=== PATIENT | male | born 1950 | race Caucasian/White ===

== ENCOUNTER 2020-09-05 11:36 | Outpatient (REF) | payer OTHER, SELFPAY ==
[2020-09-05 14:37] LABS: Creatinine Urine 120.22 mg/dL; Estimated Average Glucose 146 mg/dL; Hemoglobin A1c % 6.7 %; Microalbum/Creatinine Ratio Ur 18.2 ug/mg cr
[2020-09-05 14:38] LABS: Alanine Aminotransferase 21 U/L (0-40); Albumin Level 4.1 g/dL (3.5-5.0); Alkaline Phosphatase 78 U/L (39-117); Anion Gap 11 (12-20); Aspartate Amino Transferase 17 U/L (5-37); Bilirubin Direct 0.2 mg/dL (0.0-0.5); Bilirubin Total 0.7 mg/dL (0.0-1.0); Blood Urea Nitrogen 29 mg/dL (9-16); Calcium 9.7 mg/dL (8.4-10.2); Carbon Dioxide 32 mmol/L (22-29); Chloride 101 mmol/L (96-108); Estimated Glomerular Filt Rate 60; Glucose Random 122 mg/dL (60-115); Potassium 4.6 mmol/L (3.3-5.1); Sodium 139 mmol/L (135-145); Total Protein 6.9 g/dL (6.5-8.0)
[2020-09-06 04:51] LABS: LDL Cholesterol Direct 67 mg/dL (<100)
== END 2020-09-05 11:37 | disposition home or self-care (01) ==
LOC: HO.HMGCLDS 11:36
PROVIDERS: PCP Internal Medicine; Visit Provider Internal Medicine
DX: E13.9 Other specified diabetes mellitus without complications (principal); E78.9 Disorder of lipoprotein metabolism, unspecified; M25.511 Pain in right shoulder; E66.9 Obesity, unspecified; M17.11 Unilateral primary osteoarthritis, right knee; M25.522 Pain in left elbow; I10 Essential (primary) hypertension; N40.0 Benign prostatic hyperplasia without lower urinary tract symptoms
CPT/HCPCS: 36415; 80048; 80076; 82043; 83036; 83721

== ENCOUNTER 2020-09-25 07:22 | Outpatient (REF) | payer OTHER, SELFPAY ==
--- NOTE | ~2020-09-25 | XR_ITS ---
EXAMINATION: BILATERAL KNEE AP. RIGHT KNEE. CLINICAL INFORMATION: Knee pain. COMPARISON: None TECHNIQUE: AP bilateral knee 1 view. Right knee 2 views. FINDINGS: AP bilateral knee: There is total left knee prosthesis in satisfactory alignment. There is severe loss of medial and lateral compartment joint space with irregular appearing subchondral bone in the medial and lateral compartments with mild periapical spurring. Right knee: There is loss of patellofemoral compartment joint space with periapical spurring and minimal soft tissue swelling. There are enthesophytes along the anterior and posterior tibial plateau. No visible fracture or subluxation seen. XR/XR knee standing BI IMPRESSION: Severe degenerative changes tricompartment right knee with minimal is suprapatellar joint effusion. Total left knee prosthesis in satisfactory alignment.
--- NOTE | ~2020-09-25 | XR_ITS ---
EXAMINATION: BILATERAL KNEE AP. RIGHT KNEE. CLINICAL INFORMATION: Knee pain. COMPARISON: None TECHNIQUE: AP bilateral knee 1 view. Right knee 2 views. FINDINGS: AP bilateral knee: There is total left knee prosthesis in satisfactory alignment. There is severe loss of medial and lateral compartment joint space with irregular appearing subchondral bone in the medial and lateral compartments with mild periapical spurring. Right knee: There is loss of patellofemoral compartment joint space with periapical spurring and minimal soft tissue swelling. There are enthesophytes along the anterior and posterior tibial plateau. No visible fracture or subluxation seen. XR/XR knee RT 2V IMPRESSION: Severe degenerative changes tricompartment right knee with minimal is suprapatellar joint effusion. Total left knee prosthesis in satisfactory alignment.
== END 2020-09-25 07:23 | disposition home or self-care (01) ==
LOC: HO.HOSX 07:22
PROVIDERS: Visit Provider Orthopaedic Surgery
DX: M17.11 Unilateral primary osteoarthritis, right knee (principal); E13.9 Other specified diabetes mellitus without complications
CPT/HCPCS: 20610; 73560; 73565; 99212; J1100

== ENCOUNTER 2020-10-26 09:06 | Outpatient (REF) | payer OTHER, SELFPAY ==
--- NOTE | 2020-10-26 10:51 | ECG_ITS ---
Test Reason : Z01.810 PRE OP Blood Pressure : / mmHG Vent. Rate : 058 BPM Atrial Rate : 058 BPM P-R Int : 200 ms QRS Dur : 078 ms QT Int : 392 ms P-R-T Axes : 020 056 050 degrees QTc Int : 384 ms Sinus bradycardia with first degree AV block Otherwise normal ECG No previous ECGs available Referred By: Woody Fenton Electronically Signed By:Randolph Barakat
[2020-10-26 11:57] LABS: MANUAL DIFF FLAG NO
[2020-10-26 12:02] LABS: Basophils Absolute Auto 0.1 X10*3/uL (0.0-0.2); Basophils Percent Auto 0.6 % (0-2); Eosinophils Absolute Auto 0.1 X10*3/uL (0.0-0.4); Eosinophils Percent Auto 1.4 % (0-4); Hematocrit 43.4 % (42-52); Hemoglobin 14.8 g/dl (14.0-18.0); Imm Gran Abs Auto 0.03 X10*3/uL (0.00-0.03); Imm Gran Pct Auto 0.4 % (0.0-0.4); Lymphocytes Absolute Auto 2.9 X10*3/uL (1.2-4.9); Lymphocytes Percent Auto 33.7 % (20-40); Mean Corpuscular HGB Conc 34.1 g/dl (31.0-36.0); Mean Corpuscular Hemoglobin 31.4 pg (27.0-33.0); Mean Corpuscular Volume 91.9 fL (80-98); Mean Platelet Volume 11.2 fL (9.4-12.4); Monocytes Absolute Auto 0.7 X10*3/uL (0.1-1.2); Monocytes Percent Auto 8.1 % (2-11); Neutrophils Absolute Auto 4.8 X10*3/uL (2.0-8.3); Neutrophils Percent Auto 55.8 % (45-73); Platelet Count 209 X10*3/uL (160-400); Red Blood Count 4.72 X10*6/uL (4.60-5.80); Red Cell Distribution Width 12.7 % (11.0-16.0); White Blood Count 8.5 X10*3/uL (4.8-10.8)
[2020-10-26 12:35] LABS: Anion Gap 12 (12-20); Blood Urea Nitrogen 22 mg/dL (9-16); Calcium 9.2 mg/dL (8.4-10.2); Carbon Dioxide 28 mmol/L (22-29); Chloride 102 mmol/L (96-108); Estimated Glomerular Filt Rate > 60; Glucose Random 143 mg/dL (60-115); Potassium 4.3 mmol/L (3.3-5.1); Sodium 138 mmol/L (135-145)
[2020-10-26 12:54] LABS: Estimated Average Glucose 169 mg/dL; Hemoglobin A1c % 7.5 %
== END 2020-10-26 09:07 | disposition home or self-care (01) ==
LOC: HO.LAB 09:06
PROVIDERS: Visit Provider Orthopaedic Surgery
DX: Z01.810 Encounter for preprocedural cardiovascular examination (principal); Z01.812 Encounter for preprocedural laboratory examination
CPT/HCPCS: 36415; 80048; 83036; 85025; 93005

== ENCOUNTER → 2020-11-30 11:54 | Outpatient (BNVA) | payer OTHER, SELFPAY | PROVIDERS: PCP Internal Medicine; Visit Provider Physician Assistant | DX: M17.11 Unilateral primary osteoarthritis, right knee (principal) | CPT/HCPCS: 99212 ==

== ENCOUNTER 2020-12-05 10:40 | Inpatient (IN) | payer OTHER, SELFPAY ==
[2020-12-01 11:50] VITALS: BMI 33.7
--- NOTE | 2020-12-01 11:54 | HO.ANESPROP2 ---
Documented by User: Nelsyher Islasney 12/04/20 08:56 HPI - Anesthesia Eval Consult details Narrative: 70yo Right Knee Replacement Total PCP cleared Cardiac cleared [facility] Active Problems Active Problems: All Active Problems (Updated 11/30/20 @ 08:53 by Apolonia Rush) Pain in left elbow (Acute) Shoulder pain, right (Acute) First degree heart block (Acute) Pre-op evaluation (Acute) Arthritis of knee, right (Acute) Obesity (Acute) Diabetes 1.5, managed as type 2 (Acute) Prostate hypertrophy (Acute) Hypertension, essential (Acute) Lipid disorder (Acute) Osteoarthritis of right knee (Acute) Past Medical History Medical History Arthritis of knee, right COVID-19 vaccine administered CVA (cerebral vascular accident) Diabetes 1.5, managed as type 2 History of BPH Hypertension, essential Lipid disorder Myocardial infarction Obesity Osteoarthritis of right knee Prostate hypertrophy Family History Family History Father Cancer Mother CVD (cardiovascular disease) Brother No problems noted. Family history of problems with anesthesia: No Surgical History Surgical History H/O colonoscopy History of knee replacement procedure of left knee Hx of elbow surgery Hx of fusion of cervical spine Hx of hand surgery Hx of shoulder surgery History of Problems with Anesthesia: No Social History Social History Smoking Status: Former smoker Packs Per Day: 1 Cigarettes Per Day: 20.0 Years Smoked: 30 Narrative Narrative: No recent illness. Activity limited to pain. No SOB/CP at rest. Meds Allergies Allergy/AdvReac Type Severity Reaction Status Date / Time tramadol Allergy Intermediate rash Verified 11/29/20 12:34 Home Medications Medication Instructions Recorded Confirmed Last Taken Type aspirin 81 mg tablet,delayed 81 mg PO DAILY 04/28/20 12/01/20 11/26/20 History release acetaminophen [Mapap Arthritis 650 mg PO BID 11/30/20 11/30/20 Unknown History Pain] meloxicam 15 mg PO DAILY 11/30/20 12/01/20 11/26/20 History nitroglycerin 1 mg SUBLINGUAL Q5M PRN 11/30/20 11/30/20 Unknown History timolol maleate 1 drp OPHTHALMIC (EYE) BID 11/30/20 12/01/20 Unknown History sitagliptin [Januvia] 100 mg PO BEDTIME 12/01/20 12/01/20 Unknown History tamsulosin 0.4 mg PO BEDTIME 12/01/20 12/01/20 Unknown History Exam Exam Date and Time: December 01, 2020 1154 Pertinent Lab Results Pertinent Lab Results: Laboratory Tests 10/26/20 10/26/20 10:50 10:50 WBC 8.5 Hgb 14.8 Hct 43.4 Plt Count 209 Sodium 138 Potassium 4.3 Chloride 102 Carbon Dioxide 28 BUN 22 H Creatinine 1.00 Laboratory Tests 04/28/20 14:23 Hgb A1c (Clinic) 6.5 H Laboratory Last Values Nasal Screen MRSA (PCR) NEGATIVE (Negative) 12/01/20 12:30 Nasal S. aureus Screen POSITIVE (Negative) A 12/01/20 12:30 Nasal MRSA/S.aureus Interp SEE NOTE 12/01/20 12:30 Blood Type A Negative 12/01/20 13:05 Antibody Screen NEGATIVE 12/01/20 13:05 Narrative Narrative: EKG 10/2020 Vent. Rate : 058 BPM Atrial Rate : 058 BPM P-R Int : 200 ms QRS Dur : 078 ms QT Int : 392 ms P-R-T Axes : 020 056 050 degrees QTc Int : 384 ms Sinus bradycardia with first degree AV block Otherwise normal ECG No previous ECGs available Airway Mallampati Class: I TM Dist: >3cm Neck ROM: Full Denture: Upper Partial: Lower Heart: RRR Lungs: CTAB Assessment and Plan Assessment Anesthesia Assessment: Anesthesia Plan Discussed and PAT Visit Documented by User: Victor Manuel Arboleda MD 12/05/20 09:22 [facility] Past Medical History Medical History Arthritis of knee, right COVID-19 vaccine administered CVA (cerebral vascular accident) Diabetes 1.5, managed as type 2 History of BPH Hypertension, essential Lipid disorder Myocardial infarction Obesity Osteoarthritis of right knee Prostate hypertrophy Family History Family History Father Cancer Mother CVD (cardiovascular disease) Brother No problems noted. Surgical History Surgical History H/O colonoscopy History of knee replacement procedure of left knee Hx of elbow surgery Hx of fusion of cervical spine Hx of hand surgery Hx of shoulder surgery Social History Social History Smoking Status: Former smoker Packs Per Day: 1 Cigarettes Per Day: 20.0 Years Smoked: 30 Meds Allergies Allergy/AdvReac Type Severity Reaction Status Date / Time tramadol Allergy Intermediate rash Verified 11/29/20 12:34 Home Medications Medication Instructions Recorded Confirmed Last Taken Type aspirin 81 mg tablet,delayed 81 mg PO DAILY 04/28/20 12/01/20 11/26/20 History release acetaminophen [Mapap Arthritis 650 mg PO BID 11/30/20 11/30/20 Unknown History Pain] meloxicam 15 mg PO DAILY 11/30/20 12/01/20 11/26/20 History nitroglycerin 1 mg SUBLINGUAL Q5M PRN 11/30/20 11/30/20 Unknown History timolol maleate 1 drp OPHTHALMIC (EYE) BID 11/30/20 12/01/20 Unknown History sitagliptin [Januvia] 100 mg PO BEDTIME 12/01/20 12/01/20 Unknown History tamsulosin 0.4 mg PO BEDTIME 12/01/20 12/01/20 Unknown History Assessment and Plan Assessment Anesthesia Assessment: Anesthesia Plan Discussed and Chart Reviewed Final Anesthetic Review NPO: Yes ASA Class: III Final Preanesthetic Review: No Changes in Pt Med Stat, Meds/Allgs Chart Reviewed, Consent Obtained/Reviewed and Anes Risks/Benef Reviewed Patient Risk: Intermediate Procedure Risk: Intermediate Anesthetic Plan Anesthetic Plan: GA and Regional Block Disposition: Standard PACU
[2020-12-01 12:06] VITALS: BP 130/69; PULSE 63; RESP 16; O2SAT 96
[2020-12-01 14:26] LABS: MRSA Nasal PCR NEGATIVE (Negative); SA Nasal PCR POSITIVE (Negative)
[2020-12-05] VITALS (14 sets, daily range): BP systolic 103–170; BP diastolic 59–84; PULSE 54–69; RESP 12–20; TEMP 36.1–37.1; O2SAT 95–100
--- NOTE | ~2020-12-05 | XR_ITS ---
EXAMINATION: XR KNEE, RIGHT CLINICAL INFORMATION: Post knee replacement COMPARISON: Previous x-ray most recent September 2020 TECHNIQUE: Two views of the right knee. FINDINGS: There is a new 3 component right knee replacement in satisfactory position. No fracture or dislocation is seen. There are postoperative changes to the soft tissues. XR/XR knee RT 2V IMPRESSION: Satisfactory appearance of right knee replacement.
[2020-12-05] MEDS: Gabapentin 600 MG TABLET PO (06:44)
[2020-12-05 06:48] LABS: COVID-19 Test Negative (Negative)
[2020-12-05] MEDS: Lactated Ringers 1,000 ML 100 ML IVCONT (06:59)
--- NOTE | 2020-12-05 07:37 | MHC.SHP ---
Pre-Procedural Eval Section A The patient is an INPATIENT: No Changes since office visit: Yes Patient answered all questions; No Cold of Flu in the past 2 weeks, No New Medical Problems and No Changes in Medication The History & Physical has been completed within 30 days and I have reviewed it.: Yes Section B Chief Complaint: Osteoarthritis Right Knee Allergies: Allergies Allergy/AdvReac Type Severity Reaction Status Date / Time tramadol Allergy Intermediate rash Verified 11/29/20 12:34 Plan I have reviewed the history and physical and performed a pertinent physical examination on my patient. No changes have occurred unless specified.
[2020-12-05 09:37] LABS: Glucose, Whole Blood 182 mg/dL (60-115)
--- NOTE | 2020-12-05 10:00 | P.BOP_ITS ---
Brief Operative Note Date of Service: 12/05/20 Pre-op diagnosis: right knee OA Post-op diagnosis: same Procedure: right TKA Implants: [employer] Rs Surgeon: Woody Fenton MD Anesthesia: GETA and spinal Was an Global Logistics Manager used for this Procedure?: Yes Global Logistics Manager: Mariano Balbuena Estimated blood loss (mL): 150 IV fluids (mL): 1,000 Pathology: other Condition: stable Disposition: PACU
--- NOTE | 2020-12-05 10:04 | W.PM.OPN ---
Operative Note Operative Note Date of Service: 12/05/20 Narrative: Pre-op diagnosis: right knee OA Post-op diagnosis: same Procedure: right TKA Implants: [employer] 09/20/9CR/29s Surgeon: Woody Fenton MD Anesthesia: GETA and spinal Was an Transportation Logistics Internship used for this Procedure?: Yes Transportation Logistics Internship: Mariano Balbuena Estimated blood loss (mL): 150 IV fluids (mL): 1,000 Pathology: other Condition: stable Disposition: PACU Procedure in detail: Patient was brought to the operating room and prepped and draped in standard sterile fashion. A time-out was called to identify proper site proper procedure proper surgeon IV antibiotics were administered. 1 g of IV tranexamic acid was also administered. I began by making a midline incision down to the retinaculum and performed a medial parapatellar arthrotomy. The patella was translated laterally and the knee was flexed up. I performed a small medial peel and resected the infrapatellar fat pad. Milburn's line was then used to drill my intramedullary femoral guide and my distal femur cut was made in 5 degrees of valgus. I then measured a #3 femur and placed my cutting guide and made my anterior posterior and chamfer cuts protecting the soft tissues at all times. Once I was happy with my cut I turned my attention to the tibia. In line with the tibial crest and with a 3 degree posterior slope I made my distal tibial cut protecting the PCL and the posterior and collaterral soft tissues at all times. An extension block was used to confirm appropriate amount of bony resection. I then sized a#3 tibia and once I was satisfied that there was good tibial coverage I placed my trial and with the trial femur in place took the knee through range of motion. I was satisfied with the extension and flexion as well as the stability at 0, 30 and 90 degrees. I then turned my attention to the patella where I removed 1 cm from the undersurface of the patella and then trialed a 29s patellar button. Again the knee was taken through range of motion I was happy with the tracking. I then returned to the femur and drilled my femoral lug holes and prepared the tibia. Femoral bone plug was then placed and the knee was irrigated copiously. I then press fit the patella, tibia and femur in standard fashion. I trialed different inserts and was satisfied with a 9. I then placed the final insert and performed a 3 minutes iodine soak with local TXA. The knee was then closed with a running Quill suture, a 3 0 Vicryl and govind on the skin. Patient was then placed in sterile dressing and brought to recovery room in stable condition there were no known complications.
[2020-12-05] MEDS: oxyCODONE HCl Immed Release 5 MG TABLET PO ×4 (10:09→21:57)
[2020-12-05] MEDS: HYDROmorphone HCl 0.5 MG/0.5 ML SYRINGE IVPUSH ×2 (10:10→10:25)
[2020-12-05] MEDS: Sodium Chloride 0.45 % 1,000 ML 80 ML IVCONT (11:41)
[2020-12-05] MEDS: ondansetron HCL 4 MG/2 ML VIAL IVPUSH (11:59)
[2020-12-05] MEDS: ceFAZolin Sodium/Dextrose,Iso 2 GM/50 ML PIGGYBACK IV (14:10)
--- NOTE | 2020-12-05 16:40 | P.CONIM_ITS ---
History of Present Illness Data of Consult Service Date: 12/05/20 Requesting physician: Woody Fenton Primary Care Provider: Marizol Esparza MD HPI Reason for consult: Management of medical comorbidities 70yo M pt of Dr sEparza, s/p R TKA for OA today. Denies fever, chest pain, or dyspnea. No nausea, vomiting, or abd pain. Postoperative pain well-controlled. Medical history notable for [place] in 2003 managed medically, CVA in 2003 with no residual, DM2 managed with oral hypoglycemics, HTN, HLD, BPH, glaucoma, nd obesity. Prior L TKA uncomplicated. Review of Systems Review of Systems: Yes all other systems are reviewed and are negative [facility] Medical History (Updated 12/05/20 @ 16:46 by Anand Becker MD) Arthritis of knee, right CAD (coronary artery disease) COVID-19 vaccine administered CVA (cerebral vascular accident) CVD (cerebrovascular disease) Diabetes 1.5, managed as type 2 History of BPH Hypertension, essential Lipid disorder Myocardial infarction Obesity Osteoarthritis of right knee Prostate hypertrophy Family History Father Cancer Mother CVD (cardiovascular disease) Brother No problems noted. Surgical History H/O colonoscopy History of knee replacement procedure of left knee Hx of elbow surgery Hx of fusion of cervical spine Hx of hand surgery Hx of shoulder surgery Social History Household Members: Spouse Housing: House Are you a primary career placement specialist to a significant other at home: No Do you presently have visiting nurse or other home services: No Smoking Status: Former smoker Packs Per Day: 1 Cigarettes Per Day: 20.0 Years Smoked: 30 Smoked in Last 30 Days: No Smoking Quit Date: 2003 Use of substances other than those prescribed or required for medical reasons: No Have you been hit, kicked, punched, or otherwise hurt by someone within the past year? If so, by whom?: No Do you feel safe in your current relationship?: Yes Is there a partner from a previous relationship who is making you feel unsafe now?: No Are you made to feel afraid or neglected: No Are you DNR?: No Advance Directives Information Provided: No Do you have thoughts of harming others: None Do you have a plan to hurt others: No Plan Recently lost weight without trying: No Eating poorly because of decreased appetite: No Nutrition Risks: No Nutritional Risk Poor oral hygiene: No Meds Allergies Allergy/AdvReac Type Severity Reaction Status Date / Time tramadol Allergy Intermediate rash Verified 11/29/20 12:34 Active Medications: Current Medications Generic Name Dose Route Start Last Admin Trade Name Freq PRN Reason Stop Dose Admin Acetaminophen 650 mg 12/05/20 11:19 Acetaminophen 325 Mg Tablet PO Q6H PRN Pain, Mild (Pain Scale 1-3) Aspirin 325 mg 12/06/20 10:00 Aspirin 325 Mg Tablet PO BID [facility] Celecoxib 200 mg 12/05/20 21:00 Celecoxib 200 Mg Capsule PO BID [facility] Docusate Sodium 100 mg 12/05/20 21:00 Docusate Sodium 100 Mg Capsule PO BID SONA Hydromorphone HCl 0.25 mg 12/05/20 11:19 Hydromorphone Hcl 0.5 Mg/0.5 Ml Syringe IVPUSH Q4H PRN Pain, Severe (Pain Scale 7-10) Sodium Chloride 1,000 mls @ 80 mls/hr 12/05/20 11:19 12/05/20 11:41 IVCONT 80 mls/hr .[id number] SONA Administration Naloxone HCl 0.2 mg 12/05/20 11:19 Naloxone Hcl 0.4 Mg/Ml Vial IVPUSH Q2M PRN Excessive sedation or RR < 8 Ondansetron HCl 4 mg 12/05/20 11:19 12/05/20 11:59 Ondansetron Hcl 4 Mg/2 Ml Vial IVPUSH 4 mg Q8H PRN Administration Nausea and Vomiting Oxycodone HCl 5 mg 12/05/20 11:19 12/05/20 14:10 Oxycodone Hcl Immed Release 5 Mg Tablet PO 5 mg Q4H PRN Administration Pain, Moderate (Pain Scale 4-6 Oxycodone HCl 10 mg 12/05/20 21:00 Oxycodone Hcl Er 10 Mg Tab.Er.12h PO BID SONA Sodium Chloride 3 ml 12/05/20 16:00 12/05/20 16:00 0.9 % Sodium Chloride Flush 3 Ml Syringe IVFLUSH Not Given QSHIFT [facility] Home Medications Medication Instructions Recorded Confirmed Last Taken Type aspirin 81 mg tablet,delayed 81 mg PO DAILY 04/28/20 12/01/20 11/26/20 History release acetaminophen [Mapap Arthritis 650 mg PO BID 11/30/20 11/30/20 Unknown History Pain] meloxicam 15 mg PO DAILY 11/30/20 12/01/20 11/26/20 History nitroglycerin 1 mg SUBLINGUAL Q5M PRN 11/30/20 11/30/20 Unknown History timolol maleate 1 drp OPHTHALMIC (EYE) BID 11/30/20 12/01/20 Unknown History sitagliptin [Januvia] 100 mg PO BEDTIME 12/01/20 12/01/20 Unknown History tamsulosin 0.4 mg PO BEDTIME 12/01/20 12/01/20 Unknown History Physical Exam Vital Signs and Narrative: Vital Signs: Last Vital Signs Temp 97.9 F 12/05/20 15:11 Pulse 60 12/05/20 15:11 Resp 15 12/05/20 15:11 BP 107/59 L 12/05/20 15:11 Pulse Ox 96 12/05/20 15:11 Body Mass Index 33.7 Gen: in no acute distress HEENT: sclera anicteric, moist mucus membranes Neck: supple Lungs: clear to auscultation bilaterally Heart: regular rate and rhythm, no murmurs Abd: soft, obese non-tender, non-distended Ext: R knee with dressing Skin: warm/well-perfused Neuro: alert and oriented x3, no focal findings Psych: appropriate affect Results Labs Labs: Laboratory Results - last 24 hr 12/05/20 12/05/20 06:13 06:47 POC Glucose 182 H COVID-19 ([facility]) Negative COVID-19 Clin Com See Note Imaging Radiologist's Impressions: Impressions Knee X-Ray 12/05/20 10:35 IMPRESSION: Satisfactory appearance of right knee replacement. Assessment and Plan (1) Diabetes 1.5, managed as type 2: Problem details: blood sugar usually ~ 150-180 / dx ~2003 Status: Acute (2) Hypertension, essential: Status: Acute (3) Lipid disorder: Status: Acute (4) CAD (coronary artery disease): Status: Acute (5) CVD (cerebrovascular disease): Status: Acute 70yo M with CAD/CVD (remote [place]/CVA), DM1.5 on OHGs, HTN, HLD, and BPH who underwent R TKA for OA. Medicine consultation for management of comorbid conditions. # CAD # CVD - continue statin. will be on ASA for VTE ppx. prn NTG # DM1.5 - hold OHGs, give correction-dose insulin, check POC BG qidachs. last A1c 7.5 on 10/26/20 # HTN - hold lisinopril/HCTZ for now given soft BP # BPH - continue tamsulosin # glaucoma - continue timolol # POD#0 TKA - analgesia and postop care as per Ortho team # VTE ppx - ASA Thank you for this consult. We will follow along with you.
[2020-12-05 16:51] LABS: Glucose, Whole Blood 194 mg/dL (60-115)
[2020-12-05 20:20] LABS: Glucose, Whole Blood 120 mg/dL (60-115)
[2020-12-05] MEDS: Acetaminophen 325 MG TABLET 650 MG PO (20:49)
[2020-12-05] MEDS: Docusate Sodium 100 MG CAPSULE PO (20:49)
[2020-12-05] MEDS: oxyCODONE HCl ER 10 MG TAB.ER.12H PO (20:50)
[2020-12-05] MEDS: Tamsulosin HCL 0.4 MG CAPSULE PO (20:50)
[2020-12-05] MEDS: Celecoxib 200 MG CAPSULE PO (20:50)
[2020-12-05] MEDS: timoloL maleate 0.5 % Oph Sol 5 ML DRBTL 1 DROP EYE-BOTH (21:06)
[2020-12-06] VITALS (7 sets, daily range): BP systolic 114–131; BP diastolic 61–71; PULSE 65–77; RESP 14–20; TEMP 36–37.4; O2SAT 94–95
[2020-12-06] MEDS: Sodium Chloride 0.45 % 1,000 ML 80 ML IVCONT ×2 (00:08→16:52)
[2020-12-06] MEDS: HYDROmorphone HCl 0.5 MG/0.5 ML SYRINGE 0.25 MG IVPUSH (05:22)
[2020-12-06 07:23] LABS: Basophils Percent Auto 0.2 % (0-2); Eosinophils Percent Auto 0.1 % (0-4); Hematocrit 35.4 % (42-52); Hemoglobin 11.7 g/dl (14.0-18.0); Imm Gran Abs Auto 0.04 X10*3/uL (0.00-0.03); Imm Gran Pct Auto 0.4 % (0.0-0.4); Lymphocytes Absolute Auto 1.3 X10*3/uL (1.2-4.9); Lymphocytes Percent Auto 12.9 % (20-40); MANUAL DIFF FLAG SCAN; Mean Corpuscular HGB Conc 33.1 g/dl (31.0-36.0); Mean Corpuscular Hemoglobin 30.8 pg (27.0-33.0); Mean Corpuscular Volume 93.2 fL (80-98); Mean Platelet Volume 10.2 fL (9.4-12.4); Monocytes Absolute Auto 1.5 X10*3/uL (0.1-1.2); Monocytes Percent Auto 15.5 % (2-11); Neutrophils Percent Auto 70.9 % (45-73); Platelet Count 211 X10*3/uL (160-400); Red Cell Distribution Width 12.7 % (11.0-16.0); SCAN SMEAR FLAG 1; White Blood Count 9.8 X10*3/uL (4.8-10.8)
[2020-12-06 07:42] LABS: Glucose, Whole Blood 160 mg/dL (60-115)
[2020-12-06 07:51] LABS: Anion Gap 12 (12-20); Blood Urea Nitrogen 17 mg/dL (9-16); Calcium 8.1 mg/dL (8.4-10.2); Carbon Dioxide 26 mmol/L (22-29); Chloride 100 mmol/L (96-108); Creatinine Clr Calc Pharmacy 71.2; Estimated Glomerular Filt Rate > 60; Glucose Fasting 185 mg/dL (60-99); Potassium 3.9 mmol/L (3.3-5.1); Sodium 134 mmol/L (135-145)
[2020-12-06 08:07] LABS: SLIDE REVIEW VERIFIED
--- NOTE | 2020-12-06 08:15 | PM.PNORT ---
Subjective Subjective Date of Service: 12/06/20 Interval history: POD 1 s/p RT TKA No overnight events resting in bed, has been out of bed using bathroom. Denies cp,sob,palpitations Physical Exam Vital Signs: Vital Signs: Last Vital Signs Temp 98.1 F 12/06/20 07:27 Pulse 77 12/06/20 07:27 Resp 18 12/06/20 07:27 BP 119/65 12/06/20 07:27 Pulse Ox 94 12/06/20 07:27 Body Mass Index 33.7 Const: General: cooperative, healthy appearing and no acute distress Resp: Effort & Inspection: normal respiratory effort and able to speak in complete sentences Cardio: Rate: regular rate Peripheral pulses: Peripheral pulses 2+ throughout GI: Palpation (GI): Soft to palpation Skin: General skin exam: no rashes or lesions noted Extrem: Other: bandage clean dry and intact. Haresh intact. No erythema or joint effusion. Calf supple nontender. Neurovascularly intact. Progress Note: A&P Assessment and plan (1) Status post total right knee replacement: Status: Acute Assessment and Plan: Continue pain mgmnt Begin Aspirin for dvt ppx begin PT for RT TKA Dispo planning-Pending PT eval, pain mgmnt Fall Risk Details Current Medications: Current Medications Generic Name Dose Route Start Last Admin Trade Name Freq PRN Reason Stop Dose Admin Acetaminophen 650 mg 12/05/20 11:19 12/05/20 20:49 Acetaminophen 325 Mg Tablet PO 650 mg Q6H PRN Administration Pain, Mild (Pain Scale 1-3) Aspirin 325 mg 12/06/20 10:00 Aspirin 325 Mg Tablet PO BID [facility] Atorvastatin Calcium 80 mg 12/06/20 09:00 Atorvastatin Calcium 80 Mg Tablet PO DAILY SONA Celecoxib 200 mg 12/05/20 21:00 12/05/20 20:50 Celecoxib 200 Mg Capsule PO 200 mg BID SONA Administration Docusate Sodium 100 mg 12/05/20 21:00 12/05/20 20:49 Docusate Sodium 100 Mg Capsule PO 100 mg BID SONA Administration Hydromorphone HCl 0.25 mg 12/05/20 11:19 12/06/20 05:22 Hydromorphone Hcl 0.5 Mg/0.5 Ml Syringe IVPUSH 0.25 mg Q4H PRN Administration Pain, Severe (Pain Scale 7-10) Sodium Chloride 1,000 mls @ 80 mls/hr 12/05/20 11:19 12/06/20 00:08 IVCONT 80 mls/hr .[id number] SONA Administration Insulin Human Lispro 0 unit 12/05/20 21:00 12/05/20 20:46 Insulin Lispro 100 Unit/Ml 3 Ml Vial SUBCUT Not Given QIDACHS [facility] Protocol Naloxone HCl 0.2 mg 12/05/20 11:19 Naloxone Hcl 0.4 Mg/Ml Vial IVPUSH Q2M PRN Excessive sedation or RR < 8 Nitroglycerin 1 mg 12/05/20 16:41 Nitroglycerin 0.4 Mg Tab.Subl SUBLINGUAL Q5M PRN Chest Pain Ondansetron HCl 4 mg 12/05/20 11:19 12/05/20 11:59 Ondansetron Hcl 4 Mg/2 Ml Vial IVPUSH 4 mg Q8H PRN Administration Nausea and Vomiting Oxycodone HCl 5 mg 12/05/20 11:19 12/05/20 21:57 Oxycodone Hcl Immed Release 5 Mg Tablet PO 5 mg Q4H PRN Administration Pain, Moderate (Pain Scale 4-6 Oxycodone HCl 10 mg 12/05/20 21:00 12/05/20 20:50 Oxycodone Hcl Er 10 Mg Tab.Er.12h PO 10 mg BID SONA Administration Sodium Chloride 3 ml 12/05/20 16:00 12/06/20 00:09 0.9 % Sodium Chloride Flush 3 Ml Syringe IVFLUSH Not Given QSHIFT [facility] Tamsulosin HCl 0.4 mg 12/05/20 21:00 12/05/20 20:50 Tamsulosin Hcl 0.4 Mg Capsule PO 0.4 mg BEDTIME SONA Administration Timolol Maleate 1 drop 12/05/20 21:00 12/05/20 21:06 Timolol Maleate 0.5 % Oph Carol 5 Ml Drbtl EYE-BOTH 1 drop BID SONA Administration Time Spent With Patient Time: Total time spent is greater than 50% in coordination of care (as documented) at patient's floor/unit and/or counseling patient: Time with patient: less than 15 minutes Procedures Date of Service Date of Service: 12/06/20
[2020-12-06] MEDS: Insulin Lispro 100 UNIT/ML 3 ML VIAL SUBCUT ×3 (08:41→16:50)
[2020-12-06] MEDS: oxyCODONE HCl ER 10 MG TAB.ER.12H PO ×2 (08:42→21:26)
[2020-12-06] MEDS: Celecoxib 200 MG CAPSULE PO ×2 (08:42→21:27)
[2020-12-06] MEDS: Docusate Sodium 100 MG CAPSULE PO ×2 (08:42→21:26)
[2020-12-06] MEDS: Atorvastatin Calcium 80 MG TABLET PO (08:43)
[2020-12-06] MEDS: timoloL maleate 0.5 % Oph Sol 5 ML DRBTL 1 DROP EYE-BOTH ×2 (08:43→21:28)
[2020-12-06] MEDS: Aspirin 325 MG TABLET PO ×2 (08:43→21:25)
--- NOTE | 2020-12-06 10:24 | HO.POSTANES ---
Post Anesthesia Evaluation Post Anesthesia Evaluation Vital Signs: Vital Signs Temp Pulse Resp BP Pulse Ox 12/06/20 07:27 98.1 F 77 18 119/65 94 12/06/20 06:24 18 12/06/20 05:22 20 12/06/20 03:59 98.5 F 70 18 131/71 95 12/05/20 23:27 98.2 F 64 18 118/62 96 Anesthesia: Nerve Block and General Mental Status: Awake Pain Control: Satisfactory Nausea/Vomiting: None Hydration: Adequate Anesthesia-Related Issues: No Anes. Related Issues
--- NOTE | 2020-12-06 11:19 | P.PNIM_ITS ---
Subjective Subjective Date of Service: 12/06/20 Interval History: postop pain controlled no chest pain or dyspnea nausea resolved Physical Exam Vital Signs: Vital Signs: Last Vital Signs Temp 98.1 F 12/06/20 07:27 Pulse 77 12/06/20 07:27 Resp 18 12/06/20 07:27 BP 119/65 12/06/20 07:27 Pulse Ox 94 12/06/20 07:27 Body Mass Index 33.7 Gen: in no acute distress HEENT: sclera anicteric, moist mucus membranes Neck: supple Lungs: clear to auscultation bilaterally Heart: regular rate and rhythm, no murmurs Abd: soft, non-tender, non-distended Ext: no edema Skin: warm/well-perfused Neuro: alert and oriented x3, no focal findings Psych: appropriate affect Objective Data Current Medications Generic Name Dose Route Start Last Admin Trade Name Freq PRN Reason Stop Dose Admin Acetaminophen 650 mg 12/05/20 11:19 12/05/20 20:49 Acetaminophen 325 Mg Tablet PO 650 mg Q6H PRN Administration Pain, Mild (Pain Scale 1-3) Aspirin 325 mg 12/06/20 10:00 12/06/20 08:43 Aspirin 325 Mg Tablet PO 325 mg BID SONA Administration Atorvastatin Calcium 80 mg 12/06/20 09:00 12/06/20 08:43 Atorvastatin Calcium 80 Mg Tablet PO 80 mg DAILY SONA Administration Celecoxib 200 mg 12/05/20 21:00 12/06/20 08:42 Celecoxib 200 Mg Capsule PO 200 mg BID SONA Administration Docusate Sodium 100 mg 12/05/20 21:00 12/06/20 08:42 Docusate Sodium 100 Mg Capsule PO 100 mg BID SONA Administration Hydromorphone HCl 0.25 mg 12/05/20 11:19 12/06/20 05:22 Hydromorphone Hcl 0.5 Mg/0.5 Ml Syringe IVPUSH 0.25 mg Q4H PRN Administration Pain, Severe (Pain Scale 7-10) Sodium Chloride 1,000 mls @ 80 mls/hr 12/05/20 11:19 12/06/20 00:08 IVCONT 80 mls/hr .[id number] SONA Administration Insulin Human Lispro 0 unit 12/05/20 21:00 12/06/20 08:41 Insulin Lispro 100 Unit/Ml 3 Ml Vial SUBCUT 2 unit QIDACHS SONA Administration Protocol Naloxone HCl 0.2 mg 12/05/20 11:19 Naloxone Hcl 0.4 Mg/Ml Vial IVPUSH Q2M PRN Excessive sedation or RR < 8 Nitroglycerin 1 mg 12/05/20 16:41 Nitroglycerin 0.4 Mg Tab.Subl SUBLINGUAL Q5M PRN Chest Pain Ondansetron HCl 4 mg 12/05/20 11:19 12/05/20 11:59 Ondansetron Hcl 4 Mg/2 Ml Vial IVPUSH 4 mg Q8H PRN Administration Nausea and Vomiting Oxycodone HCl 5 mg 12/05/20 11:19 12/05/20 21:57 Oxycodone Hcl Immed Release 5 Mg Tablet PO 5 mg Q4H PRN Administration Pain, Moderate (Pain Scale 4-6 Oxycodone HCl 10 mg 12/05/20 21:00 12/06/20 08:42 Oxycodone Hcl Er 10 Mg Tab.Er.12h PO 10 mg BID SONA Administration Sodium Chloride 3 ml 12/05/20 16:00 12/06/20 08:41 0.9 % Sodium Chloride Flush 3 Ml Syringe IVFLUSH Not Given QSHIFT SONA Tamsulosin HCl 0.4 mg 12/05/20 21:00 12/05/20 20:50 Tamsulosin Hcl 0.4 Mg Capsule PO 0.4 mg BEDTIME SONA Administration Timolol Maleate 1 drop 12/05/20 21:00 12/06/20 08:43 Timolol Maleate 0.5 % Oph Carol 5 Ml Drbtl EYE-BOTH 1 drop BID SONA Administration Labs CBC & Chem 7: 12/06/20 06:24 12/06/20 06:24 Labs: Laboratory Results - last 24 hr 12/05/20 12/05/20 12/06/20 16:47 20:12 06:24 WBC RBC Hgb Hct MCV MCH MCHC RDW Plt Count MPV Immature Gran % (Auto) Neut % (Auto) Lymph % (Auto) [place] % (Auto) Eos % (Auto) Baso % (Auto) Lymph # (Auto) [place] # (Auto) Eos # (Auto) Baso # (Auto) Abs Immat Gran (auto) Absolute Neuts (auto) Absolute Nucleated RBC Nucleated RBC % (auto) Smear Tech's Comments Sodium 134 L Potassium 3.9 Chloride 100 Carbon Dioxide 26 Anion Gap 12 BUN 17 H Creatinine 1.00 Estim Creat Clear Calc 71.2 Estimated GFR > 60 POC Glucose 194 H 120 H Fasting Glucose 185 H Calcium 8.1 L D 12/06/20 12/06/20 06:24 07:26 WBC 9.8 RBC 3.80 L Hgb 11.7 L D Hct 35.4 L MCV 93.2 MCH 30.8 MCHC 33.1 RDW 12.7 Plt Count 211 MPV 10.2 Immature Gran % (Auto) 0.4 Neut % (Auto) 70.9 Lymph % (Auto) 12.9 L [place] % (Auto) 15.5 H Eos % (Auto) 0.1 Baso % (Auto) 0.2 Lymph # (Auto) 1.3 [place] # (Auto) 1.5 H Eos # (Auto) 0.0 Baso # (Auto) 0.0 Abs Immat Gran (auto) 0.04 H Absolute Neuts (auto) 7.0 Absolute Nucleated RBC 0.000 Nucleated RBC % (auto) 0.0 Smear Tech's Comments VERIFIED Sodium Potassium Chloride Carbon Dioxide Anion Gap BUN Creatinine Estim Creat Clear Calc Estimated GFR POC Glucose 160 H Fasting Glucose Calcium Assessment and Plan (1) CVD (cerebrovascular disease): Status: Acute (2) CAD (coronary artery disease): Status: Acute Assessment and Plan: hospital d#2 70yo M with CAD/CVD (remote [place]/CVA), DM1.5 on OHGs, HTN, HLD, and BPH who is POD #2 from R TKA for OA. Medicine consultation for management of comorbid conditions. # CAD # CVD - continue statin. will be on ASA for VTE ppx. prn NTG # DM1.5, A1c 7.5 (10/26/20) - held OHGs, give correction-dose insulin, check POC BG qidachs. # HTN - held lisinopril/HCTZ and BP is normal now # BPH - continue tamsulosin # glaucoma - continue timolol # postop anemia - monitor CBC # POD#1 TKA - analgesia and postop care as per Ortho team # VTE ppx - ASA
[2020-12-06 11:32] LABS: Glucose, Whole Blood 189 mg/dL (60-115)
--- NOTE | 2020-12-06 12:12 | MHC.CM.PN ---
PATIENT LIVES WITH HIS HE HAS A WHEELED WALKER, SINGLE PRONG CANE, AND A WHEEL CHAIR IN THE HOME. NO VNA SERVICES HE IS HOPING TO RETURN HOME WITH VNA FOR HOME PHYSICAL THERAPY AND [facility]; NOW PLACED. CASE MANAGEMENT FOLLOWING. PATIENT IS WILLING TO ASSIGN A HCP. CM TO RETURN WITH DOCUMENT WHICH WILL BE WITNESSED, SIGNED, AND A COPY PLACED IN CHART. IMM 12/06 IN CHART.
[2020-12-06] MEDS: oxyCODONE HCl Immed Release 5 MG TABLET PO (16:04)
[2020-12-06 16:27] LABS: Glucose, Whole Blood 154 mg/dL (60-115)
[2020-12-06 20:43] LABS: Glucose, Whole Blood 145 mg/dL (60-115)
[2020-12-06] MEDS: Tamsulosin HCL 0.4 MG CAPSULE PO (21:26)
[2020-12-07] VITALS: BP 92/47; PULSE 74; RESP 16; TEMP 36.9; O2SAT 96
[2020-12-07 03:49] VITALS: BP 115/63; PULSE 74; RESP 17; TEMP 36.2; O2SAT 96
[2020-12-07] MEDS: Sodium Chloride 0.45 % 1,000 ML 80 ML IVCONT (05:18)
[2020-12-07 06:25] LABS: MANUAL DIFF FLAG NO
[2020-12-07 06:44] LABS: Basophils Percent Auto 0.3 % (0-2); Eosinophils Percent Auto 0.3 % (0-4); Hematocrit 31.5 % (42-52); Hemoglobin 10.5 g/dl (14.0-18.0); Imm Gran Abs Auto 0.06 X10*3/uL (0.00-0.03); Imm Gran Pct Auto 0.7 % (0.0-0.4); Lymphocytes Absolute Auto 1.2 X10*3/uL (1.2-4.9); Lymphocytes Percent Auto 13.1 % (20-40); Mean Corpuscular HGB Conc 33.3 g/dl (31.0-36.0); Mean Corpuscular Volume 92.9 fL (80-98); Mean Platelet Volume 10.1 fL (9.4-12.4); Monocytes Absolute Auto 1.4 X10*3/uL (0.1-1.2); Monocytes Percent Auto 15.4 % (2-11); Neutrophils Absolute Auto 6.4 X10*3/uL (2.0-8.3); Neutrophils Percent Auto 70.2 % (45-73); Platelet Count 185 X10*3/uL (160-400); Red Blood Count 3.39 X10*6/uL (4.60-5.80); Red Cell Distribution Width 12.8 % (11.0-16.0); White Blood Count 9.1 X10*3/uL (4.8-10.8)
[2020-12-07 07:03] LABS: Anion Gap 15 (12-20); Blood Urea Nitrogen 22 mg/dL (9-16); Calcium 8.1 mg/dL (8.4-10.2); Carbon Dioxide 22 mmol/L (22-29); Chloride 101 mmol/L (96-108); Creatinine Clr Calc Pharmacy 71.2; Estimated Glomerular Filt Rate > 60; Glucose Fasting 156 mg/dL (60-99); Potassium 3.6 mmol/L (3.3-5.1); Sodium 134 mmol/L (135-145)
--- NOTE | 2020-12-07 07:31 | P.DS_ITS ---
DS: Providers Provider Date of Service: 12/07/20 Date of admission: 12/05/20 10:40 Primary care physician: Unknown Physician Consults: 12/05/20 10:05 Consult to Hospitalist Routine Consulting Provider: Hospitalist Reason For Exam: medical managment, diabetes managment 12/05/20 11:19 Consult to Hospitalist Routine Consulting Provider: Hospitalist Reason For Exam: medial management, diabetes DS: Diagnosis Discharge Diagnosis (1) CVD (cerebrovascular disease): Status: Acute (2) CAD (coronary artery disease): Status: Acute (3) Status post total right knee replacement: Status: Acute Problem details: Mr. Cai is a 70 yo male who presented to the office with ongoing right knee pain. He was found to have OA of the right knee and had failed all conservative treatment. He continued to have difficulty with ambulation and daily activities; therefore he consented to move forward with Right total knee arthroplasty. DS: Medications Discharge Medications Home Medications: Home Medications Medication Instructions Recorded Confirmed aspirin 81 mg tablet,delayed 81 mg PO DAILY 04/28/20 12/01/20 release acetaminophen [Mapap Arthritis 650 mg PO BID 11/30/20 11/30/20 Pain] meloxicam 15 mg PO DAILY 11/30/20 12/01/20 nitroglycerin 1 mg SUBLINGUAL Q5M PRN 11/30/20 11/30/20 timolol maleate 1 drp OPHTHALMIC (EYE) BID 11/30/20 12/01/20 sitagliptin [Januvia] 100 mg PO BEDTIME 12/01/20 12/01/20 tamsulosin 0.4 mg PO BEDTIME 12/01/20 12/01/20 Previous Rx's Medication Instructions Recorded lancets 28 gauge #100 ea 10/19/20 atorvastatin 80 mg tablet 80 mg PO DAILY 90 Days #90 tab 11/09/20 lisinopril 20 1 tab PO DAILY 90 Days #90 tab 11/09/20 mg-hydrochlorothiazide 25 mg tablet metformin 1,000 mg tablet 1,000 mg PO BID 90 Days #180 tab 11/09/20 DS: Summary Hospital Course Hospital Course: The patient underwent a successful right total knee arthroplasty, they were tra nsferred to PACU and then to the floor to recover. During their stay, their vitals were stable, afebrile at 97.1. Labs were unremarkable, H/H 10.5/31.5. POD 1 they were started on Aspirin 325mg po bid for DVT ppx, they also received Physical Therapy services twice a day. Prior to discharge, their dressing was changed, incision clean dry and intact, new Aquacel dressing applied and the plan was to be discharged home with VNA services. Time Spent with Patient Time attestation: Total time spent providing and/or coordinating discharge services: Discharge coordination time: Less than 30 minutes Quality: Stroke Does the patient have a stroke diagnosis?: No Physical Exam Vital Signs: Vital Signs: Last Vital Signs Temp 97.1 F 12/07/20 03:49 Pulse 74 12/07/20 03:49 Resp 17 12/07/20 03:49 BP 115/63 12/07/20 03:49 Pulse Ox 96 12/07/20 03:49 Body Mass Index 33.7 Const: General: cooperative, healthy appearing and no acute distress Resp: Effort & Inspection: normal respiratory effort and able to speak in complete sentences Cardio: Rate: regular rate Peripheral pulses: Peripheral pulses 2+ throughout GI: Palpation (GI): Soft to palpation Skin: Lesions: no lesions Rashes: no rashes Extrem: Other: Right knee no ecchymosis, redness, drainage, warmth. Incision site is well approximated with govind intact. New Aquacel dressing was applied. DS: Data Data Completed and Pending Completed studies during hospitalization [Text1]: Pending at discharge 12/05/20 09:24 Surgical [PTH] Routine Labs on day of discharge: Laboratory Results - last 24 hr 12/06/20 12/06/20 12/06/20 06:24 06:24 07:26 WBC 9.8 RBC 3.80 L Hgb 11.7 L D Hct 35.4 L MCV 93.2 MCH 30.8 MCHC 33.1 RDW 12.7 Plt Count 211 MPV 10.2 Immature Gran % (Auto) 0.4 Neut % (Auto) 70.9 Lymph % (Auto) 12.9 L [place] % (Auto) 15.5 H Eos % (Auto) 0.1 Baso % (Auto) 0.2 Lymph # (Auto) 1.3 [place] # (Auto) 1.5 H Eos # (Auto) 0.0 Baso # (Auto) 0.0 Abs Immat Gran (auto) 0.04 H Absolute Neuts (auto) 7.0 Absolute Nucleated RBC 0.000 Nucleated RBC % (auto) 0.0 Smear Tech's Comments VERIFIED Sodium 134 L Potassium 3.9 Chloride 100 Carbon Dioxide 26 Anion Gap 12 BUN 17 H Creatinine 1.00 Estim Creat Clear Calc 71.2 Estimated GFR > 60 POC Glucose 160 H Fasting Glucose 185 H Calcium 8.1 L D 12/06/20 12/06/20 12/06/20 11:22 16:19 20:30 WBC RBC Hgb Hct MCV MCH MCHC RDW Plt Count MPV Immature Gran % (Auto) Neut % (Auto) Lymph % (Auto) [place] % (Auto) Eos % (Auto) Baso % (Auto) Lymph # (Auto) [place] # (Auto) Eos # (Auto) Baso # (Auto) Abs Immat Gran (auto) Absolute Neuts (auto) Absolute Nucleated RBC Nucleated RBC % (auto) Smear Tech's Comments Sodium Potassium Chloride Carbon Dioxide Anion Gap BUN Creatinine Estim Creat Clear Calc Estimated GFR POC Glucose 189 H 154 H 145 H Fasting Glucose Calcium 12/07/20 12/07/20 06:08 06:08 WBC 9.1 RBC 3.39 L Hgb 10.5 L Hct 31.5 L MCV 92.9 MCH 31.0 MCHC 33.3 RDW 12.8 Plt Count 185 MPV 10.1 Immature Gran % (Auto) 0.7 H Neut % (Auto) 70.2 Lymph % (Auto) 13.1 L [place] % (Auto) 15.4 H Eos % (Auto) 0.3 Baso % (Auto) 0.3 Lymph # (Auto) 1.2 [place] # (Auto) 1.4 H Eos # (Auto) 0.0 Baso # (Auto) 0.0 Abs Immat Gran (auto) 0.06 H Absolute Neuts (auto) 6.4 Absolute Nucleated RBC 0.000 Nucleated RBC % (auto) 0.0 Smear Tech's Comments Sodium 134 L Potassium 3.6 Chloride 101 Carbon Dioxide 22 Anion Gap 15 BUN 22 H Creatinine 1.00 Estim Creat Clear Calc 71.2 Estimated GFR > 60 POC Glucose Fasting Glucose 156 H Calcium 8.1 L Discharge Plan Discharge Patient Disposition: Home Health Service Discharge Diagnosis: RT TKA Referrals: Mariano Balbuena PA-C [Physician [employer] Member] - 2 Weeks (6/3/21 at 12:30pm) Discharge Medications: New oxycodone 5 mg Tablet 5 mg PO Q4H PRN (Reason: Pain, Moderate (Pain Scale 4-6) 7 Days Qty: 42 RF: 0 aspirin 325 mg Tablet 325 mg PO BID 42 Days Qty: 84 RF: 0 acetaminophen 325 mg Tablet 650 mg PO Q6H PRN (Reason: Pain, Mild (Pain Scale 1-3)) 30 Days Qty: 240 RF: 0 docusate sodium 100 mg Capsule 100 mg PO BID 30 Days Qty: 60 RF: 0 Continued (DME) lancets 28 gauge misc See Rx Instructions ea topical .MEDSUPPLY Qty: 100 RF: 0 atorvastatin 80 mg tablet 80 mg PO DAILY 90 Days Qty: 90 RF: 0 lisinopril-hydrochlorothiazide 20-25 mg tablet 1 tab PO DAILY 90 Days Qty: 90 RF: 0 metformin 1,000 mg tablet 1,000 mg PO BID 90 Days Qty: 180 RF: 1 nitroglycerin 0.4 mg tablet, sublingual 1 mg sublingual Q5M PRN (Reason: Chest Pain) RF: 0 timolol maleate 0.5 % drops 1 drp ophthalmic (eye) BID RF: 0 tamsulosin 0.4 mg capsule 0.4 mg PO BEDTIME RF: 0 Januvia 100 mg tablet 100 mg PO BEDTIME RF: 0 Discontinued meloxicam 15 mg tablet 15 mg PO DAILY RF: 0 acetaminophen [Mapap Arthritis Pain] 650 mg tablet extended release 650 mg PO BID RF: 0 aspirin 81 mg tablet,delayed release (DR/EC) 81 mg PO DAILY RF: 0 Discharge Orders: Discharge Order (Routine); Ordered 12/07/20 Ordered By: Tati Pereira Diet: regular diet Activity on Discharge: Use cane or walker Stand Alone Forms: Patient Portal Discharge page Care Plan Goals: Restore function of joint Health Concerns: None Plan of Treatment: Physical Therapy Pain management DVT prophylaxis Assessment: * Physical Therapy for Total knee arthroplasty: gait training, ROM 0-12, quad strength * Limit stair climbing * No showering, no tub bath-keep dressing clean, dry and intact * No driving x6 weeks * Continue Aspirin twice a day x 6 weeks * Follow up with [facility] in 2 weeks
--- NOTE | 2020-12-07 07:31 | W.MHC.F2F ---
Service Date Service Date: 12/07/20 Encounter Date of encounter: 12/07/20 Reasons for Services Reason for physical therapy: home safety and mobility, therapeutic exercises, restore joint function, gait/transfer training, assess need for DME and ADL training Reason for occupational therapy: home safety and mobility, therapeutic exercises, restore joint function, gait/transfer training, assess need for DME and ADL training Homebound: Leaving the home is medically contraindicated at this time without the asist of a device and/or another person due th the listed conditions above and below. Reason homebound: unsteady gait / fall risk, leg weakness, pain with ambulation, pain with transfers, poor balance / fall risk and unable to drive Homebound supporting statement: Pt. is considered homebound due to recent surgery. Unable to drive, poor balance, poor gait mechanics. Certification: Based on the above findings, I certify that this patient is confined to the home and needs intermittent senior care care, physical therapy and/or speech therapy, or continues to need occupational therapy. The patient is under my care, and I have initiated the establishment of the plan of care. The patient will be followed by a physician who will periodically review the plan of care.
[2020-12-07 07:49] VITALS: BP 107/62; PULSE 69; RESP 18; TEMP 36.6; O2SAT 95
[2020-12-07 08:04] LABS: Glucose, Whole Blood 151 mg/dL (60-115)
[2020-12-07 08:54] VITALS: BP 107/62; PULSE 69; O2SAT 95
[2020-12-07] MEDS: Insulin Lispro 100 UNIT/ML 3 ML VIAL SUBCUT (08:56)
[2020-12-07] MEDS: timoloL maleate 0.5 % Oph Sol 5 ML DRBTL 1 DROP EYE-BOTH (08:57)
[2020-12-07] MEDS: Celecoxib 200 MG CAPSULE PO (08:57)
[2020-12-07] MEDS: Docusate Sodium 100 MG CAPSULE PO (08:57)
[2020-12-07] MEDS: Aspirin 325 MG TABLET PO (08:57)
[2020-12-07] MEDS: Atorvastatin Calcium 80 MG TABLET PO (08:57)
[2020-12-07] MEDS: oxyCODONE HCl ER 10 MG TAB.ER.12H PO (08:57)
--- NOTE | 2020-12-07 10:03 | P.PNIM_ITS ---
Subjective Subjective Date of Service: 12/07/20 Interval History: Postop pain well-controlled No chest pain No dyspnea Physical Exam Vital Signs: Vital Signs: Last Vital Signs Temp 97.8 F 12/07/20 07:49 Pulse 69 12/07/20 08:54 Resp 18 12/07/20 07:49 BP 107/62 12/07/20 08:54 Pulse Ox 95 12/07/20 08:54 Body Mass Index 33.7 Gen: in no acute distress HEENT: sclera anicteric, moist mucus membranes Neck: supple Lungs: clear to auscultation bilaterally Heart: regular rate and rhythm, no murmurs Abd: soft, non-tender, non-distended Ext: no edema Skin: warm/well-perfused Neuro: alert and oriented x3, no focal findings Psych: appropriate affect Objective Data Current Medications Generic Name Dose Route Start Last Admin Trade Name Freq PRN Reason Stop Dose Admin Acetaminophen 650 mg 12/05/20 11:19 12/05/20 20:49 Acetaminophen 325 Mg Tablet PO 650 mg Q6H PRN Administration Pain, Mild (Pain Scale 1-3) Aspirin 325 mg 12/06/20 10:00 12/07/20 08:57 Aspirin 325 Mg Tablet PO 325 mg BID SONA Administration Atorvastatin Calcium 80 mg 12/06/20 09:00 12/07/20 08:57 Atorvastatin Calcium 80 Mg Tablet PO 80 mg DAILY SONA Administration Celecoxib 200 mg 12/05/20 21:00 12/07/20 08:57 Celecoxib 200 Mg Capsule PO 200 mg BID SONA Administration Docusate Sodium 100 mg 12/05/20 21:00 12/07/20 08:57 Docusate Sodium 100 Mg Capsule PO 100 mg BID SONA Administration Hydromorphone HCl 0.25 mg 12/05/20 11:19 12/06/20 05:22 Hydromorphone Hcl 0.5 Mg/0.5 Ml Syringe IVPUSH 0.25 mg Q4H PRN Administration Pain, Severe (Pain Scale 7-10) Sodium Chloride 1,000 mls @ 80 mls/hr 12/05/20 11:19 12/07/20 05:18 IVCONT 80 mls/hr .[id number] SONA Administration Insulin Human Lispro 0 unit 12/05/20 21:00 12/07/20 08:56 Insulin Lispro 100 Unit/Ml 3 Ml Vial SUBCUT 2 unit QIDACHS SONA Administration Protocol Naloxone HCl 0.2 mg 12/05/20 11:19 Naloxone Hcl 0.4 Mg/Ml Vial IVPUSH Q2M PRN Excessive sedation or RR < 8 Nitroglycerin 1 mg 12/05/20 16:41 Nitroglycerin 0.4 Mg Tab.Subl SUBLINGUAL Q5M PRN Chest Pain Ondansetron HCl 4 mg 12/05/20 11:19 12/05/20 11:59 Ondansetron Hcl 4 Mg/2 Ml Vial IVPUSH 4 mg Q8H PRN Administration Nausea and Vomiting Oxycodone HCl 5 mg 12/05/20 11:19 12/06/20 16:04 Oxycodone Hcl Immed Release 5 Mg Tablet PO 5 mg Q4H PRN Administration Pain, Moderate (Pain Scale 4-6 Oxycodone HCl 10 mg 12/05/20 21:00 12/07/20 08:57 Oxycodone Hcl Er 10 Mg Tab.Er.12h PO 10 mg BID SONA Administration Sodium Chloride 3 ml 12/05/20 16:00 12/07/20 07:43 0.9 % Sodium Chloride Flush 3 Ml Syringe IVFLUSH Not Given QSHIFT SONA Tamsulosin HCl 0.4 mg 12/05/20 21:00 12/06/20 21:26 Tamsulosin Hcl 0.4 Mg Capsule PO 0.4 mg BEDTIME SONA Administration Timolol Maleate 1 drop 12/05/20 21:00 12/07/20 08:57 Timolol Maleate 0.5 % Oph [place] 5 Ml Drbtl EYE-BOTH 1 drop BID SONA Administration Labs CBC & Chem 7: 12/07/20 06:08 12/07/20 06:08 Labs: Laboratory Results - last 24 hr 12/06/20 12/06/20 12/06/20 11:22 16:19 20:30 WBC RBC Hgb Hct MCV MCH MCHC RDW Plt Count MPV Immature Gran % (Auto) Neut % (Auto) Lymph % (Auto) [place] % (Auto) Eos % (Auto) Baso % (Auto) Lymph # (Auto) [place] # (Auto) Eos # (Auto) Baso # (Auto) Abs Immat Gran (auto) Absolute Neuts (auto) Absolute Nucleated RBC Nucleated RBC % (auto) Sodium Potassium Chloride Carbon Dioxide Anion Gap BUN Creatinine Estim Creat Clear Calc Estimated GFR POC Glucose 189 H 154 H 145 H Fasting Glucose Calcium 12/07/20 12/07/20 12/07/20 06:08 06:08 07:48 WBC 9.1 RBC 3.39 L Hgb 10.5 L Hct 31.5 L MCV 92.9 MCH 31.0 MCHC 33.3 RDW 12.8 Plt Count 185 MPV 10.1 Immature Gran % (Auto) 0.7 H Neut % (Auto) 70.2 Lymph % (Auto) 13.1 L [place] % (Auto) 15.4 H Eos % (Auto) 0.3 Baso % (Auto) 0.3 Lymph # (Auto) 1.2 [place] # (Auto) 1.4 H Eos # (Auto) 0.0 Baso # (Auto) 0.0 Abs Immat Gran (auto) 0.06 H Absolute Neuts (auto) 6.4 Absolute Nucleated RBC 0.000 Nucleated RBC % (auto) 0.0 Sodium 134 L Potassium 3.6 Chloride 101 Carbon Dioxide 22 Anion Gap 15 BUN 22 H Creatinine 1.00 Estim Creat Clear Calc 71.2 Estimated GFR > 60 POC Glucose 151 H Fasting Glucose 156 H Calcium 8.1 L Assessment and Plan (1) CVD (cerebrovascular disease): Status: Acute (2) CAD (coronary artery disease): Status: Acute Assessment and Plan: hospital d#3 70yo M with CAD/CVD (remote [place]/CVA), DM1.5 on OHGs, HTN, HLD, and BPH who is POD #2 from R TKA for OA. Medicine consultation for management of comorbid conditions. # CAD # CVD - continue statin. will be on ASA for VTE ppx. prn NTG # DM1.5, A1c 7.5 (10/26/20) - held OHGs, give correction-dose insulin, check POC BG qidachs. # HTN - held lisinopril/HCTZ and BP is normal now- resume as outpt # BPH - continue tamsulosin # glaucoma - continue timolol # postop anemia - does not require transfusion # POD#2 TKA - analgesia and postop care as per Ortho team # VTE ppx - ASA
== END 2020-12-07 11:22 | disposition home health service (06) | DRG 470 ==
LOC: HO.SSSA 10:42 → HO.S3 10:50
PROVIDERS: Physician Assistant; Admitting Provider Orthopaedic Surgery; PCP Internal Medicine; Visit Provider Orthopaedic Surgery
PROC: 0SRC0JA Replacement of Right Knee Joint with Synthetic Substitute, Uncemented, Open Approach (ICD-10-PCS; CPT 27447; principal; 2020-12-05 07:30)
DX: M17.11 Unilateral primary osteoarthritis, right knee (principal); E11.9 Type 2 diabetes mellitus without complications; I11.9 Hypertensive heart disease without heart failure; N40.0 Benign prostatic hyperplasia without lower urinary tract symptoms; I25.10 Atherosclerotic heart disease of native coronary artery without angina pectoris; H40.9 Unspecified glaucoma; I25.2 Old myocardial infarction; Z20.822 Contact with and (suspected) exposure to COVID-19; Z87.891 Personal history of nicotine dependence; Z79.899 Other long term (current) drug therapy
CPT/HCPCS: 36415; 73560; 80048; 82947; 85025; 86850; 86900; 86901; 87635; 87640; 87641; 88305; 88311; 97110; 97116; 97162; 97165; 97530; C1776; J0131; J0690; J1170; J2250; J2405; J3010

== ENCOUNTER → 2020-12-14 12:21 | Outpatient (BNVA) | payer OTHER, SELFPAY | PROVIDERS: PCP Internal Medicine; Visit Provider Physician Assistant ==

== ENCOUNTER → 2020-12-21 12:35 | Outpatient (BNVA) | payer OTHER, SELFPAY | PROVIDERS: Visit Provider Physician Assistant | DX: Z47.1 Aftercare following joint replacement surgery (principal); Z96.651 Presence of right artificial knee joint | CPT/HCPCS: 99212 ==

== ENCOUNTER → 2021-01-15 13:43 | Outpatient (BNVA) | payer OTHER, SELFPAY | PROVIDERS: Visit Provider Orthopaedic Surgery | DX: Z47.1 Aftercare following joint replacement surgery (principal); Z96.651 Presence of right artificial knee joint | CPT/HCPCS: 99212 ==

== ENCOUNTER 2021-02-16 15:00 | Outpatient (RCR) | payer OTHER, SELFPAY ==
--- NOTE | 2021-03-23 09:37 | MHC.PT.DC ---
[facility] [place] Office [place] Office [place] Office [address] Rik Causey [address] [phone] F: [phone] F: [phone] F: [phone] F: [phone] Physical Therapy Discharge Report Diagnosis: This is a 70 male presenting to skilled PT with a script for s/p R TKR Date of Surgery: 12/05/20 Date of Evaluation: 01/16/21 Date of Discharge: 03/23/21 Treatments to Date: 9 Cancellations to Date: 0 No Shows to Date: 0 Discharge Status: Achieved Goals Improved Function Independent with HEP Discharge Summary: Patient demos WFL ROM and strength. He has an HEP for which he is compliant for. He has no knee pain, does report some ankle pain but this improves with this HEP. At this time he reports that he is ready for DC. DC to HEP. Electronically signed by: Daniela White PT Please sign and return to therapist. Thank you for your referral.
== END 2021-03-23 09:37 | disposition home or self-care (01) ==
LOC: HO.PTCHIC 15:00
PROVIDERS: PCP Internal Medicine; Visit Provider Physician Assistant
DX: Z96.651 Presence of right artificial knee joint (principal)
CPT/HCPCS: 97110; 97140; 97163

== ENCOUNTER 2021-03-05 08:22 | Outpatient (REF) | payer OTHER, SELFPAY ==
--- NOTE | ~2021-03-05 | XR_ITS ---
EXAMINATION: XR BOTH KNEES AP STANDING XR RIGHT KNEE, 2 VIEWS CLINICAL INFORMATION: Pain. COMPARISON: Right knee radiographs dated 12/05/2020 and bilateral knee radiographs dated 09/25/2020. TECHNIQUE: Standing AP view of both knees and lateral and sunrise views of the right knee. FINDINGS: Right knee: Total right knee arthroplasty. No acute hardware or osseous fracture. No perihardware lucency to suggest loosening or infection. Trace joint effusion. No abnormal soft tissue calcification. Left knee: Total left knee arthroplasty. No acute hardware or osseous fracture. No perihardware lucency to suggest loosening or infection. No abnormal soft tissue calcification. XR/XR knee standing BI IMPRESSION: RIGHT KNEE: Total right knee arthroplasty without evidence of complication. Trace joint effusion. LEFT KNEE: Total left knee arthroplasty without evidence of complication.
--- NOTE | ~2021-03-05 | XR_ITS ---
EXAMINATION: XR BOTH KNEES AP STANDING XR RIGHT KNEE, 2 VIEWS CLINICAL INFORMATION: Pain. COMPARISON: Right knee radiographs dated 12/05/2020 and bilateral knee radiographs dated 09/25/2020. TECHNIQUE: Standing AP view of both knees and lateral and sunrise views of the right knee. FINDINGS: Right knee: Total right knee arthroplasty. No acute hardware or osseous fracture. No perihardware lucency to suggest loosening or infection. Trace joint effusion. No abnormal soft tissue calcification. Left knee: Total left knee arthroplasty. No acute hardware or osseous fracture. No perihardware lucency to suggest loosening or infection. No abnormal soft tissue calcification. XR/XR knee RT 2V IMPRESSION: RIGHT KNEE: Total right knee arthroplasty without evidence of complication. Trace joint effusion. LEFT KNEE: Total left knee arthroplasty without evidence of complication.
== END 2021-03-05 08:23 | disposition home or self-care (01) ==
LOC: HO.HOSX 08:22
PROVIDERS: Visit Provider Orthopaedic Surgery
DX: M25.561 Pain in right knee (principal); F17.210 Nicotine dependence, cigarettes, uncomplicated; Z96.651 Presence of right artificial knee joint
CPT/HCPCS: 73560; 73565; 99212

== ENCOUNTER 2021-03-30 13:13 | Outpatient (REF) | payer OTHER, SELFPAY ==
[2021-03-30 14:22] LABS: MANUAL DIFF FLAG NO
[2021-03-30 14:29] LABS: Basophils Percent Auto 0.5 % (0-2); Eosinophils Absolute Auto 0.2 X10*3/uL (0.0-0.4); Hematocrit 46.1 % (42-52); Hemoglobin 15.5 g/dl (14.0-18.0); Imm Gran Abs Auto 0.03 X10*3/uL (0.00-0.03); Imm Gran Pct Auto 0.4 % (0.0-0.4); Lymphocytes Absolute Auto 2.6 X10*3/uL (1.2-4.9); Lymphocytes Percent Auto 30.8 % (20-40); Mean Corpuscular HGB Conc 33.6 g/dl (31.0-36.0); Mean Corpuscular Hemoglobin 29.5 pg (27.0-33.0); Mean Corpuscular Volume 87.8 fL (80-98); Mean Platelet Volume 11.1 fL (9.4-12.4); Monocytes Absolute Auto 0.8 X10*3/uL (0.1-1.2); Monocytes Percent Auto 9.8 % (2-11); Neutrophils Absolute Auto 4.8 X10*3/uL (2.0-8.3); Neutrophils Percent Auto 56.5 % (45-73); Platelet Count 231 X10*3/uL (160-400); Red Blood Count 5.25 X10*6/uL (4.60-5.80); Red Cell Distribution Width 13.6 % (11.0-16.0); White Blood Count 8.4 X10*3/uL (4.8-10.8)
[2021-03-30 14:46] LABS: Estimated Average Glucose 166 mg/dL; Hemoglobin A1c % 7.4 %
[2021-03-30 15:02] LABS: Alanine Aminotransferase 17 U/L (0-40); Alkaline Phosphatase 88 U/L (39-117); Anion Gap 13 (12-20); Aspartate Amino Transferase 14 U/L (5-37); Bilirubin Total 0.6 mg/dL (0.0-1.0); Blood Urea Nitrogen 17 mg/dL (9-16); Calcium 9.7 mg/dL (8.4-10.2); Carbon Dioxide 25 mmol/L (22-29); Chloride 103 mmol/L (96-108); Estimated Glomerular Filt Rate > 60; Glucose Random 109 mg/dL (60-115); Potassium 3.9 mmol/L (3.3-5.1); Sodium 137 mmol/L (135-145); Total Protein 6.6 g/dL (6.5-8.0)
[2021-03-31 12:56] LABS: LDL Cholesterol Direct 53 mg/dL (<100)
== END 2021-03-30 13:14 | disposition home or self-care (01) ==
LOC: HO.HMGCLDS 13:13
PROVIDERS: PCP Internal Medicine; Visit Provider Internal Medicine
DX: D64.9 Anemia, unspecified (principal); E13.9 Other specified diabetes mellitus without complications; E66.09 Other obesity due to excess calories; E78.9 Disorder of lipoprotein metabolism, unspecified; I10 Essential (primary) hypertension; N40.0 Benign prostatic hyperplasia without lower urinary tract symptoms
CPT/HCPCS: 36415; 80053; 83036; 83721; 85025

== ENCOUNTER 2021-09-05 07:51 | Outpatient (REF) | payer OTHER, SELFPAY ==
--- NOTE | ~2021-09-05 | XR_ITS ---
EXAMINATION: XR ELBOW, RIGHT CLINICAL INFORMATION: Pain COMPARISON: None TECHNIQUE: AP, lateral, and oblique views of the right elbow. FINDINGS: There is mild loss of joint space with hypertrophic enthesophytes along the elbow joint. No visible fracture or dislocation. There is [id number] joint effusion. No lytic or sclerotic process seen. XR/XR elbow RT min 3V IMPRESSION: Hypertrophic degenerative osteoarthropathy elbow joint. Epcj-ea-[id number] joint effusion. No loose bodies. No acute fracture or dislocation.
== END 2021-09-05 07:52 | disposition home or self-care (01) ==
LOC: HO.HOSX 07:51
PROVIDERS: Visit Provider Physician Assistant
DX: M19.021 Primary osteoarthritis, right elbow (principal)
CPT/HCPCS: 20600; 73080; 99212; J1020

== ENCOUNTER 2021-09-10 12:58 | Outpatient (REF) | payer OTHER, SELFPAY ==
[2021-09-10 14:03] LABS: Estimated Average Glucose 166 mg/dL; Hemoglobin A1c % 7.4 %
[2021-09-10 14:09] LABS: Alanine Aminotransferase 15 U/L (0-40); Albumin Level 3.9 g/dL (3.5-5.0); Alkaline Phosphatase 81 U/L (39-117); Anion Gap 14 (12-20); Aspartate Amino Transferase 13 U/L (5-37); Bilirubin Total 0.5 mg/dL (0.0-1.0); Blood Urea Nitrogen 17 mg/dL (9-16); Calcium 9.2 mg/dL (8.4-10.2); Carbon Dioxide 26 mmol/L (22-29); Chloride 101 mmol/L (96-108); Estimated Glomerular Filt Rate > 60; Glucose Random 142 mg/dL (60-115); Potassium 3.6 mmol/L (3.3-5.1); Sodium 137 mmol/L (135-145); Total Protein 6.6 g/dL (6.5-8.0)
[2021-09-10 14:09] LABS: Creatinine Urine 109.88 mg/dL; Microalbum/Creatinine Ratio Ur 5.4 ug/mg cr
== END 2021-09-10 12:59 | disposition home or self-care (01) ==
LOC: HO.HMGCLDS 12:58
PROVIDERS: PCP Internal Medicine; Visit Provider Internal Medicine
DX: E13.9 Other specified diabetes mellitus without complications (principal); I10 Essential (primary) hypertension; E78.9 Disorder of lipoprotein metabolism, unspecified; E66.09 Other obesity due to excess calories; N40.0 Benign prostatic hyperplasia without lower urinary tract symptoms
CPT/HCPCS: 36415; 80053; 82043; 83036

== ENCOUNTER 2021-10-23 13:07 | Outpatient (REF) | payer OTHER, SELFPAY ==
--- NOTE | ~2021-10-23 | XR_ITS ---
EXAMINATION: XR LUMBOSACRAL SPINE CLINICAL INFORMATION: Right hip pain COMPARISON: None TECHNIQUE: Three views of the lumbosacral spine. FINDINGS: There is mild curvature of the mid lumbar spine to the left. Bone alignment is otherwise normal. No fracture or dislocation is seen. There is multilevel degenerative spondylosis with large bridging bony osteophytes greatest at L2-L3. There is degenerative disc disease at L5-S1. There is lower lumbar spine facet arthritis. There is evidence of atherosclerotic disease. XR/XR lumbar spine 2-3V IMPRESSION: Degenerative changes.
--- NOTE | ~2021-10-23 | XR_ITS ---
EXAMINATION: XR HIP, RIGHT CLINICAL INFORMATION: Pain COMPARISON: None TECHNIQUE: Two views of the right hip. FINDINGS: Bone alignment is normal. No fracture or dislocation is seen. There is mild arthritis at the right hip joint with joint space narrowing and osteophyte formation. There is faint soft tissue increased attenuation along the superolateral joint space questionable for chondrocalcinosis. XR/XR hip RT min 2V IMPRESSION: Mild right hip arthritis.
== END 2021-10-23 13:08 | disposition home or self-care (01) ==
LOC: HO.HMGCX 13:07
PROVIDERS: PCP Internal Medicine; Visit Provider Internal Medicine
DX: M25.551 Pain in right hip (principal); M54.50 Low back pain, unspecified
CPT/HCPCS: 72100; 73502

== ENCOUNTER 2022-01-22 14:13 | Outpatient (REF) | payer OTHER, SELFPAY ==
[2022-01-22 17:07] LABS: Hematocrit 42.1 % (42.0-52.0)
[2022-01-22 17:09] LABS: Microalbum/Creatinine Ratio Ur 7.8 ug/mg cr
[2022-01-22 17:19] LABS: Alanine Aminotransferase 14 U/L (0-40); Albumin Level 3.8 g/dL (3.5-5.0); Alkaline Phosphatase 87 U/L (39-117); Anion Gap 11 (12-20); Aspartate Amino Transferase 14 U/L (5-37); Blood Urea Nitrogen 14 mg/dL (9-16); Calcium 8.7 mg/dL (8.4-10.2); Carbon Dioxide 24 mmol/L (22-29); Chloride 108 mmol/L (96-108); Estimated Glomerular Filt Rate > 60; Glucose Random 88 mg/dL (60-115); Potassium 3.8 mmol/L (3.3-5.1); Sodium 139 mmol/L (135-145); Total Protein 6.2 g/dL (6.5-8.0)
[2022-01-22 17:39] LABS: Estimated Average Glucose 134 mg/dL; Hemoglobin A1c % 6.3 %
[2022-01-22 17:54] LABS: Prostate Specific Antigen 9.95 ng/mL (<0.05-4.0)
[2022-01-24 04:46] LABS: LDL Cholesterol Direct 57 mg/dL (<100)
== END 2022-01-22 14:14 | disposition home or self-care (01) ==
LOC: HO.HMGCLDS 14:13
PROVIDERS: PCP Internal Medicine; Visit Provider Internal Medicine
DX: Z12.5 Encounter for screening for malignant neoplasm of prostate (principal); E13.9 Other specified diabetes mellitus without complications; E66.09 Other obesity due to excess calories; E78.9 Disorder of lipoprotein metabolism, unspecified; I10 Essential (primary) hypertension; D64.9 Anemia, unspecified
CPT/HCPCS: 36415; 80053; 82043; 83036; 83721; 84153; 85014; 85018

== ENCOUNTER 2022-08-20 09:38 | Outpatient (REF) | payer OTHER, SELFPAY ==
[2022-08-20 11:39] LABS: MANUAL DIFF FLAG NO
[2022-08-20 11:54] LABS: Basophils Percent Auto 0.5 % (0-2); Eosinophils Absolute Auto 0.1 X10*3/uL (0.0-0.4); Eosinophils Percent Auto 1.7 % (0-4); Hematocrit 44.6 % (42.0-52.0); Hemoglobin 15.1 g/dl (14.0-18.0); Imm Gran Abs Auto 0.04 X10*3/uL (0.00-0.03); Imm Gran Pct Auto 0.5 % (0.0-0.4); Lymphocytes Absolute Auto 2.5 X10*3/uL (1.2-4.9); Lymphocytes Percent Auto 29.8 % (20-40); Mean Corpuscular HGB Conc 33.9 g/dl (31.0-36.0); Mean Corpuscular Hemoglobin 30.5 pg (27.0-33.0); Mean Corpuscular Volume 90.1 fL (80.0-98.0); Mean Platelet Volume 10.8 fL (9.4-12.4); Monocytes Absolute Auto 0.7 X10*3/uL (0.1-1.2); Monocytes Percent Auto 8.4 % (2-11); Neutrophils Absolute Auto 4.9 x10*3/uL (2.0-8.3); Neutrophils Percent Auto 59.1 % (45-73); Platelet Count 245 X10*3/uL (160-400); Red Blood Count 4.95 X10*6/uL (4.60-5.80); Red Cell Distribution Width 13.1 % (11.0-16.0); White Blood Count 8.3 X10*3/uL (4.8-10.8)
[2022-08-20 12:17] LABS: Alanine Aminotransferase 16 U/L (0-40); Albumin Level 3.9 g/dL (3.5-5.0); Alkaline Phosphatase 88 U/L (39-117); Anion Gap 14 (12-20); Aspartate Amino Transferase 15 U/L (5-37); Bilirubin Total 0.8 mg/dL (0.0-1.0); Blood Urea Nitrogen 15 mg/dL (9-16); Calcium 9.3 mg/dL (8.4-10.2); Carbon Dioxide 26 mmol/L (22-29); Chloride 101 mmol/L (96-108); Estimated Glomerular Filt Rate 59; Glucose Random 175 mg/dL (60-115); Sodium 137 mmol/L (135-145); Total Protein 6.5 g/dL (6.5-8.0)
[2022-08-20 12:37] LABS: Estimated Average Glucose 140 mg/dL; Hemoglobin A1c % 6.5 %
[2022-08-20 12:40] LABS: Prostate Specific Antigen 6.97 ng/mL (<0.05-4.0)
[2022-08-20 12:45] LABS: Creatinine Urine 150.65 mg/dL; Microalbum/Creatinine Ratio Ur 4.6 ug/mg cr
[2022-08-23 08:19] LABS: LDL Cholesterol Direct 46 mg/dL (<100)
== END 2022-08-20 09:39 | disposition home or self-care (01) ==
LOC: HO.HMGCLDS 09:38
PROVIDERS: PCP Internal Medicine; Visit Provider Internal Medicine
DX: R97.20 Elevated prostate specific antigen [PSA] (principal); E66.09 Other obesity due to excess calories; E78.9 Disorder of lipoprotein metabolism, unspecified; I10 Essential (primary) hypertension; E13.9 Other specified diabetes mellitus without complications; Z12.5 Encounter for screening for malignant neoplasm of prostate
CPT/HCPCS: 36415; 80053; 82043; 83036; 83721; 84153; 85025

== ENCOUNTER 2022-11-15 09:54 | Outpatient (REF) | payer OTHER, SELFPAY ==
[2022-11-15 12:08] LABS: Estimated Average Glucose 140 mg/dL; Hemoglobin A1c % 6.5 %
[2022-11-15 12:43] LABS: Alanine Aminotransferase 28 U/L (0-40); Alkaline Phosphatase 80 U/L (39-117); Anion Gap 12 (12-20); Aspartate Amino Transferase 18 U/L (5-37); Bilirubin Total 0.8 mg/dL (0.0-1.0); Blood Urea Nitrogen 22 mg/dL (9-16); Calcium 9.5 mg/dL (8.4-10.2); Carbon Dioxide 26 mmol/L (22-29); Chloride 104 mmol/L (96-108); Estimated Glomerular Filt Rate > 60; Glucose Random 124 mg/dL (60-115); Potassium 4.8 mmol/L (3.3-5.1); Sodium 137 mmol/L (135-145); Total Protein 6.7 g/dL (6.5-8.0)
== END 2022-11-15 09:55 | disposition home or self-care (01) ==
LOC: HO.HMGCLDS 09:54
PROVIDERS: PCP Internal Medicine; Visit Provider Internal Medicine
DX: E13.9 Other specified diabetes mellitus without complications (principal); I10 Essential (primary) hypertension; E78.9 Disorder of lipoprotein metabolism, unspecified; E66.09 Other obesity due to excess calories
CPT/HCPCS: 36415; 80053; 83036

== ENCOUNTER 2022-11-26 11:13 | Emergency (ER) | payer OTHER, SELFPAY ==
--- NOTE | ~2022-11-26 | CT_ITS ---
EXAMINATION: CT CERVICAL SPINE WITHOUT CONTRAST CLINICAL INFORMATION: Right-sided neck pain COMPARISON: None available. TECHNIQUE: Axial images through the cervical spine without contrast. Sagittal and coronal reconstructions on the technologist workstation were performed. This CT examination was performed using dose optimization techniques as appropriate, variously including the following: *Automated exposure control *Adjustment of mA and/or kV according to patient size (this includes techniques or standardized protocols for targeted exams where dose is matched to indication/reason for exam; i.e. extremities or head) *Use of iterative reconstruction technique DLP: 554 mGy-cm FINDINGS: There are postsurgical changes from ACDF at C3, C4 and C5. Surgical hardware appears intact. No evidence of loosening. Bone alignment is normal. No fracture or dislocation. Multilevel degenerative changes. Degenerative changes at the C1 dens articulation and some pannus formation. Mild degenerative spondylosis at C2-C3. Severe degenerative spondylosis at C5-C6 C6-C7 and C7-T1 and disc space narrowing at these levels. No disc herniation. At C2-C3 there is central disc bulge.. There is mild left-sided neuroforaminal narrowing from facet arthritis. At C3-C4 there is disc osteophyte complex. There is bilateral neuroforaminal narrowing from disc osteophyte complex. At C4-C5 left paracentral disc osteophyte complex. There is moderate bilateral foraminal narrowing from disc osteophyte complex. C5-C6 there is right paracentral disc osteophyte complex. There is mild secondary spinal stenosis. There is moderate bilateral neuroforaminal narrowing from disc osteophyte complex. At C6-C7 there is disc osteophyte complex. No spinal stenosis. Neural foramen are patent. C7-T1 there is mild disc osteophyte complex. No disc herniation. Neural foramen are patent. The thyroid gland is normal. No enlarged lymph nodes. Superior mediastinum is normal. There is a right upper lobe nodule measuring 5 mm. This appears heterogeneous in attenuation and may be only partially visualized. CT/CT cervical spine wo IV con IMPRESSION: Postsurgical changes from ACDF at C3, C4 and C5. Multilevel degenerative changes with disc osteophyte complex and bilateral neuroforaminal narrowing greatest at C4-C5 and C5-C6. Fleischner guidelines were followed.
[2022-11-26 11:42] VITALS: BP 129/54; PULSE 61; RESP 18; TEMP 36.6; O2SAT 98; BMI 33.7
--- NOTE | 2022-11-26 11:42 | ED_ITS ---
HPI - Neck Pain/Injury General Chief Complaint: Neck Pain/Injury <MARICEL Bansal - Last Filed: 11/26/22 11:45> Stated Complaint: Neck pain rad to head <MARICEL Bansal - Last Filed: 11/26/22 11:45> Time Seen by Provider: 11/26/22 12:11 <MARICEL Bansal - Last Filed: 11/26/22 11:45> Source: patient <Jordon Morales - Last Filed: 11/26/22 13:54> Limitations: no limitations <Jordon Morales - Last Filed: 11/26/22 13:54> History of Present Illness HPI Narrative: 72-year-old male presents to the ER with 2 week history of neck pain right side greater than left. Patient denies any trauma or injuries. Patient states approximately 4 years prior he did have neck surgery question underlying fracture at that time. Patient states after the surgery things did well. Patient has a longstanding history of hypertension, hyperlipidemia, heart disease, diabetes back pains prostate issues in the past. Patient at this time denies shortness of breath fever chills or chest pain. Patient describes the pain is aching in nature. Patient states at times his right upper extremity does fall asleep. But he has no symptoms in the upper extremities today. <Jordon Morales - Last Filed: 11/26/22 13:54> Related Data Home Medications: Home Medications Medication Instructions Recorded Confirmed nitroglycerin 0.4 mg sublingual 1 mg sublingual Q5M PRN Chest Pain 11/30/20 11/13/22 tablet timolol maleate 0.5 % eye drops 1 drp ophthalmic (eye) BID 11/30/20 11/13/22 dorzolamide 22.3 mg-timolol 6.8 ml ophthalmic (eye) 03/30/21 11/13/22 mg/mL eye drops Previous Rx's Medication Instructions Recorded acetaminophen 325 mg tablet 650 mg PO Q6H PRN Pain, Mild (Pain 12/06/20 Scale 1-3) 30 days #240 tabs aspirin 325 mg tablet 325 mg PO BID 6 weeks #84 tabs 12/06/20 oxycodone 5 mg tablet 5 mg PO Q4H PRN Pain, Moderate 12/07/20 (Pain Scale 4-6 7 days #42 tabs blood sugar diagnostic (FreeStyle See Rx Instructions .Route BID for 07/10/21 Lite Strips) diabetes mellitus 90 days #180 strips metformin 1,000 mg tablet 1,000 mg PO BID 90 days #180 tabs 06/19/22 alcohol swabs (Alcohol Pads) 2 pad topical DAILY #200 ea 08/02/22 blood sugar diagnostic (FreeStyle #100 ea 08/02/22 Test strips) atorvastatin 80 mg tablet 80 mg PO DAILY 90 days #90 tabs 10/09/22 docusate sodium 100 mg capsule 100 mg PO BID 30 days #60 caps 10/09/22 lisinopril 20 1 tab PO DAILY 90 days #90 tabs 10/09/22 mg-hydrochlorothiazide 25 mg tablet sitagliptin phosphate 100 mg 100 mg PO BEDTIME 90 days #90 tabs 10/09/22 tablet (Januvia) tamsulosin 0.4 mg capsule 0.4 mg PO DAILY #90 caps 10/09/22 lancets 28 gauge (FreeStyle ##100 10/21/22 Lancets) methocarbamol 750 mg tablet 750 mg PO TID PRN muscle spasm #20 11/26/22 tabs <MARICEL Bansal - Last Filed: 11/26/22 11:45> Allergies/Adverse Reactions: Allergies Allergy/AdvReac Type Severity Reaction Status Date / Time tramadol Allergy Intermediate rash Verified 11/13/22 11:11 <MARICEL Bansal Last Filed: 11/26/22 11:45> Review of Systems Review of Systems: General: No fever, no chills Ophthalmology: No vision changes, no discharge Neck: Positive neck pain ENT: No sore throat, no ear pain Cardiovascular: No chest pain, no peripheral edema, no shortness of breath Respiratory: No dyspnea, no sputum production, no cough Muscle skeletal: No malaise, no back pain, no neck pain, no extremity pain GI: No abdominal pain: no nausea vomiting, no diarrhea Skin: No rash Immunology: No immunocompromised Hematology: No bleeding, no bruising <Jordon Morales - Last Filed: 11/26/22 13:54> [facility] Past Medical History Attestation statement: The following information was validated with the patient. <Jordon Morales - Last Filed: 11/26/22 13:54> Medical History: Medical History Arthritis of knee, right CAD (coronary artery disease) COVID-19 vaccine administered CVA (cerebral vascular accident) CVD (cerebrovascular disease) Diabetes 1.5, managed as type 2 History of BPH Hypertension, essential Lipid disorder Myocardial infarction Obesity Osteoarthritis of right knee Prostate hypertrophy <MARICEL Bansal - Last Filed: 11/26/22 11:45> Surgical History: Surgical History H/O colonoscopy History of knee replacement procedure of left knee Hx of elbow surgery Hx of fusion of cervical spine Hx of hand surgery Hx of shoulder surgery <MARICEL Bansal - Last Filed: 11/26/22 11:45> Family History Family History: Family History Father Cancer Mother CVD (cardiovascular disease) Brother No problems noted. <MARICEL Bansal - Last Filed: 11/26/22 11:45> Social History Social History: Social History Household Members: Spouse Housing: House Are you a primary day care attendant to a significant other at home: No Do you presently have visiting nurse or other home services: No Alcohol intake: never Patient Tobacco Use Status: Former Tobacco user Quit Date: 2003 Cigarette Packs Per Day: 1 Cigarettes Per Day: 20.0 Years Smoked: 30 Smoked in Last 30 Days: No e-Cigarette/Vaping Use: Never Used Use of substances other than those prescribed or required for medical reasons: No Advance Directives: Yes Advance Directives Information Provided: Yes Advance Directives on File: No service: No Current occupational status: retired Current occupation: right handed Cognitive needs: No Hearing needs: No Vision needs: No <MARICEL Bansal - Last Filed: 11/26/22 11:45> Physical Exam Vital Signs: Vital Signs: Last Vital Signs Temp 98 F 11/26/22 11:42 Pulse 61 11/26/22 11:42 Resp 18 11/26/22 11:42 BP 129/54 L 11/26/22 11:42 Pulse Ox 98 11/26/22 11:42 O2 Del Method Room Air 11/26/22 11:42 BMI result Body Mass Index 33.7 <MARICEL Bansal - Last Filed: 11/26/22 11:45> Vital Signs: Last Vital Signs Temp 98 F 11/26/22 11:42 Pulse 61 11/26/22 11:42 Resp 18 11/26/22 11:42 BP 129/54 L 11/26/22 11:42 Pulse Ox 98 11/26/22 11:42 O2 Del Method Room Air 11/26/22 11:42 BMI result Body Mass Index 33.7 <Jordon Morales - Last Filed: 11/26/22 13:54> General appearance: Awake, alert, cooperative, in no acute distress Skin: Warm, dry, no rash Eyes: PERRL, EOMI, no icterus Neck: Positive slight midline tenderness and right-sided paraspinal muscle tenderness. No nuchal rigidity. ENT: Oropharynx normal, uvula midline Neck: Soft supple full range of motion Pulmonary: Breath sounds clear to auscultation bilaterally, no accessory muscle use Cardiovascular: Regular rate and rhythm, no murmurs and rubs Abdomen: Soft nontender, no rebound or guarding, positive bowel sounds Extremities: No deformity, nontender, no peripheral edema noted Neuro: Alert oriented x3, no focal deficit Psych: Normal affect <Jordon Morales - Last Filed: 11/26/22 13:54> Course Course Course Narrative: RME: 72yo M w/PMHx diabetes, HTN, HLD, obesity, osteoarthritis c/o R sided neck pain radiating to head x2 weeks. admits to assoc [facility], pain worse w/movement. Denies injury/trauma/fall, numbness, weakness, vision change/loss. Denies taking anticoagulation + right-sided paraspinal and anterior lower neck tenderness to palpation. Limited ROM CT cervical spine ordered Full HPI, ROS and PE to be performed by primary ED provider. <MARICEL Bansal - Last Filed: 11/26/22 11:45> Medical Decision Making Medical Decision Making MDM Narrative: Cervical arthritis Cervical disc herniation Cervical radiculopathy Tension headache Cervical strain Spasmodic torticollis 72-year-old male presents with atraumatic right-sided neck pain x2 weeks. At times patient does have symptoms of cervical radiculopathy on the right side. At this time he presently does not. CT scan of the neck is pending. Symptoms likely secondary to the prior injury and secondary to arthritis possibly still concerns for disc herniation in the differential. 13:49 CT scan results reviewed patient foraminal narrowing and degenerative disease seen close follow-up with PCP for possible referral to Neurosurgery will be recommended. <Jordon Morales - Last Filed: 11/26/22 13:54> Radiology Impression Discussion of test interpretation with radiology: I have reviewed the radiologist's reading. <Jordon Morales - Last Filed: 11/26/22 13:54> Radiologist Impression: [address] [id number] [address] Scan Report Signed Patient: Walter Rodney MR#: [id number] : 1950 Acct:[id number] Age/Sex: 72 / M ADM Date: 11/26/22 Loc: HO.ED Attending Dr: Ordering Physician: Loreto Eric Date of Service: 11/26/22 Procedure(s): CT cervical spine wo IV con Accession Number(s): [id number] cc: Loreto Eric~ EXAMINATION: CT CERVICAL SPINE WITHOUT CONTRAST CLINICAL INFORMATION: Right-sided neck pain? COMPARISON: None available. TECHNIQUE: Axial images through the cervical spine without contrast. Sagittal and coronal reconstructions on the technologist workstation were performed. ? This CT examination was performed using dose optimization techniques as appropriate, variously including the following: *Automated exposure control *Adjustment of mA and/or kV according to patient size (this includes techniques or standardized protocols for targeted exams where dose is matched to indication/reason for exam; i.e. extremities or head) *Use of iterative reconstruction technique DLP: 554 mGy-cm FINDINGS: There are postsurgical changes from ACDF at C3, C4 and C5. Surgical hardware appears intact. No evidence of loosening. Bone alignment is normal. No fracture or dislocation. Multilevel degenerative changes. Degenerative changes at the C1 dens articulation and some pannus formation. Mild degenerative spondylosis at C2-C3. Severe degenerative spondylosis at C5-C6 C6-C7 and C7-T1 and disc space narrowing at these levels. No disc herniation. At C2-C3 there is central disc bulge.. There is mild left-sided neuroforaminal narrowing from facet arthritis. At C3-C4 there is disc osteophyte complex. There is bilateral neuroforaminal narrowing from disc osteophyte complex. At C4-C5 left paracentral disc osteophyte complex. There is moderate bilateral foraminal narrowing from disc osteophyte complex. C5-C6 there is right paracentral disc osteophyte complex. There is mild secondary spinal stenosis. There is moderate bilateral neuroforaminal narrowing from disc osteophyte complex. At C6-C7 there is disc osteophyte complex. No spinal stenosis. Neural foramen are patent. C7-T1 there is mild disc osteophyte complex. No disc herniation. Neural foramen are patent. The thyroid gland is normal. No enlarged lymph nodes. Superior mediastinum is normal. There is a right upper lobe nodule measuring 5 mm. This appears heterogeneous in attenuation and may be only partially visualized. CT/CT cervical spine wo IV con IMPRESSION: Postsurgical changes from ACDF at C3, C4 and C5. Multilevel degenerative changes with disc osteophyte complex and bilateral neuroforaminal narrowing greatest at C4-C5 and C5-C6.? ? Fleischner guidelines were followed. Dictated By: Lou Gore MD Signed By: <Electronically signed by Lou Gore MD in [place]> 11/26/22 1340 DD/ 1207 TD/TT:? Library Acquisitions Technician: RHEA <Jordon Morales - Last Filed: 11/26/22 13:54> Discharge Plan Discharge Clinical Impression: Cervical arthritis, Cervical radiculopathy <MARICEL Bansal - Last Filed: 11/26/22 11:45> Patient Disposition: Home, Self-Care <MARICEL Bansal - Last Filed: 11/26/22 11:45> Instructions: Cervical Radiculopathy (ED) <MARICEL Bansal - Last Filed: 11/26/22 11:45> Additional Instructions: CT scan neck shows cervical arthritis and narrowing of the canal which back could be contributing to the current symptoms are having Close follow-up with PCP is recommended for possible referral to Neurosurgery Medications as directed for pain Return if symptoms worsen <MARICEL Bansal - Last Filed: 11/26/22 11:45> Prescriptions: New methocarbamol 750 mg tablet 750 mg PO TID PRN (Reason: muscle spasm) Qty: 20 0RF No Action FreeStyle Lite Strips Strip See Rx Instructions .ROUTE BID 90 Days Qty: 180 3RF Rx Instructions: 2 times a day; metformin 1,000 mg tablet 1,000 mg PO BID 90 Days Qty: 180 1RF alcohol swabs [Alcohol Pads] Pads, Medicated 2 pad topical DAILY Qty: 200 0RF (DME) FreeStyle Test Strip See Rx Instructions .ROUTE .MEDSUPPLY Qty: 100 0RF Rx Instructions: Patient to check blood sugar twice daily atorvastatin 80 mg tablet 80 mg PO DAILY 90 Days Qty: 90 0RF Januvia 100 mg tablet 100 mg PO BEDTIME 90 Days Qty: 90 0RF docusate sodium 100 mg capsule 100 mg PO BID 30 Days Qty: 60 2RF lisinopril-hydrochlorothiazide 20-25 mg tablet 1 tab PO DAILY 90 Days Qty: 90 0RF tamsulosin 0.4 mg capsule 0.4 mg PO DAILY Qty: 90 0RF (DME) lancets [FreeStyle Lancets] 28 gauge misc See Rx Instructions .ROUTE .COMPLEX Qty: 100 3RF Dose Instruction: USE TO TEST TWICE A DAY Rx Instructions: USE TO TEST TWICE A DAY nitroglycerin 0.4 mg tablet, sublingual 1 mg sublingual Q5M PRN (Reason: Chest Pain) timolol maleate 0.5 % drops 1 drp ophthalmic (eye) BID acetaminophen 325 mg Tablet 650 mg PO Q6H PRN (Reason: Pain, Mild (Pain Scale 1-3)) 30 Days Qty: 240 0RF aspirin 325 mg Tablet 325 mg PO BID 42 Days Qty: 84 0RF oxycodone 5 mg Tablet 5 mg PO Q4H PRN (Reason: Pain, Moderate (Pain Scale 4-6) 7 Days Qty: 42 0RF dorzolamide-timolol 22.3-6.8 mg/mL drops ophthalmic (eye) <MARICEL Bansal - Last Filed: 11/26/22 11:45>
--- NOTE | 2022-11-26 12:27 | PC.NURSE ---
Pain noted to the cervical area of neck, patient has had surgery to the area in the past. Patient is able to move neck but does note pain. Patient occasionally has numbness noted especially to left upper extremity.
== END 2022-11-26 14:03 | disposition home or self-care (01) ==
PROVIDERS: Emergency Provider Emergency Medicine; PCP Internal Medicine
DX: M54.12 Radiculopathy, cervical region (principal); M46.92 Unspecified inflammatory spondylopathy, cervical region; E11.9 Type 2 diabetes mellitus without complications; I10 Essential (primary) hypertension; E78.5 Hyperlipidemia, unspecified; Z79.82 Long term (current) use of aspirin; Z79.84 Long term (current) use of oral hypoglycemic drugs; Z79.02 Long term (current) use of antithrombotics/antiplatelets; Z79.899 Other long term (current) drug therapy; Z87.891 Personal history of nicotine dependence
CPT/HCPCS: 72125; 99284

== ENCOUNTER → 2022-12-31 12:39 | Outpatient (BNVA) | payer OTHER, SELFPAY | PROVIDERS: PCP Internal Medicine; Visit Provider Physician Assistant | DX: M54.12 Radiculopathy, cervical region (principal) | CPT/HCPCS: 99202 ==

== ENCOUNTER 2023-02-12 09:11 | Outpatient (AMB) | payer OTHER, SELFPAY ==
[2023-02-12 09:21] VITALS: BP 150/80; PULSE 52; O2SAT 97; BMI 33.6
--- NOTE | 2023-02-12 09:21 | MHC.PC.OV ---
Vital Signs 02/12/23 09:21 Height 5 ft 4 in Weight 195 lb 8 oz BMI 33.6 BP 150/80 H Blood Pressure Location Rt brachial Position Sitting Pulse 52 Pulse Source Pulse Oximeter Pulse Oximetry (%) 97 Oxygen Delivery Method Room Air Intake Visit Reasons: 3 Month follow up Allergies tramadol Allergy (Intermediate, Verified 02/12/23 09:23) rash Medication List - Last Reconciled 02/12/23 by Marizol Esparza MD acetaminophen 650 mg (2 x 325 mg) PO Q6H PRN 30 days alcohol swabs (Alcohol Pads) 2 pad topical DAILY aspirin 325 mg PO BID 6 weeks atorvastatin 80 mg PO DAILY 90 days blood sugar diagnostic (FreeStyle Lite Strips) 2 times a day; 90 days blood sugar diagnostic (FreeStyle Test strips) Patient to check blood sugar twice daily docusate sodium 100 mg PO BID 30 days dorzolamide-timolol 22.3-6.8 mg/mL mL ophthalmic (eye) lancets (FreeStyle Lancets) USE TO TEST TWICE A DAY lisinopril-hydrochlorothiazide 20-25 mg 1 tab PO DAILY 90 days metformin 1,000 mg PO BID 90 days methocarbamol 750 mg PO TID PRN nitroglycerin 1 mg sublingual Q5M PRN oxycodone 5 mg PO Q4H PRN 7 days sitagliptin phosphate (Januvia) 100 mg PO BEDTIME 90 days tamsulosin 0.4 mg PO DAILY timolol maleate 0.5% 1 drp ophthalmic (eye) BID Tobacco use date assessed: 02/12/23 Fall risk assessment: 2 + Falls in past year Last assessed Fall Risk: 02/12/23 Dental Screening Dental Screen Date: 02/12/23 Did you have a dental visit in the last 12 months?: Yes Did you have a dental problem in the last 6 months where you did not have access to dental care?: No Was dental information given to patient?: No HPI 3 Month follow up HPI Details Patient is 73-year-old male came in today for his regular follow-up visit. Patient is complaining of left shoulder pain for the past 2 weeks patient says that he does not know what happened he just woke up 1 day with the pain and he is now having difficulty lifting it above his head He does not have a job, he is right handed On examination he is tender over rotator cuff I have ordered x-ray of his shoulder and patient is to start physical therapy Diabetes mellitus:? Patient is taking Januvia 100 mg daily, and metformin 1 g b.i.d.. Hemoglobin A1c is well controlled Patient also have a diabetic neuropathy and osteoarthritis in his knees Lipid disorder:? Continue atorvastatin 80 mg once a day patient is tolerating medication. Blood pressure is elevated today I have given him a script for blood pressure monitor he need to start monitoring at home and bring a log and machine at his next visit. he is taking lisinopril hydrochlorothiazide 20-25 mg once a day. Target blood pressure for this patient is around 120/80. BPH: Continue tamsulosin 0.4 mg once a day no urinary complaints Coronary artery disease: Patient goes to [facility] once a year for monitoring and is taking nitroglycerin through them, however he has not needed in a while. Patient also have a first-degree AV block. There are no notes in the chart from his cardiology Obesity:??BMI is is elevated patient need to lose weight Follow-up 3 months, Labs needs to be done before visit [facility] Medical History Arthritis of knee, right CAD (coronary artery disease) COVID-19 vaccine administered CVA (cerebral vascular accident) CVD (cerebrovascular disease) Diabetes 1.5, managed as type 2 History of BPH Hypertension, essential Lipid disorder Myocardial infarction Obesity Osteoarthritis of right knee Prostate hypertrophy Surgical History H/O colonoscopy History of knee replacement procedure of left knee Hx of elbow surgery Hx of fusion of cervical spine Hx of hand surgery Hx of shoulder surgery Family History Father Cancer Mother CVD (cardiovascular disease) Brother No problems noted. Social History Household Members: Spouse Housing: House Are you a primary child care director to a significant other at home: No Do you presently have visiting nurse or other home services: No Alcohol intake: never Patient Tobacco Use Status: Former Tobacco user Quit Date: 2003 Cigarette Packs Per Day: 1 Cigarettes Per Day: 20.0 Years Smoked: 30 e-Cigarette/Vaping Use: Never Used service: No Current occupational status: retired Current occupation: right handed Cognitive needs: No Hearing needs: No Vision needs: No Questionnaire Thrive Questionnaire Date Thrive assessed: 10/23/21 AUDIT C Alcohol Use Questionnaire (AUDIT-C) 1. How often do you have a drink containing alcohol?: Never 3. How often do you have six or more drinks on one occasion?: Never Total Score: 0 Score Reviewed/Action Taken: Yes Review of Systems Const Denies chills and Denies fever(s) ENT Denies epistaxis and Denies nasal discharge Card Denies chest pain Resp Denies chest congestion, Denies cough and Denies hemoptysis GI Denies diarrhea and Denies nausea Skin/Breast Denies rash Neuro Reports no additional complaints Psych Reports no additional complaints Endo Reports no additional complaints Physical exam (Primary Care) Vital Signs: Last Vital Signs Pulse 52 02/12/23 09:21 BP 150/80 H 02/12/23 09:21 Pulse Ox 97 02/12/23 09:21 Oxygen Delivery Method Room Air 02/12/23 09:21 BMI result Body Mass Index 33.6 Tobacco/Smoking Status: Tobacco use Status Tobacco use date assessed 02/12/23 02/12/23 09:23 Patient Tobacco Use Status Former Tobacco user 02/12/23 09:23 e-Cigarette/Vaping Use Never Used 02/12/23 09:23 Thrive Assessment: Date of Thrive Assessment Date Thrive assessed 10/23/21 02/12/23 09:23 Const General: cooperative, comfortable and no acute distress Orientation/consciousness: patient oriented x3 HENMT Head: Yes normocephalic Eyes General: appearance normal, both eyes and all related structures Neck Neck: Yes supple Resp Effort & Inspection: normal respiratory effort, no cough and no stridor Cardio Rhythm: regular rhythm Heart sounds: S1 normal heart sound present and S2 normal heart sound present Skin General skin exam: turgor normal Neuro General: patient oriented x3, tone normal and moves all extremities Extrem Shoulder/upper arm images: 1. Site of discomfort with palpation Right lower extremity: no edema Left lower extremity: no edema Assessment and Plan Assessment & Plan (1) Hypertension, essential: Code(s): I10 - Essential (primary) hypertension (2) Diabetes 1.5, managed as type 2: Code(s): E13.9 - Other specified diabetes mellitus without complications (3) Tendinopathy of left shoulder: Code(s): M67.912 - Unspecified disorder of synovium and tendon, left shoulder (4) Lipid disorder: Code(s): E78.9 - Disorder of lipoprotein metabolism, unspecified (5) Obesity due to excess calories: Code(s): E66.09 - Other obesity due to excess calories (6) Prostate hypertrophy: Code(s): N40.0 - Benign prostatic hyperplasia without lower urinary tract symptoms (7) Anemia: Code(s): D64.9 - Anemia, unspecified Qualifiers: Anemia type: unspecified type Qualified Code(s): D64.9 - Anemia, unspecified Plan Patient is 73-year-old male came in today for his regular follow-up visit. Patient is complaining of left shoulder pain for the past 2 weeks patient says that he does not know what happened he just woke up 1 day with the pain and he is now having difficulty lifting it above his head He does not have a job, he is right handed On examination he is tender over rotator cuff I have ordered x-ray of his shoulder and patient is to start physical therapy Diabetes mellitus:? Patient is taking Januvia 100 mg daily, and metformin 1 g b.i.d.. Hemoglobin A1c is well controlled Patient also have a diabetic neuropathy and osteoarthritis in his knees Lipid disorder:? Continue atorvastatin 80 mg once a day patient is tolerating medication. Blood pressure is elevated today I have given him a script for blood pressure monitor he need to start monitoring at home and bring a log and machine at his next visit. he is taking lisinopril hydrochlorothiazide 20-25 mg once a day. Target blood pressure for this patient is around 120/80. BPH: Continue tamsulosin 0.4 mg once a day no urinary complaints Coronary artery disease: Patient goes to [facility] once a year for monitoring and is taking nitroglycerin through them, however he has not needed in a while. Patient also have a first-degree AV block. There are no notes in the chart from his cardiology Obesity:??BMI is is elevated patient need to lose weight Follow-up 3 months, Labs needs to be done before visit Orders: Orders XR shoulder LT min 2V Today M67.912 - Unspecified disorder of synovium and tendon, left shoulder PT Evaluation and Treatment Today M67.912 - Unspecified disorder of synovium and tendon, left shoulder Hemoglobin A1c 2 Months D64.9 - Anemia, unspecified, E13.9 - Other specified diabetes mellitus without complications, E66.09 - Other obesity due to excess calories, E78.9 - Disorder of lipoprotein metabolism, unspecified, I10 - Essential (primary) hypertension, M67.912 - Unspecified disorder of synovium and tendon, left shoulder, N40.0 - Benign prostatic hyperplasia without lower urinary tract symptoms Microalbumin, Random (w Creat) 2 Months D64.9 - Anemia, unspecified, E13.9 - Other specified diabetes mellitus without complications, E66.09 - Other obesity due to excess calories, E78.9 - Disorder of lipoprotein metabolism, unspecified, I10 - Essential (primary) hypertension, M67.912 - Unspecified disorder of synovium and tendon, left shoulder, N40.0 - Benign prostatic hyperplasia without lower urinary tract symptoms Complete Blood Count Auto Diff 2 Months D64.9 - Anemia, unspecified, E13.9 - Other specified diabetes mellitus without complications, E66.09 - Other obesity due to excess calories, E78.9 - Disorder of lipoprotein metabolism, unspecified, I10 - Essential (primary) hypertension, M67.912 - Unspecified disorder of synovium and tendon, left shoulder, N40.0 - Benign prostatic hyperplasia without lower urinary tract symptoms Comprehensive Met. Panel 2 Months D64.9 - Anemia, unspecified, E13.9 - Other specified diabetes mellitus without complications, E66.09 - Other obesity due to excess calories, E78.9 - Disorder of lipoprotein metabolism, unspecified, I10 - Essential (primary) hypertension, M67.912 - Unspecified disorder of synovium and tendon, left shoulder, N40.0 - Benign prostatic hyperplasia without lower urinary tract symptoms LDL Cholesterol Direct 2 Months D64.9 - Anemia, unspecified, E13.9 - Other specified diabetes mellitus without complications, E66.09 - Other obesity due to excess calories, E78.9 - Disorder of lipoprotein metabolism, unspecified, I10 - Essential (primary) hypertension, M67.912 - Unspecified disorder of synovium and tendon, left shoulder, N40.0 - Benign prostatic hyperplasia without lower urinary tract symptoms TSH reflex Free T4 2 Months D64.9 - Anemia, unspecified, E13.9 - Other specified diabetes mellitus without complications, E66.09 - Other obesity due to excess calories, E78.9 - Disorder of lipoprotein metabolism, unspecified, I10 - Essential (primary) hypertension, M67.912 - Unspecified disorder of synovium and tendon, left shoulder, N40.0 - Benign prostatic hyperplasia without lower urinary tract symptoms Medications: New [Blood pressure monitor] As directed 1 ea 0RF I10 - Essential (primary) hypertension [Blood pressure monitor] As directed 1 ea 0RF I10 - Essential (primary) hypertension Coding Level of Care Code Est Pt Level 4 (56537) Diagnoses Hypertension, essential I10 Diabetes 1.5, managed as type 2 E13.9 Tendinopathy of left shoulder M67.912 Lipid disorder E78.9 Obesity due to excess calories E66.09 Prostate hypertrophy N40.0 Anemia D64.9 Anemia type: unspecified type
== END 2023-02-12 09:50 | disposition home or self-care (01) ==
PROVIDERS: Visit Provider Internal Medicine
DX: I10 Essential (primary) hypertension (principal); E13.9 Other specified diabetes mellitus without complications; M67.912 Unspecified disorder of synovium and tendon, left shoulder; Z68.33 Body mass index [BMI] 33.0-33.9, adult; E78.9 Disorder of lipoprotein metabolism, unspecified; E66.09 Other obesity due to excess calories; N40.0 Benign prostatic hyperplasia without lower urinary tract symptoms; D64.9 Anemia, unspecified
CPT/HCPCS: 99214

== ENCOUNTER 2023-02-19 14:17 | Outpatient (REF) | payer OTHER, SELFPAY ==
--- NOTE | ~2023-02-19 | XR_ITS ---
EXAMINATION: XR SHOULDER, LEFT CLINICAL INFORMATION: Unspecified disorder of synovium and tendon, left shoulder COMPARISON: None available. TECHNIQUE: AP external rotation, Grashey, scapular Y, and axillary views of the left shoulder. FINDINGS: The bones are intact no fracture. Glenohumeral and acromioclavicular alignment is anatomic with normal glenohumeral joint space. There is moderate degenerative change of the acromioclavicular joint. No abnormal soft tissue calcifications. XR/XR shoulder LT min 2V IMPRESSION: Moderate degenerative change of the acromioclavicular joint.
== END 2023-02-19 14:18 | disposition home or self-care (01) ==
LOC: HO.HMGCX 14:17
PROVIDERS: PCP Internal Medicine; Visit Provider Internal Medicine
DX: M67.912 Unspecified disorder of synovium and tendon, left shoulder (principal)
CPT/HCPCS: 73030

== ENCOUNTER 2023-03-31 14:00 | Outpatient (RCR) | payer OTHER, SELFPAY ==
--- NOTE | 2023-03-03 09:52 | MHC.PT.EP ---
[facility] [place] Office [place] Office [place] Office [address] Rik Causey [address] [phone] F: [phone] F: [phone] F: [phone] F: [phone] Physical Therapy Plan of Care Date of Evaluation: Date of Surgery: Diagnosis: This is a 73 yo male presenting to skilled PT with a script for tendinopathy of L shoulder. Assessment: This is a 73 yo male presenting to skilled PT with a script for tendinopathy of L shoulder. Patient reporting that his pain started after waking up one day about 2 months (insidiously). His pain varies depending on the day but is worse with lifting, reaching to the side, UB ADLs and sleeping on the L side. Pain is located at the posterior, superior and anterior GHJ. Pain can radiate to the elbow and hand (entire hand but mainly lateral 3 but he states that this has been happening since his cervical fusion so most likely not related to the new shoulder pain. Pain is described as stabbing, comes and goes and occurs with movement or weight bearing. Assessment reveals pain that ranges from up to a 9/10 at the worst. Patient demos decreased L shoulder ROM, strength of B scapular muscles and B RTC muscles, TTP at ACJ (x-rays with mod ACJ degenerative changes) and impaired posture with forward head and rounded shoulders. Based on functional limitations, impaired QOL and pain tolerance patient is a good candidate for skilled PT 2x/wk for 4wks. Frequency and Duration: The patient will be seen 2x/wk for 4wks Short Term Goals: (In 2 weeks) Demo I with HEP Improve shoulder AROM by at least 10 degs Demo proper scapular recruitment with appropriate shoulder strengthening exercises [employer] Goals: (in 4 wks) Improve shoulder nonpainful AROM to almost near equal B Demo at least 1 grade improvement in MMT for all shoulder movements Improve SPADI by at least 10 points Improve overall functional QOL by at least 50% Treatment Plan: Modalities to reduce pain, spasms and effusion. Manual therapy to restore motion and function. Therapeutic exercise to improve strength and flexibility. Neuromuscular re-education for posture and balance. Therapeutic activities to return to functional activities of daily living. Electronically signed by: Daniela White PT Please sign and return to therapist. Thank you for your referral.
--- NOTE | 2023-04-02 10:22 | MHC.PT.DC ---
[facility] [place] Office [place] Office [place] Office [address] Rik Causey [address] [facility] [phone] F: [phone] F: [phone] F: [phone] F: [phone] Physical Therapy Discharge Report Diagnosis: This is a 73 yo male presenting to skilled PT with a script for tendinopathy of L shoulder. Date of Surgery: Date of Evaluation: 03/03/23 Date of Discharge: 04/02/23 Treatments to Date: 8 Cancellations to Date: 0 No Shows to Date: 0 Discharge Status: Achieved Goals Improved Function Independent with HEP Discharge Summary: Patient with good ROM and strength. He periodically gets pain throughout his days however his pain improves with PT exercises. At this time he is I with his HEP, can manage his pain on his own and has met his goals. DC to HEP. Electronically signed by: Please sign and return to therapist. Thank you for your referral.
== END 2023-04-02 10:22 | disposition home or self-care (01) ==
LOC: HO.PTCHIC 14:00
PROVIDERS: PCP Internal Medicine; Visit Provider Internal Medicine
DX: M67.912 Unspecified disorder of synovium and tendon, left shoulder (principal)
CPT/HCPCS: 97110; 97162

== ENCOUNTER 2023-05-20 09:32 | Outpatient (AMB) | payer OTHER, SELFPAY ==
[2023-05-20 09:35] VITALS: BP 126/66; PULSE 66; O2SAT 92; BMI 32.9
--- NOTE | 2023-05-20 09:35 | MHC.PC.OV ---
Vital Signs 05/20/23 09:35 Height 5 ft 4 in Weight 191 lb 8 oz BMI 32.9 BP 126/66 Blood Pressure Location Rt brachial Position Sitting Pulse 66 Pulse Source Pulse Oximeter Pulse Oximetry (%) 92 Oxygen Delivery Method Room Air Intake Visit Reasons: 3m Allergies tramadol Allergy (Intermediate, Verified 05/20/23 09:36) rash Medication List - Last Reconciled 05/20/23 by Marizol Esparza MD acetaminophen 650 mg (2 x 325 mg) PO Q6H PRN 30 days aspirin 325 mg PO BID 6 weeks atorvastatin 80 mg PO DAILY 90 days [Blood pressure monitor As directed] blood sugar diagnostic (FreeStyle Lite Strips) 2 times a day; 90 days blood sugar diagnostic (FreeStyle Test strips) Patient to check blood sugar twice daily docusate sodium 100 mg PO BID 30 days dorzolamide-timolol 22.3-6.8 mg/mL mL ophthalmic (eye) lancets (FreeStyle Lancets) USE TO TEST TWICE A DAY lisinopril-hydrochlorothiazide 20-25 mg 1 tab PO DAILY 90 days metformin 1,000 mg PO BID 90 days methocarbamol 750 mg PO TID PRN nitroglycerin 1 mg sublingual Q5M PRN sitagliptin phosphate (Januvia) 100 mg PO BEDTIME 90 days tamsulosin 0.4 mg PO DAILY timolol maleate 0.5% 1 drp ophthalmic (eye) BID Tobacco use date assessed: 05/20/23 Fall risk assessment: No Falls in past year Last assessed Fall Risk: 05/20/23 Dental Screening Dental Screen Date: 05/20/23 Did you have a dental visit in the last 12 months?: Yes Did you have a dental problem in the last 6 months where you did not have access to dental care?: No Was dental information given to patient?: Patient has dentist HPI 3m HPI Details Patient is 73-year-old male came in today for his regular follow-up visit. Patient states that yesterday he had chest pain radiating to his back which lasted 45 minutes and then resolved. We did the EKG today which shows junctional rhythm 63 beats per minute. His old EKG shows first-degree AV block. I have ordered echocardiogram with the patient and Cardiology referral placed to be evaluated urgently. Diabetes mellitus:? Patient is taking Januvia 100 mg daily, and metformin 1 g b.i.d.. Hemoglobin A1c is well controlled , he forgot to do labs before the visit, patient will have it done today Patient also have a diabetic neuropathy and osteoarthritis in his knees Lipid disorder:? Continue atorvastatin 80 mg once a day patient is tolerating medication. Hypertension: he is taking lisinopril hydrochlorothiazide 20-25 mg once a day. Target blood pressure for this patient is around 120/80. BPH: Continue tamsulosin 0.4 mg once a day no urinary complaints Coronary artery disease: Patient goes to [facility] once a year for monitoring and is taking nitroglycerin through them, however he has not needed in a while. Patient also have a first-degree AV block. There are no notes in the chart from his cardiology, due to chest pain I have requested of follow-up appointment with [facility] Obesity:??BMI is is elevated patient need to lose weight Follow-up 3 months, [facility] Medical History CVD (cerebrovascular disease) CAD (coronary artery disease) History of BPH Myocardial infarction CVA (cerebral vascular accident) COVID-19 vaccine administered Arthritis of knee, right Obesity Diabetes 1.5, managed as type 2 Prostate hypertrophy Hypertension, essential Lipid disorder Osteoarthritis of right knee Surgical History Hx of fusion of cervical spine Hx of hand surgery Hx of elbow surgery Hx of shoulder surgery H/O colonoscopy History of knee replacement procedure of left knee Family History Father Cancer Mother CVD (cardiovascular disease) Brother No problems noted. Social History Household Members: Spouse Housing: House Are you a primary customer care specialist to a significant other at home: No Do you presently have visiting nurse or other home services: No Alcohol intake: never Patient Tobacco Use Status: Former Tobacco user Quit Date: 2003 Cigarette Packs Per Day: 1 Cigarettes Per Day: 20.0 Years Smoked: 30 e-Cigarette/Vaping Use: Never Used service: No Current occupational status: retired Current occupation: right handed Cognitive needs: No Hearing needs: No Vision needs: No Questionnaire PHQ-9 Over the last 2 weeks, how often have you been bothered by any of the following problems? 1. Little interest or pleasure in doing things: not at all 2. Feeling down, depressed, or hopeless: not at all 3. Trouble falling or staying asleep, or sleeping too much: not at all 4. Feeling tired or having little energy: not at all 5. Poor appetite or overeating: not at all 6. Feeling bad about yourself - or that you are a failure or have let yourself or your family down: not at all 7. Trouble concentrating on things, such as reading the newspaper or watching television: not at all 8. Moving or speaking so slowly that other people could have noticed. Or the opposite - being so fidgety or restless that you have been moving around a lot more than usual: not at all 9. Thoughts that you would be better off or of hurting yourself in some way: not at all Total score: 0 Depression Screening Interpretation: Negative Depression Screening Done: Yes 33698 - PHQ-9 Billing: Yes Source: Developed by Drs. Nitin Land, Mino White and colleagues, with an educational calvin from [employer]. Thrive Questionnaire Date Thrive assessed: 10/23/21 AUDIT C Alcohol Use Questionnaire (AUDIT-C) 1. How often do you have a drink containing alcohol?: Never 3. How often do you have six or more drinks on one occasion?: Never Total Score: 0 Score Reviewed/Action Taken: Yes RYLAND-7 AMB Questionnaire RYLAND-7 Date RYLAND - 7 assessed: 05/20/23 Feeling nervous, anxious, or on edge: 0 = Not at all Not being able to stop or control worryin = Not at all Worrying too much about different things: 0 = Not at all Trouble relaxin = Not at all Being so restless that it is hard to sit still: 0 = Not at all Becoming easily annoyed or irritable: 0 = Not at all Feeling afraid as if something awful might happen: 0 = Not at all Total RYLAND-7 score (0-4 normal; 5-9 mild; 10-14 moderate; 15-21 severe): 0 Source: Developed by Drs. Nitin Land, Mino White and colleagues, with an educational calvin from [employer]. RYLAND-7 Assessment Billing RYLAND-7 Assessment Tool: RYLAND-7 Assessment 09421 Review of Systems Const Denies chills and Denies fever(s) ENT Denies epistaxis and Denies nasal discharge Resp Denies chest congestion, Denies cough and Denies hemoptysis GI Denies diarrhea and Denies nausea Skin/Breast Denies rash Neuro Reports no additional complaints Psych Reports no additional complaints Endo Reports no additional complaints Physical exam (Primary Care) Vital Signs: Last Vital Signs Pulse 66 05/20/23 09:35 BP 126/66 05/20/23 09:35 Pulse Ox 92 05/20/23 09:35 Oxygen Delivery Method Room Air 05/20/23 09:35 BMI result Body Mass Index 32.9 Tobacco/Smoking Status: Tobacco use Status Tobacco use date assessed 05/20/23 05/20/23 09:36 Patient Tobacco Use Status Former Tobacco user 05/20/23 09:36 e-Cigarette/Vaping Use Never Used 05/20/23 09:36 PHQ-9: PHQ-9 Score PHQ-9: Total score 0 05/20/23 10:03 Depression Screening Interpretation: Negative Thrive Assessment: Date of Thrive Assessment Date Thrive assessed 10/23/21 05/20/23 09:36 Const General: cooperative, comfortable and no acute distress Orientation/consciousness: patient oriented x3 HENMT Head: Yes normocephalic Eyes General: appearance normal, both eyes and all related structures Neck Neck: Yes supple Resp Effort & Inspection: normal respiratory effort, no cough and no stridor Cardio Rhythm: regular rhythm Heart sounds: S1 normal heart sound present and S2 normal heart sound present Skin General skin exam: turgor normal Neuro General: patient oriented x3, tone normal and moves all extremities Extrem Right lower extremity: no edema Left lower extremity: no edema Assessment and Plan Assessment & Plan (1) Chest pain: Code(s): R07.9 - Chest pain, unspecified Qualifiers: Chest pain type: precordial pain Qualified Code(s): R07.2 - Precordial pain (2) First degree heart block: Code(s): I44.0 - Atrioventricular block, first degree (3) Diabetes 1.5, managed as type 2: Code(s): E13.9 - Other specified diabetes mellitus without complications (4) Lipid disorder: Code(s): E78.9 - Disorder of lipoprotein metabolism, unspecified (5) Abnormal EKG: Code(s): R94.31 - Abnormal electrocardiogram [ECG] [EKG] (6) Junctional rhythm: Code(s): I49.8 - Other specified cardiac arrhythmias (7) Hypertension, essential: Code(s): I10 - Essential (primary) hypertension (8) Obesity due to excess calories: Code(s): E66.09 - Other obesity due to excess calories Qualifiers: Body mass index: BMI 32.0-32.9 Obesity classification: adult class 1 (BMI 30 - 34.9) Serious obesity comorbidity presence: with serious comorbidity Qualified Code(s): E66.09 - Other obesity due to excess calories; Z68.32 - Body mass index [BMI] 32.0-32.9, adult (9) Prostate hypertrophy: Code(s): N40.0 - Benign prostatic hyperplasia without lower urinary tract symptoms (10) Anemia: Code(s): D64.9 - Anemia, unspecified Qualifiers: Anemia type: unspecified type Qualified Code(s): D64.9 - Anemia, unspecified (11) Diabetic neuropathy: Code(s): E11.40 - Type 2 diabetes mellitus with diabetic neuropathy, unspecified Qualifiers: Diabetes mellitus complication detail: diabetic polyneuropathy Diabetes mellitus type: type 2 Qualified Code(s): E11.42 - Type 2 diabetes mellitus with diabetic polyneuropathy (12) Osteoarthritis of knees, bilateral: Code(s): M17.0 - Bilateral primary osteoarthritis of knee Qualifiers: Osteoarthritis type: primary Qualified Code(s): M17.0 - Bilateral primary osteoarthritis of knee Plan Patient is 73-year-old male came in today for his regular follow-up visit. Patient states that yesterday he had chest pain radiating to his back which lasted 45 minutes and then resolved. We did the EKG today which shows junctional rhythm 63 beats per minute. His old EKG shows first-degree AV block. I have ordered echocardiogram with the patient and Cardiology referral placed to be evaluated urgently. Diabetes mellitus:? Patient is taking Januvia 100 mg daily, and metformin 1 g b.i.d.. Hemoglobin A1c is well controlled , he forgot to do labs before the visit, patient will have it done today Patient also have a diabetic neuropathy and osteoarthritis in his knees Lipid disorder:? Continue atorvastatin 80 mg once a day patient is tolerating medication. Hypertension: he is taking lisinopril hydrochlorothiazide 20-25 mg once a day. Target blood pressure for this patient is around 120/80. BPH: Continue tamsulosin 0.4 mg once a day no urinary complaints Coronary artery disease: Patient goes to [facility] once a year for monitoring and is taking nitroglycerin through them, however he has not needed in a while. Patient also have a first-degree AV block. There are no notes in the chart from his cardiology, due to chest pain I have requested of follow-up appointment with [facility] Obesity:??BMI is is elevated patient need to lose weight Follow-up 3 months, Orders: Orders CA echo transthoracic complete Today E13.9 - Other specified diabetes mellitus without complications, E78.9 - Disorder of lipoprotein metabolism, unspecified, I44.0 - Atrioventricular block, first degree, R07.9 - Chest pain, unspecified AMB EKG-In Office Today R07.9 - Chest pain, unspecified Referrals Cardiology Referral I49.8 - Other specified cardiac arrhythmias, R07.9 - Chest pain, unspecified, R94.31 - Abnormal electrocardiogram [ECG] [EKG] Coding Level of Care Code Est Pt Level 5 (16317) Diagnoses Precordial pain R07.2 Chest pain type: precordial pain First degree heart block I44.0 Diabetes 1.5, managed as type 2 E13.9 Lipid disorder E78.9 Abnormal EKG R94.31 Junctional rhythm I49.8 Hypertension, essential I10 Class 1 obesity due to excess calories with serious comorbidity and body mass index (BMI) of 32.0 to 32.9 in adult E66.09; Z68.32 Body mass index: BMI 32.0-32.9 Obesity classification: adult class 1 (BMI 30 - 34.9) Serious obesity comorbidity presence: with serious comorbidity Prostate hypertrophy N40.0 Anemia, unspecified type D64.9 Anemia type: unspecified type Diabetic polyneuropathy associated with type 2 diabetes mellitus E11.42 Diabetes mellitus complication detail: diabetic polyneuropathy Diabetes mellitus type: type 2 Primary osteoarthritis of both knees M17.0 Osteoarthritis type: primary Additional Codes RYLAND-7 Assessment Billing - RYLAND-7 Assessment Tool: RYLAND-7 Assessment [id number] ([id number]) Time Spent (min) 45 Comment 5 minute prep,25 with patient, 10 minute charting/ coordination of care
== END 2023-05-20 10:04 | disposition home or self-care (01) ==
PROVIDERS: PCP Internal Medicine; Visit Provider Internal Medicine
DX: R07.2 Precordial pain (principal); I44.0 Atrioventricular block, first degree; E11.42 Type 2 diabetes mellitus with diabetic polyneuropathy; E78.9 Disorder of lipoprotein metabolism, unspecified; R94.31 Abnormal electrocardiogram [ECG] [EKG]; I49.8 Other specified cardiac arrhythmias; I10 Essential (primary) hypertension; E66.09 Other obesity due to excess calories; Z68.32 Body mass index [BMI] 32.0-32.9, adult; N40.0 Benign prostatic hyperplasia without lower urinary tract symptoms; D64.9 Anemia, unspecified
CPT/HCPCS: 99215

== ENCOUNTER 2023-05-20 10:05 | Outpatient (REF) | payer OTHER, SELFPAY ==
[2023-05-20 13:32] LABS: MANUAL DIFF FLAG NO
[2023-05-20 13:39] LABS: Basophils Percent Auto 0.4 % (0-2); Eosinophils Absolute Auto 0.1 X10*3/uL (0.0-0.4); Eosinophils Percent Auto 1.5 % (0-4); Hematocrit 46.1 % (42.0-52.0); Hemoglobin 15.4 g/dl (14.0-18.0); Imm Gran Abs Auto 0.05 X10*3/uL (0.00-0.03); Imm Gran Pct Auto 0.5 % (0.0-0.4); Lymphocytes Absolute Auto 2.5 X10*3/uL (1.2-4.9); Lymphocytes Percent Auto 26.8 % (20-40); Mean Corpuscular HGB Conc 33.4 g/dl (31.0-36.0); Mean Corpuscular Hemoglobin 30.3 pg (27.0-33.0); Mean Corpuscular Volume 90.6 fL (80.0-98.0); Mean Platelet Volume 10.3 fL (9.4-12.4); Monocytes Absolute Auto 0.7 X10*3/uL (0.1-1.2); Monocytes Percent Auto 7.7 % (2-11); Neutrophils Percent Auto 63.1 % (45-73); Platelet Count 265 X10*3/uL (160-400); Red Blood Count 5.09 X10*6/uL (4.60-5.80); Red Cell Distribution Width 12.9 % (11.0-16.0); White Blood Count 9.4 X10*3/uL (4.8-10.8)
[2023-05-20 13:55] LABS: Estimated Average Glucose 137 mg/dL; Hemoglobin A1c % 6.4 % (<6.0)
[2023-05-20 14:03] LABS: Alanine Aminotransferase 13 U/L (0-40); Albumin Level 3.9 g/dL (3.5-5.0); Alkaline Phosphatase 84 U/L (39-117); Anion Gap 15 (12-20); Aspartate Amino Transferase 16 U/L (5-37); Bilirubin Total 0.5 mg/dL (0.0-1.0); Blood Urea Nitrogen 13 mg/dL (9-16); Calcium 9.6 mg/dL (8.4-10.2); Carbon Dioxide 26 mmol/L (22-29); Chloride 103 mmol/L (96-108); Estimated Glomerular Filt Rate > 60; Glucose Random 118 mg/dL (60-115); Potassium 4.3 mmol/L (3.3-5.1); Sodium 140 mmol/L (135-145); Total Protein 7.1 g/dL (6.5-8.0)
[2023-05-20 14:21] LABS: TSH reflex Free T4 5.53 uIU/mL (0.32-4.0)
[2023-05-20 14:47] LABS: Creatinine Urine 122.98 mg/dL; Microalbum/Creatinine Ratio Ur 11.3 ug/mg cr (<30)
[2023-05-20 15:16] LABS: Free T4 (Free Thyroxine) 0.89 ng/dL (0.71-1.85)
[2023-05-22 02:43] LABS: LDL Cholesterol Direct 54 mg/dL (<100)
== END 2023-05-20 10:06 | disposition home or self-care (01) ==
LOC: HO.HMGCLDS 10:05
PROVIDERS: PCP Internal Medicine; Visit Provider Internal Medicine
DX: D64.9 Anemia, unspecified (principal); M67.912 Unspecified disorder of synovium and tendon, left shoulder; E66.09 Other obesity due to excess calories; E78.9 Disorder of lipoprotein metabolism, unspecified; I10 Essential (primary) hypertension; E13.9 Other specified diabetes mellitus without complications; N40.0 Benign prostatic hyperplasia without lower urinary tract symptoms; R07.9 Chest pain, unspecified; I44.0 Atrioventricular block, first degree
CPT/HCPCS: 36415; 80053; 82043; 82570; 83036; 83721; 84439; 84443; 85025

== ENCOUNTER 2023-05-22 08:48 | Outpatient (AMB) | payer OTHER, SELFPAY ==
[2023-05-22 09:11] VITALS: BP 108/66; PULSE 65; BMI 32.2
--- NOTE | 2023-05-22 09:11 | MHC.OFFVIS ---
Intake Vital Signs 05/22/23 09:11 Height 5 ft 4 in Weight 187 lb 6.287 oz BMI 32.2 BP 108/66 Blood Pressure Location Lt brachial Position Sitting Pulse 65 Intake Visit Reasons: NPV/Isaias/CP/Abnormal EKG Intake Note: NPV w/ EKG Clinical Trial Coordinator Required: No Accompanied by: Self / Same As Patient Allergies tramadol Allergy (Intermediate, Verified 05/22/23 09:12) rash Medication List - Last Reconciled 05/22/23 by Kj Alan MD acetaminophen 650 mg (2 x 325 mg) PO Q6H PRN 30 days aspirin (Adult Aspirin Regimen) 81 mg PO DAILY atorvastatin 80 mg PO DAILY 90 days [Blood pressure monitor As directed] blood sugar diagnostic (FreeStyle Lite Strips) 2 times a day; 90 days blood sugar diagnostic (FreeStyle Test strips) Patient to check blood sugar twice daily docusate sodium 100 mg PO BID 30 days dorzolamide-timolol 22.3-6.8 mg/mL mL ophthalmic (eye) lancets (FreeStyle Lancets) USE TO TEST TWICE A DAY lisinopril-hydrochlorothiazide 20-25 mg 1 tab PO DAILY 90 days metformin 1,000 mg PO BID 90 days methocarbamol 750 mg PO TID PRN nitroglycerin 1 mg sublingual Q5M PRN sitagliptin phosphate (Januvia) 100 mg PO BEDTIME 90 days tamsulosin 0.4 mg PO DAILY timolol maleate 0.5% 1 drp ophthalmic (eye) BID HPI HPI Comments History of Present Illness Details Walter is here for evaluation regarding chest pain and abnormal EKG. Previously, going to [facility] but would like to switch care. Patient states he has had cardiac issues going back almost 20 years. According to him, he has had angioplasty in the past but unknown details. However, in the most recent cardiac catheterization 2020, essentially reported have normal coronary arteries. He states he recently, he was sitting on the commode and developed chest pain. That last for about 40 minutes or so and then resolve spontaneously. Otherwise, he does get off and on chest pains of uncertain nature. [facility] Medical History CVD (cerebrovascular disease) CAD (coronary artery disease) History of BPH Myocardial infarction CVA (cerebral vascular accident) COVID-19 vaccine administered Arthritis of knee, right Obesity Diabetes 1.5, managed as type 2 Prostate hypertrophy Hypertension, essential Lipid disorder Osteoarthritis of right knee Surgical History Hx of fusion of cervical spine Hx of hand surgery Hx of elbow surgery Hx of shoulder surgery H/O colonoscopy History of knee replacement procedure of left knee Family History Father Cancer Mother CVD (cardiovascular disease) Brother No problems noted. Social History Household Members: Spouse Housing: House Are you a primary managed care coordinator to a significant other at home: No Do you presently have visiting nurse or other home services: No Alcohol intake: never Patient Tobacco Use Status: Former Tobacco user Quit Date: 2003 Cigarette Packs Per Day: 1 Cigarettes Per Day: 20.0 Years Smoked: 30 e-Cigarette/Vaping Use: Never Used service: No Current occupational status: retired Current occupation: right handed Cognitive needs: No Hearing needs: No Vision needs: No Review of Systems Const Denies weakness ENT Denies dizziness Card Denies chest pain, Denies chest pain with activity, Denies syncope, Denies rapid heart rate, Denies pedal edema, Denies edema, Denies leg edema, Denies lightheadedness, Denies palpitations, Denies dyspnea, Denies dyspnea on exertion and Denies orthopnea Resp Denies cough, Denies dyspnea and Denies dyspnea on exertion GI Denies hematochezia and Denies change in stool character Musc Denies abnormal gait, Denies muscle cramps, Denies muscle weakness, Denies numbness, Denies radiating pain into limb and Denies tingling Neuro Denies abnormal gait, Denies dizziness, Denies syncope, Denies numbness, Denies tingling and Denies weakness Endo Denies palpitations Physical Exam Vital Signs: Last Vital Signs Pulse 65 05/22/23 09:11 BP 108/66 05/22/23 09:11 BMI result Body Mass Index 32.2 Const General: comfortable and no acute distress Orientation/consciousness: patient oriented x3 HEENT Other: Unremarkable Head: Yes normal to inspection Neck Neck: Yes normal visual inspection Chest Chest palpation & inspection: normal inspection of the chest Resp Auscultation: clear to auscultation bilaterally Cardio Palpation: normal PMI Heart sounds: S1 normal heart sound present, S2 normal heart sound present, no gallops, no murmurs and no rubs GI Palpation (GI): Soft to palpation Back/Spine/Pelvis Other: unremarkable Skin General skin exam: no rashes or lesions noted Neuro General: patient oriented x3 Extrem General: Yes normal to inspection Psych Mental Status: mental status grossly normal Office Procedures EKG Details: EKG with sinus rhythm at 65/Min; ME prolongation to 206 millisecond; [place]. [id number], Complete Assessment & Plan Assessment & Plan (1) Chest pain: Code(s): R07.9 - Chest pain, unspecified Qualifiers: Chest pain type: precordial pain Qualified Code(s): R07.2 - Precordial pain Plan Patient described history of coronary disease. Most recent cardiac catheterization data reviewed from 2020. That shows essentially normal coronary arteries. In that report, there is mention of probable [place] due to spasm in 2003. Uncertain reason for the recent chest pain. EKG today is not showing any ischemic findings. 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 Discussed with daughter who came for appointment. Will hold off any testing at this time till prior records are reviewed. Coding Level of Care Code New Pt Level 3 (79661) Diagnoses Precordial pain R07.2 Chest pain type: precordial pain CPT Codes EKG - CPT: 26176-[id number], Complete ([id number])
== END 2023-05-22 09:36 | disposition home or self-care (01) ==
PROVIDERS: PCP Internal Medicine; Visit Provider Internal Medicine
DX: R07.2 Precordial pain (principal)
CPT/HCPCS: 93010; 99203

== ENCOUNTER → 2023-05-22 08:48 | Outpatient (BNVA) | payer OTHER, SELFPAY | PROVIDERS: PCP Internal Medicine; Visit Provider Internal Medicine | DX: R07.2 Precordial pain (principal) | CPT/HCPCS: 93005; 99202 ==

== ENCOUNTER 2023-05-26 13:44 | Outpatient (REF) | payer OTHER, SELFPAY ==
[2023-05-26 17:39] LABS: TSH reflex Free T4 5.98 uIU/mL (0.32-4.0)
[2023-05-26 18:19] LABS: Free T4 (Free Thyroxine) 0.84 ng/dL (0.71-1.85)
== END 2023-05-26 13:45 | disposition home or self-care (01) ==
LOC: HO.HMGCLDS 13:44
PROVIDERS: PCP Internal Medicine; Visit Provider Internal Medicine
DX: R94.6 Abnormal results of thyroid function studies (principal)
CPT/HCPCS: 36415; 84439; 84443

== ENCOUNTER 2023-06-30 09:19 | Outpatient (AMB) | payer OTHER, SELFPAY ==
--- NOTE | 2023-06-30 09:36 | A.OFFVIS_ITS ---
Intake Vital Signs 06/30/23 09:37 Height 5 ft 4 in Weight 194 lb 0.108 oz BMI 33.3 BP 118/64 Blood Pressure Location Rt brachial Position Sitting Pulse 58 Intake Visit Reasons: 1 mth fu after reviewing outside records Intake Note: 1 month follow up Sap Integration Architect Required: No Accompanied by: Daughter Allergies tramadol Allergy (Intermediate, Verified 06/30/23 09:39) rash Medication List - Last Reconciled 06/30/23 by Kj Alan MD acetaminophen 650 mg (2 x 325 mg) PO Q6H PRN 30 days aspirin (Adult Aspirin Regimen) 81 mg PO DAILY atorvastatin 80 mg PO DAILY 90 days [Blood pressure monitor As directed] blood sugar diagnostic (FreeStyle Lite Strips) 2 times a day; 90 days blood sugar diagnostic (FreeStyle Test strips) Patient to check blood sugar twice daily docusate sodium 100 mg PO BID 30 days dorzolamide-timolol 22.3-6.8 mg/mL mL ophthalmic (eye) lancets (FreeStyle Lancets) USE TO TEST TWICE A DAY levothyroxine 25 mcg PO DAILY lisinopril-hydrochlorothiazide 20-25 mg 1 tab PO DAILY 90 days metformin 1,000 mg PO BID 90 days methocarbamol 750 mg PO TID PRN nitroglycerin 1 mg sublingual Q5M PRN sitagliptin phosphate (Januvia) 100 mg PO BEDTIME 90 days tamsulosin 0.4 mg PO DAILY timolol maleate 0.5% 1 drp ophthalmic (eye) BID HPI HPI Comments History of Present Illness Details Walter returns for follow-up. Recently seen in consultation regarding chest pain/abnormal EKG. He was going to [facility] and actually just seen a few weeks back. Today's initial visit, we did not have any records but now ready for review. According to the last note from March, it seems that he had cardiac catheterization in 2020 and that showed minor irregularities and no significant CAD. Patient had reported some chest pain the last visit which is very nonspecific but then currently he states he no longer has any chest pain or in fact anything at all of cardiac nature. [facility] Medical History CVD (cerebrovascular disease) CAD (coronary artery disease) History of BPH Myocardial infarction CVA (cerebral vascular accident) COVID-19 vaccine administered Arthritis of knee, right Obesity Diabetes 1.5, managed as type 2 Prostate hypertrophy Hypertension, essential Lipid disorder Osteoarthritis of right knee Surgical History Hx of fusion of cervical spine Hx of hand surgery Hx of elbow surgery Hx of shoulder surgery H/O colonoscopy History of knee replacement procedure of left knee Family History Father Cancer Mother CVD (cardiovascular disease) Brother No problems noted. Social History Household Members: Spouse Housing: House Are you a primary care companion to a significant other at home: No Do you presently have visiting nurse or other home services: No Alcohol intake: never Patient Tobacco Use Status: Former Tobacco user Quit Date: 2003 Cigarette Packs Per Day: 1 Cigarettes Per Day: 20.0 Years Smoked: 30 e-Cigarette/Vaping Use: Never Used service: No Current occupational status: retired Current occupation: right handed Cognitive needs: No Hearing needs: No Vision needs: No Review of Systems Const All systems reviewed & are unremarkable except as noted in HPI and below Reports as per HPI and Reports no additional complaints Eyes Reports as per HPI and Denies no additional complaints ENT Denies no additional complaints and Reports as per HPI Card Reports as per HPI, Reports no additional complaints, Denies acrocyanosis, Denies chest pain, Denies leg edema, Denies lightheadedness, Denies palpitations and Denies dyspnea Resp Reports as per HPI, Denies no additional complaints and Denies dyspnea GI Reports as per HPI and Denies no additional complaints Reports no additional complaints and Reports as per HPI Musc Reports no additional complaints and Reports as per HPI Skin/Breast Reports system reviewed and no additional complaints, except as documented Neuro Reports no additional complaints and Reports as per HPI Psych Reports no additional complaints and Reports as per HPI Endo Reports no additional complaints, Reports as per HPI and Denies palpitations Pablo/Lymph Reports no additional complaints and Reports as per HPI Aller/Immun Reports no additional complaints and Reports as per HPI Physical Exam Vital Signs: Last Vital Signs Pulse 58 06/30/23 09:37 BP 118/64 06/30/23 09:37 BMI result Body Mass Index 33.3 Const General: comfortable and no acute distress Orientation/consciousness: patient oriented x3 HEENT Other: Unremarkable Head: Yes normal to inspection Neck Neck: Yes normal visual inspection Chest Chest palpation & inspection: normal inspection of the chest Resp Auscultation: clear to auscultation bilaterally Cardio Palpation: normal PMI Heart sounds: S1 normal heart sound present, S2 normal heart sound present, no gallops, no murmurs and no rubs GI Palpation (GI): Soft to palpation Back/Spine/Pelvis Other: unremarkable Skin General skin exam: no rashes or lesions noted Neuro General: patient oriented x3 Extrem General: Yes normal to inspection Psych Mental Status: mental status grossly normal Assessment & Plan Assessment & Plan (1) Chest pain: Code(s): R07.9 - Chest pain, unspecified Qualifiers: Chest pain type: precordial pain Qualified Code(s): R07.2 - Precordial pain Plan Recent office notes reviewed from [facility] from March 2023. According to the note, nuclear stress test from June 2021 showed possible inferior perfusion defect with an ejection fraction of 70%. Normal LV function and wall thickening. Cardiac catheterization from June 2021 showed mild irregularities and no obstructive CAD. Hence he was actually discharged from [facility] practice to be seen as needed. Clinically, he has got no symptoms either. Hence reassurance only. Discussed with daughter who came for appointment. Coding Level of Care Code Est Pt Level 3 (95946) Diagnoses Precordial pain R07.2 Chest pain type: precordial pain
[2023-06-30 09:37] VITALS: BP 118/64; PULSE 58; BMI 33.3
== END 2023-06-30 10:00 | disposition home or self-care (01) ==
PROVIDERS: PCP Internal Medicine; Visit Provider Internal Medicine
DX: R07.2 Precordial pain (principal)
CPT/HCPCS: 99213

== ENCOUNTER → 2023-06-30 09:19 | Outpatient (BNVA) | payer OTHER, SELFPAY | PROVIDERS: PCP Internal Medicine; Visit Provider Internal Medicine | DX: R07.2 Precordial pain (principal) | CPT/HCPCS: 99212 ==

== ENCOUNTER 2023-08-19 08:05 | Outpatient (AMB) | payer OTHER, SELFPAY ==
[2023-08-19 08:29] VITALS: BP 130/66; PULSE 65; O2SAT 97; BMI 33.3
--- NOTE | 2023-08-19 08:29 | A.OFFPC_ITS ---
Vital Signs 08/19/23 08:29 Height 5 ft 4 in Weight 194 lb BMI 33.3 BP 130/66 Blood Pressure Location Rt brachial Position Sitting Pulse 65 Pulse Source Pulse Oximeter Pulse Oximetry (%) 97 Oxygen Delivery Method Room Air Intake Visit Reasons: 6m follow up Allergies tramadol Allergy (Intermediate, Verified 08/19/23 08:30) rash Medication List - Last Reconciled 08/19/23 by Marizol Esparza MD acetaminophen 650 mg (2 x 325 mg) PO Q6H PRN 30 days aspirin (Adult Aspirin Regimen) 81 mg PO DAILY atorvastatin 80 mg PO DAILY 90 days [Blood pressure monitor As directed] blood sugar diagnostic (FreeStyle Lite Strips) 2 times a day; 90 days blood sugar diagnostic (FreeStyle Test strips) Patient to check blood sugar twice daily docusate sodium 100 mg PO BID 30 days dorzolamide-timolol 22.3-6.8 mg/mL mL ophthalmic (eye) lancets (FreeStyle Lancets) USE TO TEST TWICE A DAY levothyroxine 25 mcg PO DAILY lisinopril-hydrochlorothiazide 20-25 mg 1 tab PO DAILY 90 days metformin 1,000 mg PO BID 90 days methocarbamol 750 mg PO TID PRN nitroglycerin 1 mg sublingual Q5M PRN sitagliptin phosphate (Januvia) 100 mg PO BEDTIME 90 days tamsulosin 0.4 mg PO DAILY timolol maleate 0.5% 1 drp ophthalmic (eye) BID Tobacco use date assessed: 08/19/23 Fall risk assessment: No Falls in past year Last assessed Fall Risk: 08/19/23 Dental Screening Dental Screen Date: 08/19/23 Did you have a dental visit in the last 12 months?: No Did you have a dental problem in the last 6 months where you did not have access to dental care?: No Was dental information given to patient?: No HPI 6m follow up HPI Details 73-year-old gentleman with a history of coronary artery disease, first-degree AV block seeing bindery operator for management, history of multiple joint osteoarthritis including knees cervical spine lumbar spine Chronic pain left shoulder, history of surgery right shoulder, chronic pain both elbows, obesity, diabetes, hypothyroidism was started on levothyroxine 25 mcg in May but patient does not recall taking it. He has history of diabetic neuropathy, history of anemia, hypertension, lipid disorder, prostatic hypertrophy. Came in today for his regular follow-up appointment, he will be having labs today I will recheck TSH level and also due for hemoglobin A1c. Diabetes mellitus:? Patient is taking Januvia 100 mg daily, and metformin 1 g b.i.d.. Hemoglobin A1c is well controlled Lipid disorder:? Continue atorvastatin 80 mg once a day patient is tolerating medication. Hypertension: he is taking lisinopril hydrochlorothiazide 20-25 mg once a day. Target blood pressure for this patient is around 120/80. BPH: Continue tamsulosin 0.4 mg once a day no urinary complaints Obesity:??BMI is is elevated patient need to lose weight Follow-up 3 months [facility] Medical History CVD (cerebrovascular disease) CAD (coronary artery disease) History of BPH Myocardial infarction CVA (cerebral vascular accident) COVID-19 vaccine administered Arthritis of knee, right Obesity Diabetes 1.5, managed as type 2 Prostate hypertrophy Hypertension, essential Lipid disorder Osteoarthritis of right knee Surgical History Hx of fusion of cervical spine Hx of hand surgery Hx of elbow surgery Hx of shoulder surgery H/O colonoscopy History of knee replacement procedure of left knee Family History Father Cancer Mother CVD (cardiovascular disease) Brother No problems noted. Social History Household Members: Spouse Housing: House Are you a primary home care music therapist to a significant other at home: No Do you presently have visiting nurse or other home services: No Alcohol intake: never Patient Tobacco Use Status: Former Tobacco user Quit Date: 2003 Cigarette Packs Per Day: 1 Cigarettes Per Day: 20.0 Years Smoked: 30 e-Cigarette/Vaping Use: Never Used service: No Current occupational status: retired Current occupation: right handed Cognitive needs: No Hearing needs: No Vision needs: No Questionnaire Thrive Questionnaire Date Thrive assessed: 10/23/21 AUDIT C Alcohol Use Questionnaire (AUDIT-C) 1. How often do you have a drink containing alcohol?: Never 3. How often do you have six or more drinks on one occasion?: Never Total Score: 0 Score Reviewed/Action Taken: Yes RYLAND-7 AMB Questionnaire RYLAND-7 Date RYLAND - 7 assessed: 05/20/23 Source: Developed by Drs. Nitin Land, Rylee Britt, Mino Garcia and colleagues, with an educational calvin from [employer]. Review of Systems Const Denies chills and Denies fever(s) ENT Denies epistaxis and Denies nasal discharge Card Denies chest pain Resp Denies chest congestion, Denies cough and Denies hemoptysis GI Denies diarrhea and Denies nausea Skin/Breast Denies rash Neuro Reports no additional complaints Psych Reports no additional complaints Endo Reports no additional complaints Physical exam (Primary Care) Vital Signs: Last Vital Signs Pulse 65 08/19/23 08:29 BP 130/66 08/19/23 08:29 Pulse Ox 97 08/19/23 08:29 Oxygen Delivery Method Room Air 08/19/23 08:29 BMI result Body Mass Index 33.3 Tobacco/Smoking Status: Tobacco use Status Tobacco use date assessed 08/19/23 08/19/23 08:31 Patient Tobacco Use Status Former Tobacco user 08/19/23 08:31 e-Cigarette/Vaping Use Never Used 08/19/23 08:31 Thrive Assessment: Date of Thrive Assessment Date Thrive assessed 10/23/21 08/19/23 08:31 Const General: cooperative, comfortable and no acute distress Orientation/consciousness: patient oriented x3 HENMT Head: Yes normocephalic Eyes General: appearance normal, both eyes and all related structures Neck Neck: Yes supple Resp Effort & Inspection: normal respiratory effort, no cough and no stridor Cardio Rhythm: regular rhythm Heart sounds: S1 normal heart sound present and S2 normal heart sound present Skin General skin exam: turgor normal Neuro General: patient oriented x3, tone normal and moves all extremities Extrem Right lower extremity: no edema Left lower extremity: no edema Assessment and Plan Assessment & Plan (1) Diabetes 1.5, managed as type 2: Code(s): E13.9 - Other specified diabetes mellitus without complications (2) Prostate hypertrophy: Code(s): N40.0 - Benign prostatic hyperplasia without lower urinary tract symptoms (3) First degree heart block: Code(s): I44.0 - Atrioventricular block, first degree (4) Lipid disorder: Code(s): E78.9 - Disorder of lipoprotein metabolism, unspecified (5) Hypertension, essential: Code(s): I10 - Essential (primary) hypertension (6) Anemia: Code(s): D64.9 - Anemia, unspecified Qualifiers: Anemia type: unspecified type Qualified Code(s): D64.9 - Anemia, unspecified (7) Obesity due to excess calories: Code(s): E66.09 - Other obesity due to excess calories Qualifiers: Body mass index: BMI 32.0-32.9 Obesity classification: adult class 1 (BMI 30 - 34.9) Serious obesity comorbidity presence: with serious comorbidity Qualified Code(s): E66.09 - Other obesity due to excess calories; Z68.32 - Body mass index [BMI] 32.0-32.9, adult (8) Tendinopathy of left shoulder: Code(s): M67.912 - Unspecified disorder of synovium and tendon, left shoulder (9) Diabetic neuropathy: Code(s): E11.40 - Type 2 diabetes mellitus with diabetic neuropathy, unspecified Qualifiers: Diabetes mellitus complication detail: diabetic polyneuropathy Diabetes mellitus type: type 2 Qualified Code(s): E11.42 - Type 2 diabetes mellitus with diabetic polyneuropathy (10) Cervical radiculitis: Code(s): M54.12 - Radiculopathy, cervical region (11) Lumbar pain: Code(s): M54.50 - Low back pain, unspecified (12) Osteoarthritis of knees, bilateral: Code(s): M17.0 - Bilateral primary osteoarthritis of knee Qualifiers: Osteoarthritis type: primary Qualified Code(s): M17.0 - Bilateral primary osteoarthritis of knee Plan 73-year-old gentleman with a history of coronary artery disease, first-degree AV block seeing bindery operator for management, history of multiple joint osteoarthritis including knees cervical spine lumbar spine Chronic pain left shoulder, history of surgery right shoulder, chronic pain both elbows, obesity, diabetes, hypothyroidism was started on levothyroxine 25 mcg in May but patient does not recall taking it. He has history of diabetic neuropathy, history of anemia, hypertension, lipid disorder, prostatic hypertrophy. Came in today for his regular follow-up appointment, he will be having labs today I will recheck TSH level and also due for hemoglobin A1c. Diabetes mellitus:? Patient is taking Januvia 100 mg daily, and metformin 1 g b.i.d.. Hemoglobin A1c is well controlled Lipid disorder:? Continue atorvastatin 80 mg once a day patient is tolerating medication. Hypertension: he is taking lisinopril hydrochlorothiazide 20-25 mg once a day. Target blood pressure for this patient is around 120/80. BPH: Continue tamsulosin 0.4 mg once a day no urinary complaints Obesity:??BMI is is elevated patient need to lose weight Follow-up 3 months Orders: Orders TSH reflex Free T4 Today D64.9 - Anemia, unspecified, E11.40 - Type 2 diabetes mellitus with diabetic neuropathy, unspecified, E13.9 - Other specified diabetes mellitus without complications, E66.09 - Other obesity due to excess calories, E78.9 - Disorder of lipoprotein metabolism, unspecified, I10 - Essential (primary) hypertension, I44.0 - Atrioventricular block, first degree, M54.12 - Radiculopathy, cervical region, M54.50 - Low back pain, unspecified, M67.912 - Unspecified disorder of synovium and tendon, left shoulder, N40.0 - Benign prostatic hyperplasia without lower urinary tract symptoms, Z00.00 - Encounter for general adult medical examination without abnormal findings Complete Blood Count Auto Diff Today D64.9 - Anemia, unspecified, E11.40 - Type 2 diabetes mellitus with diabetic neuropathy, unspecified, E13.9 - Other specified diabetes mellitus without complications, E66.09 - Other obesity due to excess calories, E78.9 - Disorder of lipoprotein metabolism, unspecified, I10 - Essential (primary) hypertension, I44.0 - Atrioventricular block, first degree, M54.12 - Radiculopathy, cervical region, M54.50 - Low back pain, unspecified, M67.912 - Unspecified disorder of synovium and tendon, left shoulder, N40.0 - Benign prostatic hyperplasia without lower urinary tract symptoms, Z00.00 - Encounter for general adult medical examination without abnormal findings LDL Cholesterol Direct Today D64.9 - Anemia, unspecified, E11.40 - Type 2 diabetes mellitus with diabetic neuropathy, unspecified, E13.9 - Other specified diabetes mellitus without complications, E66.09 - Other obesity due to excess calories, E78.9 - Disorder of lipoprotein metabolism, unspecified, I10 - Essential (primary) hypertension, I44.0 - Atrioventricular block, first degree, M54.12 - Radiculopathy, cervical region, M54.50 - Low back pain, unspecified, M67.912 - Unspecified disorder of synovium and tendon, left shoulder, N40.0 - Benign prostatic hyperplasia without lower urinary tract symptoms, Z00.00 - Encounter for general adult medical examination without abnormal findings Hemoglobin A1c Today D64.9 - Anemia, unspecified, E11.40 - Type 2 diabetes mellitus with diabetic neuropathy, unspecified, E13.9 - Other specified diabetes mellitus without complications, E66.09 - Other obesity due to excess calories, E78.9 - Disorder of lipoprotein metabolism, unspecified, I10 - Essential (primary) hypertension, I44.0 - Atrioventricular block, first degree, M54.12 - Radiculopathy, cervical region, M54.50 - Low back pain, unspecified, M67.912 - Unspecified disorder of synovium and tendon, left shoulder, N40.0 - Benign prostatic hyperplasia without lower urinary tract symptoms, Z00.00 - Encounter for general adult medical examination without abnormal findings Microalbumin, Random (w Creat) Today D64.9 - Anemia, unspecified, E11.40 - Type 2 diabetes mellitus with diabetic neuropathy, unspecified, E13.9 - Other specified diabetes mellitus without complications, E66.09 - Other obesity due to excess calories, E78.9 - Disorder of lipoprotein metabolism, unspecified, I10 - Essential (primary) hypertension, I44.0 - Atrioventricular block, first degree, M54.12 - Radiculopathy, cervical region, M54.50 - Low back pain, unspecified, M67.912 - Unspecified disorder of synovium and tendon, left shoulder, N40.0 - Benign prostatic hyperplasia without lower urinary tract symptoms, Z00.00 - Encounter for general adult medical examination without abnormal findings Comprehensive Met. Panel Today D64.9 - Anemia, unspecified, E11.40 - Type 2 diabetes mellitus with diabetic neuropathy, unspecified, E13.9 - Other specified diabetes mellitus without complications, E66.09 - Other obesity due to excess calories, E78.9 - Disorder of lipoprotein metabolism, unspecified, I10 - Essential (primary) hypertension, I44.0 - Atrioventricular block, first degree, M54.12 - Radiculopathy, cervical region, M54.50 - Low back pain, unspecified, M67.912 - Unspecified disorder of synovium and tendon, left shoulder, N40.0 - Benign prostatic hyperplasia without lower urinary tract symptoms, Z00.00 - E ncounter for general adult medical examination without abnormal findings Referrals Orthopedics Referral M67.912 - Unspecified disorder of synovium and tendon, left shoulder Coding Level of Care Code Est Pt Level 4 (38685) Diagnoses Diabetes 1.5, managed as type 2 E13.9 Prostate hypertrophy N40.0 First degree heart block I44.0 Lipid disorder E78.9 Hypertension, essential I10 Anemia, unspecified type D64.9 Anemia type: unspecified type Class 1 obesity due to excess calories with serious comorbidity and body mass index (BMI) of 32.0 to 32.9 in adult E66.09; Z68.32 Body mass index: BMI 32.0-32.9 Obesity classification: adult class 1 (BMI 30 - 34.9) Serious obesity comorbidity presence: with serious comorbidity Tendinopathy of left shoulder M67.912 Diabetic polyneuropathy associated with type 2 diabetes mellitus E11.42 Diabetes mellitus complication detail: diabetic polyneuropathy Diabetes mellitus type: type 2 Cervical radiculitis M54.12 Lumbar pain M54.50 Primary osteoarthritis of both knees M17.0 Osteoarthritis type: primary
== END 2023-08-19 08:42 | disposition home or self-care (01) ==
PROVIDERS: PCP Internal Medicine; Visit Provider Internal Medicine
DX: E11.42 Type 2 diabetes mellitus with diabetic polyneuropathy (principal); N40.0 Benign prostatic hyperplasia without lower urinary tract symptoms; I44.0 Atrioventricular block, first degree; E78.9 Disorder of lipoprotein metabolism, unspecified; I10 Essential (primary) hypertension; D64.9 Anemia, unspecified; E66.09 Other obesity due to excess calories; Z68.32 Body mass index [BMI] 32.0-32.9, adult; M67.912 Unspecified disorder of synovium and tendon, left shoulder; M54.12 Radiculopathy, cervical region; M54.50 Low back pain, unspecified; M17.0 Bilateral primary osteoarthritis of knee
CPT/HCPCS: 99214

== ENCOUNTER 2023-08-19 08:43 | Outpatient (REF) | payer OTHER, SELFPAY ==
[2023-08-19 10:23] LABS: MANUAL DIFF FLAG NO
[2023-08-19 10:40] LABS: Basophils Percent Auto 0.5 % (0-2); Eosinophils Absolute Auto 0.1 X10*3/uL (0.0-0.4); Eosinophils Percent Auto 1.2 % (0-4); Estimated Average Glucose 134 mg/dL; Hematocrit 47.5 % (42.0-52.0); Hemoglobin 15.8 g/dl (14.0-18.0); Hemoglobin A1c % 6.3 % (<6.0); Imm Gran Abs Auto 0.03 X10*3/uL (0.00-0.03); Imm Gran Pct Auto 0.4 % (0.0-0.4); Lymphocytes Absolute Auto 2.5 X10*3/uL (1.2-4.9); Lymphocytes Percent Auto 34.1 % (20-40); Mean Corpuscular HGB Conc 33.3 g/dl (31.0-36.0); Mean Corpuscular Hemoglobin 30.9 pg (27.0-33.0); Mean Corpuscular Volume 92.8 fL (80.0-98.0); Mean Platelet Volume 10.9 fL (9.4-12.4); Monocytes Absolute Auto 0.6 X10*3/uL (0.1-1.2); Monocytes Percent Auto 8.4 % (2-11); Neutrophils Absolute Auto 4.1 x10*3/uL (2.0-8.3); Neutrophils Percent Auto 55.4 % (45-73); Platelet Count 215 X10*3/uL (160-400); Red Blood Count 5.12 X10*6/uL (4.60-5.80); Red Cell Distribution Width 13.4 % (11.0-16.0); White Blood Count 7.4 X10*3/uL (4.8-10.8)
[2023-08-19 10:55] LABS: Creatinine Urine 173.34 mg/dL; Microalbum/Creatinine Ratio Ur 10.9 ug/mg cr (<30)
[2023-08-19 10:56] LABS: Alanine Aminotransferase 20 U/L (0-40); Alkaline Phosphatase 74 U/L (39-117); Anion Gap 13 (12-20); Aspartate Amino Transferase 17 U/L (5-37); Bilirubin Total 0.6 mg/dL (0.0-1.0); Blood Urea Nitrogen 15 mg/dL (9-16); Calcium 9.5 mg/dL (8.4-10.2); Carbon Dioxide 27 mmol/L (22-29); Chloride 103 mmol/L (96-108); Estimated Glomerular Filt Rate > 60; Glucose Random 143 mg/dL (60-115); Sodium 139 mmol/L (135-145)
[2023-08-19 11:14] LABS: TSH reflex Free T4 5.09 uIU/mL (0.32-4.0)
[2023-08-19 12:02] LABS: Free T4 (Free Thyroxine) 0.96 ng/dL (0.71-1.85)
[2023-08-20 23:54] LABS: LDL Cholesterol Direct 51 mg/dL (<100)
== END 2023-08-19 08:44 | disposition home or self-care (01) ==
LOC: HO.HMGCLDS 08:43
PROVIDERS: PCP Internal Medicine; Visit Provider Internal Medicine
DX: Z00.00 Encounter for general adult medical examination without abnormal findings (principal); E11.40 Type 2 diabetes mellitus with diabetic neuropathy, unspecified; I10 Essential (primary) hypertension; I44.0 Atrioventricular block, first degree; N40.0 Benign prostatic hyperplasia without lower urinary tract symptoms; E78.9 Disorder of lipoprotein metabolism, unspecified; D64.9 Anemia, unspecified; E66.09 Other obesity due to excess calories; M67.912 Unspecified disorder of synovium and tendon, left shoulder; M54.12 Radiculopathy, cervical region; M54.50 Low back pain, unspecified
CPT/HCPCS: 36415; 80053; 82043; 82570; 83036; 83721; 84439; 84443; 85025

== ENCOUNTER 2023-09-04 12:58 | Outpatient (AMB) | payer OTHER, SELFPAY ==
--- NOTE | 2023-09-04 13:19 | A.OFFVIS_ITS ---
Intake Intake Visit Reasons: New Prob - left shoulder pain Intake Note: Walter is a 73 year old right hand dominant male who presents today for a evaluation of his left shoulder pain. Patient reports ongoing pain 2 -3 month. He states that his pain is worse in the morning. No hx of PT, injections in the past. Pain is more on the shoulder and it moves down to his elbow. Allergies tramadol Allergy (Intermediate, Verified 09/04/23 13:19) rash HPI New Prob - left shoulder pain HPI Details 73-year-old right hand dominant male who presents in the office today for an evaluation of left shoulder pain. The patient reports ongoing pain for the past 2-3 months. He states his pain is worse in the morning. He reports the pain is in the shoulder but it radiates down to his elbow. He denies a history of physical therapy or cortisone injections. [facility] Medical History CVD (cerebrovascular disease) CAD (coronary artery disease) History of BPH Myocardial infarction CVA (cerebral vascular accident) COVID-19 vaccine administered Arthritis of knee, right Obesity Diabetes 1.5, managed as type 2 Prostate hypertrophy Hypertension, essential Lipid disorder Osteoarthritis of right knee Surgical History Hx of fusion of cervical spine Hx of hand surgery Hx of elbow surgery Hx of shoulder surgery H/O colonoscopy History of knee replacement procedure of left knee Family History Father Cancer Mother CVD (cardiovascular disease) Brother No problems noted. Social History Household Members: Spouse Housing: House Are you a primary behavioral health care coordinator to a significant other at home: No Do you presently have visiting nurse or other home services: No Alcohol intake: never Patient Tobacco Use Status: Former Tobacco user Quit Date: 2003 Cigarette Packs Per Day: 1 Cigarettes Per Day: 20.0 Years Smoked: 30 e-Cigarette/Vaping Use: Never Used service: No Current occupational status: retired Current occupation: right handed Cognitive needs: No Hearing needs: No Vision needs: No Review of Systems Const All systems reviewed & are unremarkable except as noted in HPI and below Physical Exam Const General: cooperative, healthy appearing and no acute distress Resp Effort & Inspection: normal respiratory effort and able to speak in complete sentences Cardio Rate: regular rate Peripheral pulses: Peripheral pulses 2+ throughout GI Palpation (GI): Soft to palpation Skin Lesions: no lesions Rashes: no rashes Extrem Other: Left shoulder: Full shoulder ROM in all planes. Pain with forward flexion and abduction at the last 20 degrees of motion. Negative cross-body. 4/5 strength with empty can. NVI. Office Procedures Joint Injection/Drain Joint Injection/Drain Primary Site: left shoulder Prep: site was prepped using aseptic technique, ethochloride spray was applied and injection warnings given Injected: 40 mg of, DepoMedrol, with 8 mL of (2% plain lido ) and in the subcromial space Approach Used: posterolateral Procedure: The patient tolerated the procedure well, but had some pain with the injection and there was some relief with the local anesthesia Coding 67416 - Large joint Procedure code (CPT) selection complete Assessment & Plan Assessment & Plan (1) Arthritis of left acromioclavicular joint: Code(s): M19.012 - Primary osteoarthritis, left shoulder (2) Painful arc syndrome of left shoulder: Code(s): M75.102 - Unspecified rotator cuff tear or rupture of left shoulder, not specified as traumatic (3) Diabetes mellitus: Code(s): E11.9 - Type 2 diabetes mellitus without complications Plan Mr. Cai is a 73-year-old right hand dominant male who presents in the office today for an evaluation of left shoulder pain. The patient reports ongoing pain for the past 2-3 months. He states his pain is worse in the morning. He reports the pain is in the shoulder but it radiates down to his elbow. He denies a history of physical therapy or cortisone injections. The patient was offered a cortisone injection in the left shoulder with 40 mg of DepoMedrol. The patient was explained the risk, benefits, and alternatives to receiving this injection. After receiving consent for the injection, the patient had the procedure done while in office today. The patient tolerated the procedure well with no complications. Due to the patient?s history of diabetes, they were instructed to monitor his blood glucose level. The patient was informed that they could see a rise in their numbers and if the numbers became too high, they were instructed to call their PCP. The patient was also informed that they could have facial flushing as a side effect of the injection but this will pass. Follow up will be PRN, or sooner if needed. X-rays of the left shoulder, obtained on 02/19/2023, revealed: Moderate degenerative change of the acromioclavicular joint. Patient Instructions: Scribed by Bianca Herbert medical social worker, for Tati Pereira PA-C on 09/04/2023 at 1:01 pm, EST. Coding Level of Care Code Est Pt Level 4 (88610) Diagnoses Arthritis of left acromioclavicular joint M19.012 Painful arc syndrome of left shoulder M75.102 Diabetes mellitus E11.9 CPT Codes Coding - 73617 Large joint: 50013 - Large joint ([id number])
== END 2023-09-04 14:09 | disposition home or self-care (01) ==
PROVIDERS: PCP Internal Medicine; Visit Provider Physician Assistant
DX: M19.012 Primary osteoarthritis, left shoulder (principal); M75.102 Unspecified rotator cuff tear or rupture of left shoulder, not specified as traumatic; E11.9 Type 2 diabetes mellitus without complications
CPT/HCPCS: 20610; 99214

== ENCOUNTER → 2023-09-04 12:58 | Outpatient (BNVA) | payer OTHER, SELFPAY | PROVIDERS: PCP Internal Medicine; Visit Provider Physician Assistant | DX: M19.012 Primary osteoarthritis, left shoulder (principal); M75.102 Unspecified rotator cuff tear or rupture of left shoulder, not specified as traumatic; E11.9 Type 2 diabetes mellitus without complications | CPT/HCPCS: 20610; 99212; J1020 ==

== ENCOUNTER 2023-11-07 00:31 | Emergency (ER) | payer OTHER, SELFPAY ==
--- NOTE | ~2023-11-07 | CT_ITS ---
EXAMINATION: CT HEAD WITHOUT CONTRAST (STROKE PROTOCOL) CLINICAL INFORMATION: Stroke protocol. Double vision and mouth numbness COMPARISON: None available. TECHNIQUE: Contiguous axial imaging was performed from the skull base to vertex without intravenous administration of contrast. This CT examination was performed using dose optimization techniques as appropriate, variously including the following: *Automated exposure control *Adjustment of mA and/or kV according to patient size (this includes techniques or standardized protocols for targeted exams where dose is matched to indication/reason for exam; i.e. extremities or head) *Use of iterative reconstruction technique DLP: 680 mGy-cm FINDINGS: There is no evidence of acute intracranial hemorrhage or territorial infarction. No abnormal mass-effect or midline shift is seen. [place] to white matter differentiation is well preserved. No extra-axial fluid collections are identified. The ventricles are normal in size. There is mild periventricular white matter hypoattenuation consistent with chronic small vessel ischemic disease. Mild volume loss is noted. The osseous structures and soft tissues are normal. The mastoid air cells and visualized portions of the paranasal sinuses are well-aerated. CT/CT head for stroke IMPRESSION: No acute intracranial pathology. This stroke protocol result was discussed with Dr. Patterson on 11/07/2023 1:01 AM.
--- NOTE | ~2023-11-07 | CT_ITS ---
EXAMINATION: CT ANGIOGRAM HEAD CT ANGIOGRAM NECK CLINICAL INFORMATION: Reason for Exam double vision, neck pain and mouth numbness COMPARISON: None. TECHNIQUE: Initial noncontrast stamp presser imaging of the head and neck was performed. Comparison is made with noncontrast head CT from earlier today. Test bolus sequences followed by intravenous administration 70 mL of Omnipaque 350. Helical imaging was performed in the axial plane from the aortic arch to the skull vertex. Delayed postcontrast imaging of the head was also performed. The data was processed at the lead technologist in cytogenetics's workstation for generation of MIP sequences. Angled MIPs and volume rendered reformatted images were also generated at an offline 3D workstation. Stenoses are assessed in accordance with Palmer et al. Quantification of Carotid Stenosis on CT Angiography. AJR 2006. 27(1):13-19. [address] CT examination was performed using dose optimization techniques as appropriate, variously including the following: *Automated exposure control *Adjustment of mA and/or kV according to patient size (this includes techniques or standardized protocols for targeted exams where dose is matched to indication/reason for exam; i.e. extremities or head) *Use of iterative reconstruction technique DLP: 1441 mGy-cm FINDINGS: CT HEAD: No abnormal intracranial enhancement is visualized. Possible age indeterminate areas of lacunar infarction the left cerebellar hemisphere. Please see separately dictated CT scan of the head for additional intracranial findings. CTA HEAD: Anterior circulation: Right internal carotid artery: Atherosclerosis without flow-limiting stenosis. Right middle cerebral artery: No hemodynamically significant stenosis. Right anterior cerebral artery: No hemodynamically significant stenosis. Left internal carotid artery: Atherosclerosis without flow-limiting stenosis. Left middle cerebral artery: No hemodynamically significant stenosis. Left anterior cerebral artery: No hemodynamically significant stenosis. Posterior circulation: Right vertebral artery: No hemodynamically significant stenosis. Left vertebral artery: No hemodynamically significant stenosis. Basilar artery: No hemodynamically significant stenosis. Right posterior cerebral artery: No hemodynamically significant stenosis. Left posterior cerebral artery: No hemodynamically significant stenosis. No high flow vascular malformation or significant aneurysmal dilatation is visualized. The major dural venous sinuses are grossly within normal limits given arterial technique. CTA NECK: Aortic arch: Normal anatomy. Right common carotid artery: The origin and proximal aspect are obscured by motion and adjacent dense venous contrast. Otherwise patent. Retropharyngeal course. Right proximal internal carotid artery: No flow-limiting stenosis. Retropharyngeal course. Right mid/distal internal carotid artery: No hemodynamically significant stenosis. Left common carotid artery: Patent. Retropharyngeal course. Left proximal internal carotid artery: Patent. Retropharyngeal course. Left mid/distal internal carotid artery: No hemodynamically significant stenosis. Right vertebral artery: The origin is obscured by motion. Left vertebral artery: No hemodynamically significant stenosis. CT NECK: Left intraocular lens replacement. Approximately 3 mm nodule in the right upper lobe. Per the 2017 revised Fleischner Society guidelines, no routine follow-up is necessarily required in low-risk patients, and consideration of 12 month follow-up CT is recommended for patients at high-risk for the development of pulmonary neoplasm. Background emphysematous changes are noted. Hazy opacification the represent atelectasis. Bronchial wall thickening. Absent maxillary dentition. Multiple missing mandibular teeth. Multilevel degenerative changes of cervical spine. Prior anterior cervical discectomy and fusion at C3-C5. CT/CT angio head neck stroke IMPRESSION: CTA NECK: No hemodynamically significant stenosis. Approximately 3 mm nodule in the right upper lobe. Per the 2017 revised Fleischner Society guidelines, no routine follow-up is necessarily required in low-risk patients, and consideration of 12 month follow-up CT is recommended for patients at high-risk for the development of pulmonary neoplasm. CTA HEAD: No proximal vessel occlusion or high-grade stenosis. This critical result was discussed with Dr. Patterson at 01:43 on 11/07/2023. and it was ascertained that the content and urgency of the report was understood at the time of direct communication.
[2023-11-07 00:34] VITALS: BP 165/67; PULSE 62; RESP 18; TEMP 36.1; O2SAT 97; BMI 31.6
--- NOTE | 2023-11-07 00:45 | PC.NURSE ---
Triage discussed with Dr. Patterson who wants to make pt a stroke alert at this time. CT notified, #20 PIV initiated to right AC, blood collected and sent to lab. Pt to CT with this RN. Plan for ED [address] scan.
--- NOTE | 2023-11-07 00:46 | ECG_ITS ---
Test Reason : STROKE Blood Pressure : / mmHG Vent. Rate : 064 BPM Atrial Rate : 064 BPM P-R Int : 198 ms QRS Dur : 080 ms QT Int : 386 ms P-R-T Axes : 002 015 035 degrees QTc Int : 398 ms Normal sinus rhythm Low voltage QRS Borderline ECG Referred By: Ambrose Patterson Electronically Signed By:BENITEZ ALLEN
[2023-11-07 00:53] LABS: MANUAL DIFF FLAG NO
[2023-11-07 00:55] LABS: Basophils Absolute Auto 0.1 X10*3/uL (0.0-0.2); Basophils Percent Auto 0.4 % (0-2); Eosinophils Absolute Auto 0.1 X10*3/uL (0.0-0.4); Eosinophils Percent Auto 1.2 % (0-4); Hematocrit 43.8 % (42.0-52.0); Hemoglobin 14.9 g/dl (14.0-18.0); Imm Gran Abs Auto 0.04 X10*3/uL (0.00-0.03); Imm Gran Pct Auto 0.3 % (0.0-0.4); Lymphocytes Absolute Auto 2.9 X10*3/uL (1.2-4.9); Lymphocytes Percent Auto 24.3 % (20-40); Mean Corpuscular Hemoglobin 31.4 pg (27.0-33.0); Mean Corpuscular Volume 92.2 fL (80.0-98.0); Mean Platelet Volume 9.9 fL (9.4-12.4); Monocytes Absolute Auto 1.2 X10*3/uL (0.1-1.2); Monocytes Percent Auto 10.3 % (2-11); Neutrophils Absolute Auto 7.5 x10*3/uL (2.0-8.3); Neutrophils Percent Auto 63.5 % (45-73); Platelet Count 244 X10*3/uL (160-400); Red Blood Count 4.75 X10*6/uL (4.60-5.80); Red Cell Distribution Width 13.3 % (11.0-16.0); White Blood Count 11.8 X10*3/uL (4.8-10.8)
[2023-11-07 01:00] LABS: Prothrombin Time 11.8 SEC (11.1-13.3)
[2023-11-07 01:03] LABS: Partial Thromboplastin Time 30.8 SEC (26.0-36.8)
[2023-11-07 01:05] LABS: Stroke Lab Use COMPLETE
[2023-11-07] MEDS: iohexoL 350 MG/ML 100 ML INFUS..BTL 80 ML IV (01:06)
[2023-11-07 01:10] LABS: Anion Gap 13 (12-20); Blood Urea Nitrogen 15 mg/dL (9-16); Calcium 9.4 mg/dL (8.4-10.2); Carbon Dioxide 24 mmol/L (22-29); Chloride 106 mmol/L (96-108); Estimated Glomerular Filt Rate > 60; Glucose Random 178 mg/dL (60-115); Potassium 3.9 mmol/L (3.3-5.1); Sodium 139 mmol/L (135-145)
[2023-11-07 01:18] LABS: Troponin-I High Sensitivity < 2.7 ng/L (<3.5-35.0)
[2023-11-07 01:25] LABS: Glucose, Whole Blood 183 mg/dL (60-115)
[2023-11-07 03:03] VITALS: BP 110/58; PULSE 62; RESP 15; TEMP 36.6; O2SAT 97
--- NOTE | 2023-11-07 03:08 | ED.GENADULT ---
HPI - General Adult General Chief complaint: General Medical Stated complaint: neck, left arm pain, double vision Time Seen by Provider: 11/07/23 00:41 Source: patient Mode of arrival: ambulatory Limitations: no limitations History of Present Illness HPI narrative: patient with a long history of DM, CVA, CAD who presents with neck and arm pain with and episode of blurry vision vs double vision. Patient complaining of radicular pain down left arm. States that his symptoms started hours ago. His sugar at home was in the high 200s which is not normal for him Onset (ago): hour(s) Severity: mild Related Data Home Medications ?Medication ?Instructions ?Recorded ?Confirmed nitroglycerin 0.4 mg sublingual 1 mg sublingual Q5M PRN Chest Pain 11/30/20 08/19/23 tablet timolol maleate 0.5 % eye drops 1 drp ophthalmic (eye) BID 11/30/20 08/19/23 dorzolamide 22.3 mg-timolol 6.8 ml ophthalmic (eye) 03/30/21 08/19/23 mg/mL eye drops aspirin 81 mg tablet,delayed 81 mg PO DAILY 05/22/23 08/19/23 release (Adult Aspirin Regimen) Previous Rx's ?Medication ?Instructions ?Recorded acetaminophen 325 mg tablet 650 mg (2 x 325 mg) PO Q6H PRN 12/06/20 Pain, Mild (Pain Scale 1-3) 30 days #240 tabs blood sugar diagnostic (FreeStyle #100 ea 08/02/22 Test strips) Blood pressure monitor #1 ea 02/12/23 blood sugar diagnostic (FreeStyle See Rx Instructions .Route BID for 02/14/23 Lite Strips) diabetes mellitus 90 days #180 strips lancets 28 gauge (FreeStyle #100 ea 05/08/23 Lancets) methocarbamol 750 mg tablet 750 mg PO TID PRN muscle spasm #20 05/08/23 tabs levothyroxine 50 mcg tablet 50 mcg PO DAILY #90 tabs 08/19/23 atorvastatin 80 mg tablet 80 mg PO DAILY 90 days #90 tabs 09/12/23 docusate sodium 100 mg capsule 100 mg PO BID 30 days #60 caps 09/12/23 lisinopril 20 1 tab PO DAILY 90 days #90 tabs 09/12/23 mg-hydrochlorothiazide 25 mg tablet sitagliptin phosphate 100 mg 100 mg PO BEDTIME 90 days #90 tabs 09/12/23 tablet (Januvia) tamsulosin 0.4 mg capsule 0.4 mg PO DAILY #90 caps 09/12/23 metformin 1,000 mg tablet 1,000 mg PO BID 90 days #180 tabs 11/06/23 Allergies Allergy/AdvReac Type Severity Reaction Status Date / Time tramadol Allergy Intermediate rash Verified 11/07/23 00:37 Review of Systems Review of Systems: Yes all other systems are reviewed and are negative [facility] Past Medical History Medical History CVD (cerebrovascular disease) CAD (coronary artery disease) History of BPH Myocardial infarction CVA (cerebral vascular accident) COVID-19 vaccine administered Arthritis of knee, right Obesity Diabetes 1.5, managed as type 2 Prostate hypertrophy Hypertension, essential Lipid disorder Osteoarthritis of right knee Surgical History Hx of fusion of cervical spine Hx of hand surgery Hx of elbow surgery Hx of shoulder surgery H/O colonoscopy History of knee replacement procedure of left knee Family History Family History Father Cancer Mother CVD (cardiovascular disease) Brother No problems noted. Social History Social History Household Members: Spouse Housing: House Are you a primary memory care program resident to a significant other at home: No Do you presently have visiting nurse or other home services: No Alcohol intake: never Patient Tobacco Use Status: Former Tobacco user Quit Date: 2003 Cigarette Packs Per Day: 1 Cigarettes Per Day: 20.0 Years Smoked: 30 Smoked in Last 30 Days: No e-Cigarette/Vaping Use: Never Used Advance Directives: No Advance Directives Information Provided: Yes service: No Current occupational status: retired Current occupation: right handed Cognitive needs: No Hearing needs: No Vision needs: No Physical Exam ED Vital Signs: Vital Signs - 24 hr 11/07/23 00:34 11/07/23 03:03 Temperature 97 F 97.8 F Pulse Rate 62 62 Respiratory Rate 18 15 Blood Pressure 165/67 H 110/58 L Pulse Oximetry 97 97 Oxygen Delivery Method Room Air Room Air BMI result Body Mass Index 31.6 NIH Stroke Scale Internal: Initial- Upon Arrival Level of Consciousness: Alert Level of Consciousness Questions: Answers both questions correctly Level of Consciousness Commands: Performs both tasks correctly Best Gaze: Normal Visual: No visual loss Facial Palsy: Normal Motor Arm (Right): No drift Motor Arm (Left): No drift Motor Leg (Right): No drift Motor Leg (Left): No drift Limb Ataxia: Absent Sensory: Normal Best Language: No aphasia Dysarthia: Normal Extinction and Inattention: No abnormality Score: 0 Course Reevaluation(s) Reevaluation #1: patient presented with NIH stroke scale of 0, CT and CTA negative for stroke or LVO, NIH remains 0 will dc home Time: 03:18 Reevaluation #2: I spent 40 minutes of critical care, with interventions, assessments, speaking to patient, consultants, and family. Time: 03:18 Medications Administered Discontinued Medications Generic Name Dose Route Start Last Admin Trade Name Freq PRN Reason Stop Dose Admin Iohexol 80 ml 11/07/23 01:06 11/07/23 01:06 Iohexol 350 Mg/Ml 100 Ml Infus..Btl IV 11/07/23 01:07 80 ml ONCE ONE Administration Medical Decision Making Differential Diagnosis Differential Diagnoses: The differential diagnosis associated with the presentation includes (CVA, TIA, carotid dissection, hyperglycemia were all considered) Admission/Observation Consideration of admission/observation: Escalation of care including admission/observation considered (upon arrival patient considered for admission) Lab Data 11/07/23 00:45 11/07/23 00:45 Labs: Lab Results 11/07/23 11/07/23 Range/Units 00:45 01:11 WBC 11.8 H (4.8-10.8) X10*3/uL RBC 4.75 (4.60-5.80) X10*6/uL Hgb 14.9 (14.0-18.0) g/dl Hct 43.8 (42.0-52.0) % MCV 92.2 (80.0-98.0) fL MCH 31.4 (27.0-33.0) pg MCHC 34.0 (31.0-36.0) g/dl RDW 13.3 (11.0-16.0) % Plt Count 244 (160-400) X10*3/uL MPV 9.9 (9.4-12.4) fL Immature Gran % (Auto) 0.3 (0.0-0.4) % Neut % (Auto) 63.5 (45-73) % Lymph % (Auto) 24.3 (20-40) % Moca % (Auto) 10.3 (2-11) % Eos % (Auto) 1.2 (0-4) % Baso % (Auto) 0.4 (0-2) % Lymph # (Auto) 2.9 (1.2-4.9) X10*3/uL Moca # (Auto) 1.2 (0.1-1.2) X10*3/uL Eos # (Auto) 0.1 (0.0-0.4) X10*3/uL Baso # (Auto) 0.1 (0.0-0.2) X10*3/uL Abs Immat Gran (auto) 0.04 H (0.00-0.03) X10*3/uL Absolute Neuts (auto) 7.5 (2.0-8.3) x10*3/uL Absolute Nucleated RBC 0.000 (0.0-0.012) X10*3/uL Nucleated RBC % (auto) 0.0 (0.0-0.2) /100WBC PT 11.8 (11.1-13.3) SEC INR 1.0 (0.9-1.1) APTT 30.8 (26.0-36.8) SEC Sodium 139 (135-145) mmol/L Potassium 3.9 (3.3-5.1) mmol/L Chloride 106 (96-108) mmol/L Carbon Dioxide 24 (22-29) mmol/L Anion Gap 13 (12-20) BUN 15 (9-16) mg/dL Creatinine 0.97 (0.5-1.4) mg/dL Estim Creat Clear Calc 68.0 Estimated GFR > 60 POC Glucose 183 H (60-115) mg/dL Random Glucose 178 H (60-115) mg/dL Calcium 9.4 (8.4-10.2) mg/dL Total Creatine Kinase 124 (38-174) U/L Troponin I High Sens < 2.7 (<3.5-35.0) ng/L Independent Interpretation I performed an independent interpretation of an: EKG (sinus 64, no st or twave changes) Radiology Impression Discussion of test interpretation with radiology: I discussed test interpretation with the radiologist (radiologist called with CT and CTA results) Independent Historian Clinical information obtained from an independent historian. History obtained from or confirmed by: Spouse and EMS Tests considered The following testing was considered but not selected: MRI of brain considered but patient remained non focal Chronic Conditions Patient?s care impacted by: Diabetes, Hypertension and Other (CVA) Discharge Plan Discharge Clinical Impression: Hyperglycemia, Radicular pain in left arm Patient Disposition: Home, Self-Care Instructions: Diabetic Hyperglycemia (ED), Paresthesia (ED) Prescriptions: No Action (DME) FreeStyle Test Strip See Rx Instructions .ROUTE .MEDSUPPLY Qty: 100 0RF Rx Instructions: Patient to check blood sugar twice daily FreeStyle Lite Strips Strip See Rx Instructions .ROUTE BID 90 Days Qty: 180 3RF Rx Instructions: 2 times a day; methocarbamol 750 mg tablet 750 mg PO TID PRN (Reason: muscle spasm) Qty: 20 0RF (DME) lancets [FreeStyle Lancets] 28 gauge misc See Rx Instructions .ROUTE .COMPLEX Qty: 100 3RF Dose Instruction: USE TO TEST TWICE A DAY Rx Instructions: USE TO TEST TWICE A DAY levothyroxine 50 mcg tablet 50 mcg PO DAILY Qty: 90 1RF Januvia 100 mg tablet 100 mg PO BEDTIME 90 Days Qty: 90 0RF docusate sodium 100 mg capsule 100 mg PO BID 30 Days Qty: 60 2RF tamsulosin 0.4 mg capsule 0.4 mg PO DAILY Qty: 90 0RF atorvastatin 80 mg tablet 80 mg PO DAILY 90 Days Qty: 90 0RF lisinopril-hydrochlorothiazide 20-25 mg tablet 1 tab PO DAILY 90 Days Qty: 90 0RF metformin 1,000 mg tablet 1,000 mg PO BID 90 Days Qty: 180 0RF nitroglycerin 0.4 mg tablet, sublingual 1 mg sublingual Q5M PRN (Reason: Chest Pain) timolol maleate 0.5 % drops 1 drp ophthalmic (eye) BID acetaminophen 325 mg Tablet 650 mg PO Q6H PRN (Reason: Pain, Mild (Pain Scale 1-3)) 30 Days Qty: 240 0RF dorzolamide-timolol 22.3-6.8 mg/mL drops ophthalmic (eye) (DME) Blood pressure monitor large See Rx Instructions .Route .MEDSUPPLY Qty: 1 0RF Rx Instructions: As directed aspirin [Adult Aspirin Regimen] 81 mg tablet,delayed release (DR/EC) 81 mg PO DAILY Referrals: Marizol Esparza MD [Primary Care Provider] - 3 days Print Language: Turkish
[2023-11-07 03:37] VITALS: BP 110/58; PULSE 62; RESP 18; TEMP 36.6; O2SAT 97
[2023-11-07 20:00] LABS: Prothrombin Time Whole Bld POC 13.6 sec (11.1-13.5); ~PT, ~INR - Anti Coag Clinic 1.1 (0.9-1.1)
== END 2023-11-07 03:40 | disposition home or self-care (01) ==
PROVIDERS: Emergency Provider Emergency Medicine; PCP Internal Medicine
DX: E13.65 Other specified diabetes mellitus with hyperglycemia (principal); M54.10 Radiculopathy, site unspecified; I10 Essential (primary) hypertension; I25.2 Old myocardial infarction; Z86.73 Personal history of transient ischemic attack (TIA), and cerebral infarction without residual deficits
CPT/HCPCS: 36415; 70450; 70496; 70498; 80048; 82550; 82947; 84484; 85025; 85610; 85730; 93005; 99284; 99285; Q9967

== ENCOUNTER → 2023-11-07 00:46 | Outpatient (BNV) | payer OTHER, SELFPAY | PROVIDERS: Emergency Provider Emergency Medicine; PCP Internal Medicine; Visit Provider Internal Medicine | DX: I44.0 Atrioventricular block, first degree (principal) | CPT/HCPCS: 93010 ==

== ENCOUNTER 2023-11-11 11:34 | Outpatient (AMB) | payer OTHER, SELFPAY ==
--- NOTE | 2023-11-11 11:38 | A.OFFPC_ITS ---
Vital Signs 3 11/11/23 11:39 Height 5 ft 4 in Weight 194 lb BMI 33.3 BP 104/60 Blood Pressure Location Lt brachial Position Sitting Pulse 65 Pulse Source Pulse Oximeter Pulse Oximetry (%) 95 Oxygen Delivery Method Room Air Intake Visit Reasons: [facility] [place] ER followup-blurred vision Allergies tramadol Allergy (Intermediate, Verified 11/11/23 11:39) rash Medication List - Last Reconciled 11/11/23 by Marizol Esparza MD acetaminophen 650 mg (2 x 325 mg) PO Q6H PRN 30 days aspirin (Adult Aspirin Regimen) 81 mg PO DAILY atorvastatin 80 mg PO DAILY 90 days [Blood pressure monitor As directed] blood sugar diagnostic (FreeStyle Lite Strips) 2 times a day; 90 days blood sugar diagnostic (FreeStyle Test strips) Patient to check blood sugar twice daily docusate sodium 100 mg PO BID 30 days dorzolamide-timolol 22.3-6.8 mg/mL mL ophthalmic (eye) lancets (FreeStyle Lancets) USE TO TEST TWICE A DAY levothyroxine 50 mcg PO DAILY lisinopril-hydrochlorothiazide 20-25 mg 1 tab PO DAILY 90 days metformin 1,000 mg PO BID 90 days methocarbamol 750 mg PO TID PRN nitroglycerin 1 mg sublingual Q5M PRN sitagliptin phosphate (Januvia) 100 mg PO BEDTIME 90 days tamsulosin 0.4 mg PO DAILY timolol maleate 0.5% 1 drp ophthalmic (eye) BID Tobacco use date assessed: 11/11/23 Fall risk assessment: 1 Fall in past year Last assessed Fall Risk: 11/11/23 Dental Screening Dental Screen Date: 11/11/23 Did you have a dental visit in the last 12 months?: No Did you have a dental problem in the last 6 months where you did not have access to dental care?: No Was dental information given to patient?: Patient has dentist HPI [facility] [place] ER followup-blurred vision 2 HPI0 Details Patient is 73-year-old gentleman with a history of diabetes mellitus, CVA, coronary artery disease presented to emergency room on 11/07/2023 with a chief complaint of blurring of vision. He also complained of radicular pain down left arm which started hours ago. Labs done in emergency room reviewed EKG showed sinus rhythm 64 beats per minute no ST T wave changes CT CTA was done which was negative After evaluation patient was discharged home with clinical impression of hyperglycemia and radicular pain left arm His random glucose was 178 Incidental finding of 3 mm nodule right upper lobe was seen No routine follow-up was recommended in low risk patients However patient have a history of smoking since the age of 11 he stopped 204 Was smoking 1 and half pack We will repeat CT scan in 1 year Had appointment with deputy director early this month but he did not let him dilate his eyes He tells me that he had to drive as he did not had anybody with him He has booked another appointment for full eye exam He is requesting handicap placard, patient have a history of bilateral knee replacement and still is not able to walk more than 3 minutes He is able to drive during the day Handicap placard filled for six-month Prevnar 20 vaccine given Hemoglobin A1c was checked that is 7.0 He has developed tennis elbow left elbow for that I have placed a referral to orthopedic for cortisone injection Patient is to return in 3 months for follow-up appointment 42 minutes in care of this patient fabiano puri reviewing chart, emergency room note, imaging [id number] with the patient as well as his daughter billing paperwork for handicap placard charting coordination of care [facility] Medical History CVD (cerebrovascular disease) CAD (coronary artery disease) History of BPH Myocardial infarction CVA (cerebral vascular accident) COVID-19 vaccine administered Arthritis of knee, right Obesity Diabetes 1.5, managed as type 2 Prostate hypertrophy Hypertension, essential Lipid disorder Osteoarthritis of right knee Surgical History Hx of fusion of cervical spine Hx of hand surgery Hx of elbow surgery Hx of shoulder surgery H/O colonoscopy History of knee replacement procedure of left knee Family History Father Cancer Mother CVD (cardiovascular disease) Brother No problems noted. Social History Household Members: Spouse Housing: House Are you a primary chronic care nurse to a significant other at home: No Do you presently have visiting nurse or other home services: No Alcohol intake: never Patient Tobacco Use Status: Former Tobacco user Quit Date: 2003 Cigarette Packs Per Day: 1 Cigarettes Per Day: 20.0 Years Smoked: 30 e-Cigarette/Vaping Use: Never Used service: No Current occupational status: retired Current occupation: right handed Cognitive needs: No Hearing needs: No Vision needs: No Questionnaire Thrive Questionnaire Date Thrive assessed: 10/23/21 AUDIT C Alcohol Use Questionnaire (AUDIT-C) 1. How often do you have a drink containing alcohol?: Monthly or less 2. How many drinks containing alcohol do you have on a typical day when you are drinking?: 1 or 2 3. How often do you have six or more drinks on one occasion?: Never Total Score: 1 Score Reviewed/Action Taken: Yes RYLAND-7 AMB Questionnaire RYLAND-7 Date RYLAND - 7 assessed: 05/20/23 Source: Developed by Drs. Nitin Land, Rylee Britt, Mino Garcia and colleagues, with an educational calvin from [employer]. Review of Systems Const Denies chills and Denies fever(s) ENT Denies epistaxis and Denies nasal discharge Card Denies chest pain Resp Denies chest congestion, Denies cough and Denies hemoptysis GI Denies diarrhea and Denies nausea Skin/Breast Denies rash Neuro Reports no additional complaints Psych Reports no additional complaints Endo Reports no additional complaints Physical exam (Primary Care) Vital Signs: Last Vital Signs Pulse 65 11/11/23 11:39 BP 104/60 11/11/23 11:39 Pulse Ox 95 11/11/23 11:39 Oxygen Delivery Method Room Air 11/11/23 11:39 BMI result Body Mass Index 33.3 Tobacco/Smoking Status: Tobacco use Status Tobacco use date assessed 11/11/23 11/11/23 11:42 Patient Tobacco Use Status Former Tobacco user 11/11/23 11:42 e-Cigarette/Vaping Use Never Used 11/11/23 11:42 Thrive Assessment: Date of Thrive Assessment Date Thrive assessed 10/23/21 11/11/23 11:42 Const General: cooperative, comfortable and no acute distress Orientation/consciousness: patient oriented x3 HENMT Head: Yes normocephalic Eyes General: appearance normal, both eyes and all related structures Neck Neck: Yes supple Resp Effort & Inspection: normal respiratory effort, no cough and no stridor Cardio Rhythm: regular rhythm Heart sounds: S1 normal heart sound present and S2 normal heart sound present Skin General skin exam: turgor normal Neuro General: patient oriented x3, tone normal and moves all extremities Extrem Shoulder/upper arm images: 2 1. Pain with pressure Right lower extremity: no edema Left lower extremity: no edema Results AMB Hemoglobin A1c 2 AMB Hemoglobin A1c 7.0 % Last Edit by Faisal Bull MA on 11/11/23 12:06 Immunizations pneumoc 20-rose conj-dip cr(PF) 0.5 mL IM syringe Performing Provider: Marizol Esparza MD Performing Location: [facility] Administered by: Vaibhav Geller CMA on 11/11/23 12:09 2 Dose Route Admin Location Dispensed Lot Number Expiration Date NDC Database Design Analyst 0.5 mL IM Right Deltoid 0.5 mL [id number] 09/18/24 0571-5423-64 WYETH/PFIZER 2 VIS Given Date VIS Provided VIS Publication Date 11/11/23 Single Vaccine 21 Eligibility Eligibility Date Funding Source Not [facility] Eligible 11/11/23 Private Results Reviewed Results Reviewed: Laboratory Last Values Hgb A1c (Clinic) 7.0 % (4.0-6.0) H 11/11/23 12:05 Assessment and Plan Assessment & Plan (1) Blurring of vision: Code(s): H53.8 - Other visual disturbances (2) Osteoarthritis of knees, bilateral: Code(s): M17.0 - Bilateral primary osteoarthritis of knee Qualifiers: Osteoarthritis type: primary Qualified Code(s): M17.0 - Bilateral primary osteoarthritis of knee (3) Diabetic neuropathy: Code(s): E11.40 - Type 2 diabetes mellitus with diabetic neuropathy, unspecified Qualifiers: Diabetes mellitus type: type 2 Diabetes mellitus complication detail: d iabetic polyneuropathy Qualified Code(s): E11.42 - Type 2 diabetes mellitus with diabetic polyneuropathy (4) Obesity due to excess calories: Code(s): E66.09 - Other obesity due to excess calories Qualifiers: Obesity classification: adult class 1 (BMI 30 - 34.9) Serious obesity comorbidity presence: with serious comorbidity Body mass index: BMI 32.0-32.9 Qualified Code(s): E66.09 - Other obesity due to excess calories; Z68.32 - Body mass index [BMI] 32.0-32.9, adult (5) Lipid disorder: Code(s): E78.9 - Disorder of lipoprotein metabolism, unspecified (6) Hypertension, essential: Code(s): I10 - Essential (primary) hypertension (7) Diabetes 1.5, managed as type 2: Code(s): E13.9 - Other specified diabetes mellitus without complications (8) Left tennis elbow: Code(s): M77.12 - Lateral epicondylitis, left elbow Plan Patient is 73-year-old gentleman with a history of diabetes mellitus, CVA, coronary artery disease presented to emergency room on 11/07/2023 with a chief complaint of blurring of vision. He also complained of radicular pain down left arm which started hours ago. Labs done in emergency room reviewed EKG showed sinus rhythm 64 beats per minute no ST T wave changes CT CTA was done which was negative After evaluation patient was discharged home with clinical impression of hyperglycemia and radicular pain left arm His random glucose was 178 Incidental finding of 3 mm nodule right upper lobe was seen No routine follow-up was recommended in low risk patients However patient have a history of smoking since the age of 11 he stopped 204 Was smoking 1 and half pack We will repeat CT scan in 1 year Had appointment with deputy director early this month but he did not let him dilate his eyes He tells me that he had to drive as he did not had anybody with him He has booked another appointment for full eye exam He is requesting handicap [place], patient have a history of bilateral knee replacement and still is not able to walk more than 3 minutes He is able to drive during the day Handicap placard filled for six-month Prevnar 20 vaccine given Hemoglobin A1c was checked that is 7.0 He has developed tennis elbow left elbow for that I have placed a referral to orthopedic for cortisone injection Patient is to return in 3 months for follow-up appointment 42 minutes in care of this patient including reviewing chart, emergency room note, imaging [id number] with the patient as well as his daughter billing paperwork for handicap placard charting coordination of care Orders: Orders 2 Pneumococcal 20 Immunization Today Z23 - Encounter for immunization Coding Level of Care Code Est Pt Level 5 (07121) Diagnoses Blurring of vision H53.8 Primary osteoarthritis of both knees M17.0 Osteoarthritis type: primary Diabetic polyneuropathy associated with type 2 diabetes mellitus E11.42 Diabetes mellitus type: type 2 Diabetes mellitus complication detail: diabetic polyneuropathy Class 1 obesity due to excess calories with serious comorbidity and body mass index (BMI) of 32.0 to 32.9 in adult E66.09; Z68.32 Obesity classification: adult class 1 (BMI 30 - 34.9) Serious obesity comorbidity presence: with serious comorbidity Body mass index: BMI 32.0-32.9 Lipid disorder E78.9 Hypertension, essential I10 Diabetes 1.5, managed as type 2 E13.9 Left tennis elbow M77.12 Time Spent (min) 42 Comment Chart reviewed including emergency room notes, handicap [place] paperwork, [id number],
[2023-11-11 11:39] VITALS: BP 104/60; PULSE 65; O2SAT 95; BMI 33.3
== END 2023-11-11 12:14 | disposition home or self-care (01) ==
PROVIDERS: PCP Internal Medicine; Visit Provider Internal Medicine
DX: E11.42 Type 2 diabetes mellitus with diabetic polyneuropathy (principal); E66.09 Other obesity due to excess calories; Z68.32 Body mass index [BMI] 32.0-32.9, adult; Z23 Encounter for immunization; H53.8 Other visual disturbances; M17.0 Bilateral primary osteoarthritis of knee; E78.9 Disorder of lipoprotein metabolism, unspecified; I10 Essential (primary) hypertension; M77.12 Lateral epicondylitis, left elbow
CPT/HCPCS: 90471; 90677; 99215

== ENCOUNTER 2023-12-29 09:11 | Outpatient (AMB) | payer OTHER, SELFPAY ==
[2023-12-29 09:22] VITALS: BP 110/60; PULSE 72; TEMP 36.3; O2SAT 95; BMI 32.1
--- NOTE | 2023-12-29 09:22 | MHC.OFFWIV ---
Intake Vital Signs 12/29/23 09:22 Height 5 ft 4 in Weight 187 lb BMI 32.1 BP 110/60 Blood Pressure Location Lt brachial Position Sitting Pulse 72 Pulse Source Pulse Oximeter Temp 97.3 F Temp Source Temporal Artery Scan Pulse Oximetry (%) 95 Oxygen Delivery Method Room Air Intake Visit Reasons: EP Cough/RT elbow Injury Intake Note: pt is here today for cough started 3 weeks ago Patient Tobacco Use Status: Former Tobacco user Quit Date: 2003 Allergies tramadol Allergy (Intermediate, Verified 12/29/23 10:00) rash Medication List - Last Reconciled 12/29/23 by ARIEL Lopes acetaminophen 650 mg (2 x 325 mg) PO Q6H PRN 30 days alcohol swabs (Alcohol Pads) 2 pad topical DAILY aspirin (Adult Aspirin Regimen) 81 mg PO DAILY atorvastatin 80 mg PO DAILY 90 days [Blood pressure monitor As directed] blood sugar diagnostic (FreeStyle Lite Strips) 2 times a day; 90 days blood sugar diagnostic (FreeStyle Test strips) Patient to check blood sugar twice daily cetirizine 5 mg PO DAILY PRN docusate sodium 100 mg PO BID 30 days dorzolamide-timolol 22.3-6.8 mg/mL mL ophthalmic (eye) lancets (FreeStyle Lancets) USE TO TEST TWICE A DAY levothyroxine 50 mcg PO DAILY lisinopril-hydrochlorothiazide 20-25 mg 1 tab PO DAILY 90 days metformin 1,000 mg PO BID 90 days methocarbamol 750 mg PO TID PRN nitroglycerin 1 mg sublingual Q5M PRN sitagliptin phosphate (Januvia) 100 mg PO BEDTIME 90 days tamsulosin 0.4 mg PO DAILY timolol maleate 0.5% 1 drp ophthalmic (eye) BID Do you need a note to return to daycare/school/sports/work: No HPI HPI Comments History of Present Illness Details Patient is a 73-year-old male in today for sick visit. Patient has to complaints at the visit today. Patient report he has had a dry cough for the past 3 weeks. Denies fevers or chills, denies chest pain shortness a breath. Patient states he does not have heartburn or acid reflux. Reports that he has a nagging dry cough that is interrupting his ability to get to sleep. Does have seasonal allergies, has not tried any medication for this other than some [id number] cold medicine. Patient has not tried allergy medication. Will obtain URI swab in office. Patient denies sick contacts Patient also reports a mechanical fall in his house 3 days prior. Patient states that tripped on the carpet and hit his right elbow. On physical exam patient's right elbow has edema with erythema. Patient has limited range of motion, cannot fully extend elbow. Has not tried any medication for relief. Will obtain x-ray. Patient was seen in the emergency room 1 month prior for separate episode of fall. Was given CT scan. Does have history of stroke and OK. he was negative for neuro check in office today. Denies headache, dizziness, blurry vision, chest pain, shortness a breath. [facility] Medical History CVD (cerebrovascular disease) CAD (coronary artery disease) History of BPH Myocardial infarction CVA (cerebral vascular accident) COVID-19 vaccine administered Arthritis of knee, right Obesity Diabetes 1.5, managed as type 2 Prostate hypertrophy Hypertension, essential Lipid disorder Osteoarthritis of right knee Surgical History Hx of fusion of cervical spine Hx of hand surgery Hx of elbow surgery Hx of shoulder surgery H/O colonoscopy History of knee replacement procedure of left knee Family History Father Cancer Mother CVD (cardiovascular disease) Brother No problems noted. Social History Household Members: Spouse Housing: House Are you a primary wound care nurse to a significant other at home: No Do you presently have visiting nurse or other home services: No Alcohol intake: never Patient Tobacco Use Status: Former Tobacco user Cigarette Packs Per Day: 1 Cigarettes Per Day: 20.0 Years Smoked: 30 e-Cigarette/Vaping Use: Never Used service: No Current occupational status: retired Current occupation: right handed Cognitive needs: No Hearing needs: No Vision needs: No Review of Systems Const All systems reviewed & are unremarkable except as noted in HPI and below Denies chills, Denies fatigue, Denies fever(s) and Denies headache(s) Eyes Denies blurry vision, Denies diplopia, Reports dry eyes and Denies loss of vision ENT Denies dizziness, Denies headache(s), Denies disequilibrium and Denies sore throat Card Denies chest pain and Denies dyspnea Resp Reports cough, Denies dyspnea and Denies wheezing GI Denies diarrhea, Denies nausea and Denies vomiting Musc Denies abnormal gait, Reports arthralgias (Right elbow.) and Denies tingling Skin/Breast Reports erythema (Right elbow) Neuro Denies Abnormal speech present, Denies abnormal gait, Denies confusion, Denies dizziness, Denies headache(s), Denies lack of coordination, Denies loss of vision, Denies tingling and Denies disequilibrium Psych Denies confusion Endo Denies fatigue Aller/Immun Denies wheezing Physical Exam Vital Signs: Last Vital Signs Temp 97.3 F 12/29/23 09:22 Pulse 72 12/29/23 09:22 BP 110/60 12/29/23 09:22 Pulse Ox 95 12/29/23 09:22 Oxygen Delivery Method Room Air 12/29/23 09:22 BMI result Body Mass Index 32.1 Const Other: Appearance: Alert.? Oriented X3.? No acute distress.? Head: Normocephalic, atraumatic, no step-offs or deformities Eyes: Pupils equal, round and reactive to light.?EOMI. ENT: Pharynx normal.?TM intact and pearly kemp. Neck: Normal inspection.? Neck supple.? CVS: Normal heart rate and rhythm.? Pulses normal.? Respiratory: No respiratory distress.? Breath sounds normal.? Abdomen: Soft and nontender.? Skin: Skin warm and dry.? Normal skin color.? Normal skin turgor.? Extremities: Right elbow edema and erythema. Limited range of motion to extension. Neuro: Oriented X 3.? No motor deficit.? No sensory deficit. CN 2-12 intact General: No confusion Orientation/consciousness: patient oriented x3 and No confusion Limitations: no limitations Eyes Pupils: Equal, round and reactive pupils present EOM: No Nystagmus present Neuro General: patient oriented x3, gait normal, moves all extremities, CN's II-XI intact bilaterally, deep tendon reflexes 2+ bilaterally and No confusion Cranial nerves: Yes Equal, round and reactive pupils present, Yes Bilaterally intact EOM present, Yes Midline tongue present, Yes Ability to bilaterally elevate shoulders present and No Nystagmus present Cognition (Neuro): normal cognition Speech: No Abnormal speech present Gait exam (Neuro): Normal gait present Coordination: [id number] test normal, [id number] test normal and tandem gait normal Romberg Test: Negative Assessment & Plan Assessment & Plan (1) Right elbow pain: Comment: Will obtain x-ray. Will place patient in sling. Will give referral to Orthopedics. Patient can utilize Tylenol. Code(s): M25.521 - Pain in right elbow (2) Cough: Comment: Patient will be given cetirizine 5 mg tablet. Can also utilize Pepcid at night before bed cough likely exacerbated by nighttime reflux. Code(s): R05.9 - Cough, unspecified Qualifiers: Cough type: acute Qualified Code(s): R05.1 - Acute cough Plan: Follow-up PCP Plan Patient has been educated on signs of worsening symptoms and when to report back to the walk-in clinic or when to present to the ED. patient states he understands Orders: Orders SARS-CoV2/FLU/RSV Today J06.9 - Acute upper respiratory infection, unspecified XR elbow RT min 3V Today M25.521 - Pain in right elbow Referrals Orthopedics Referral M25.521 - Pain in right elbow, M70.20 - Olecranon bursitis, unspecified elbow Medications: New cetirizine 5 mg PO DAILY PRN 30 tabs 0RF allergy symptoms Coding Level of Care Code Est Pt Level 4 (29699) Diagnoses Right elbow pain M25.521 Acute cough R05.1 Cough type: acute Time Spent (min) 32
== END 2023-12-29 11:14 | disposition home or self-care (01) ==
PROVIDERS: PCP Internal Medicine; Visit Provider Nurse Practitioner Primary Care
DX: M25.521 Pain in right elbow (principal); R05.1 Acute cough
CPT/HCPCS: 99214

== ENCOUNTER 2023-12-29 09:47 | Outpatient (REF) | payer OTHER, SELFPAY ==
--- NOTE | ~2023-12-29 | XR_ITS ---
EXAMINATION: XR ELBOW, RIGHT CLINICAL INFORMATION: Pain in right elbow COMPARISON: Left elbow 09/05/2021 TECHNIQUE: AP, lateral, and oblique views of the right elbow. FINDINGS: There is a large joint effusion. There is mild loss of joint space with slight interval increase in hypertrophic enthesophytes along the elbow joint, as noted before. No visible acute fracture or dislocation. No lytic or sclerotic process seen. There is mild soft tissue swelling over the olecranon which can be seen with olecranon bursitis. XR/XR elbow RT min 3V IMPRESSION: 1. Large joint effusion. 2. Marked degenerative changes. 3. Soft tissue swelling over the olecranon which can be seen with olecranon bursitis.
[2023-12-29 13:55] LABS: Influenza A PCR NEGATIVE (Negative); Influenza B PCR NEGATIVE (Negative); Resp Syncy Virus RNA Qual PCR NEGATIVE (Negative); SARS COV2 PCR INHOUSE NEGATIVE (Negative)
== END 2023-12-29 09:48 | disposition home or self-care (01) ==
LOC: HO.HMGCX 09:47
PROVIDERS: PCP Internal Medicine; Visit Provider Nurse Practitioner Primary Care
DX: M25.521 Pain in right elbow (principal); J06.9 Acute upper respiratory infection, unspecified
CPT/HCPCS: 0241U; 73080

== ENCOUNTER 2024-01-20 13:11 | Outpatient (AMB) | payer OTHER, SELFPAY ==
[2024-01-20 13:17] VITALS: BP 110/58; PULSE 67; O2SAT 95; BMI 32.7
--- NOTE | 2024-01-20 13:17 | MHC.PC.OV ---
Vital Signs 01/20/24 13:17 Height 5 ft 4 in Weight 190 lb 6 oz BMI 32.7 BP 110/58 L Blood Pressure Location Rt brachial Position Sitting Pulse 67 Pulse Source Pulse Oximeter Pulse Oximetry (%) 95 Oxygen Delivery Method Room Air Intake Visit Reasons: 3M F/U Allergies tramadol Allergy (Intermediate, Verified 01/20/24 13:20) rash Medication List - Last Reconciled 01/20/24 by Marizol Esparza MD acetaminophen 650 mg (2 x 325 mg) PO Q6H PRN 30 days alcohol swabs (Alcohol Pads) 2 pad topical DAILY aspirin (Adult Aspirin Regimen) 81 mg PO DAILY atorvastatin 80 mg PO DAILY 90 days [Blood pressure monitor As directed] blood sugar diagnostic (FreeStyle Lite Strips) 2 times a day; 90 days blood sugar diagnostic (FreeStyle Test strips) Patient to check blood sugar twice daily cetirizine 5 mg PO DAILY PRN docusate sodium 100 mg PO BID 30 days dorzolamide-timolol 22.3-6.8 mg/mL mL ophthalmic (eye) lancets (FreeStyle Lancets) USE TO TEST TWICE A DAY levothyroxine 50 mcg PO DAILY lisinopril-hydrochlorothiazide 20-25 mg 1 tab PO DAILY 90 days metformin 1,000 mg PO BID 90 days methocarbamol 750 mg PO TID PRN nitroglycerin 1 mg sublingual Q5M PRN sitagliptin phosphate (Januvia) 100 mg PO BEDTIME 90 days tamsulosin 0.4 mg PO DAILY timolol maleate 0.5% 1 drp ophthalmic (eye) BID Tobacco use date assessed: 01/20/24 Fall risk assessment: No Falls in past year Last assessed Fall Risk: 01/20/24 Dental Screening Dental Screen Date: 01/20/24 Did you have a dental visit in the last 12 months?: No Did you have a dental problem in the last 6 months where you did not have access to dental care?: No Was dental information given to patient?: No HPI 3M F/U HPI Details Patient is 73-year-old gentleman with a history of diabetes mellitus, CVA, coronary artery disease came in for his regular follow-up appointment Patient says that he has been falling recurrently, because sometimes he loses balance Patient suffers from diabetic neuropathy, I have ordered EMG nerve conduction study to see how bad the problem is. Hemoglobin A1c was checked last visit it was 7.0, patient is on Januvia and metformin Patient has appointment coming up with orthopedic for tennis elbow, it seems like he has tennis elbow both sides Labs are needed before next visit fasting, order placed Blood pressure is stable, patient is on lisinopril hydrochlorothiazide 20-25 mg daily Continue atorvastatin for lipid control Allergies are stable with cetirizine Hypothyroidism: Continue levothyroxine 50 mcg He also suffers from chronic back pain and takes muscle relaxer as needed Follow-up 3 or 4 months HPI Comments History of Present Illness Details This is a longitudinal relationship between me and the patient. Ongoing care provided, patient was provided time to ask questions [facility] Medical History CVD (cerebrovascular disease) CAD (coronary artery disease) History of BPH Myocardial infarction CVA (cerebral vascular accident) COVID-19 vaccine administered Arthritis of knee, right Obesity Diabetes 1.5, managed as type 2 Prostate hypertrophy Hypertension, essential Lipid disorder Osteoarthritis of right knee Surgical History Hx of fusion of cervical spine Hx of hand surgery Hx of elbow surgery Hx of shoulder surgery H/O colonoscopy History of knee replacement procedure of left knee Family History Father Cancer Mother CVD (cardiovascular disease) Brother No problems noted. Social History Household Members: Spouse Housing: House Are you a primary memory care program resident to a significant other at home: No Do you presently have visiting nurse or other home services: No Alcohol intake: never Patient Tobacco Use Status: Former Tobacco user Cigarette Packs Per Day: 1 Cigarettes Per Day: 20.0 Years Smoked: 30 e-Cigarette/Vaping Use: Never Used service: No Current occupational status: retired Current occupation: right handed Cognitive needs: No Hearing needs: No Vision needs: No Questionnaire Thrive Questionnaire Date Thrive assessed: 10/23/21 AUDIT C Alcohol Use Questionnaire (AUDIT-C) 1. How often do you have a drink containing alcohol?: Monthly or less 2. How many drinks containing alcohol do you have on a typical day when you are drinking?: 1 or 2 3. How often do you have six or more drinks on one occasion?: Never Total Score: 1 Score Reviewed/Action Taken: Yes RYLAND-7 AMB Questionnaire RYLAND-7 Date RYLAND - 7 assessed: 05/20/23 Source: Developed by Drs. Nitin Land, Rylee Britt, Mino Garcia and colleagues, with an educational calvin from [employer]. Review of Systems Const Denies chills and Denies fever(s) ENT Denies epistaxis and Denies nasal discharge Card Denies chest pain Resp Denies chest congestion, Denies cough and Denies hemoptysis GI Denies diarrhea and Denies nausea Skin/Breast Denies rash Neuro Reports no additional complaints Psych Reports no additional complaints Endo Reports no additional complaints Physical exam (Primary Care) Vital Signs: Last Vital Signs Pulse 67 01/20/24 13:17 BP 110/58 L 01/20/24 13:17 Pulse Ox 95 01/20/24 13:17 Oxygen Delivery Method Room Air 01/20/24 13:17 BMI result Body Mass Index 32.7 Tobacco/Smoking Status: Tobacco use Status Tobacco use date assessed 01/20/24 01/20/24 13:21 Patient Tobacco Use Status Former Tobacco user 01/20/24 13:21 e-Cigarette/Vaping Use Never Used 01/20/24 13:21 Thrive Assessment: Date of Thrive Assessment Date Thrive assessed 10/23/21 01/20/24 13:21 Const General: cooperative, comfortable and no acute distress Orientation/consciousness: patient oriented x3 HENMT Head: Yes normocephalic Eyes General: appearance normal, both eyes and all related structures Neck Neck: Yes supple Resp Effort & Inspection: normal respiratory effort, no cough and no stridor Cardio Rhythm: regular rhythm Heart sounds: S1 normal heart sound present and S2 normal heart sound present Skin General skin exam: turgor normal Neuro General: patient oriented x3, tone normal and moves all extremities Extrem Other: Left elbow exam consistent with tennis elbow Right lower extremity: no edema Left lower extremity: no edema Assessment and Plan Assessment & Plan (1) Diabetes 1.5, managed as type 2: Code(s): E13.9 - Other specified diabetes mellitus without complications (2) Osteoarthritis of knees, bilateral: Code(s): M17.0 - Bilateral primary osteoarthritis of knee Qualifiers: Osteoarthritis type: primary Qualified Code(s): M17.0 - Bilateral primary osteoarthritis of knee (3) Diabetic neuropathy: Code(s): E11.40 - Type 2 diabetes mellitus with diabetic neuropathy, unspecified Qualifiers: Diabetes mellitus type: type 2 Diabetes mellitus complication detail: diabetic polyneuropathy Qualified Code(s): E11.42 - Type 2 diabetes mellitus with diabetic polyneuropathy (4) Obesity due to excess calories: Code(s): E66.09 - Other obesity due to excess calories Qualifiers: Obesity classification: adult class 1 (BMI 30 - 34.9) Serious obesity comorbidity presence: with serious comorbidity Body mass index: BMI 32.0-32.9 Qualified Code(s): E66.09 - Other obesity due to excess calories; Z68.32 - Body mass index [BMI] 32.0-32.9, adult (5) Lipid disorder: Code(s): E78.9 - Disorder of lipoprotein metabolism, unspecified (6) Hypertension, essential: Code(s): I10 - Essential (primary) hypertension (7) Left tennis elbow: Code(s): M77.12 - Lateral epicondylitis, left elbow (8) CAD (coronary artery disease): Code(s): I25.10 - Atherosclerotic heart disease of [place] coronary artery without angina pectoris Qualifiers: Coronary Disease-Associated Artery/Lesion type: [place] artery [place] vs. transplanted heart: [place] heart Associated angina: without angina Qualified Code(s): I25.10 - Atherosclerotic heart disease of [place] coronary artery without angina pectoris (9) Other specified hypothyroidism: Code(s): E03.8 - Other specified hypothyroidism Plan Patient is 73-year-old gentleman with a history of diabetes mellitus, CVA, coronary artery disease came in for his regular follow-up appointment Patient says that he has been falling recurrently, because sometimes he loses balance Patient suffers from diabetic neuropathy, I have ordered EMG nerve conduction study to see how bad the problem is. Hemoglobin A1c was checked last visit it was 7.0, patient is on Januvia and metformin Patient has appointment coming up with orthopedic for tennis elbow, it seems like he has tennis elbow both sides Labs are needed before next visit fasting, order placed Blood pressure is stable, patient is on lisinopril hydrochlorothiazide 20-25 mg daily Continue atorvastatin for lipid control Allergies are stable with cetirizine Hypothyroidism: Continue levothyroxine 50 mcg He also suffers from chronic back pain and takes muscle relaxer as needed Follow-up 3 or 4 months Orders: Orders NE nerve conduction velocity Today E11.42 - Type 2 diabetes mellitus with diabetic polyneuropathy Lipid Panel Today E03.8 - Other specified hypothyroidism, E11.42 - Type 2 diabetes mellitus with diabetic polyneuropathy, E13.9 - Other specified diabetes mellitus without complications, E66.09 - Other obesity due to excess calories, E78.9 - Disorder of lipoprotein metabolism, unspecified, I10 - Essential (primary) hypertension, I25.10 - Atherosclerotic heart disease of [place] coronary artery without angina pectoris, Z68.32 - Body mass index [BMI] 32.0-32.9, adult TSH reflex Free T4 Today E03.8 - Other specified hypothyroidism, E11.42 - Type 2 diabetes mellitus with diabetic polyneuropathy, E13.9 - Other specified diabetes mellitus without complications, E66.09 - Other obesity due to excess calories, E78.9 - Disorder of lipoprotein metabolism, unspecified, I10 - Essential (primary) hypertension, I25.10 - Atherosclerotic heart disease of [place] coronary artery without angina pectoris, Z68.32 - Body mass index [BMI] 32.0-32.9, adult Microalbumin, Random (w Creat) Today E03.8 - Other specified hypothyroidism, E11.42 - Type 2 diabetes mellitus with diabetic polyneuropathy, E13.9 - Other specified diabetes mellitus without complications, E66.09 - Other obesity due to excess calories, E78.9 - Disorder of lipoprotein metabolism, unspecified, I10 - Essential (primary) hypertension, I25.10 - Atherosclerotic heart disease of [place] coronary artery without angina pectoris, Z68.32 - Body mass index [BMI] 32.0-32.9, adult NE electromyogram (EMG) Today E11.42 - Type 2 diabetes mellitus with diabetic polyneuropathy Hemoglobin A1c Today E03.8 - Other specified hypothyroidism, E11.42 - Type 2 diabetes mellitus with diabetic polyneuropathy, E13.9 - Other specified diabetes mellitus without complications, E66.09 - Other obesity due to excess calories, E78.9 - Disorder of lipoprotein metabolism, unspecified, I10 - Essential (primary) hypertension, I25.10 - Atherosclerotic heart disease of [place] coronary artery without angina pectoris, Z68.32 - Body mass index [BMI] 32.0-32.9, adult Complete Blood Count Auto Diff Today E03.8 - Other specified hypothyroidism, E11.42 - Type 2 diabetes mellitus with diabetic polyneuropathy, E13.9 - Other specified diabetes mellitus without complications, E66.09 - Other obesity due to excess calories, E78.9 - Disorder of lipoprotein metabolism, unspecified, I10 - Essential (primary) hypertension, I25.10 - Atherosclerotic heart disease of [place] coronary artery without angina pectoris, Z68.32 - Body mass index [BMI] 32.0-32.9, adult Comprehensive [place]. Panel Fast Today E03.8 - Other specified hypothyroidism, E11.42 - Type 2 diabetes mellitus with diabetic polyneuropathy, E13.9 - Other specified diabetes mellitus without complications, E66.09 - Other obesity due to excess calories, E78.9 - Disorder of lipoprotein metabolism, unspecified, I10 - Essential (primary) hypertension, I25.10 - Atherosclerotic heart disease of [place] coronary artery without angina pectoris, Z68.32 - Body mass index [BMI] 32.0-32.9, adult Coding Level of Care Code Est Pt Level 4 (30478) Complex EM visit Add On G2211 Diagnoses Diabetes 1.5, managed as type 2 E13.9 Primary osteoarthritis of both knees M17.0 Osteoarthritis type: primary Diabetic polyneuropathy associated with type 2 diabetes mellitus E11.42 Diabetes mellitus type: type 2 Diabetes mellitus complication detail: diabetic polyneuropathy Class 1 obesity due to excess calories with serious comorbidity and body mass index (BMI) of 32.0 to 32.9 in adult E66.09; Z68.32 Obesity classification: adult class 1 (BMI 30 - 34.9) Serious obesity comorbidity presence: with serious comorbidity Body mass index: BMI 32.0-32.9 Lipid disorder E78.9 Hypertension, essential I10 Left tennis elbow M77.12 Coronary artery disease involving [place] coronary artery of [place] heart without angina pectoris I25.10 Coronary Disease-Associated Artery/Lesion type: [place] artery [place] vs. transplanted heart: [place] heart Associated angina: without angina Other specified hypothyroidism E03.8
== END 2024-01-20 13:43 | disposition home or self-care (01) ==
PROVIDERS: PCP Internal Medicine; Visit Provider Internal Medicine
DX: E11.42 Type 2 diabetes mellitus with diabetic polyneuropathy (principal); E66.09 Other obesity due to excess calories; Z68.32 Body mass index [BMI] 32.0-32.9, adult; M17.0 Bilateral primary osteoarthritis of knee; E78.9 Disorder of lipoprotein metabolism, unspecified; I10 Essential (primary) hypertension; M77.12 Lateral epicondylitis, left elbow; I25.10 Atherosclerotic heart disease of native coronary artery without angina pectoris; E03.8 Other specified hypothyroidism
CPT/HCPCS: 99214; G2211

== ENCOUNTER 2024-01-29 11:16 | Outpatient (AMB) | payer OTHER, SELFPAY ==
--- NOTE | 2024-01-29 11:31 | A.OFFVIS_ITS ---
Vital Signs 01/29/24 11:39 Height 5 ft 4 in Weight 190 lb BMI 32.6 Intake Visit Reasons: OV-Olecranon bursitis, right elbow Intake Note: Walter is a 73 year old right hand dominant male who presents today for an evaluation of right elbow s/p fall in November. Patient reports that he fell landing on both of his elbows. He was seen at a walk in clinic where xrays were taken, he was placed in a sling and was told to rest arm. Currently his pain is mostly located at the posterior aspect of elbow and with lifting his arm his pain radiates into his forearm and up to his shoulder. He has numbness and tingling in his hand. States tenderness in his elbow with applying pressure as well as intermittent swelling. Hx of right shoulder surgery in [place] around 2019. He had an injection to his right elbow on 09/05/21. Allergies tramadol Allergy (Intermediate, Verified 01/29/24 11:44) rash Medication List - Last Reconciled 01/29/24 by Mariano Balbuena PA-C acetaminophen 650 mg (2 x 325 mg) PO Q6H PRN 30 days alcohol swabs (Alcohol Pads) 2 pad topical DAILY aspirin (Adult Aspirin Regimen) 81 mg PO DAILY atorvastatin 80 mg PO DAILY 90 days [Blood pressure monitor As directed] blood sugar diagnostic (FreeStyle Lite Strips) 2 times a day; 90 days blood sugar diagnostic (FreeStyle Test strips) Patient to check blood sugar twice daily cetirizine 5 mg PO DAILY PRN docusate sodium 100 mg PO BID 30 days dorzolamide-timolol 22.3-6.8 mg/mL mL ophthalmic (eye) lancets (FreeStyle Lancets) USE TO TEST TWICE A DAY levothyroxine 50 mcg PO DAILY lisinopril-hydrochlorothiazide 20-25 mg 1 tab PO DAILY 90 days metformin 1,000 mg PO BID 90 days methocarbamol 750 mg PO TID PRN nitroglycerin 1 mg sublingual Q5M PRN sitagliptin phosphate (Januvia) 100 mg PO BEDTIME 90 days tamsulosin 0.4 mg PO DAILY timolol maleate 0.5% 1 drp ophthalmic (eye) BID HPI HPI OV-Olecranon bursitis, right elbow: Details: 73-year-old right hand dominant male who returns to the office today for a follow-up of right elbow s/p fall on his bilateral elbow in November. He was seen at walk-in clinic where x-rays were performed and he was placed in a sling and recommended resting. He currently states he has pain at the posterior aspect of his elbow that radiates to his forearm going up to his shoulder with lifting activities. He also reports numbness and tingling in his hand as well as tenderness in his elbow with applying pressure and intermittent swelling. He had his last right elbow injection on 09/05/21. He has a history of right shoulder surgery in [place] around 2019. [facility] Medical History (Updated 01/20/24 @ 15:02 by Marizol Esparza MD) CVD (cerebrovascular disease) CAD (coronary artery disease) History of BPH Myocardial infarction CVA (cerebral vascular accident) COVID-19 vaccine administered Arthritis of knee, right Obesity Diabetes 1.5, managed as type 2 Prostate hypertrophy Hypertension, essential Lipid disorder Osteoarthritis of right knee Surgical History Hx of fusion of cervical spine Hx of hand surgery Hx of elbow surgery Hx of shoulder surgery H/O colonoscopy History of knee replacement procedure of left knee Family History Father Cancer Mother CVD (cardiovascular disease) Brother No problems noted. Social History Household Members: Spouse Housing: House Are you a primary healthcare administrative assistant to a significant other at home: No Do you presently have visiting nurse or other home services: No Alcohol intake: never Patient Tobacco Use Status: Former Tobacco user Cigarette Packs Per Day: 1 Cigarettes Per Day: 20.0 Years Smoked: 30 e-Cigarette/Vaping Use: Never Used service: No Current occupational status: retired Current occupation: right handed Cognitive needs: No Hearing needs: No Vision needs: No Review of Systems Const All systems reviewed & are unremarkable except as noted in HPI and below Physical Exam Vital Signs: BMI result Body Mass Index 32.6 Extrem Other: Right elbow: Normal to inspection. No open wound or abrasion. No swelling. No tenderness over the medial epicondyle. No pain supination or pronation. No pain with wrist flexion against resistance. NVI. Results Reviewed Results Reviewed: X-rays of the right elbow obtained in the office today show osteoarthritis. Assessment & Plan Assessment & Plan (1) Arthritis of right elbow: Code(s): M19.021 - Primary osteoarthritis, right elbow Category: Medical Plan I discussed the extent of his x-ray findings which are consistent with severe OA. This cannot appreciate an acute fracture. I did offer physical therapy to work on strengthening which he declined. He was also given a course of Celebrex to help with his discomfort which was sent to his pharmacy. If symptoms persist or worsen, patient will contact the office, otherwise follow-up as needed. Medications: New celecoxib (Celebrex) 200 mg PO BID 60 caps 3RF 30 days Patient Instructions: Scribed for Mariano Balbuena PA-C, by Jean-Pierre Andres infertility medical assistant, on 01/29/2024 at 11:15 AM EST.? I, Mariano Balbuena PA-C, have personally reviewed and agree with the information entered by the scribe. Coding Level of Care Code Est Pt Level 3 (78693) Diagnoses Arthritis of right elbow M19.021
[2024-01-29 11:39] VITALS: BMI 32.6
== END 2024-01-29 12:15 | disposition home or self-care (01) ==
PROVIDERS: PCP Internal Medicine; Visit Provider Physician Assistant
DX: M19.021 Primary osteoarthritis, right elbow (principal)
CPT/HCPCS: 99213

== ENCOUNTER → 2024-01-29 11:16 | Outpatient (BNVA) | payer OTHER, SELFPAY | PROVIDERS: PCP Internal Medicine; Visit Provider Physician Assistant | DX: M19.021 Primary osteoarthritis, right elbow (principal) | CPT/HCPCS: 99212 ==

== ENCOUNTER 2024-02-03 08:29 | Outpatient (REF) | payer OTHER, SELFPAY ==
--- NOTE | 2024-02-03 08:31 | EMG_ITS ---
Bilateral tibial and peroneal motor studies were performed. Bilateral superficial peroneal, sural, and median and lateral plantar mixed sensory studies were performed. Tibial H-reflexes were obtained and paraspinal muscles were tested with a needle. IMPRESSION: This study revealed mostly sensory peripheral neuropathy somewhat patchy effecting his legs and more so of his feet with no evidence of radiculopathy. MD TAN Spencer/BRUNO / [phone]
== END 2024-02-03 08:30 | disposition home or self-care (01) ==
LOC: HO.NEURO 08:29
PROVIDERS: PCP Internal Medicine; Visit Provider Internal Medicine
DX: E11.42 Type 2 diabetes mellitus with diabetic polyneuropathy (principal)
CPT/HCPCS: 95886; 95913

== ENCOUNTER 2024-02-23 09:10 | Outpatient (REF) | payer OTHER, SELFPAY ==
[2024-02-23 13:04] LABS: MANUAL DIFF FLAG NO
[2024-02-23 13:25] LABS: Basophils Percent Auto 0.6 % (0-2); Eosinophils Absolute Auto 0.1 X10*3/uL (0.0-0.4); Eosinophils Percent Auto 1.8 % (0-4); Hematocrit 44.5 % (42.0-52.0); Hemoglobin 14.6 g/dl (14.0-18.0); Imm Gran Abs Auto 0.02 X10*3/uL (0.00-0.03); Imm Gran Pct Auto 0.3 % (0.0-0.4); Lymphocytes Absolute Auto 2.1 X10*3/uL (1.2-4.9); Lymphocytes Percent Auto 32.3 % (20-40); Mean Corpuscular HGB Conc 32.8 g/dl (31.0-36.0); Mean Corpuscular Hemoglobin 30.6 pg (27.0-33.0); Mean Corpuscular Volume 93.3 fL (80.0-98.0); Monocytes Absolute Auto 0.6 X10*3/uL (0.1-1.2); Monocytes Percent Auto 8.6 % (2-11); Neutrophils Absolute Auto 3.7 x10*3/uL (2.0-8.3); Neutrophils Percent Auto 56.4 % (45-73); Platelet Count 226 X10*3/uL (160-400); Red Blood Count 4.77 X10*6/uL (4.60-5.80); Red Cell Distribution Width 13.7 % (11.0-16.0); White Blood Count 6.6 X10*3/uL (4.8-10.8)
[2024-02-23 13:45] LABS: Estimated Average Glucose 134 mg/dL; Hemoglobin A1c % 6.3 % (<6.0)
[2024-02-23 13:46] LABS: Alanine Aminotransferase 18 U/L (0-40); Albumin Level 3.8 g/dL (3.5-5.0); Alkaline Phosphatase 65 U/L (39-117); Anion Gap 13 (12-20); Aspartate Amino Transferase 15 U/L (5-37); Bilirubin Total 0.6 mg/dL (0.0-1.0); Blood Urea Nitrogen 26 mg/dL (9-16); Calcium 8.7 mg/dL (8.4-10.2); Carbon Dioxide 25 mmol/L (22-29); Chloride 107 mmol/L (96-108); Cholesterol 92 mg/dL (<200); Estimated Glomerular Filt Rate > 60; Glucose Fasting 132 mg/dL (60-99); HDL Cholesterol 29 mg/dL (>40); LDL Cholesterol Calculated 47 mg/dL (<100); Potassium 4.1 mmol/L (3.3-5.1); Sodium 141 mmol/L (135-145); Total Protein 6.4 g/dL (6.5-8.0); Triglycerides 80 mg/dL (<150)
[2024-02-23 14:00] LABS: Microalbum/Creatinine Ratio Ur 12.5 ug/mg cr (<30)
[2024-02-23 14:06] LABS: TSH reflex Free T4 2.77 uIU/mL (0.32-4.0)
== END 2024-02-23 09:11 | disposition home or self-care (01) ==
LOC: HO.HMGCLDS 09:10
PROVIDERS: PCP Internal Medicine; Visit Provider Internal Medicine
DX: E11.42 Type 2 diabetes mellitus with diabetic polyneuropathy (principal); E66.09 Other obesity due to excess calories; Z68.32 Body mass index [BMI] 32.0-32.9, adult; E78.9 Disorder of lipoprotein metabolism, unspecified; I10 Essential (primary) hypertension; E03.8 Other specified hypothyroidism; I25.10 Atherosclerotic heart disease of native coronary artery without angina pectoris
CPT/HCPCS: 36415; 80053; 80061; 82043; 82570; 83036; 84443; 85025

== ENCOUNTER 2024-04-30 13:03 | Outpatient (AMB) | payer OTHER, SELFPAY ==
[2024-04-30 13:05] VITALS: BP 122/60; PULSE 67; O2SAT 96; BMI 32.6
--- NOTE | 2024-04-30 13:05 | A.OFFPC_ITS ---
Vital Signs 04/30/24 13:05 Height 5 ft 4 in Weight 190 lb BMI 32.6 BP 122/60 Blood Pressure Location Rt brachial Position Sitting Pulse 67 Pulse Source Pulse Oximeter Pulse Oximetry (%) 96 Oxygen Delivery Method Room Air Intake Visit Reasons: Annual PE/overdue Allergies tramadol Allergy (Intermediate, Verified 01/29/24 11:44) rash Medication List - Last Reconciled 04/30/24 by Marizol Esparza MD acetaminophen 650 mg (2 x 325 mg) PO Q6H PRN 30 days alcohol swabs (Alcohol Pads) 2 pad topical DAILY aspirin (Adult Aspirin Regimen) 81 mg PO DAILY atorvastatin 80 mg PO DAILY 90 days [Blood pressure monitor As directed] blood sugar diagnostic (FreeStyle Lite Strips) 2 times a day; 90 days blood sugar diagnostic (FreeStyle Test strips) Patient to check blood sugar twice daily celecoxib (Celebrex) 200 mg PO BID 30 days cetirizine 5 mg PO DAILY PRN docusate sodium 100 mg PO BID 30 days dorzolamide-timolol 22.3-6.8 mg/mL mL ophthalmic (eye) lancets (FreeStyle Lancets) USE TO TEST TWICE A DAY levothyroxine 50 mcg PO DAILY lisinopril-hydrochlorothiazide 20-25 mg 1 tab PO DAILY 90 days metformin 1,000 mg PO BID 90 days methocarbamol 750 mg PO TID PRN nitroglycerin 1 mg sublingual Q5M PRN sitagliptin phosphate (Januvia) 100 mg PO BEDTIME 90 days tamsulosin 0.4 mg PO DAILY timolol maleate 0.5% 1 drp ophthalmic (eye) BID Tobacco use date assessed: 04/30/24 Fall risk assessment: No Falls in past year Last assessed Fall Risk: 04/30/24 Dental Screening Dental Screen Date: 04/30/24 Did you have a dental visit in the last 12 months?: Yes Did you have a dental problem in the last 6 months where you did not have access to dental care?: No Was dental information given to patient?: Patient has dentist HPI Annual PE/overdue HPI Details Patient is 74-year-old gentleman came in today for physical examination Patient have history of cervical spine surgery few years ago Since then he has been having flare-up of pain radiating from his neck all the way down to his left hand with paresthesia off and on He says that lately it is getting worse, he would like to see a pain specialist Patient says that he was given 7 day of medication before which did help him but pain came back after I am starting him on gabapentin 100 mg at night Medrol Dosepak sent as well Labs done in February reviewed with patient Diabetes mellitus:? Patient is taking Januvia 100 mg daily, and metformin 1 g b.i.d.. Hemoglobin A1c is well controlled Patient also have a diabetic neuropathy and osteoarthritis in his knees Lipid disorder:? Continue atorvastatin 80 mg once a day patient is tolerating medication. Blood pressure is well-controlled, he is taking lisinopril hydrochlorothiazide 20-25 mg once a day. Target blood pressure for this patient is around 120/80. BPH: Continue tamsulosin 0.4 mg once a day no urinary complaints Coronary artery disease: Patient goes to [facility] once a year for monitoring and is taking nitroglycerin through them, however he has not needed in a while. Patient also have a first-degree AV block. There are no notes in the chart from his cardiology Obesity:??BMI is is elevated patient need to lose weight Follow-up 3 months, physical exam 1 year [facility] Medical History CVD (cerebrovascular disease) CAD (coronary artery disease) History of BPH Myocardial infarction CVA (cerebral vascular accident) COVID-19 vaccine administered Arthritis of knee, right Obesity Diabetes 1.5, managed as type 2 Prostate hypertrophy Hypertension, essential Lipid disorder Osteoarthritis of right knee Surgical History Hx of fusion of cervical spine Hx of hand surgery Hx of elbow surgery Hx of shoulder surgery H/O colonoscopy History of knee replacement procedure of left knee Family History Father Cancer Mother CVD (cardiovascular disease) Brother No problems noted. Social History Household Members: Spouse Housing: House Are you a primary care partner to a significant other at home: No Do you presently have visiting nurse or other home services: No Alcohol intake: never Patient Tobacco Use Status: Former Tobacco user Cigarette Packs Per Day: 1 Cigarettes Per Day: 20.0 Years Smoked: 30 e-Cigarette/Vaping Use: Never Used service: No Current occupational status: retired Current occupation: right handed Cognitive needs: No Hearing needs: No Vision needs: No Questionnaire PHQ-9 Over the last 2 weeks, how often have you been bothered by any of the following problems? 23923 - PHQ-9 Billing: Patient declined-do not bill Source: Developed by Drs. Nitin Land, Rylee Britt, Mino Garcia and colleagues, with an educational calvin from [employer]. Thrive Questionnaire Date Thrive assessed: 04/30/24 What is your living situation today?: I choose not to answer this question Within the past 12 months, did the food you bought not last and you didn't have the money to get more?: I choose not to answer this question Within the past 12 months, did you worry whether your food would run out before you got money to buy more?: I choose not to answer this question Do you have trouble paying for medicines?: I choose not to answer this question Do you have trouble getting transportation to medical appointments?: I choose not to answer this question Do you have trouble paying your heating and electricity bill?: I choose not to answer this question Do you have trouble taking care of your child, family member or friend?: I choose not to answer this question Do you have trouble with day-to-day activities such as bathing, preparing meals, shopping, managing finances, etc.?: I choose not to answer this question Are you currently unemployed and looking for a job?: I choose not to answer this question Are you interested in more education?: I choose not to answer this question THRIVE Score: 0 AUDIT C Alcohol Use Questionnaire (AUDIT-C) 1. How often do you have a drink containing alcohol?: Never Total Score: 0 RYLAND-7 AMB Questionnaire RYLAND-7 Date RYLAND - 7 assessed: 04/30/24 Source: Developed by Drs. Nitin Land, Rylee Britt, Mino Garcia and colleagues, with an educational calvin from [employer]. RYLAND-7 Assessment Billing RYLAND-7 Assessment Tool: pt declined-do not bill Review of Systems Const Denies chills, Denies fever(s) and Denies headache(s) Eyes Denies blurry vision ENT Denies headache(s), Denies nasal discharge, Denies nasal obstruction, Denies odynophagia and Denies sinus pain Card Denies chest pain at rest and Denies chest pain with activity Resp Denies cough and Denies hemoptysis GI Denies diarrhea, Denies odynophagia, Denies vomiting and Denies hematemesis Reports as per HPI Musc Denies abnormal gait Skin/Breast Reports as per HPI Neuro Denies Neuro-related abnormal movements, Denies Abnormal speech present, Denies abnormal gait and Denies headache(s) Psych Denies mood swings and Denies paranoia Endo Reports as per HPI Pablo/Lymph Reports as per HPI Aller/Immun Reports as per HPI Physical exam (Primary Care) Vital Signs: Last Vital Signs Pulse 67 04/30/24 13:05 BP 122/60 04/30/24 13:05 Pulse Ox 96 04/30/24 13:05 Oxygen Delivery Method Room Air 04/30/24 13:05 BMI result Body Mass Index 32.6 Tobacco/Smoking Status: Tobacco use Status Tobacco use date assessed 04/30/24 04/30/24 13:06 Patient Tobacco Use Status Former Tobacco user 04/30/24 13:06 e-Cigarette/Vaping Use Never Used 04/30/24 13:06 Thrive Assessment: Date of Thrive Assessment Date Thrive assessed 04/30/24 04/30/24 13:13 Const General: cooperative, comfortable and no acute distress Orientation/consciousness: patient oriented x3 HENMT Head: Yes normocephalic and Yes atraumatic Eyes General: appearance normal, both eyes and all related structures Pupils: Equal, round and reactive pupils present EOM: EOMs intact bilaterally Neck Neck: No lymphadenopathy Thyroid: Thyroid normal Lymphatic: no lymphadenopathy noted Resp Effort & Inspection: normal respiratory effort and able to speak in complete s entences Auscultation: clear to auscultation bilaterally Cardio Heart sounds: S1 normal heart sound present and S2 normal heart sound present GI Palpation (GI): Soft to palpation and nontender Auscultation: normal bowel sounds General: Yes no CVA tenderness Back/Spine/Pelvis Back: no CVA tenderness Skin General skin exam: elasticity normal and turgor normal Neuro General: patient oriented x3 and gait normal Cranial nerves: Yes Equal, round and reactive pupils present Speech: No Abnormal speech present Coordination: tandem gait normal and Romberg test negative Extrem General: Yes normal exam except as noted and No edema Coding Level of Care Code Est Pt Level 4 (28262) Est Pt Prev Care >65y(76057) Diagnoses Encounter for general adult medical examination with abnormal findings Z00.01 Cervical radiculitis M54.12 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, managed as type 2 E13.9 Diabetic polyneuropathy associated with type 2 diabetes mellitus E11.42 Diabetes mellitus type: type 2 Diabetes mellitus complication detail: diabetic polyneuropathy Class 1 obesity due to excess calories with serious comorbidity and body mass index (BMI) of 32.0 to 32.9 in adult E66.09; Z68.32 Obesity classification: adult class 1 (BMI 30 - 34.9) Serious obesity comorbidity presence: with serious comorbidity Body mass index: BMI 32.0-32.9 Hypertension, essential I10 Assessment & Plan Assessment & Plan (1) Encounter for general adult medical examination with abnormal findings: Code(s): Z00.01 - Encounter for general adult medical examination with abnormal findings Category: Medical (2) Cervical radiculitis: Code(s): M54.12 - Radiculopathy, cervical region Category: Medical (3) Other specified hypothyroidism: Code(s): E03.8 - Other specified hypothyroidism Category: Medical (4) Diabetes 1.5, managed as type 2: Code(s): E13.9 - Other specified diabetes mellitus without complications Category: Medical (5) Diabetic neuropathy: Code(s): E11.40 - Type 2 diabetes mellitus with diabetic neuropathy, unspecified Category: Medical Qualifiers: Diabetes mellitus type: type 2 Diabetes mellitus complication detail: diabetic polyneuropathy Qualified Code(s): E11.42 - Type 2 diabetes mellitus with diabetic polyneuropathy (6) Obesity due to excess calories: Code(s): E66.09 - Other obesity due to excess calories Category: Medical Qualifiers: Obesity classification: adult class 1 (BMI 30 - 34.9) Serious obesity comorbidity presence: with serious comorbidity Body mass index: BMI 32.0-32.9 Qualified Code(s): E66.09 - Other obesity due to excess calories; Z68.32 - Body mass index [BMI] 32.0-32.9, adult (7) Hypertension, essential: Code(s): I10 - Essential (primary) hypertension Category: Medical Plan Patient is 74-year-old gentleman came in today for physical examination Patient have history of cervical spine surgery few years ago Since then he has been having flare-up of pain radiating from his neck all the way down to his left hand with paresthesia off and on He says that lately it is getting worse, he would like to see a pain specialist Patient says that he was given 7 day of medication before which did help him but pain came back after I am starting him on gabapentin 100 mg at night Medrol Dosepak sent as well His neck is supple however when he looks up he does feel shooting pain going down his left arm Labs done in February reviewed with patient Diabetes mellitus:? Patient is taking Januvia 100 mg daily, and metformin 1 g b.i.d.. Hemoglobin A1c is well controlled Patient also have a diabetic neuropathy and osteoarthritis in his knees Lipid disorder:? Continue atorvastatin 80 mg once a day patient is tolerating medication. Blood pressure is well-controlled, he is taking lisinopril hydrochlorothiazide 20-25 mg once a day. Target blood pressure for this patient is around 120/80. BPH: Continue tamsulosin 0.4 mg once a day no urinary complaints Coronary artery disease: Patient goes to [facility] once a year for monitoring and is taking nitroglycerin through them, however he has not needed in a while. Patient also have a first-degree AV block. There are no notes in the chart from his cardiology Obesity:??BMI is is elevated patient need to lose weight Follow-up 3 months, physical exam 1 year Medications: New methylprednisolone (Medrol (Phillip)) PO PER PKG DIR 6 days 21 ea 0RF gabapentin Take 1 capsule for a week and then 2 capsule daily at night before bedtime 200 mg (2 x 100 mg) PO BEDTIME 30 days 60 caps 2RF Neck pain
== END 2024-04-30 13:37 | disposition home or self-care (01) ==
PROVIDERS: PCP Internal Medicine; Visit Provider Internal Medicine
DX: Z00.00 Encounter for general adult medical examination without abnormal findings (principal); E11.42 Type 2 diabetes mellitus with diabetic polyneuropathy; E66.811 Obesity, class 1; Z68.32 Body mass index [BMI] 32.0-32.9, adult; M54.12 Radiculopathy, cervical region; E03.8 Other specified hypothyroidism; I10 Essential (primary) hypertension

== ENCOUNTER → 2024-04-30 13:03 | Outpatient (BNVA) | payer OTHER, SELFPAY | PROVIDERS: PCP Internal Medicine; Visit Provider Internal Medicine | DX: Z00.01 Encounter for general adult medical examination with abnormal findings (principal); M54.12 Radiculopathy, cervical region; E03.8 Other specified hypothyroidism; E11.42 Type 2 diabetes mellitus with diabetic polyneuropathy; E66.09 Other obesity due to excess calories; Z68.32 Body mass index [BMI] 32.0-32.9, adult; I10 Essential (primary) hypertension; Z71.3 Dietary counseling and surveillance | CPT/HCPCS: 99212; 99397 ==

== ENCOUNTER 2024-08-03 09:47 | Outpatient (REF) | payer OTHER, SELFPAY ==
--- NOTE | ~2024-08-03 | XR_ITS ---
CLINICAL HISTORY: S60.559A - Superficial foreign body of unspecified hand, initial encounter 3 view right hand Comparison: None Findings: No acute fracture. Diffuse interphalangeal joint space loss with osteophyte formation. Mild degenerative change at the 1st through 3rd metacarpophalangeal joints and at the base of the thumb. Advanced osteoarthropathy at the STT joint. Tiny radiopaque foreign bodies are seen within the dorsal soft tissues at the level of the distal phalanx of the middle finger measuring 1-2 mm and just dorsal to the proximal interphalangeal joint of the ring finger measuring 2-3 mm. IMPRESSION: 1. Sub 5 mm radiopaque foreign bodies are seen dorsal to the distal phalanx of the 3rd finger and dorsal to the proximal interphalangeal joint of the ring finger. 2. Degenerative changes as described. This document has been electronically signed by: Karlee Hernandez MD on 08/04/2024 06:47:49
[2024-08-03 13:09] LABS: MANUAL DIFF FLAG NO
[2024-08-03 13:21] LABS: Basophils Percent Auto 0.4 % (0-2); Eosinophils Absolute Auto 0.1 X10*3/uL (0.0-0.4); Eosinophils Percent Auto 1.5 % (0-4); Hematocrit 44.9 % (42.0-52.0); Hemoglobin 15.3 g/dl (14.0-18.0); Imm Gran Abs Auto 0.02 X10*3/uL (0.00-0.03); Imm Gran Pct Auto 0.3 % (0.0-0.4); Lymphocytes Percent Auto 27.8 % (20-40); Mean Corpuscular HGB Conc 34.1 g/dl (31.0-36.0); Mean Corpuscular Hemoglobin 31.3 pg (27.0-33.0); Mean Corpuscular Volume 91.8 fL (80.0-98.0); Mean Platelet Volume 10.7 fL (9.4-12.4); Monocytes Absolute Auto 0.7 X10*3/uL (0.1-1.2); Monocytes Percent Auto 10.3 % (2-11); Neutrophils Absolute Auto 4.3 x10*3/uL (2.0-8.3); Neutrophils Percent Auto 59.7 % (45-73); Platelet Count 191 X10*3/uL (160-400); Red Blood Count 4.89 X10*6/uL (4.60-5.80); Red Cell Distribution Width 13.6 % (11.0-16.0); White Blood Count 7.2 X10*3/uL (4.8-10.8)
[2024-08-03 13:43] LABS: Alanine Aminotransferase 21 U/L (0-40); Albumin Level 3.9 g/dL (3.5-5.0); Alkaline Phosphatase 74 U/L (39-117); Anion Gap 8 (12-20); Aspartate Amino Transferase 28 U/L (5-37); Bilirubin Total 0.9 mg/dL (0.0-1.0); Blood Urea Nitrogen 24 mg/dL (9-16); Carbon Dioxide 27 mmol/L (22-29); Chloride 106 mmol/L (96-108); Cholesterol 97 mg/dL (<200); Estimated Glomerular Filt Rate > 60; Glucose Fasting 119 mg/dL (60-99); HDL Cholesterol 25 mg/dL (>40); LDL Cholesterol Calculated 48 mg/dL (<100); Sodium 137 mmol/L (135-145); Total Protein 6.8 g/dL (6.5-8.0); Triglycerides 123 mg/dL (<150)
[2024-08-03 13:48] LABS: Estimated Average Glucose 131 mg/dL; Hemoglobin A1C 176.4383 umol/L; Hemoglobin A1c % 6.2 % (<6.0); Total Hemoglobin (HGBA1C) 3993.9245 umol/L
[2024-08-03 14:03] LABS: TSH reflex Free T4 3.22 uIU/mL (0.32-4.0)
== END 2024-08-03 09:48 | disposition home or self-care (01) ==
LOC: HO.HMGCX 09:47
PROVIDERS: PCP Internal Medicine; Visit Provider Internal Medicine
DX: I10 Essential (primary) hypertension (principal); S60.551A Superficial foreign body of right hand, initial encounter; E03.8 Other specified hypothyroidism; M17.0 Bilateral primary osteoarthritis of knee; R97.20 Elevated prostate specific antigen [PSA]; E66.09 Other obesity due to excess calories; Z68.32 Body mass index [BMI] 32.0-32.9, adult; E78.9 Disorder of lipoprotein metabolism, unspecified; E11.9 Type 2 diabetes mellitus without complications; Z79.84 Long term (current) use of oral hypoglycemic drugs; Z79.899 Other long term (current) drug therapy
CPT/HCPCS: 36415; 73130; 80053; 80061; 83036; 84443; 85025; 96127; 99212

== ENCOUNTER 2024-08-03 09:47 | Outpatient (AMB) | payer OTHER, SELFPAY ==
--- NOTE | 2024-08-03 10:11 | MHC.PC.OV ---
Vital Signs 08/03/24 10:16 Height 5 ft 4 in Weight 190 lb BMI 32.6 BP 120/64 Blood Pressure Location Rt brachial Position Sitting Pulse 60 Pulse Source Pulse Oximeter Pulse Oximetry (%) 98 Oxygen Delivery Method Room Air Intake Visit Reasons: 3 month follow up Allergies tramadol Allergy (Intermediate, Verified 08/03/24 10:13) rash Medication List - Last Reconciled 08/03/24 by Marizol Esparza MD acetaminophen 650 mg (2 x 325 mg) PO Q6H PRN 30 days alcohol swabs (Alcohol Pads) 2 pad topical DAILY aspirin (Adult Aspirin Regimen) 81 mg PO DAILY atorvastatin 80 mg PO DAILY 90 days [Blood pressure monitor As directed] blood sugar diagnostic (FreeStyle Lite Strips) 2 times a day; 90 days blood sugar diagnostic (FreeStyle Test strips) Patient to check blood sugar twice daily celecoxib (Celebrex) 200 mg PO BID 30 days cetirizine 5 mg PO DAILY PRN docusate sodium 100 mg PO BID 30 days dorzolamide-timolol 22.3-6.8 mg/mL mL ophthalmic (eye) gabapentin 200 mg (2 x 100 mg) PO BEDTIME 30 days lancets (FreeStyle Lancets) USE TO TEST TWICE A DAY levothyroxine 50 mcg PO DAILY lisinopril-hydrochlorothiazide 20-25 mg 1 tab PO DAILY 90 days metformin 1,000 mg PO BID 90 days methocarbamol 750 mg PO TID PRN methylprednisolone (Medrol (Phillip)) PO PER PKG DIR 6 days nitroglycerin 1 mg sublingual Q5M PRN sitagliptin phosphate (Januvia) 100 mg PO BEDTIME 90 days tamsulosin 0.4 mg PO DAILY timolol maleate 0.5% 1 drp ophthalmic (eye) BID Tobacco use date assessed: 08/03/24 Fall risk assessment: No Falls in past year Last assessed Fall Risk: 08/03/24 Dental Screening Dental Screen Date: 08/03/24 Did you have a dental visit in the last 12 months?: Yes Did you have a dental problem in the last 6 months where you did not have access to dental care?: No Was dental information given to patient?: Patient has dentist HPI 3 month follow up HPI Details - The patient is a 74-year-old male presenting with concerns about a possible foreign body in the right hand. - Approximately 2 to 2.5 months ago, the patient was at a store handling a large piece of wood when the incident occurred. - A fragment may have entered the right hand, leading to significant swelling that initially was substantial but has since decreased. - The swelling does not entirely resolve, with suspicion of retained material. - Management of chronic conditions includes routine use of several medications: - Blood pressure reported as well-controlled. - Continued medication regimen for managing joint pain, allergies, and chronic back and neck pain. Problem List - Hypertension - Hyperlipidemia - Arthropathy - Allergic Rhinitis - Constipation - Hypothyroidism - Type 2 Diabetes Mellitus - Chronic Back and Neck Pain - Possible Foreign Body in Right Hand (pending confirmation via imaging) Medications - Atorvastatin 80 mg for hyperlipidemia - Celecoxib (Celebrex) for arthropathy - Cetirizine for allergic rhinitis - Stool softener for constipation - Eye drops for unclear indications - Gabapentin for chronic pain at bedtime - Levothyroxine 50 microgram for hypothyroidism - Lisinopril for hypertension - Hydrochlorothiazide for hypertension - Metformin for Type 2 Diabetes Mellitus - Muscle relaxer for chronic back and neck pain Patient Instructions - Obtain an x-ray for the right hand to determine if a foreign body is present. - Schedule an appointment for blood tests, as last performed in February. - Ensure to receive the stronger flu vaccine, available from local pharmacies including [facility]. - Fast prior to the blood test, as patient has not eaten on the day of the visit, to prepare for fasting labs. Plan 1. Additionally, the scheduling of a blood test to monitor chronic conditions as part of routine health maintenance is necessary. The potential presence of a foreign body and any resulting complications must be addressed promptly, pending imaging results. Further management and diagnostic procedures will depend on the outcomes of the pending x-ray.: Review of Systems - Musculoskeletal: Reports persistent swelling and a possible foreign body in the right hand. - Respiratory: Denies chest pains; lungs reportedly clear. - Cardiovascular: Denies heart irregularities or pain. - Gastrointestinal: Denies abdominal pain. General: No fever no chills neurological: No headaches no dizziness ear nose throat: No sore throat no hearing difficulty no ear pain cardiovascular: No syncope, no chest pain, no palpitations gastrointestinal: No nausea vomiting or diarrhea endocrine: No polyuria polydipsia no heat intolerance genitourinary: No dysuria skin: No new complaints Physical Exam general: No acute distress HEENT: No acute findings neck: Supple respiratory system: Lungs are clear, able to talk in full sentences, no audible wheeze, no stridor cardiovascular: S1-S2, heart is fine gastrointestinal: No pain, no chest pains extremities: Right hand requires x-ray due to 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 x3 motor sensory intact skin: Normal turgor [facility] Medical History CVD (cerebrovascular disease) CAD (coronary artery disease) History of BPH Myocardial infarction CVA (cerebral vascular accident) COVID-19 vaccine administered Arthritis of knee, right Obesity Diabetes 1.5, managed as type 2 Prostate hypertrophy Hypertension, essential Lipid disorder Osteoarthritis of right knee Surgical History Hx of fusion of cervical spine Hx of hand surgery Hx of elbow surgery Hx of shoulder surgery H/O colonoscopy History of knee replacement procedure of left knee Family History Father Cancer Mother CVD (cardiovascular disease) Brother No problems noted. Social History Household Members: Spouse Housing: House Are you a primary home visit field care manager to a significant other at home: No Do you presently have visiting nurse or other home services: No Alcohol intake: never Patient Tobacco Use Status: Former Tobacco user Cigarette Packs Per Day: 1 Cigarettes Per Day: 20.0 Years Smoked: 30 e-Cigarette/Vaping Use: Never Used service: No Current occupational status: retired Current occupation: right handed Cognitive needs: No Hearing needs: No Vision needs: No Questionnaire PHQ-9 Over the last 2 weeks, how often have you been bothered by any of the following problems? 1. Little interest or pleasure in doing things: not at all 2. Feeling down, depressed, or hopeless: not at all 3. Trouble falling or staying asleep, or sleeping too much: not at all 4. Feeling tired or having little energy: not at all 5. Poor appetite or overeating: not at all 6. Feeling bad about yourself - or that you are a failure or have let yourself or your family down: not at all 7. Trouble concentrating on things, such as reading the newspaper or watching television: not at all 8. Moving or speaking so slowly that other people could have noticed. Or the opposite - being so fidgety or restless that you have been moving around a lot more than usual: not at all 9. Thoughts that you would be better off or of hurting yourself in some way: not at all Total score: 0 Depression Screening Interpretation: Negative Depression Screening Done: Yes 98127 - PHQ-9 Billing: Yes Source: Developed by Drs. Nitin Land, Rylee Britt, Mino Garcia and colleagues, with an educational calvin from [employer]. Thrive Questionnaire Date Thrive assessed: 08/03/24 I am a: Patient What is your living situation today?: I choose not to answer this question Within the past 12 months, did the food you bought not last and you didn't have the money to get more?: I choose not to answer this question Within the past 12 months, did you worry whether your food would run out before you got money to buy more?: I choose not to answer this question Do you have trouble paying for medicines?: I choose not to answer this question Do you have trouble getting transportation to medical appointments?: I choose not to answer this question Do you have trouble paying your heating and electricity bill?: I choose not to answer this question Do you have trouble taking care of your child, family member or friend?: I choose not to answer this question Do you have trouble with day-to-day activities such as bathing, preparing meals, shopping, managing finances, etc.?: I choose not to answer this question Are you currently unemployed and looking for a job?: I choose not to answer this question Are you interested in more education?: I choose not to answer this question Please select the resources that you would like help with: None Currently or been in a relationship where the following occur: No concerns reported THRIVE Score: 0 AUDIT C Alcohol Use Questionnaire (AUDIT-C) 1. How often do you have a drink containing alcohol?: Never 3. How often do you have six or more drinks on one occasion?: Never Total Score: 0 Score Reviewed/Action Taken: Yes RYLAND-7 AMB Questionnaire RYLAND-7 Date RYLAND - 7 assessed: 08/03/24 Feeling nervous, anxious, or on edge: 0 = Not at all Not being able to stop or control worryin = Not at all Worrying too much about different things: 0 = Not at all Trouble relaxin = Not at all Being so restless that it is hard to sit still: 0 = Not at all Becoming easily annoyed or irritable: 0 = Not at all Feeling afraid as if something awful might happen: 0 = Not at all Total RYLAND-7 score (0-4 normal; 5-9 mild; 10-14 moderate; 15-21 severe): 0 Source: Developed by Drs. Nitin Land, Rylee Britt, Mino Garcia and colleagues, with an educational calvin from [employer]. RYLAND-7 Assessment Billing RYLAND-7 Assessment Tool: RYLAND-7 Assessment 03404 Physical exam (Primary Care) Vital Signs: Last Vital Signs Pulse 60 08/03/24 10:16 BP 120/64 08/03/24 10:16 Pulse Ox 98 08/03/24 10:16 Oxygen Delivery Method Room Air 08/03/24 10:16 BMI result Body Mass Index 32.6 Tobacco/Smoking Status: Tobacco use Status Tobacco use date assessed 08/03/24 08/03/24 10:15 Patient Tobacco Use Status Former Tobacco user 08/03/24 10:15 e-Cigarette/Vaping Use Never Used 08/03/24 10:15 PHQ-9: PHQ-9 Score PHQ-9: Total score 0 08/03/24 10:36 Depression Screening Interpretation: Negative Thrive Assessment: Date of Thrive Assessment Date Thrive assessed 08/03/24 08/03/24 10:15 Currently or been in a relationship where the following occur: No concerns reported Coding Level of Care Code Est Pt Level 4 (14763) Complex EM visit Add On G2211 Diagnoses Diabetes 1.5, managed as type 2 E13.9 Hypertension, essential I10 Foreign body of right hand, initial encounter D90.823J Encounter type: initial encounter Laterality: right Other specified hypothyroidism E03.8 Primary osteoarthritis of both knees M17.0 Osteoarthritis type: primary Elevated PSA R97.20 Class 1 obesity due to excess calories with serious comorbidity and body mass index (BMI) of 32.0 to 32.9 in adult E66.09; Z68.32 Body mass index: BMI 32.0-32.9 Obesity classification: adult class 1 (BMI 30 - 34.9) Serious obesity comorbidity presence: with serious comorbidity Lipid disorder E78.9 Additional Codes RYLAND-7 Assessment Billing - RYLAND-7 Assessment Tool: RYLAND-7 Assessment 40685 ([id number]) PHQ-9 - 51373 - PHQ-9 Billing: Yes ([id number]) Assessment & Plan Assessment & Plan (1) Diabetes 1.5, managed as type 2: Code(s): E13.9 - Other specified diabetes mellitus without complications Category: Medical (2) Hypertension, essential: Code(s): I10 - Essential (primary) hypertension Category: Medical (3) Foreign body hand: Code(s): S60.559A - Superficial foreign body of unspecified hand, initial encounter Category: Medical Qualifiers: Encounter type: initial encounter Laterality: right Qualified Code(s): S60.551A - Superficial foreign body of right hand, initial encounter (4) Other specified hypothyroidism: Code(s): E03.8 - Other specified hypothyroidism Category: Medical (5) Osteoarthritis of knees, bilateral: Code(s): M17.0 - Bilateral primary osteoarthritis of knee Category: Medical Qualifiers: Osteoarthritis type: primary Qualified Code(s): M17.0 - Bilateral primary osteoarthritis of knee (6) Elevated PSA: Code(s): R97.20 - Elevated prostate specific antigen [PSA] Category: Medical (7) Obesity due to excess calories: Code(s): E66.09 - Other obesity due to excess calories Category: Medical Qualifiers: Body mass index: BMI 32.0-32.9 Obesity classification: adult class 1 (BMI 30 - 34.9) Serious obesity comorbidity presence: with serious comorbidity Qualified Code(s): E66.09 - Other obesity due to excess calories; Z68.32 - Body mass index [BMI] 32.0-32.9, adult (8) Lipid disorder: Code(s): E78.9 - Disorder of lipoprotein metabolism, unspecified Category: Medical Plan History of Present Illness - The patient is a 74-year-old male presenting with concerns about a possible foreign body in the right hand. - Approximately 2 to 2.5 months ago, the patient was at a store handling a large piece of wood when the incident occurred. - A fragment may have entered the right hand, leading to significant swelling that initially was substantial but has since decreased. - The swelling does not entirely resolve, with suspicion of retained material. - Management of chronic conditions includes routine use of several medications: - Blood pressure reported as well-controlled. - Continued medication regimen for managing joint pain, allergies, and chronic back and neck pain. Problem List - Hypertension - Hyperlipidemia - Arthropathy - Allergic Rhinitis - Constipation - Hypothyroidism - Type 2 Diabetes Mellitus - Chronic Back and Neck Pain - Possible Foreign Body in Right Hand (pending confirmation via imaging) Medications - Atorvastatin 80 mg for hyperlipidemia - Celecoxib (Celebrex) for arthropathy - Cetirizine for allergic rhinitis - Stool softener for constipation - Eye drops for unclear indications - Gabapentin for chronic pain at bedtime - Levothyroxine 50 microgram for hypothyroidism - Lisinopril for hypertension - Hydrochlorothiazide for hypertension - Metformin for Type 2 Diabetes Mellitus - Muscle relaxer for chronic back and neck pain Patient Instructions - Obtain an x-ray for the right hand to determine if a foreign body is present. - Schedule an appointment for blood tests, as last performed in February. - Ensure to receive the stronger flu vaccine, available from local pharmacies including [facility]. - Fast prior to the blood test, as patient has not eaten on the day of the visit, to prepare for fasting labs. Plan 1. Additionally, the scheduling of a blood test to monitor chronic conditions as part of routine health maintenance is necessary. The potential presence of a foreign body and any resulting complications must be addressed promptly, pending imaging results. Further management and diagnostic procedures will depend on the outcomes of the pending x-ray.: Orders: Orders Lipid Panel Today E03.8 - Other specified hypothyroidism, E11.9 - Type 2 diabetes mellitus without complications, E13.9 - Other specified diabetes mellitus without complications, E66.09 - Other obesity due to excess calories, E78.9 - Disorder of lipoprotein metabolism, unspecified, I10 - Essential (primary) hypertension, M17.0 - Bilateral primary osteoarthritis of knee, R97.20 - Elevated prostate specific antigen [PSA], Z68.32 - Body mass index [BMI] 32.0-32.9, adult Hemoglobin A1c Today E03.8 - Other specified hypothyroidism, E11.9 - Type 2 diabetes mellitus without complications, E13.9 - Other specified diabetes mellitus without complications, E66.09 - Other obesity due to excess calories, E78.9 - Disorder of lipoprotein metabolism, unspecified, I10 - Essential (primary) hypertension, M17.0 - Bilateral primary osteoarthritis of knee, R97.20 - Elevated prostate specific antigen [PSA], Z68.32 - Body mass index [BMI] 32.0-32.9, adult Complete Blood Count Auto Diff Today E03.8 - Other specified hypothyroidism, E11.9 - Type 2 diabetes mellitus without complications, E13.9 - Other specified diabetes mellitus without complications, E66.09 - Other obesity due to excess calories, E78.9 - Disorder of lipoprotein metabolism, unspecified, I10 - Essential (primary) hypertension, M17.0 - Bilateral primary osteoarthritis of knee, R97.20 - Elevated prostate specific antigen [PSA], Z68.32 - Body mass index [BMI] 32.0-32.9, adult Comprehensive [place]. Panel Fast Today E03.8 - Other specified hypothyroidism, E11.9 - Type 2 diabetes mellitus without complications, E13.9 - Other specified diabetes mellitus without complications, E66.09 - Other obesity due to excess calories, E78.9 - Disorder of lipoprotein metabolism, unspecified, I10 - Essential (primary) hypertension, M17.0 - Bilateral primary osteoarthritis of knee, R97.20 - Elevated prostate specific antigen [PSA], Z68.32 - Body mass index [BMI] 32.0-32.9, adult TSH reflex Free T4 Today E03.8 - Other specified hypothyroidism, E11.9 - Type 2 diabetes mellitus without complications, E13.9 - Other specified diabetes mellitus without complications, E66.09 - Other obesity due to excess calories, E78.9 - Disorder of lipoprotein metabolism, unspecified, I10 - Essential (primary) hypertension, M17.0 - Bilateral primary osteoarthritis of knee, R97.20 - Elevated prostate specific antigen [PSA], Z68.32 - Body mass index [BMI] 32.0-32.9, adult
[2024-08-03 10:16] VITALS: BP 120/64; PULSE 60; O2SAT 98; BMI 32.6
== END 2024-08-03 10:35 | disposition home or self-care (01) ==
PROVIDERS: PCP Internal Medicine; Visit Provider Internal Medicine
DX: E13.9 Other specified diabetes mellitus without complications (principal); I10 Essential (primary) hypertension; S60.551A Superficial foreign body of right hand, initial encounter; E03.8 Other specified hypothyroidism; M17.0 Bilateral primary osteoarthritis of knee; R97.20 Elevated prostate specific antigen [PSA]; E66.09 Other obesity due to excess calories; Z68.32 Body mass index [BMI] 32.0-32.9, adult; E78.9 Disorder of lipoprotein metabolism, unspecified

== ENCOUNTER → 2024-08-03 10:40 | Outpatient (BNV) | payer OTHER, SELFPAY | PROVIDERS: PCP Internal Medicine; Visit Provider Radiology Diagnostic Radiology | DX: M79.641 Pain in right hand (principal) | CPT/HCPCS: 73130 ==

== ENCOUNTER 2024-08-12 08:33 | Outpatient (AMB) | payer OTHER, SELFPAY ==
--- NOTE | 2024-08-12 09:08 | MHC.OFFVIS ---
Vital Signs 08/12/24 09:09 Height 5 ft 4 in Weight 190 lb BMI 32.6 Intake Visit Reasons: New prob- RT hand Superficial foreign body Intake Note: Walter is a 74 year old right hand dominant male who presents today or a new problem visit with complaints of a possible foreign body in the right hand. Patient reports that about 2-3 months ago he was handling wood when he believes he may have gotten a splinter. At the time of incident he had an increase of swelling that has since improved but not completely resolved. States he might have a small piece of the splinter still there. Denies pain. He mentioned he has numbness and tingling in both hands and has not had an EMG. Patient is diabetic. Allergies tramadol Allergy (Intermediate, Verified 08/12/24 09:09) rash HPI HPI New prob- RT hand Superficial foreign body: Details: Walter is a 74 year old right hand dominant male who presents today or a new problem visit with complaints of a possible foreign body in the right hand. Patient reports that about 2-3 months ago he was handling wood when he believes he may have gotten a splinter. At the time of incident he had an increase of swelling that has since improved but not completely resolved. States he might have a small piece of the splinter still there. Denies pain. He mentioned he has numbness and tingling in both hands and has not had an EMG. Patient is diabetic, last A1c 6.5 PFSH Medical History CVD (cerebrovascular disease) CAD (coronary artery disease) History of BPH Myocardial infarction CVA (cerebral vascular accident) COVID-19 vaccine administered Arthritis of knee, right Obesity Diabetes 1.5, managed as type 2 Prostate hypertrophy Hypertension, essential Lipid disorder Osteoarthritis of right knee Surgical History Hx of fusion of cervical spine Hx of hand surgery Hx of elbow surgery Hx of shoulder surgery H/O colonoscopy History of knee replacement procedure of left knee Family History Father Cancer Mother CVD (cardiovascular disease) Brother No problems noted. Social History Household Members: Spouse Housing: House Are you a primary hospice spiritual care coordinator to a significant other at home: No Do you presently have visiting nurse or other home services: No Alcohol intake: never Patient Tobacco Use Status: Former Tobacco user Cigarette Packs Per Day: 1 Cigarettes Per Day: 20.0 Years Smoked: 30 e-Cigarette/Vaping Use: Never Used service: No Current occupational status: retired Current occupation: right handed Cognitive needs: No Hearing needs: No Vision needs: No Physical Exam Vital Signs: BMI result Body Mass Index 32.6 Extrem Other: Patient is alert, oriented, and in no acute distress. Neuro: Diminished sensation of the tips of all digits of bilateral hands at this time Vascular: Cap refill brisk Pain: No tenderness to palpation near the palpable foreign body on the dorsal aspect of the right hand No pain with range of motion of the right hand ROM: Patient is able to flex and extend all digits of bilateral hands fully and without difficulty Skin: There is a palpable superficial foreign body noted in the dorsal aspect of the patient's right hand over the 3rd metacarpal No lacerations or abrasions. General: No ecchymosis, erythema, or evidence of infection. Psych: Appears grossly normal Affect normal Attitude cooperative Results Reviewed Results Reviewed: X-rays obtained in the office today and independently reviewed by me, Filipe Sin PA-C, demonstrate no radiopaque foreign body in the area of superficial palpable foreign body in the right hand. Assessment & Plan Assessment & Plan (1) Foreign body hand: Code(s): S60.559A - Superficial foreign body of unspecified hand, initial encounter Category: Medical Qualifiers: Encounter type: initial encounter Laterality: right Qualified Code(s): S60.551A - Superficial foreign body of right hand, initial encounter Plan 1. Superficial foreign body of the right hand Present for approximately 3 months I educated the patient about the condition. I discussed both operative and nonoperative treatment options. The patient would like to proceed with surgery. The risks and benefits of operative treatment were discussed with the patient and the patient wishes to proceed with surgery. These risks include, but are not limited to, risk of damage to blood vessels, nerves, tendons, infection, recurrence, incomplete relief of preoperative symptoms, persistent pain, possible need for further surgery, and the risks associated with regional blocks and/or anesthesia. Plan is to take the patient to the operating room at some point in the next few weeks for the following procedures: 1. Foreign body removal of right hand under general anesthesia All of the preoperative paperwork including the consent was discussed today. All of the patient's questions were answered in the clinic today. The patient understands that they will be in contact with our hand frame surgical elastic knitter to discuss scheduling their procedure. Patient reports diabetes, last A1c 6.5 Patient does have history of CVA and AL, and will require primary care clearance before anesthesia Denies blood thinners, asthma, lung issues, kidney issues, or current smoking. Orders: Orders XR hand RT min 3V Today M79.641 - Pain in right hand Coding Level of Care Code New Pt Level 4 (60581) Diagnoses Foreign body of right hand, initial encounter S60.551A Encounter type: initial encounter Laterality: right
[2024-08-12 09:09] VITALS: BMI 32.6
== END 2024-08-12 09:50 | disposition home or self-care (01) ==
PROVIDERS: PCP Internal Medicine
DX: S60.551A Superficial foreign body of right hand, initial encounter (principal)
CPT/HCPCS: 99204

== ENCOUNTER 2024-08-12 08:33 | Outpatient (REF) | payer OTHER, SELFPAY ==
--- NOTE | ~2024-08-12 | XR_ITS ---
EXAMINATION: XR HAND 3 OR MORE VIEWS RIGHT HISTORY: M79.641 - Pain in right hand COMPARISON: Comparison is made with the prior examination dated 08/03/2024. FINDINGS: Three views of the right hand are submitted. Osseous mineralization is normal. There is no fracture or dislocation. 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 Again seen are punctate metallic foreign bodies overlying the base of the distal phalanx of the middle finger and the base of the middle phalanx of the 4th finger. XR/XR hand RT min 3V IMPRESSION: Degenerative changes of the right hand as described. Electronically signed by: Nitin Alves MD 08/12/2024 02:13 PM POLY
== END 2024-08-12 08:34 | disposition home or self-care (01) ==
LOC: HO.HOSX 08:33
PROVIDERS: PCP Internal Medicine
DX: M79.641 Pain in right hand (principal); S60.551A Superficial foreign body of right hand, initial encounter
CPT/HCPCS: 73130; 99202

== ENCOUNTER 2024-10-13 13:34 | Outpatient (AMB) | payer OTHER, SELFPAY ==
[2024-10-13 13:40] VITALS: BP 120/66; PULSE 48; O2SAT 94; BMI 32.7
--- NOTE | 2024-10-13 13:40 | A.OFFPC_ITS ---
Vital Signs 3 10/13/24 13:40 Height 5 ft 4 in Weight 190 lb 4 oz BMI 32.7 BP 120/66 Blood Pressure Location Rt brachial Position Sitting Pulse 48 L Pulse Source Pulse Oximeter Pulse Oximetry (%) 94 Oxygen Delivery Method Room Air Intake Visit Reasons: Pre Op RT dorsal hand Allergies tramadol Allergy (Intermediate, Verified 10/13/24 13:40) rash Medication List - Last Reconciled 10/13/24 by Marizol Esparza MD acetaminophen 650 mg (2 x 325 mg) PO Q6H PRN 30 days alcohol swabs (Alcohol Pads) 2 pad topical DAILY aspirin (Adult Aspirin Regimen) 81 mg PO DAILY atorvastatin 80 mg PO DAILY 90 days [Blood pressure monitor As directed] blood sugar diagnostic (FreeStyle Lite Strips) 2 times a day; 90 days blood sugar diagnostic (FreeStyle Test strips) Patient to check blood sugar twice daily celecoxib (Celebrex) 200 mg PO BID 30 days cetirizine 5 mg PO DAILY PRN docusate sodium 100 mg PO BID 30 days dorzolamide-timolol 22.3-6.8 mg/mL mL ophthalmic (eye) gabapentin 200 mg (2 x 100 mg) PO BEDTIME 30 days lancets (FreeStyle Lancets) USE TO TEST TWICE A DAY levothyroxine 50 mcg PO DAILY lisinopril-hydrochlorothiazide 20-25 mg 1 tab PO DAILY 90 days metformin 1,000 mg PO BID 90 days methylprednisolone (Medrol (Phillip)) PO PER PKG DIR 6 days nitroglycerin 1 mg sublingual Q5M PRN sitagliptin phosphate (Januvia) 100 mg PO BEDTIME 90 days tamsulosin 0.4 mg PO DAILY timolol maleate 0.5% 1 drp ophthalmic (eye) BID Tobacco use date assessed: 10/13/24 Fall risk assessment: No Falls in past year Last assessed Fall Risk: 10/13/24 Dental Screening Dental Screen Date: 10/13/24 Did you have a dental visit in the last 12 months?: Yes Did you have a dental problem in the last 6 months where you did not have access to dental care?: No Was dental information given to patient?: Patient has dentist HPI Pre Op RT dorsal hand 2 HPI0 Details Chief Complaint Preoperative clearance for hand surgery right foreign body removal under general anesthesia [facility] on 10/28/2024 History - The patient is a 74-year-old male pres enting with preoperative preparation He has a history of lipid disorder, diabetes, allergies, osteoarthritis multiple joints, obesity, hypothyroidism, hypertension, prostatic enlargement - Diabetes mellitus is noted with an A1c of 6.2, suggesting controlled glucose levels currently. - The patient is scheduled to undergo a foreign body removal surgery from the right dorsal hand on October 28, performed by a specialist in orthopedic hand surgery. - Cardiovascular assessment indicates no significant issues, supported by an EKG. - Neck pain occasionally arises due to p ast operative procedures, but no current exacerbation is reported. - Denies the presence of acute symptoms, including sore throat, fever, or chills, and [facility] with previously benign experiences. Plan 1. 2 does not require interventions prio r to his surgical procedures. His hand surgery, which is set for October 28, will proceed with general anesthesia based on the anticipation from previous evaluations. A follow-up on November 12 is scheduled to ensure post-surgical recovery aligns with expectations. Paperwork and additional confirmations are pending for his eye surgery purportedly slated for early November, to be addressed upon receipt. Given the regular findings of his cardiovascular evaluation, no extraordinary measures are deemed necessary before or during the expected operative timeline. Lab work ordered to reaffirm his stable status further reiterates no pressing issues, maintaining vigilance nonetheless to verify his health in alignment with upcoming procedures.: Medical Decision Making The decision-making process within this evaluation focuses on ensuring comprehensive preparation for the patient's anticipated surgeries. Given the adequately controlled diabetes mellitus documented by an A1c of 6.2, current management approaches will be maintained leading into the surgical schedule. With his foreign body hand removal slated for October 28, logistics are set for this endeavor under general anesthesia, substantiated by his cardiovascular health remaining intact per EKG evidence. Post-operative planning is essential on an November 12 follow-up to evaluate site recovery, necessitating continued assessment. New set of lab order placed Patient is stable for hand surgery pending labs [facility] Medical History CVD (cerebrovascular disease) CAD (coronary artery disease) History of BPH Myocardial infarction CVA (cerebral vascular accident) COVID-19 vaccine administered Arthritis of knee, right Obesity Diabetes 1.5, managed as type 2 Prostate hypertrophy Hypertension, essential Lipid disorder Osteoarthritis of right knee Surgical History Hx of fusion of cervical spine Hx of hand surgery Hx of elbow surgery Hx of shoulder surgery H/O colonoscopy History of knee replacement procedure of left knee Family History Father Cancer Mother CVD (cardiovascular disease) Brother No problems noted. Social History Household Members: Spouse Housing: House Are you a primary care process manager to a significant other at home: No Do you presently have visiting nurse or other home services: No Alcohol intake: never Patient Tobacco Use Status: Former Tobacco user Cigarette Packs Per Day: 1 Cigarettes Per Day: 20.0 Years Smoked: 30 Packs Per Year: 30 Packs per year/per ci.00 e-Cigarette/Vaping Use: Never Used service: No Current occupational status: retired Current occupation: right handed Cognitive needs: No Hearing needs: No Vision needs: No Questionnaire Thrive Questionnaire Date Thrive assessed: 10/13/24 I am a: Patient What is your living situation today?: I choose not to answer this question Within the past 12 months, did the food you bought not last and you didn't have the money to get more?: I choose not to answer this question Within the past 12 months, did you worry whether your food would run out before you got money to buy more?: I choose not to answer this question Do you have trouble paying for medicines?: I choose not to answer this question Do you have trouble getting transportation to medical appointments?: I choose not to answer this question Do you have trouble paying your heating and electricity bill?: I choose not to answer this question Do you have trouble taking care of your child, family member or friend?: I choose not to answer this question Do you have trouble with day-to-day activities such as bathing, preparing meals, shopping, managing finances, etc.?: I choose not to answer this question Are you currently unemployed and looking for a job?: I choose not to answer this question Are you interested in more education?: I choose not to answer this question Please select the resources that you would like help with: None THRIVE Score: 0 AUDIT C Alcohol Use Questionnaire (AUDIT-C) 1. How often do you have a drink containing alcohol?: Never 3. How often do you have six or more drinks on one occasion?: Never Total Score: 0 Score Reviewed/Action Taken: Yes RYLAND-7 AMB Questionnaire RYLAND-7 Date RYLAND - 7 assessed: 08/03/24 Source: Developed by Drs. Nitin Land, Rylee Britt, Mino Garcia and colleagues, with an educational calvin from [employer]. Review of Systems Const Denies chills and Denies fever(s) ENT Denies epistaxis and Denies nasal discharge Card Denies chest pain Resp Denies chest congestion, Denies cough and Denies hemoptysis GI Denies diarrhea and Denies nausea Skin/Breast Denies rash Neuro Reports no additional complaints Psych Reports no additional complaints Endo Reports no additional complaints Physical exam (Primary Care) Vital Signs: Last Vital Signs Pulse 48 L 10/13/24 13:40 BP 120/66 10/13/24 13:40 Pulse Ox 94 10/13/24 13:40 Oxygen Delivery Method Room Air 10/13/24 13:40 BMI result Body Mass Index 32.7 Tobacco/Smoking Status: Tobacco use Status Tobacco use date assessed 10/13/24 10/13/24 13:42 Patient Tobacco Use Status Former Tobacco user 10/13/24 13:42 e-Cigarette/Vaping Use Never Used 10/13/24 13:42 Thrive Assessment: Date of Thrive Assessment Date Thrive assessed 10/13/24 10/13/24 13:42 Const General: cooperative, comfortable and no acute distress Orientation/consciousness: patient oriented x3 HENMT Head: Yes normocephalic Eyes General: appearance normal, both eyes and all related structures Neck Neck: Yes supple Resp Effort & Inspection: normal respiratory effort, no cough and no stridor Cardio Other: Rhythm: regular rhythm Heart sounds: S1 normal heart sound present and S2 normal heart sound present Skin General skin exam: turgor normal Neuro General: patient oriented x3, tone normal and moves all extremities Extrem Right lower extremity: no edema Left lower extremity: no edema Office Procedures EKG [id number], Complete Coding Level of Care Code Est Pt Level 5 (14767) Diagnoses Pre-op evaluation Z01.818 Foreign body of right hand, initial encounter S60.556D Encounter type: initial encounter Laterality: right Diabetes 1.5, managed as type 2 E13.9 Hypertension, essential I10 Lipid disorder E78.9 Class 1 obesity due to excess calories with serious comorbidity and body mass index (BMI) of 32.0 to 32.9 in adult E66.09; Z68.32 Body mass index: BMI 32.0-32.9 Obesity classification: adult class 1 (BMI 30 - 34.9) Serious obesity comorbidity presence: with serious comorbidity CPT Codes EKG - CPT: 07184-[id number], Complete ([id number]) Time Spent (min) 40 Comment Chart review/EKG/wbkm-cz-zunm/coordination of care Assessment & Plan Assessment & Plan (1) Pre-op evaluation: Code(s): Z01.818 - Encounter for other preprocedural examination Category: Medical (2) Foreign body hand: Code(s): S60.559A - Superficial foreign body of unspecified hand, initial encounter Category: Medical Qualifiers: Encounter type: initial encounter Laterality: right Qualified Code(s): S60.551A - Superficial foreign body of right hand, initial encounter (3) Diabetes 1.5, managed as type 2: Code(s): E13.9 - Other specified diabetes mellitus without complications Category: Medical (4) Hypertension, essential: Code(s): I10 - Essential (primary) hypertension Category: Medical (5) Lipid disorder: Code(s): E78.9 - Disorder of lipoprotein metabolism, unspecified Category: Medical (6) Obesity due to excess calories: Code(s): E66.09 - Other obesity due to excess calories Category: Medical Qualifiers: Body mass index: BMI 32.0-32.9 Obesity classification: adult class 1 (BMI 30 - 34.9) Serious obesity comorbidity presence: with serious comorbidity Qualified Code(s): E66.09 - Other obesity due to excess calories; Z68.32 - Body mass index [BMI] 32.0-32.9, adult Plan Chief Complaint Preoperative clearance for hand surgery right foreign body removal under general anesthesia [facility] on 10/28/2024 History - The patient is a 74-year-old male presenting with preoperative preparation He has a history of lipid disorder, diabetes, allergies, osteoarthritis multiple joints, obesity, hypothyroidism, hypertension, prostatic enlargement - Diabetes mellitus is noted with an A1c of 6.2, suggesting controlled glucose levels currently. - The patient is scheduled to undergo a foreign body removal surgery from the right dorsal hand on October 28, performed by a specialist in orthopedic hand surgery. - Cardiovascular assessment indicates no significant issues, supported by an EKG. - Neck pain occasionally arises due to past operative procedures, but no current exacerbation is reported. - Denies the presence of acute symptoms, including sore throat, fever, or chills, and maintains his [facility] records with previously benign experiences. Plan 1. 2 does not require interventions prior to his surgical procedures. His hand surgery, which is set for October 28, will proceed with general anesthesia based on the anticipation from previous evaluations. A follow-up on November 12 is scheduled to ensure post-surgical recovery aligns with expectations. Paperwork and additional confirmations are pending for his eye surgery purportedly slated for early November, to be addressed upon receipt. Given the regular findings of his cardiovascular evaluation, no extraordinary measures are deemed necessary before or during the expected operative timeline. Lab work ordered to reaffirm his stable status further reiterates no pressing issues, maintaining vigilance nonetheless to verify his health in alignment with upcoming procedures.: Medical Decision Making The decision-making process within this evaluation focuses on ensuring comprehensive preparation for the patient's anticipated surgeries. Given the adequately controlled diabetes mellitus documented by an A1c of 6.2, current management approaches will be maintained leading into the surgical schedule. With his foreign body hand removal slated for October 28, logistics are set for this endeavor under general anesthesia, substantiated by his cardiovascular health remaining intact per EKG evidence. Post-operative planning is essential on an November 12 follow-up to evaluate site recovery, necessitating continued assessment. New set of lab order placed Patient is stable for hand surgery pending labs Orders: Orders 2 Hemoglobin A1c Today D64.9 - Anemia, unspecified, E13.9 - Other specified diabetes mellitus without complications, E66.09 - Other obesity due to excess calories, E78.9 - Disorder of lipoprotein metabolism, unspecified, I10 - Essential (primary) hypertension, S60.551A - Superficial foreign body of right hand, initial encounter, Z01.818 - Encounter for other preprocedural examination, Z68.32 - Body mass index [BMI] 32.0-32.9, adult Complete Blood Count Auto Diff Today D64.9 - Anemia, unspecified, E13.9 - Other specified diabetes mellitus without complications, E66.09 - Other obesity due to excess calories, E78.9 - Disorder of lipoprotein metabolism, unspecified, I10 - Essential (primary) hypertension, S60.551A - Superficial foreign body of right hand, initial encounter, Z.818 - Encounter for other preprocedural examination, Z68.32 - Body mass index [BMI] 32.0-32.9, adult Comprehensive Met. Panel Today D64.9 - Anemia, unspecified, E13.9 - Other specified diabetes mellitus without complications, E66.09 - Other obesity due to excess calories, E78.9 - Disorder of lipoprotein metabolism, unspecified, I10 - Essential (primary) hypertension, S60.551A - Superficial foreign body of right hand, initial encounter, Z818 - Encounter for other preprocedural examination, Z68.32 - Body mass index [BMI] 32.0-32.9, adult Prothrombin Time INR Today D64.9 - Anemia, unspecified, E13.9 - Other specified diabetes mellitus without complications, E66.09 - Other obesity due to excess calories, E78.9 - Disorder of lipoprotein metabolism, unspecified, I10 - Essential (primary) hypertension, S60.551A - Superficial foreign body of right hand, initial encounter, Z.818 - Encounter for other preprocedural examination, Z68.32 - Body mass index [BMI] 32.0-32.9, adult
== END 2024-10-13 15:18 | disposition home or self-care (01) ==
PROVIDERS: PCP Internal Medicine; Visit Provider Internal Medicine
DX: I10 Essential (primary) hypertension (principal); E13.9 Other specified diabetes mellitus without complications; Z68.32 Body mass index [BMI] 32.0-32.9, adult; E66.09 Other obesity due to excess calories; Z01.818 Encounter for other preprocedural examination; S60.551A Superficial foreign body of right hand, initial encounter; E78.9 Disorder of lipoprotein metabolism, unspecified

== ENCOUNTER 2024-10-13 13:34 | Outpatient (REF) | payer OTHER, SELFPAY ==
[2024-10-13 16:19] LABS: MANUAL DIFF FLAG NO
[2024-10-13 16:28] LABS: Basophils Percent Auto 0.3 % (0-2); Eosinophils Absolute Auto 0.1 X10*3/uL (0.0-0.4); Eosinophils Percent Auto 1.5 % (0-4); Hematocrit 42.6 % (42.0-52.0); Hemoglobin 14.8 g/dl (14.0-18.0); Imm Gran Abs Auto 0.01 X10*3/uL (0.00-0.03); Imm Gran Pct Auto 0.1 % (0.0-0.4); Lymphocytes Percent Auto 30.2 % (20-40); Mean Corpuscular HGB Conc 34.7 g/dl (31.0-36.0); Mean Corpuscular Hemoglobin 31.4 pg (27.0-33.0); Mean Corpuscular Volume 90.3 fL (80.0-98.0); Mean Platelet Volume 10.4 fL (9.4-12.4); Monocytes Absolute Auto 0.7 X10*3/uL (0.1-1.2); Monocytes Percent Auto 10.3 % (2-11); Neutrophils Absolute Auto 3.9 x10*3/uL (2.0-8.3); Neutrophils Percent Auto 57.6 % (45-73); Platelet Count 245 X10*3/uL (160-400); Red Blood Count 4.72 X10*6/uL (4.60-5.80); Red Cell Distribution Width 13.2 % (11.0-16.0); White Blood Count 6.7 X10*3/uL (4.8-10.8)
[2024-10-13 16:36] LABS: Prothrombin Time 11.8 SEC (10.9-12.4)
[2024-10-13 16:37] LABS: Estimated Average Glucose 140 mg/dL; Hemoglobin A1c % 6.5 % (<6.0); Total Hemoglobin (HGBA1C) 3883.5403 umol/L
[2024-10-13 16:38] LABS: Alanine Aminotransferase 16 U/L (0-40); Albumin Level 3.7 g/dL (3.5-5.0); Alkaline Phosphatase 74 U/L (39-117); Anion Gap 9 (12-20); Aspartate Amino Transferase 22 U/L (5-37); Bilirubin Total 0.6 mg/dL (0.0-1.0); Blood Urea Nitrogen 21 mg/dL (9-16); Calcium 9.2 mg/dL (8.4-10.2); Carbon Dioxide 27 mmol/L (22-29); Chloride 108 mmol/L (96-108); Estimated Glomerular Filt Rate > 60; Glucose Random 104 mg/dL (60-115); Sodium 140 mmol/L (135-145); Total Protein 6.4 g/dL (6.5-8.0)
== END 2024-10-13 13:35 | disposition home or self-care (01) ==
LOC: HO.HMGCLDS 13:34
PROVIDERS: PCP Internal Medicine; Visit Provider Internal Medicine
DX: Z01.818 Encounter for other preprocedural examination (principal); S60.551A Superficial foreign body of right hand, initial encounter; E13.9 Other specified diabetes mellitus without complications; I10 Essential (primary) hypertension; E78.9 Disorder of lipoprotein metabolism, unspecified; E66.09 Other obesity due to excess calories; Z68.32 Body mass index [BMI] 32.0-32.9, adult; D64.9 Anemia, unspecified
CPT/HCPCS: 36415; 80053; 83036; 85025; 85610; 93005; 99212

== ENCOUNTER 2024-10-19 12:10 | Outpatient (AMB) | payer OTHER, SELFPAY ==
--- NOTE | 2024-10-19 12:34 | A.OFFVIS_ITS ---
Vital Signs 10/19/24 12:41 Height 5 ft 4 in Weight 190 lb BMI 32.6 Intake Visit Reasons: Preop RT dorsal hand FOB 10/28/24 AR Intake Note: Walter 74 yr old male presents today for his pre op visit for his right hand dorsal hand FOB that is scheduled for 10/28/[address] Albarado. Allergies tramadol Allergy (Intermediate, Verified 10/13/24 13:40) rash HPI HPI Preop RT dorsal hand FOB 10/28/24 AR: Details: Walter is a 74 year old right hand dominant man who returns to discuss treatment for his right hand retained foreign body. He says he is doing well overall, but he is eager to have this removed. He complains of numbness to his right index and middle fingers, which began a few months ago. He says the numbness is constant. [facility] Medical History CVD (cerebrovascular disease) CAD (coronary artery disease) History of BPH Myocardial infarction CVA (cerebral vascular accident) COVID-19 vaccine administered Arthritis of knee, right Obesity Diabetes 1.5, managed as type 2 Prostate hypertrophy Hypertension, essential Lipid disorder Osteoarthritis of right knee Surgical History Hx of fusion of cervical spine Hx of hand surgery Hx of elbow surgery Hx of shoulder surgery H/O colonoscopy History of knee replacement procedure of left knee Family History Father Cancer Mother CVD (cardiovascular disease) Brother No problems noted. Social History Household Members: Spouse Housing: House Are you a primary managed care manager to a significant other at home: No Do you presently have visiting nurse or other home services: No Alcohol intake: never Patient Tobacco Use Status: Former Tobacco user Cigarette Packs Per Day: 1 Cigarettes Per Day: 20.0 Years Smoked: 30 e-Cigarette/Vaping Use: Never Used service: No Current occupational status: retired Current occupation: right handed Cognitive needs: No Hearing needs: No Vision needs: No Review of Systems Const All systems reviewed & are unremarkable except as noted in HPI and below Physical Exam Vital Signs: BMI result Body Mass Index 32.6 Const General: cooperative, healthy appearing and no acute distress Orientation/consciousness: patient oriented x3 HEENT Head: Yes normocephalic and Yes atraumatic Eyes EOM: EOMs intact bilaterally Resp Effort & Inspection: normal respiratory effort and able to speak in complete sentences Cardio Jugular venous distension: no JVD Skin General skin exam: turgor normal Rashes: no rashes Neuro General: patient oriented x3 Extrem Other: Evaluation of Right Upper Extremity: The patient is alert, oriented, and in no acute distress Neuro: With dense numbness in the median nerve distribution. Normal sensation in the ulnar nerve distribution Vascular: Cap refill brisk ROM: He can make a fist and extend all his digits General: Palpable foreign body over the dorsal aspect of the right hand, proximal to the 2nd and 3rd MCP joints, transverse, ~2cm in length No erythema, swelling, or evidence of infection Psych Appearance: grossly normal Affect: normal affect Attitude: cooperative Assessment & Plan Assessment & Plan (1) Foreign body hand: Code(s): S60.559A - Superficial foreign body of unspecified hand, initial encounter Category: Medical Qualifiers: Encounter type: initial encounter Laterality: right Qualified Code(s): S60.551A - Superficial foreign body of right hand, initial encounter (2) CAD (coronary artery disease): Code(s): I25.10 - Atherosclerotic heart disease of big [place] coronary artery without angina pectoris Category: Medical Qualifiers: Associated angina: without angina Coronary Disease-Associated Artery/Lesion type: big sandy artery Sax[place] vs. transplanted heart: big sandy heart Qualified Code(s): I25.10 - Atherosclerotic heart disease of big [place] coronary artery without angina pectoris (3) Diabetes mellitus: Code(s): E11.9 - Type 2 diabetes mellitus without complications Category: Medical Qualifiers: Diabetes mellitus complication status: with other specified complication Diabetes mellitus terminal operations supervisor insulin use: without terminal operations supervisor use Diabetes mellitus type: type 2 Qualified Code(s): E11.69 - Type 2 diabetes mellitus with other specified complication (4) Numbness and tingling in right hand: Code(s): R20.0 - Anesthesia of skin; R20.2 - Paresthesia of skin Category: Medical Plan Assessment & Plan: 1. Right dorsal hand retained foreign body Onset ~04/2024, piece of wood I educated him about this condition I discussed operative and non-operative treatment options The patient would like to proceed with surgery The risks and benefits of operative treatment were discussed with the patient and the patient wishes to proceed with surgery. These risks include, but are not limited to risk of damage to blood vessels, nerves, tendons, infection, recurrence, incomplete relief of preoperative symptoms, persistent pain, possible need for further surgery and the risks associated with regional blocks and anesthesia. The plan is to take the patient to the operating room sometime on 10/28/24 for the following procedures: 1. Right dorsal hand removal of foreign body, under local All of the preoperative paperwork including the consent was reviewed today. All the patient's questions were answered. The patient understands that they will be contacted by our application packaging specialist soon to schedule this procedure He denies blood thinners, asthma, lung, kidney issues He has a Hx of CVA & OK, and has received PCP clearance for surgery He is a Diabetic, his most recent HgA1c was 6.5% on 10/13/24. 2. Right hand numbness In the median nerve distribution With Dense numbness I ordered a NCS to assess for peripheral nerve compression He will follow up when completed for review Scribed for Fabiola Albarado MD by Stephen Spicer, medical administrative assistant, on 10/19/24 at 12:55 PM, EST. Orders: Orders NE nerve conduction velocity Today R20.0 - Anesthesia of skin, R20.2 - Paresthesia of skin Coding Level of Care Code Est Pt Level 4 (13116) Diagnoses Foreign body of right hand, initial encounter S60.551A Encounter type: initial encounter Laterality: right Coronary artery disease involving big sandy coronary artery of big sandy heart without angina pectoris I25.10 Associated angina: without angina Coronary Disease-Associated Artery/Lesion type: big sandy artery Sax[place] vs. transplanted heart: big sandy heart Type 2 diabetes mellitus with other specified complication, without long-term current use of insulin E11.69 Diabetes mellitus complication status: with other specified complication Diabetes mellitus terminal operations supervisor insulin use: without terminal operations supervisor use Diabetes mellitus type: type 2 Numbness and tingling in right hand R20.0; R20.2
[2024-10-19 12:41] VITALS: BMI 32.6
--- OUTSIDE RECORDS SUMMARY | 2024-10-19 14:27 | XMS_ITS | Clinical Summary ---
Author Organization [facility] Address [address] [place] [address] Care Team Providers Care Genetic Engineer Name Role Phone Marizol Esparza MD Primary Care Provider [phone] Medications isosorbide mononitrate (IMDUR) 30 mg 24 hr tablet TAKE 1 TABLET BY MOUTH DAILY. 90 tablet 1 10/06/2024 Active Surgical History Surgery Date Site/Laterality Comments TOTAL KNEE ARTHROPLASTY PROCEDURE: HISTORICAL TOTAL KNEE REPLACE SHOULDER SURGERY PROCEDURE: HISTORICAL SHOULDER SURGERY OTHER SURGICAL HISTORY PROCEDURE: [place] UNLISTED PROCEDURE CARDIAC SURGERY; COMMENT: ?CABG COLONOSCOPY PROCEDURE: HISTORICAL COLONOSCOPY TOTAL KNEE ARTHROPLASTY Left PROCEDURE: HISTORICAL TOTAL KNEE REPLACE ELBOW SURGERY PROCEDURE: HISTORICAL ELBOW SURGERY OTHER SURGICAL HISTORY PROCEDURE: [place] ARTHRODESIS POSTERIOR INTERBODY 1 NTRSPC EA ADDL HAND SURGERY PROCEDURE: HISTORICAL HAND SURGERY Medical History Medical History Date Comments BPH (benign prostatic hyperplasia) 06/17/2017 DX:BPH (benign prostatic hyperplasia) History of knee replacement 04/13/2018 DX:H istory of knee replacement Hyperlipidemia 06/17/2017 DX:Hyperlipidemi a Hypertension 06/17/2017 DX:Hypertension Onychomycosis of toenail 06/17/2017 DX:Onyc homycosis of toenail Type 2 diabetes mellitus wit hout complication 10/24/2017 DX:Type 2 diabetes mellitus without complication (HCC) Vitamin D deficiency 10/07/2016 DX:Vitamin D deficiency CVA, old, alterations of sensations DX:CVA, old, alterations of sensations TX, old DX:TX, old Arthritis of knee, right DX:Arth ritis of knee, right CVA (cerebral vascular accid ent) ([facility]) DX:CVA (cerebral vascular ac cident) ([facility]) Diabetes 1.5, managed as typ e 2 ([facility]) DX:Diabetes 1.5, managed as type 2 (HCC) Obesity DX:Obesity Lipid disorder DX:Lipid disorde r [...] age to complete this topic Care Teams Genetic Engineer Relationship Specialty Start Date End Date Marizol Esparza MD [address] [place] [address] PCP - General Internal Medicine 11/11/19
== END 2024-10-19 13:05 | disposition home or self-care (01) ==
LOC: HO.HOS 12:10
PROVIDERS: PCP Internal Medicine; Visit Provider Orthopaedic Surgery
DX: S60.551A Superficial foreign body of right hand, initial encounter (principal); I25.10 Atherosclerotic heart disease of native coronary artery without angina pectoris; E11.69 Type 2 diabetes mellitus with other specified complication; R20.0 Anesthesia of skin; R20.2 Paresthesia of skin
CPT/HCPCS: 99024

== ENCOUNTER → 2024-10-19 12:10 | Outpatient (BNVA) | payer OTHER, SELFPAY | PROVIDERS: PCP Internal Medicine; Visit Provider Orthopaedic Surgery | DX: Z01.818 Encounter for other preprocedural examination (principal); S60.551A Superficial foreign body of right hand, initial encounter; I25.10 Atherosclerotic heart disease of native coronary artery without angina pectoris; E11.69 Type 2 diabetes mellitus with other specified complication; R20.0 Anesthesia of skin; R20.2 Paresthesia of skin; X58.XXXA Exposure to other specified factors, initial encounter; Y93.9 Activity, unspecified; Y92.9 Unspecified place or not applicable; Y99.9 Unspecified external cause status | CPT/HCPCS: 99212 ==

== ENCOUNTER 2024-10-28 08:52 | Day surgery (SDC) | payer OTHER, SELFPAY ==
--- OUTSIDE RECORDS SUMMARY | 2024-09-14 07:15 | XMS_ITS | Clinical Summary ---
Author Organization [facility] Address [address] [place] [address] Care Team Providers Care Cad Intern Name Role Phone Marizol Esparza MD Primary Care Provider [phone] Surgical History Surgery Date Site/Laterality Comments TOTAL KNEE ARTHROPLASTY PROCEDURE: HISTORICAL TOTAL KNEE REPLACE SHOULDER SURGERY PROCEDURE: HISTORICAL SHOULDER SURGERY OTHER SURGICAL HISTORY PROCEDURE: OR UNLISTED PROCEDURE CARDIAC SURGERY; COMMENT: ?CABG COLONOSCOPY PROCEDURE: HISTORICAL COLONOSCOPY TOTAL KNEE ARTHROPLASTY Left PROCEDURE: HISTORICAL TOTAL KNEE REPLACE ELBOW SURGERY PROCEDURE: HISTORICAL ELBOW SURGERY OTHER SURGICAL HISTORY PROCEDURE: OR ARTHRODESIS POSTERIOR INTERBODY 1 NTRSPC EA ADDL HAND SURGERY PROCEDURE: HISTORICAL HAND SURGERY Medical History Medical History Date Comments BPH (benign prostatic hyperplasia) 06/17/2017 DX:BPH (benign prostatic hyperplasia) History of knee replacement 04/13/2018 DX:H istory of knee replacement Hyperlipidemia 06/17/2017 DX:Hyperlipidemi a Hypertension 06/17/2017 DX:Hypertension Onychomycosis of toenail 06/17/2017 DX:Onyc homycosis of toenail Type 2 diabetes mellitus wit hout complication ([facility]) 10/24/2017 DX:Type 2 diabetes mellitus without complication ([facility]) Vitamin D deficiency 10/07/2016 DX:Vitamin D deficiency CVA, old, alterations of sensations DX:CVA, old, alterations of sensations DE, old DX:DE, old Arthritis of knee, right DX:Arth ritis of knee, right CVA (cerebral vascular accid ent) ([facility]) DX:CVA (cerebral vascular ac cident) ([facility]) Diabetes 1.5, managed as typ e 2 ([facility]) DX:Diabetes 1.5, managed as type 2 ([facility]) Obesity DX:Obesity Lipid disorder DX:Lipid disorde r Family History Medical History Relation Name Comments No Known Problems Brother Other cancer Father Other: accident Father Heart attack Mother Other: Cardiovascular Disease Mother Relation Name Status Comments Brother Father Mother Social History Tobacco Use Types Packs/Day Years Used Date Smoking Tobacco: Former Smokeless Tobacco: Never Alcohol Use Standard Drinks/Week Comments Yes 0 (1 standard drink = 0.6 oz pur e alcohol) Sex and Gender Information Value Date Recorded Sex Assigned at Not on file Legal Sex Male 9:25 AM EST Gender Identity Not on file Sexual Orientation Not on file Obstetrics History Last Filed Vital Signs Vital Sign Reading Time Taken Comments Blood Pressure 170/82 03/31/2023 11:05 AM EDT Si tting L Arm Pulse 54 03/31/2023 11:05 AM EDT Temperature - - Respiratory Rate - - Oxygen Saturation - - Inhaled Oxygen Concentration - - Weight 88.5 kg (195 lb) 03/31/2023 11:05 AM EDT Height 162.6 cm (5' 4 ) 03/31/2023 11:05 AM EDT Body Mass Index 33.47 03/31/2023 11:05 AM EDT Plan of Treatment Health Maintenance Due Date Last Done Comments Diabetes: Annual GFR (Glomerular Filtration Rate) 1952 Diabetes: Annual Foot Exam 02/06/1962 Diabetes: Annual Retina Eye Exam 02/06/1962 Zoster Vaccines (1 of 2) 02/06/2002 Abdominal Aortic Aneurysm (AAA) Screen 06/29/2022 Cholesterol Screening (Lipid Panel) 06/29/2022 Colorectal Cancer Screening: Colonoscopy 06/29/2022 Depression Screening 06/29/2022 Falls Risk Assessment 06/29/2022 Hepatitis C Screening 06/29/2022 Social Influencers of Health Screening 06/29/2022 Hypertension/CHF/CAD Annual BMP Blood Test 06/30/2022 Diabetes: Annual Urine Albumin-Creatinine Ratio (uACR) 07/06/2022 Diabetes: Blood Sugar Contro l Test (HGBA1C) 07/06/2022 COVID-19 Vaccine (1 - 2023-2 5 season) 2024 Influenza Vaccine (#1) 2024 DTaP,Tdap,and Td Vaccines (2 - Td or Tdap) 06/08/2025 06/08/2015 RSV Immunization Patients 60 + Years Old (1 - 1-dose 75+ series) 02/06/2027 Pneumococcal Vaccine: 50+ Years Completed 12/24/2018, 01/07/2017 HIB Vaccines Aged Out No longer eligi ble based on patient's age to complete this topic HPV Vaccines Aged Out No longer eligi ble based on patient's age to complete this topic Hepatitis A Vaccines Aged Out No long er eligible based on patient's age to complete this topic Hepatitis B Vaccines Aged Out No long er eligible based on patient's age to complete this topic IPV Vaccines Aged Out No longer eligi ble based on patient's age to complete this topic MMR Vaccines Aged Out No longer eligi ble based on patient's age to complete this topic Meningococcal ACWY Vaccine Aged Out N o longer eligible based on patient's age to complete this topic Meningococcal B Vacine Aged Out No lo nger eligible based on patient's age to complete this topic RSV Immunization Patients Under 20 months Aged Out No longer eligible b ased on patient's age to complete this topic Varicella Vaccines Aged Out No longer eligible based on patient's age to complete this topic Care Teams Cad Intern Relationship Specialty Start Date End Date Marizol Esparza MD [address] [place] [address] PCP - General Internal Medicine 11/11/19
[2024-10-28 09:11] VITALS: BMI 32.5
[2024-10-28 09:23] VITALS: BP 127/58; PULSE 64; RESP 16; TEMP 36.3; O2SAT 95
--- NOTE | 2024-10-28 09:25 | MHC.SHP ---
Pre-Procedural Eval Section A - 24 Hr Update-Section A only Date of Service: 10/28/24 The patient is an INPATIENT: No Changes since office visit: No Cold of Flu in the past 2 weeks, No New Medical Problems, No Changes in Medication and No Patient answered all questions The patient has been examined within 24 hours of the surgical procedure. The History & Physical has been completed within 30 days and I have reviewed it.: Yes Section B - Complete if H&P > 30 days Chief Complaint: Superficial foreign body of right hand, initial en Allergies: Allergies Allergy/AdvReac Type Severity Reaction Status Date / Time tramadol Allergy Intermediate rash Verified 10/13/24 13:40 Plan I have reviewed the history and physical and performed a pertinent physical examination on my patient. No changes have occurred unless specified. Time Spent With Patient Time: Total time managing care of this patient today ____ minutes.
--- NOTE | 2024-10-28 10:22 | W.PM.OPN ---
Operative Note Operative Note Date of Service: 10/28/24 Narrative: Operative Note Preop diagnosis: 1. Foreign body dorsal aspect right hand Postop diagnosis: same Procedure: 1. Removal of foreign body from dorsal aspect of right hand Surgeon: Fabiola Albarado MD Administrative Director: Filipe CONNELLY Anesthesia: digital block using 1% lidocaine with epinephrine Findings: 1.5 cm in length by 2-3 mm diameter piece of wood EBL: Less than 5 mL Tourniquet time: None Specimens: Complications: None Disposition: Brought to recovery room in stable condition Plan: Follow-up for 7-10 days for wound check and suture removal and to check pathology Indications: The patient is 74 years old, with foreign body in the dorsal aspect of his right hand . The risks and benefits of operative treatment including but not limited to risk of damage to blood vessels, nerves, tendons, infection, persistent pain, persistent symptoms, recurrence or possible need for additional surgery were discussed with the patient and the patient wishes to proceed with surgery. Procedure: Once consent was obtained a digital block was performed in the preop area using a combination of 1% lidocaine with epinephrine. The patient was then brought back to the operating suite and placed on the operative table in supine position. The right upper extremity was prepped and draped in a standard surgical fashion. Once assured that we had a good block, I made a 1 cm transverse incision in line with the transversely oriented foreign body in the dorsal aspect of the patient's right hand. The incision was made through the skin to the subcutaneous tissues. I then dissected down to the level of the foreign body. There was a piece of wood that measured approximately 1.5 cm in length by 2-3 mm in diameter that was scarred into the subcutaneous tissue in the dorsal aspect of the hand. This was excised using tenotomy and iris scissors and placed on the back table. Once satisfied with our foreign body removal the wound was copiously irrigated with normal saline and hemostasis was obtained with a brief period of local pressure. The skin edges were reapproximated with some 5.0 nylon suture material and a sterile dressing was applied. The patient appears to have tolerated the procedure well and with no complications. All digits were well vascularized at the conclusion of the case.
[2024-10-28 11:10] VITALS: BP 128/64; PULSE 60; RESP 18; O2SAT 96
== END 2024-10-28 11:36 | disposition home or self-care (01) ==
PROVIDERS: PCP Internal Medicine; Visit Provider Orthopaedic Surgery
PROC: (CPT 10120; principal; 2024-10-28 10:40)
DX: S60.551A Superficial foreign body of right hand, initial encounter (principal); R20.0 Anesthesia of skin; I10 Essential (primary) hypertension; I25.10 Atherosclerotic heart disease of native coronary artery without angina pectoris; I25.2 Old myocardial infarction; E75.6 Lipid storage disorder, unspecified; M17.11 Unilateral primary osteoarthritis, right knee; E13.8 Other specified diabetes mellitus with unspecified complications; Z86.73 Personal history of transient ischemic attack (TIA), and cerebral infarction without residual deficits; E66.9 Obesity, unspecified; Z68.32 Body mass index [BMI] 32.0-32.9, adult; Z88.5 Allergy status to narcotic agent; Z98.890 Other specified postprocedural states; Z87.891 Personal history of nicotine dependence
CPT/HCPCS: 10120; J0171; J2003

== ENCOUNTER → 2024-10-28 08:52 | Outpatient (BNV) | payer OTHER, SELFPAY | PROVIDERS: PCP Internal Medicine; Visit Provider Orthopaedic Surgery | DX: S60.551A Superficial foreign body of right hand, initial encounter (principal) | CPT/HCPCS: 10120 ==

== ENCOUNTER 2024-11-12 12:41 | Outpatient (AMB) | payer OTHER, SELFPAY ==
--- NOTE | 2024-11-12 12:56 | MHC.OFFVIS ---
Vital Signs 11/12/24 12:57 Height 5 ft 4 in Weight 189 lb BMI 32.4 Intake Visit Reasons: PO RT dorsal hand FOB 10/28/24 AR Intake Note: Walter is a 74 year old right hand dominant male who presents today for a post operative visit s/p removal of foreign body from dorsal aspect of right hand DOS: 10/28/[address] Fabiola Albarado. States he is doing well , no current concerns. Allergies tramadol Allergy (Intermediate, Verified 10/13/24 13:40) rash HPI HPI PO RT dorsal hand FOB 10/28/24 AR: Details: Walter is a 74 year old right hand dominant male who presents today for a post operative visit s/p removal of foreign body from dorsal aspect of right hand DOS: 10/28/[address] Fabiola Albarado. States he is doing well , no current concerns. Patient reports he has been fully compliant with all postoperative recommendations. [facility] Medical History CVD (cerebrovascular disease) CAD (coronary artery disease) History of BPH Myocardial infarction CVA (cerebral vascular accident) COVID-19 vaccine administered Arthritis of knee, right Obesity Diabetes 1.5, managed as type 2 Prostate hypertrophy Hypertension, essential Lipid disorder Osteoarthritis of right knee Surgical History Hx of fusion of cervical spine Hx of hand surgery Hx of elbow surgery Hx of shoulder surgery H/O colonoscopy History of knee replacement procedure of left knee Family History Father Cancer Mother CVD (cardiovascular disease) Brother No problems noted. Social History Household Members: Spouse Housing: House Are you a primary acute care clinical nurse specialist to a significant other at home: No Do you presently have visiting nurse or other home services: No Alcohol intake: never Patient Tobacco Use Status: Former Tobacco user Cigarette Packs Per Day: 1 Cigarettes Per Day: 20.0 Years Smoked: 30 e-Cigarette/Vaping Use: Never Used service: No Current occupational status: retired Current occupation: right handed Cognitive needs: No Hearing needs: No Vision needs: No Review of Systems Const All systems reviewed & are unremarkable except as noted in HPI and below Physical Exam Vital Signs: BMI result Body Mass Index 32.4 Extrem Other: Patient is alert, oriented, and in no acute distress. Neuro: Normal sensation of the tips of all digits of the right hand at this time Vascular: Cap refill brisk Pain: No tenderness to palpation about incision site on dorsal right hand No pain with range of motion of the right hand ROM: Patient is able to make a closed fist and extend all digits of the right hand fully and without difficulty Skin: Well approximated and well healing incision site noted on the dorsal aspect of the right hand in the 1st webspace No lacerations or abrasions. General: No ecchymosis, erythema, or evidence of infection. Psych: Appears grossly normal Affect normal Attitude cooperative Assessment & Plan Assessment & Plan (1) Foreign body hand: Code(s): S60.559A - Superficial foreign body of unspecified hand, initial encounter Category: Medical Qualifiers: Encounter type: initial encounter Laterality: right Qualified Code(s): S60.551A - Superficial foreign body of right hand, initial encounter Plan 1. Status post right dorsal hand foreign body removal DOS 10/28/2024 Patient appears to be recovering well postoperatively Patient was educated about the typical recovery course At this time, patient was informed he will require no further acute follow-up with us, as he appears to be recovering well Patient was amenable to this plan Follow-up as needed Coding Level of Care Code Global (89700) Diagnoses Foreign body of right hand, initial encounter S60.551A Encounter type: initial encounter Laterality: right
[2024-11-12 12:57] VITALS: BMI 32.4
--- OUTSIDE RECORDS SUMMARY | 2024-11-12 13:25 | XMS_ITS | Clinical Summary ---
Author Organization [facility] Address [address] [place] [address] Care Team Providers Care Logistics Intern Name Role Phone Marizol Esparza MD Primary Care Provider [phone] Medications isosorbide mononitrate (IMDUR) 30 mg 24 hr tablet TAKE 1 TABLET BY MOUTH DAILY. 90 tablet 1 10/06/2024 Active Surgical History Surgery Date Site/Laterality Comments TOTAL KNEE ARTHROPLASTY PROCEDURE: HISTORICAL TOTAL KNEE REPLACE SHOULDER SURGERY PROCEDURE: HISTORICAL SHOULDER SURGERY OTHER SURGICAL HISTORY PROCEDURE: NE UNLISTED PROCEDURE CARDIAC SURGERY; COMMENT: ?CABG COLONOSCOPY PROCEDURE: HISTORICAL COLONOSCOPY TOTAL KNEE ARTHROPLASTY Left PROCEDURE: HISTORICAL TOTAL KNEE REPLACE ELBOW SURGERY PROCEDURE: HISTORICAL ELBOW SURGERY OTHER SURGICAL HISTORY PROCEDURE: NE ARTHRODESIS POSTERIOR INTERBODY 1 NTRSPC EA ADDL HAND SURGERY PROCEDURE: HISTORICAL HAND SURGERY Medical History Medical History Date Comments BPH (benign prostatic hyperplasia) 06/17/2017 DX:BPH (benign prostatic hyperplasia) History of knee replacement 04/13/2018 DX:H istory of knee replacement Hyperlipidemia 06/17/2017 DX:Hyperlipidemi a Hypertension 06/17/2017 DX:Hypertension Onychomycosis of toenail 06/17/2017 DX:Onyc homycosis of toenail Type 2 diabetes mellitus wit hout complication ([facility] V24, [facility] V28) 10/24/2017 DX:Type 2 diabetes mellitus without complication ([facility]) Vitamin D deficiency 10/07/2016 DX:Vitamin D deficiency CVA, old, alterations of sensations DX:CVA, old, alterations of sensations VA, old DX:VA, old Arthritis of knee, right DX:Arth ritis of knee, right CVA (cerebral vascular accid ent) ([facility] V24, [facility] V28) DX:CVA (cerebral vascular a ccident) ([facility]) Diabetes 1.5, managed as typ e 2 ([facility] V24, [facility] V28) DX:Diabetes 1.5, managed as type 2 ([facility]) Obesity DX:Obesity Lipid disorder DX:Lipid disorde r [...] Contro l Test (HGBA1C) 07/06/2022 COVID-19 Vaccine (2023-2 5 season) 2024 Influenza Vaccine (Season Ended) 2025 DTaP,Tdap,and Td Vaccines (2 - Td or Tdap) 06/08/2025 06/08/2015 RSV Immunization Adult Patients (1 - 1-dose 75+ series) 02/06/2027 Pneumococcal [...] age to complete this topic Meningococcal B Vaccine Aged Out No l onger eligible based on patient's age to complete this topic RSV Immunization Patients Under 20 months Aged Out No longer eligible b ased on patient's age to complete this topic Varicella Vaccines Aged Out No longer eligible based on patient's age to complete this topic Care Teams Logistics Intern Relationship Specialty Start Date End Date Marizol Esparza MD [address] [place] [address] PCP - General Internal Medicine 11/11/19
== END 2024-11-12 13:15 | disposition home or self-care (01) ==
LOC: HO.HOS 12:42
PROVIDERS: PCP Internal Medicine
DX: S60.551A Superficial foreign body of right hand, initial encounter (principal)
CPT/HCPCS: 99024

== ENCOUNTER → 2024-11-12 12:41 | Outpatient (BNVA) | payer OTHER, SELFPAY | PROVIDERS: PCP Internal Medicine | DX: S60.551D Superficial foreign body of right hand, subsequent encounter (principal); X58.XXXD Exposure to other specified factors, subsequent encounter | CPT/HCPCS: 99212 ==

== ENCOUNTER 2024-11-26 10:58 | Outpatient (AMB) | payer OTHER, SELFPAY ==
--- NOTE | 2024-11-26 11:02 | A.OFFPC_ITS ---
Vital Signs 11/26/24 11:05 Height 5 ft 4 in Weight 188 lb BMI 32.3 BP 130/74 Blood Pressure Location Rt brachial Position Sitting Pulse 68 Pulse Source Pulse Oximeter Pulse Oximetry (%) 97 Oxygen Delivery Method Room Air Intake Visit Reasons: 3 month follow up/missed appt 11/12 Allergies tramadol Allergy (Intermediate, Verified 11/26/24 11:05) rash Medication List - Last Reconciled 11/26/24 by Marizol Esparza MD acetaminophen 650 mg (2 x 325 mg) PO Q6H PRN 30 days alcohol swabs (Alcohol Pads) 2 pad topical DAILY aspirin (Adult Aspirin Regimen) 81 mg PO DAILY atorvastatin 80 mg PO DAILY 90 days [Blood pressure monitor As directed] blood sugar diagnostic (FreeStyle Lite Strips) 2 times a day; 90 days blood sugar diagnostic (FreeStyle Test strips) Patient to check blood sugar twice daily celecoxib (Celebrex) 200 mg PO BID 30 days cetirizine 5 mg PO DAILY PRN docusate sodium 100 mg PO BID 30 days dorzolamide-timolol 22.3-6.8 mg/mL mL ophthalmic (eye) gabapentin 200 mg (2 x 100 mg) PO BEDTIME 30 days lancets (FreeStyle Lancets) USE TO TEST TWICE A DAY levothyroxine 50 mcg PO DAILY lisinopril-hydrochlorothiazide 20-25 mg 1 tab PO DAILY 90 days metformin 1,000 mg PO BID 90 days nitroglycerin 1 mg sublingual Q5M PRN sitagliptin phosphate (Januvia) 100 mg PO BEDTIME 90 days tamsulosin 0.4 mg PO DAILY timolol maleate 0.5% 1 drp ophthalmic (eye) BID Tobacco use date assessed: 11/26/24 Fall risk assessment: No Falls in past year Dental Screening Dental Screen Date: 11/26/24 Did you have a dental visit in the last 12 months?: No Did you have a dental problem in the last 6 months where you did not have access to dental care?: No Was dental information given to patient?: Patient declined HPI 3 month follow up/missed appt 11/12 HPI Details History - The patient is a 74-year-old male pres enting for regular follow-up appointment - The patient reports recent cataract berg rgery with the exchange of the lens. Post-operatively, he notes persistent weeping of the eye with bloody discharge but denies associated pain. He was informed that the discharge is normal and may persist for a couple of months. As notified by his vat house supervisor - Additional concerns include obesity an d interest in weight management. - The patient has been attempting weight loss with difficulty. He expresses interest in a weight loss program - The patient also reports joint issues attributed to osteoarthritis. - The patient has chronic shoulder and e lbow pain, which worsens with sleep and upon waking. He reports a history of arthritis in these joints and previous x- ray findings confirm arthritis in the left shoulder and elbow. Problem List - Type 2 Diabetes Mellitus - Obesity - Hypertension - Osteoarthritis (shoulders and elbows) - Hyperlipidemia - Hypothyroidism Patient Instructions - Attend appointments with orthopedic sp ecialist and weight loss program for further management. - Continue prescribed medications as dir ected: atorvastatin, Celebrex, cetirizine, gabapentin, levothyroxine, lisinopril hydrochlorothiazide, metformin, Januvia, and tamsulosin. - Follow up for scheduled physical exam and blood tests in April. - Maintain a healthy diet and attempt gr adual weight loss through recommended diet and exercise. - For any increase in pain or new sympto ms, seek medical attention promptly. Review of Systems - General: No fever no chills - Neurological: No headaches no dizziness - Ear nose throat: No sore throat no hearing difficulty no ear pain - Cardiovascular: No syncope, no chest pain, no palpitations - Gastrointestinal: No nausea vomiting or diarrhea - Endocrine: No polyuria polydipsia no heat intolerance - Genitourinary: No dysuria , no blood in urine Physical Exam General: No acute distress HEENT: Eye operation done, still weeping, no pain, watery, bloody discharge noted Neck: Supple Respiratory system: Able to talk in full sentences, no audible wheeze Cardiovascular: S1-S2 regular in rate and rhythm Gastrointestinal: No pain Extremities: Limited range of motion left shoulder and elbow secondary to pain 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 awake oriented x3 motor sensory intact Skin: Normal turgor [facility] Medical History CVD (cerebrovascular disease) CAD (coronary artery disease) History of BPH Myocardial infarction CVA (cerebral vascular accident) COVID-19 vaccine administered Arthritis of knee, right Obesity Diabetes 1.5, managed as type 2 Prostate hypertrophy Hypertension, essential Lipid disorder Osteoarthritis of right knee Surgical History Hx of fusion of cervical spine Hx of hand surgery Hx of elbow surgery Hx of shoulder surgery H/O colonoscopy History of knee replacement procedure of left knee Family History Father Cancer Mother CVD (cardiovascular disease) Brother No problems noted. Social History Household Members: Spouse Housing: House Are you a primary certified caregiver to a significant other at home: No Do you presently have visiting nurse or other home services: No Alcohol intake: never Patient Tobacco Use Status: Former Tobacco user Cigarette Packs Per Day: 1 Cigarettes Per Day: 20.0 Years Smoked: 30 Packs Per Year: 30 Packs per year/per ci.00 e-Cigarette/Vaping Use: Never Used service: No Current occupational status: retired Current occupation: right handed Cognitive needs: No Hearing needs: No Vision needs: No Questionnaire PHQ-9 Over the last 2 weeks, how often have you been bothered by any of the following problems? 1. Little interest or pleasure in doing things: not at all 2. Feeling down, depressed, or hopeless: not at all 3. Trouble falling or staying asleep, or sleeping too much: not at all 4. Feeling tired or having little energy: not at all 5. Poor appetite or overeating: not at all 6. Feeling bad about yourself - or that you are a failure or have let yourself or your family down: not at all 7. Trouble concentrating on things, such as reading the newspaper or watching te levision: not at all 8. Moving or speaking so slowly that other people could have noticed. Or the opposite - being so fidgety or restless that you have been moving around a lot more than usual: not at all 9. Thoughts that you would be better off or of hurting yourself in some way: not at all Total score: 0 Depression Screening Interpretation: Negative Depression Screening Done: Yes 88552 - PHQ-9 Billing: Yes Source: Developed by Drs. Nitin Land, Rylee Britt, Mino Garcia and colleagues, with an educational calvin from [employer]. Thrive Questionnaire Date Thrive assessed: 11/26/24 I am a: Patient What is your living situation today?: I choose not to answer this question Within the past 12 months, did the food you bought not last and you didn't have the money to get more?: I choose not to answer this question Within the past 12 months, did you worry whether your food would run out before you got money to buy more?: I choose not to answer this question Do you have trouble paying for medicines?: I choose not to answer this question Do you have trouble getting transportation to medical appointments?: I choose not to answer this question Do you have trouble paying your heating and electricity bill?: I choose not to answer this question Do you have trouble taking care of your child, family member or friend?: I choose not to answer this question Do you have trouble with day-to-day activities such as bathing, preparing meals, shopping, managing finances, etc.?: I choose not to answer this question Are you currently unemployed and looking for a job?: I choose not to answer this question Are you interested in more education?: I choose not to answer this question Please select the resources that you would like help with: None Currently or been in a relationship where the following occur: No concerns reported THRIVE Score: 0 AUDIT C Alcohol Use Questionnaire (AUDIT-C) 1. How often do you have a drink containing alcohol?: Never 3. How often do you have six or more drinks on one occasion?: Never Total Score: 0 Score Reviewed/Action Taken: Yes RYLAND-7 AMB Questionnaire RYLAND-7 Date RYLAND - 7 assessed: 08/03/24 Source: Developed by Drs. Nitin Land, Rylee Britt, Mino Garcia and colleagues, with an educational calvin from [employer]. Physical exam (Primary Care) Vital Signs: Last Vital Signs Pulse 68 11/26/24 11:05 BP 130/74 11/26/24 11:05 Pulse Ox 97 11/26/24 11:05 Oxygen Delivery Method Room Air 11/26/24 11:05 BMI result Body Mass Index 32.3 Tobacco/Smoking Status: Tobacco use Status Tobacco use date assessed 11/26/24 11/26/24 11:08 Patient Tobacco Use Status Former Tobacco user 11/26/24 11:04 e-Cigarette/Vaping Use Never Used 11/26/24 11:04 PHQ-9: PHQ-9 Score PHQ-9: Total score 0 11/26/24 11:19 Depression Screening Interpretation: Negative Thrive Assessment: Date of Thrive Assessment Date Thrive assessed 11/26/24 11/26/24 11:08 Currently or been in a relationship where the following occur: No concerns reported Coding Level of Care Code Est Pt Level 4 (63641) Complex EM visit Add On G2211 Diagnoses Diabetes 1.5, managed as type 2 E13.9 Hypertension, essential I10 Primary osteoarthritis of left shoulder M19.012 Osteoarthritis type: primary Chronic left shoulder pain M25.512; G89.29 Chronicity: chronic Left tennis elbow M77.12 Class 1 obesity due to excess calories with serious comorbidity and body mass index (BMI) of 32.0 to 32.9 in adult E66.09; Z68.32 Body mass index: BMI 32.0-32.9 Obesity classification: adult class 1 (BMI 30 - 34.9) Serious obesity comorbidity presence: with serious comorbidity Prostate hypertrophy N40.0 Lipid disorder E78.9 Additional Codes PHQ-9 - 29663 - PHQ-9 Billing: Yes ([id number]) Assessment & Plan Assessment & Plan (1) Diabetes 1.5, managed as type 2: Code(s): E13.9 - Other specified diabetes mellitus without complications Category: Medical (2) Hypertension, essential: Code(s): I10 - Essential (primary) hypertension Category: Medical (3) DJD of left shoulder: Code(s): M19.012 - Primary osteoarthritis, left shoulder Category: Medical Qualifiers: Osteoarthritis type: primary Qualified Code(s): M19.012 - Primary osteoarthritis, left shoulder (4) Shoulder pain, left: Code(s): M25.512 - Pain in left shoulder Category: Medical Qualifiers: Chronicity: chronic Qualified Code(s): M25.512 - Pain in left shoulder; G89.29 - Other chronic pain (5) Left tennis elbow: Code(s): M77.12 - Lateral epicondylitis, left elbow Category: Medical (6) Obesity due to excess calories: Code(s): E66.09 - Other obesity due to excess calories Category: Medical Qualifiers: Body mass index: BMI 32.0-32.9 Obesity classification: adult class 1 (BMI 30 - 34.9) Serious obesity comorbidity presence: with serious comorbidity Qualified Code(s): E66.09 - Other obesity due to excess calories; Z68.32 - Body mass index [BMI] 32.0-32.9, adult (7) Prostate hypertrophy: Code(s): N40.0 - Benign prostatic hyperplasia without lower urinary tract symptoms Category: Medical (8) Lipid disorder: Code(s): E78.9 - Disorder of lipoprotein metabolism, unspecified Category: Medical Plan History - The patient is a 74-year-old male presenting for regular follow-up appointment - The patient reports recent cataract surgery with the exchange of the lens. Post-operatively, he notes persistent weeping of the eye with bloody discharge but denies associated pain. He was informed that the discharge is normal and may persist for a couple of months. As notified by his vat house supervisor - Additional concerns include obesity and interest in weight management. - The patient has been attempting weight loss with difficulty. He expresses interest in a weight loss program - The patient also reports joint issues attributed to osteoarthritis. - The patient has chronic shoulder and elbow pain, which worsens with sleep and upon waking. He reports a history of arthritis in these joints and previous x- ray findings confirm arthritis in the left shoulder and elbow. Problem List - Type 2 Diabetes Mellitus - Obesity - Hypertension - Osteoarthritis (shoulders and elbows) - Hyperlipidemia - Hypothyroidism Patient Instructions - Attend appointments with recovery specialist and weight loss program for further management. - Continue prescribed medications as directed: atorvastatin, Celebrex, cetirizine, gabapentin, levothyroxine, lisinopril hydrochlorothiazide, metformin, Januvia, and tamsulosin. - Follow up for scheduled physical exam and blood tests in April. - Maintain a healthy diet and attempt gradual weight loss through recommended diet and exercise. - For any increase in pain or new symptoms, seek medical attention promptly. Orders: Orders TSH reflex Free T4 3 Months E13.9 - Other specified diabetes mellitus without complications, E66.09 - Other obesity due to excess calories, E78.9 - Disorder of lipoprotein metabolism, unspecified, I10 - Essential (primary) hypertension, N40.0 - Benign prostatic hyperplasia without lower urinary tract symptoms, Z68.32 - Body mass index [BMI] 32.0-32.9, adult Comprehensive Mccleary. Panel Fast 3 Months E13.9 - Other specified diabetes mellitus without complications, E66.09 - Other obesity due to excess calories, E78.9 - Disorder of lipoprotein metabolism, unspecified, I10 - Essential (primary) hypertension, N40.0 - Benign prostatic hyperplasia without lower urinary tract symptoms, Z68.32 - Body mass index [BMI] 32.0-32.9, adult Hemoglobin A1c 3 Months E13.9 - Other specified diabetes mellitus without complications, E66.09 - Other obesity due to excess calories, E78.9 - Disorder of lipoprotein metabolism, unspecified, I10 - Essential (primary) hypertension, N40.0 - Benign prostatic hyperplasia without lower urinary tract symptoms, Z68.32 - Body mass index [BMI] 32.0-32.9, adult Complete Blood Count Auto Diff 3 Months E13.9 - Other specified diabetes mellitus without complications, E66.09 - Other obesity due to excess calories, E78.9 - Disorder of lipoprotein metabolism, unspecified, I10 - Essential (primary) hypertension, N40.0 - Benign prostatic hyperplasia without lower urinary tract symptoms, Z68.32 - Body mass index [BMI] 32.0-32.9, adult Lipid Panel 3 Months E13.9 - Other specified diabetes mellitus without complications, E66.09 - Other obesity due to excess calories, E78.9 - Disorder of lipoprotein metabolism, unspecified, I10 - Essential (primary) hypertension, N40.0 - Benign prostatic hyperplasia without lower urinary tract symptoms, Z68.32 - Body mass index [BMI] 32.0-32.9, adult Referrals Orthopedics Referral M19.012 - Primary osteoarthritis, left shoulder, M25.512 - Pain in left shoulder, M77.12 - Lateral epicondylitis, left elbow Bariatric Surgery Referral E66.09 - Other obesity due to excess calories, Z68.32 - Body mass index [BMI] 32.0-32.9, adult
[2024-11-26 11:05] VITALS: BP 130/74; PULSE 68; O2SAT 97; BMI 32.3
--- OUTSIDE RECORDS SUMMARY | 2024-11-26 11:30 | XMS_ITS | Clinical Summary ---
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 90 tablet 1 10/06/2024 Active Surgical History Surgery Date Site/Laterality Comments TOTAL KNEE ARTHROPLASTY PROCEDURE: HISTORICAL TOTAL KNEE REPLACE SHOULDER SURGERY PROCEDURE: HISTORICAL SHOULDER SURGERY OTHER SURGICAL HISTORY PROCEDURE: [place] UNLISTED PROCEDURE CARDIAC SURGERY; COMMENT: ?CABG COLONOSCOPY PROCEDURE: HISTORICAL COLONOSCOPY TOTAL KNEE ARTHROPLASTY Left PROCEDURE: HISTORICAL TOTAL KNEE REPLACE ELBOW SURGERY PROCEDURE: HISTORICAL ELBOW SURGERY OTHER SURGICAL HISTORY PROCEDURE: [place] ARTHRODESIS POSTERIOR INTERBODY 1 NTRSPC EA ADDL HAND SURGERY PROCEDURE: HISTORICAL HAND SURGERY Medical History Medical History Date Comments BPH (benign prostatic hyperplasia) 06/17/2017 DX:BPH (benign prostatic hyperplasia) History of knee replacement 04/13/2018 DX:H istory of knee replacement Hyperlipidemia 06/17/2017 DX:Hyperlipidemi a Hypertension 06/17/2017 DX:Hypertension Onychomycosis of toenail 06/17/2017 DX:Onyc homycosis of toenail Type 2 diabetes mellitus wit hout complication ([facility] V24, [facility] V28) 10/24/2017 DX:Type 2 diabetes mellitus without complication ([facility]) Vitamin D deficiency 10/07/2016 DX:Vitamin D deficiency CVA, old, alterations of sensations DX:CVA, old, alterations of sensations [place], old DX:[place], old Arthritis of knee, right DX:Arth ritis of knee, right CVA (cerebral vascular accid ent) ([facility] V24, [facility] V28) DX:CVA (cerebral vascular a ccident) ([facility]) Diabetes 1.5, managed as typ e 2 ([facility] V24, [facility] V28) DX:Diabetes 1.5, managed as type 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
== END 2024-11-26 11:32 | disposition home or self-care (01) ==
LOC: HO.HMCC 10:59
PROVIDERS: PCP Internal Medicine; Visit Provider Internal Medicine
DX: E13.9 Other specified diabetes mellitus without complications (principal); I10 Essential (primary) hypertension; M19.012 Primary osteoarthritis, left shoulder; M25.512 Pain in left shoulder; G89.29 Other chronic pain; M77.12 Lateral epicondylitis, left elbow; E66.09 Other obesity due to excess calories; Z68.32 Body mass index [BMI] 32.0-32.9, adult; N40.0 Benign prostatic hyperplasia without lower urinary tract symptoms; E78.9 Disorder of lipoprotein metabolism, unspecified

== ENCOUNTER → 2024-11-26 10:58 | Outpatient (BNVA) | payer OTHER, SELFPAY | PROVIDERS: PCP Internal Medicine; Visit Provider Internal Medicine | DX: M77.12 Lateral epicondylitis, left elbow (principal); M19.012 Primary osteoarthritis, left shoulder; E13.9 Other specified diabetes mellitus without complications; I10 Essential (primary) hypertension; G89.29 Other chronic pain; E66.09 Other obesity due to excess calories; N40.0 Benign prostatic hyperplasia without lower urinary tract symptoms; E78.9 Disorder of lipoprotein metabolism, unspecified; Z68.32 Body mass index [BMI] 32.0-32.9, adult | CPT/HCPCS: 96127; 99212 ==

== ENCOUNTER → 2024-12-21 13:07 | Outpatient (BNVA) | payer OTHER, SELFPAY | PROVIDERS: PCP Internal Medicine; Visit Provider Physician Assistant Surgical ==

== ENCOUNTER 2025-02-07 08:09 | Outpatient (REF) | payer OTHER, SELFPAY ==
--- NOTE | ~2025-02-07 | XR_ITS ---
EXAMINATION: XR SHOULDER 2 OR MORE VIEWS LEFT HISTORY: M25.512 - Pain in left shoulder COMPARISON: Comparison is made with the prior examination dated 02/19/2023. FINDINGS: Three views of the left shoulder are submitted. Osseous mineralization is normal. There is no fracture or dislocation. The glenohumeral joint is maintained. Again seen is moderate osteoarthritis of the AC joint. The soft tissues are unremarkable. XR/XR shoulder LT min 2V IMPRESSION: Moderate osteoarthritis of the AC joint. Electronically signed by: Nitin Alves MD 02/07/2025 12:08 PM EDT
--- OUTSIDE RECORDS SUMMARY | 2025-02-08 08:13 | XMS_ITS | Clinical Summary ---
Author Organization [facility] Address [address] [place] [address] Care Team Providers Care Foreign Car Mechanic Name Role Phone Marizol Esparza MD Primary Care Provider [phone] Medications isosorbide mononitrate (IMDUR) 30 mg 24 hr tablet TAKE 1 TABLET BY MOUTH DAILY. 90 tablet 1 10/06/2024 Active Surgical History Surgery Date Site/Laterality Comments TOTAL KNEE ARTHROPLASTY PROCEDURE: HISTORICAL TOTAL KNEE REPLACE SHOULDER SURGERY PROCEDURE: HISTORICAL SHOULDER SURGERY OTHER SURGICAL HISTORY PROCEDURE: [place] UNLISTED PROCEDURE CARDIAC SURGERY; COMMENT: ?CABG COLONOSCOPY PROCEDURE: HISTORICAL COLONOSCOPY TOTAL KNEE ARTHROPLASTY Left PROCEDURE: HISTORICAL TOTAL KNEE REPLACE ELBOW SURGERY PROCEDURE: HISTORICAL ELBOW SURGERY OTHER SURGICAL HISTORY PROCEDURE: [place] ARTHRODESIS POSTERIOR INTERBODY 1 NTRSPC EA ADDL HAND SURGERY PROCEDURE: HISTORICAL HAND SURGERY Medical History Medical History Date Comments BPH (benign prostatic hyperplasia) 06/17/2017 DX:BPH (benign prostatic hyperplasia) History of knee replacement 04/13/2018 DX:H istory of knee replacement Hyperlipidemia 06/17/2017 DX:Hyperlipidemi a Hypertension 06/17/2017 DX:Hypertension Onychomycosis of toenail 06/17/2017 DX:Onyc homycosis of toenail Type 2 diabetes mellitus wit hout complication ([facility] V24, [facility] V28) 10/24/2017 DX:Type 2 diabetes mellitus without complication ([facility]) Vitamin D deficiency 10/07/2016 DX:Vitamin D deficiency CVA, old, alterations of sensations DX:CVA, old, alterations of sensations UT, old DX:UT, old Arthritis of knee, right DX:Arth ritis of knee, right CVA (cerebral vascular accid ent) ([facility] V24, [facility] V28) DX:CVA (cerebral vascular a ccident) ([facility]) Diabetes 1.5, managed as typ e 2 ([facility] V24, [facility] V28) DX:Diabetes 1.5, managed as type 2 ([facility]) Obesity DX:Obesity Lipid disorder DX:Lipid [...] age to complete this topic Care Teams Foreign Car Mechanic Relationship Specialty Start Date End Date Marizol Esparza MD [address] [place] [address] PCP - General Internal Medicine 11/11/19
== END 2025-02-07 08:10 | disposition home or self-care (01) ==
LOC: HO.HOSX 08:09
PROVIDERS: Visit Provider Physician Assistant
DX: M19.012 Primary osteoarthritis, left shoulder (principal)
CPT/HCPCS: 73030; 99212; J1010; J2003

== ENCOUNTER 2025-02-07 10:34 | Outpatient (AMB) | payer OTHER, SELFPAY ==
--- NOTE | 2025-02-07 10:52 | A.OFFVIS_ITS ---
Vital Signs 02/07/25 11:02 Height 5 ft 4 in Weight 183 lb BMI 31.4 Intake Visit Reasons: OV- Left shoulder pain, last injection 09/04/23 Intake Note: Walter is a 74 year old right hand dominant male who presents today for a follow up of left shoulder pain, last injection 09/04/23. Patient was seen with MARICEL Pereira and was given a cortisone injection to his left shoulder. Patient reports he does not recall having an injection. Today he complains of bilateral shoulder pain with his left shoulder being the worse. His pain has been present for 2 years and describes his discomfort as a tightness. His discomfort is worse in the mornings. Allergies tramadol Allergy (Intermediate, Verified 02/07/25 11:01) rash Medication List - Last Reconciled 02/07/25 by Mariano Balbuena PA-C acetaminophen 650 mg (2 x 325 mg) PO Q6H PRN 30 days alcohol swabs (Alcohol Pads) 2 pad topical DAILY aspirin (Adult Aspirin Regimen) 81 mg PO DAILY atorvastatin 80 mg PO DAILY 90 days [Blood pressure monitor As directed] blood sugar diagnostic (FreeStyle Test strips) Patient to check blood sugar twice daily blood sugar diagnostic (FreeStyle Lite Strips) 2 times a day; 90 days celecoxib (Celebrex) 200 mg PO BID 30 days cetirizine 5 mg PO DAILY PRN docusate sodium 100 mg PO BID 30 days dorzolamide-timolol 22.3-6.8 mg/mL mL ophthalmic (eye) gabapentin 200 mg (2 x 100 mg) PO BEDTIME 30 days lancets (FreeStyle Lancets) USE TO TEST TWICE A DAY levothyroxine 50 mcg PO DAILY lisinopril-hydrochlorothiazide 20-25 mg 1 tab PO DAILY 90 days metformin 1,000 mg PO BID 90 days nitroglycerin 1 mg sublingual Q5M PRN sitagliptin phosphate (Januvia) 100 mg PO BEDTIME 90 days tamsulosin 0.4 mg PO DAILY timolol maleate 0.5% 1 drp ophthalmic (eye) BID HPI HPI OV- Left shoulder pain, last injection 09/04/23: Details: 75-year-old gentleman returns to the office today for left shoulder pain. He had an injection back in August of 2023 which was somewhat helpful. He states his pain is located on the top of the shoulder which is worse with reaching and when he wakes up in the morning. He denies numbness or tingling. He states he has done physical therapy in the past but does not feel that it has helped with his strength or pain. [facility] Medical History CVD (cerebrovascular disease) CAD (coronary artery disease) History of BPH Myocardial infarction CVA (cerebral vascular accident) COVID-19 vaccine administered Arthritis of knee, right Obesity Diabetes 1.5, managed as type 2 Prostate hypertrophy Hypertension, essential Lipid disorder Osteoarthritis of right knee Surgical History Hx of fusion of cervical spine Hx of hand surgery Hx of elbow surgery Hx of shoulder surgery H/O colonoscopy History of knee replacement procedure of left knee Family History Father Cancer Mother CVD (cardiovascular disease) Brother No problems noted. Social History Household Members: Spouse Housing: House Are you a primary career technical counselor to a significant other at home: No Do you presently have visiting nurse or other home services: No Alcohol intake: former Patient Tobacco Use Status: Former Tobacco user Cigarette Packs Per Day: 1 Cigarettes Per Day: 20.0 Years Smoked: 30 e-Cigarette/Vaping Use: Never Used service: No Current occupational status: retired Current occupation: right handed Cognitive needs: No Hearing needs: No Vision needs: No Review of Systems Const All systems reviewed & are unremarkable except as noted in HPI and below Physical Exam Vital Signs: BMI result Body Mass Index 31.4 Extrem Other: Left shoulder normal to inspection. He has full range of motion in all planes. Tenderness over the AC joint. Has a positive Iverson. Pain and weakness with empty can. Office Procedures AMB Joint Injection/Aspiration Joint Injection/Aspiration Primary Site: left shoulder Prep: site was prepped using aseptic technique, ethochloride spray was applied and injection warnings given Injected: 40 mg of, DepoMedrol, with 8 mL of, 1% plain lidocaine and in the subcromial space Approach Used: posterolateral Procedure: The patient tolerated the procedure well and there was some relief with the local anesthesia Coding - Glenohumeral/Tronchanteric Bursa/Intraarticular Procedure code (CPT) selection complete Results Reviewed Results Reviewed: X-rays of the left shoulder obtained in the office today and reviewed by me show AC joint arthritis. There is evidence of acetabularization of the acromion. Assessment & Plan Assessment & Plan (1) Arthritis of left acromioclavicular joint: Code(s): M19.012 - Primary osteoarthritis, left shoulder Category: Medical (2) Rotator cuff arthropathy of left shoulder: Code(s): M12.812 - Other specific arthropathies, not elsewhere classified, left shoulder Category: Medical Plan We discussed options today which includes steroid injection of the left shoulder which she is content with. Left shoulder was injected today which the patient tolerated well. I did explain he needs to monitor his blood glucose levels over the next 72 hours as he does have diabetes and the injection can increase this. I also discussed the role of physical therapy and how this can benefit him he is not interested in pursuing physical therapy at this time. If symptoms persist or worsen over the next 6-8 weeks the patient will contact our office otherwise he will follow up as needed. Orders: Orders XR shoulder LT min 2V Today M25.512 - Pain in left shoulder Coding Level of Care Code Est Pt Level 3 (60081) Complex EM visit Add On G2211 Diagnoses Arthritis of left acromioclavicular joint M19.012 Rotator cuff arthropathy of left shoulder M12.812 CPT Codes Coding - Joint 7: 68289 - Glenohumeral/Tronchanteric Bursa/Intraarticular ([id number])
[2025-02-07 11:02] VITALS: BMI 31.4
--- OUTSIDE RECORDS SUMMARY | 2025-02-07 11:37 | XMS_ITS | Clinical Summary ---
Author Organization [facility] Address [address] [place] [address] Care Team Providers Care Shop Estimator Name Role Phone Marizol Esparza MD Primary Care Provider [phone] Medications isosorbide mononitrate (IMDUR) 30 mg 24 hr tablet TAKE 1 TABLET BY MOUTH DAILY. 90 tablet 1 10/06/2024 Active Surgical History Surgery Date Site/Laterality Comments TOTAL KNEE ARTHROPLASTY PROCEDURE: HISTORICAL TOTAL KNEE REPLACE SHOULDER SURGERY PROCEDURE: HISTORICAL SHOULDER SURGERY OTHER SURGICAL HISTORY PROCEDURE: IN UNLISTED PROCEDURE CARDIAC SURGERY; COMMENT: ?CABG COLONOSCOPY PROCEDURE: HISTORICAL COLONOSCOPY TOTAL KNEE ARTHROPLASTY Left PROCEDURE: HISTORICAL TOTAL KNEE REPLACE ELBOW SURGERY PROCEDURE: HISTORICAL ELBOW SURGERY OTHER SURGICAL HISTORY PROCEDURE: IN ARTHRODESIS POSTERIOR INTERBODY 1 NTRSPC EA ADDL HAND SURGERY PROCEDURE: HISTORICAL HAND SURGERY Medical History Medical History Date Comments BPH (benign prostatic hyperplasia) 06/17/2017 DX:BPH (benign prostatic hyperplasia) History of knee replacement 04/13/2018 DX:H istory of knee replacement Hyperlipidemia 06/17/2017 DX:Hyperlipidemi a Hypertension 06/17/2017 DX:Hypertension Onychomycosis of toenail 06/17/2017 DX:Onyc homycosis of toenail Type 2 diabetes mellitus wit hout complication ([facility] V24, [facility] V28) 10/24/2017 DX:Type 2 diabetes mellitus without complication ([facility]) Vitamin D deficiency 10/07/2016 DX:Vitamin D deficiency CVA, old, alterations of sensations DX:CVA, old, alterations of sensations VA, old DX:VA, old Arthritis of knee, right DX:Arth ritis of knee, right CVA (cerebral vascular accid ent) ([facility] V24, [facility] V28) DX:CVA (cerebral vascular a ccident) ([facility]) Diabetes 1.5, managed as typ e 2 ([facility] V24, [facility] V28) DX:Diabetes 1.5, managed as type 2 ([facility]) Obesity DX:Obesity Lipid disorder DX:Lipid [...] Panel) 06/29/2022 Colorectal Cancer Screening: Colonoscopy 06/29/2022 Falls Risk Assessment 06/29/2022 Hepatitis C Screening 06/29/2022 Social Influencers of Health Screening 06/29/2022 Hypertension/CHF/CAD Annual BMP Blood Test 06/30/2022 Diabetes: Annual Urine Albumin-Creatinine Ratio (uACR) 07/06/2022 Diabetes: Blood Sugar Contro l Test (HGBA1C) 07/06/2022 COVID-19 Vaccine ( - 2023-2 5 season) 2024 Depression Screening 07/21/2024 Influenza Vaccine (#1) 2025 DTaP,Tdap,and Td Vaccines (2 - Td [...] age to complete this topic Care Teams Shop Estimator Relationship Specialty Start Date End Date Marizol Esparza MD [address] [place] [address] PCP - General Internal Medicine 11/11/19
== END 2025-02-07 12:00 | disposition home or self-care (01) ==
LOC: HO.HOS 10:35
PROVIDERS: PCP Internal Medicine; Visit Provider Physician Assistant
DX: M19.012 Primary osteoarthritis, left shoulder (principal)
CPT/HCPCS: 20610; 99213

== ENCOUNTER → 2025-02-07 10:47 | Outpatient (BNV) | payer OTHER, SELFPAY | PROVIDERS: Visit Provider Radiology Diagnostic Radiology | DX: M19.012 Primary osteoarthritis, left shoulder (principal) | CPT/HCPCS: 73030 ==

== ENCOUNTER 2025-05-06 09:41 | Outpatient (REF) | payer OTHER, SELFPAY ==
--- NOTE | ~2025-05-06 | XR_ITS ---
EXAMINATION: XR FINGERS LEFT HISTORY: M20.009 - Unspecified deformity of unspecified finger(s) COMPARISON: There are no prior studies available for comparison. FINDINGS: Three views of the left index finger are submitted. Osseous mineralization is normal. A well-corticated osseous density is seen in at the dorsal aspect of the DIP joint which may be the result of old trauma. No acute fracture or dislocation is seen. There is moderate osteoarthritis with joint space narrowing and osteophyte formation. A tiny metallic foreign body is seen adjacent to the neck of the metacarpal. XR/XR finger LT min 2V IMPRESSION: Osteoarthritis of the DIP joint. Tiny metallic foreign body adjacent to the neck of the metacarpal. Electronically signed by: Nitin Alves MD 05/06/2025 10:53 AM EDT
--- OUTSIDE RECORDS SUMMARY | 2025-05-06 11:58 | XMS_ITS | Encounter Summary ---
Author Organization [facility] Address [address] [place] [address] Care Team Providers Care Outreach Professional Name Role Phone Community, Pcp Primary Care Provider UnavailYue Romero MD Primary Care Provider Unava ilable Brian Lewis MD Primary Care Provider [phone] Nadeem Wilson MD Primary Care Provider Unavaila Marizol Leon MD Primary Care Provider UnavailYue Romero MD Primary Care Provider Unava Ish Espinoza NP Unavailable [phone] Richard Weber MD Unavailable [phone] Leonardo Xiong MD Unavailable Encounter Details Date Type Department Care Team Description 04/14/2008 [facility] Records [address] [place] [id number] Richard Koenig MD [address] [place] [address] [id number] Social History Tobacco Use Types Packs/Day Years Used Date Smoking Tobacco: Never Assessed Sex Assigned at Date Recorded Not on file Job Start Date Occupation Industry Not on file Not on file Not on file documented as of this encounter Plan of Treatment Not on file documented as of this encounter Procedures Procedure Name Priority Date/Time Associated Diagnosis Comments OUTSIDE HOLTER MONITOR Routine 04/14/2008 documented in this encounter Results * OUTSIDE HOLTER MONITOR (04/14/2008) Provider Default CARDIOLOGY documented in this encounter Visit Diagnoses Not on filedocumented in this encounter Care Teams Outreach Professional Relationship Specialty Start Date End Date Community, Pcp PCP - General 08/23/03 08/30/12 Yue Rice MD PCP - General Internal Medicine 04/14/18 11/13/18 Brian Lewis MD PCP - General Internal Medicine 11/14/18 03/29/19 Nadeem Wilson MD PCP - General Internal Medicine 03/30/19 11/10/19 Marizol Esparza MD PCP - General Internal Medicine 11/11/19 Yue Rice MD PCP - General 08/31/12 04/13/18 Ish Anguiano NP Specialist Cardiology 11/23/20 Richard Weber MD Specialist Cardiology 11/23/20 05/30/21 Leonardo Xiong MD [address] [place] [address] Specialist Cardiology 05/31/21 documented as of this encounter
--- OUTSIDE RECORDS SUMMARY | 2025-05-06 11:58 | XMS_ITS | Encounter Summary ---
Author Organization [employer] [facility] Address [address] [place] [address] Care Team Providers Care Pug Mill Operator Helper Name Role Phone Marizol Esparza MD Primary Care Provider Unavailkimberlee e Ish Anguiano NP Unavailable [phone] Richard Weber MD Unavailable [phone] Leonardo Xiong MD Unavailable Reason for Visit * Reason Comments E-prescribe Rx Request Encounter Details Date Type Department Care Team Description 05/08/2020 Refill Internal Medicine - [address], [address] [place] [address] Nadeem [place] MD E-prescribe Rx Request Social History Tobacco Use Types Packs/Day Years Used Date Smoking Tobacco: Former Smokeless Tobacco: Never Alcohol Use Standard Drinks/Week Comments Yes 0 (1 standard drink = 0.6 oz pur e alcohol) Sex Assigned at Date Recorded Not on file Job Start Date Occupation Industry Not on file Not on file Not on file documented as of this encounter Miscellaneous Notes * Telephone Encounter - Bouchra Garcia - 05/09/2020 11:16 AM EDT Patient no longer has PCP here @ [facility] inform pharmacy [facility] pharmacists documented in this encounter Plan of Treatment Not on file documented as of this encounter Visit Diagnoses Not on filedocumented in this encounter Care Teams Pug Mill Operator Helper Relationship Specialty Start Date End Date Marizol Esparza MD PCP - General Internal Medicine 11/11/19 Ish Anguiano NP Specialist Cardiology 11/23/20 Richard Weber MD Specialist Cardiology 11/23/20 05/30/21 Leonardo Xiong MD [address] [place] [address] Specialist Cardiology 05/31/21 documented as of this encounter
--- OUTSIDE RECORDS SUMMARY | 2025-05-06 11:58 | XMS_ITS | Encounter Summary ---
Author Organization [facility] Address [address] [place] [address] Care Team Providers Care Basketballs And Footballs Reverser Name Role Phone Community, Pcp Primary Care Provider UnavailYue Romero MD Primary Care Provider Unava ilable Brian Lewis MD Primary Care Provider [phone] Nadeem [place] MD Primary Care Provider Unavaila Marizol Leon MD Primary Care Provider UnavailYue Romero MD Primary Care Provider Unava ilable Ish Anguiano NP Unavailable [phone] Richard Weber MD Unavailable [phone] Leonardo Xiong MD Unavailable Encounter Details Date Type Department Care Team Description 04/07/2008 [facility] Medical Records [address] [place] [address] Maury Ulloa MD Social History Tobacco Use Types Packs/Day Years Used Date Smoking Tobacco: Never Assessed Sex Assigned at Date Recorded Not on file Job Start Date Occupation Industry Not on file Not on file Not on file documented as of this encounter Plan of Treatment Not on file documented as of this encounter Procedures Procedure Name Priority Date/Time Associated Diagnosis Comments OUTSIDE STRESS TEST Routine 04/07/2008 documented in this encounter Results * OUTSIDE STRESS TEST (04/07/2008) Provider Default CARDIOLOGY documented in this encounter Visit Diagnoses Not on filedocumented in this encounter Care Teams Basketballs And Footballs Reverser Relationship Specialty Start Date End Date Community, [...] Specialist Cardiology 11/23/20 05/30/21 Leonardo Xiong MD [address] [place] [address] Specialist Cardiology 05/31/21 documented as of this encounter
--- OUTSIDE RECORDS SUMMARY | 2025-05-06 11:58 | XMS_ITS | Encounter Summary ---
Author Organization [facility] Address [address] [place] [address] Care Team Providers Care Bone Char Operator Name Role Phone Yue Rice MD Primary Care Provider Unava Brian Wu MD Primary Care Provider [phone] Nadeem Wilson MD Primary Care Provider Unavaila Marizol Leon MD Primary Care Provider Unavailabl Yue Avery MD Primary Care Provider Unava Ish Espinoza NP Unavailable [phone] Richard Weber MD Unavailable [phone] Leonardo Xiong MD Unavailable Encounter Details Date Type Department Care Team Description 07/31/2017 [facility] Medical Records [address] [place] [address] José Reid MD [address] [facility] [address] [place] [address] Social History Tobacco Use Types Packs/Day Years Used Date Smoking Tobacco: Never Assessed Sex Assigned at Date Recorded Not on file Job Start Date Occupation Industry Not on file Not on file Not on file documented as of this encounter Plan of Treatment Not on file documented as of this encounter Procedures Procedure Name Priority Date/Time Associated Diagnosis Comments OUTSIDE NUCLEAR STRESS TEST Routine 07/31/2017 documented in this encounter Results * OUTSIDE NUCLEAR STRESS TEST (07/31/2017) Provider Default CARDIOLOGY documented in this encounter Visit Diagnoses Not on filedocumented in this encounter Care Teams Bone Char Operator Relationship Specialty Start Date End Date Yue Rice MD PCP - General Internal Medicine 04/14/18 11/13/18 Brian Lewis MD PCP - General Internal Medicine 11/14/18 03/29/19 Nadeem Wilson MD PCP - General Internal Medicine 03/30/19 11/10/19 Marizol Esparza MD PCP - General Internal Medicine 11/11/19 Yue Rice MD PCP - General 08/31/12 04/13/18 Ish Anguiano NP Specialist Cardiology 11/23/20 Richard Weber MD Specialist Cardiology 11/23/20 05/30/21 Leonardo Xiong MD [address] [place] [address] Specialist Cardiology 05/31/21 documented as of this encounter
--- OUTSIDE RECORDS SUMMARY | 2025-05-06 11:58 | XMS_ITS | Encounter Summary ---
Author Organization [facility] Address [address] [place] [address] Care Team Providers Care Container Shop Welder Name Role Phone Yue Rice MD Primary Care Provider Unava Brian Wu MD Primary Care Provider [phone] Nadeem Wilson MD Primary Care Provider Unavaila Marizol Leon MD Primary Care Provider Unavailabl e Ish Anguiano NP Unavailable [phone] Richard Weber MD Unavailable [phone] Leonardo Xiong MD Unavailable Encounter Details Date Type Department Care Team Description 05/26/2018 Release of Information Medical Records [address] [place] [address] Abstract, Provider Social History Tobacco Use Types Packs/Day Years Used Date Smoking Tobacco: Former Smokeless Tobacco: Never Sex Assigned at Date Recorded Not on file Job Start Date Occupation Industry Not on file Not on file Not on file documented as of this encounter Plan of Treatment Not on file documented as of this encounter Visit Diagnoses Not on filedocumented in this encounter Care Teams Container Shop Welder Relationship Specialty Start Date End Date Yue Rice MD PCP - General Internal Medicine 04/14/18 11/13/18 Brian Lewis MD PCP - General Internal Medicine 11/14/18 03/29/19 Nadeem Wilson MD PCP - General Internal Medicine 03/30/19 11/10/19 Marizol Esparza MD PCP - General Internal Medicine 11/11/19 Ish Anguiano NP Specialist Cardiology 11/23/20 Richard Weber MD Specialist Cardiology 11/23/20 05/30/21 Leonardo Xiong MD [address] [place] [address] Specialist Cardiology 05/31/21 documented as of this encounter
--- OUTSIDE RECORDS SUMMARY | 2025-05-06 11:58 | XMS_ITS | Encounter Summary ---
Author Organization [facility] Address [address] [place] [address] Care Team Providers Care Ssrs Developer Name Role Phone Marizol Esparza MD Primary Care Provider Unavailabl e Ish Anguiano NP Unavailable [phone] Richard Weber MD Unavailable [phone] Leonardo Xiong MD Unavailable Reason for Visit * Reason Comments E-prescribe Rx Request Encounter Details Date Type Department Care Team Description 05/11/2020 Refill Internal Medicine - [place] [address], [address] [place] [address] Nadeem [place] MD E-prescribe Rx Request Social [...] on filedocumented in this encounter Care Teams Ssrs Developer Relationship Specialty Start Date End Date Marizol Esparza MD PCP - General Internal Medicine 11/11/19 Ish Anguiano NP Specialist Cardiology 11/23/20 Richard Weber MD Specialist Cardiology 11/23/20 05/30/21 Leonardo Xiong MD [address] [facility] [address] [place] [address] Specialist Cardiology 05/31/21 documented as of this encounter
--- OUTSIDE RECORDS SUMMARY | 2025-05-06 11:58 | XMS_ITS | Encounter Summary ---
Author Organization [facility] Address [address] [place] [address] Care Team Providers Care Proof Clerk Name Role Phone Community, Pcp Primary Care Provider UnavailYue Romero MD Primary Care Provider Unava ilable Brian Lewis MD Primary Care Provider [phone] Nadeem Wilson MD Primary Care Provider Unavaila Marizol Leon MD Primary Care Provider UnavailYue Romero MD Primary Care Provider Unava ilable Ish Anguiano NP Unavailable [phone] Richard Weber MD Unavailable [phone] Leonardo Xiong MD Unavailable Encounter Details Date Type Department Care Team Description 04/14/2008 [facility] Medical Records [address] [place] [id number] Abstract, Provider Social History Tobacco Use Types Packs/Day Years Used Date Smoking Tobacco: Never Assessed Sex Assigned at Date Recorded Not on file Job Start Date Occupation Industry Not on file Not on file Not on file documented as of this encounter Plan of Treatment Not on file documented as of this encounter Procedures Procedure Name Priority Date/Time Associated Diagnosis Comments OUTSIDE VASCULAR STUDY Routine 04/14/2008 documented in this encounter Results * OUTSIDE VASCULAR STUDY (04/14/2008) Provider Default CARDIOLOGY documented in this encounter Visit Diagnoses Not on filedocumented in this encounter Care Teams Proof Clerk Relationship Specialty Start Date End Date Community, [...] Specialist Cardiology 11/23/20 05/30/21 Leonardo Xiong MD [address] [place] [address] Specialist Cardiology 05/31/21 documented as of this encounter
--- OUTSIDE RECORDS SUMMARY | 2025-05-06 11:59 | XMS_ITS | Encounter Summary ---
Author Organization [facility] Address [address] [place] [address] Care Team Providers Care Aircraft Painter Name Role Phone Yue Rice MD Primary Care Provider Unava Brian Wu MD Primary Care Provider [phone] Nadeem Wilson MD Primary Care Provider Unavaila Marizol Leon MD Primary Care Provider Unavailabl e Ish Anguiano NP Unavailable [phone] Richard Weber MD Unavailable [phone] Leonardo Xiong MD Unavailable Encounter Details Date Type Department Care Team Description 10/16/2018 Project Intern Report Medical Records [address] [place] [id number] [place] Social History Tobacco Use Types Packs/Day Years Used Date Smoking Tobacco: Former Smokeless Tobacco: Never Sex Assigned at Date Recorded Not on file Job Start Date Occupation Industry Not on file Not on file Not on file documented as of this encounter Plan of Treatment Not on file documented as of this encounter Visit Diagnoses Not on filedocumented in this encounter Care Teams Aircraft Painter Relationship Specialty Start Date End Date Yue Rice MD PCP - General Internal Medicine 04/14/18 11/13/18 Brian Lewis MD PCP - General Internal Medicine 11/14/18 03/29/19 Nadeem Wilson MD PCP - General Internal Medicine 03/30/19 11/10/19 Marizol Esparza MD PCP - General Internal Medicine 11/11/19 Ish Anguiano NP Specialist Cardiology 11/23/20 Richard Weber MD Specialist Cardiology 11/23/20 05/30/21 Leonardo Xiong MD [address] [place] [address] Specialist Cardiology 05/31/21 documented as of this encounter
--- OUTSIDE RECORDS SUMMARY | 2025-05-06 11:59 | XMS_ITS | Encounter Summary ---
Author Organization [facility] Address [address] [place] [address] Care Team Providers Care Bay Stocker Name Role Phone Marizol Esparza MD Primary Care Provider Ish Salguero NP Unavailable [phone] Leonardo Xiong MD Unavailable Encounter Details Date Type Department Care Team Description 07/18/2021 Hospital Medical Records [address] [place] [address] Social History Tobacco Use Types Packs/Day Years Used Date Smoking Tobacco: Former Smokeless Tobacco: Never Alcohol Use Standard Drinks/Week Comments Yes 0 (1 standard drink = 0.6 oz pur e alcohol) couple times a month Sex Assigned at Date Recorded Not on file Job Start Date Occupation Industry Not on file Not on file Not on file COVID-19 Exposure Response Date Recorded In the last month, have you been in contact with someone who was confirmed or suspected to have Coronavirus / COVID-19? No / Unsure 06/28/2021 8:27 AM EST documented as of this encounter Plan of Treatment Not on file documented as of this encounter Procedures Procedure Name Priority Date/Time Associated Diagnosis Comments OUTSIDE CARDIAC CATH Routine 07/18/2021 OUTSIDE EKG Routine 07/18/2021 OUTSIDE LAB Routine 07/18/2021 documented in this encounter Results * OUTSIDE LAB (07/18/2021) Provider Abstract LAB * OUTSIDE EKG (07/18/2021) Provider Abstract CARDIOLOGY * OUTSIDE CARDIAC CATH (07/18/2021) Provider Abstract CARDIOLOGY documented in this encounter Visit Diagnoses Not on filedocumented in this encounter Care Teams Bay Stocker Relationship Specialty Start Date End Date Marizol Esparza MD PCP - General Internal Medicine 11/11/19 Ish Anguiano NP Specialist Cardiology 11/23/20 Leonardo Xiong MD [address] [place] [address] Specialist Cardiology 05/31/21 documented as of this encounter
--- OUTSIDE RECORDS SUMMARY | 2025-05-06 11:59 | XMS_ITS | Encounter Summary ---
Author Organization [facility] Address [address] [place] [address] Care Team Providers Care Driver Starting Gate Name Role Phone Yue Rice MD Primary Care Provider Brian De Jesus MD Primary Care Provider [phone] Nadeem Wilson MD Primary Care Provider Unavaila Marizol Leon MD Primary Care Provider Unavailabl Ish Blanchard NP Unavailable [phone] Richard Weber MD Unavailable [phone] Leonardo Xiong MD Unavailable Reason for Visit * Reason Onset Date Comments refill request 08/06/2018 Encounter Details Date Type Department Care Team Description 08/06/2018 Refill Internal Medicine - [address], [address] [place] [address] Yue Rice MD refill request Social History Tobacco Use Types Packs/Day Years Used Date Smoking Tobacco: Former Smokeless Tobacco: Never Sex Assigned at Date Recorded Not on file Job Start Date Occupation Industry Not on file Not on file Not on file documented as of this encounter Miscellaneous Notes * Telephone Encounter - Tati Navarrete - 08/06/2018 12:46 PM EST [facility] pharmacy calling see if we received the rx for lidocaine cream. Please advise and call patient in regards to this. documented in this encounter Plan of Treatment Not on file documented as of this encounter Visit Diagnoses Not on filedocumented in this encounter Care Teams Driver Starting Gate Relationship Specialty Start Date End Date Yue Rice MD PCP - General Internal Medicine 04/14/18 11/13/18 Brian Lewis MD PCP - General Internal Medicine 11/14/18 03/29/19 Nadeem Wilson MD PCP - General Internal Medicine 03/30/19 11/10/19 Marizol Esparza MD PCP - General Internal Medicine 11/11/19 Ish Anguiano NP Specialist Cardiology 11/23/20 Richard Weber MD Specialist Cardiology 11/23/20 05/30/21 Leonardo Xiong MD [address] [place] [address] Specialist Cardiology 05/31/21 documented as of this encounter
--- OUTSIDE RECORDS SUMMARY | 2025-05-06 11:59 | XMS_ITS | Encounter Summary ---
Author Organization [facility] Address [address] [place] [address] Care Team Providers Care Fringe Knotter Name Role Phone Nadeem Wilson MD Primary Care Provider Marizol Pendleton MD Primary Care Provider UnavailIsh Prince NP Unavailable [phone] Richard Weber MD Unavailable [phone] Leonardo Xiong MD Unavailable Reason for Visit * Reason Comments E-prescribe Rx Request Encounter Details Date Type Department Care Team Description 08/19/2019 Refill Internal Medicine - [address], [address] [place] [address] Nadeem Wilson MD E-prescribe Rx Request Social [...] encounter Miscellaneous Notes * Telephone Encounter - Radha Joseph - 08/19/2019 2:15 PM EST Lab Results Component Value Date NA 138 08/03/2019 K 4.2 08/03/2019 CO2 29 08/03/2019 CL 105 08/03/2019 BUN 21 08/03/2019 CREAT 0.95 08/03/2019 GLU 80 08/03/2019 CA 9.1 08/03/2019 GFR > 60 08/03/2019 * Telephone Encounter - Cora Mendoza - 08/19/2019 1:31 PM EST Patient would like script to be: E-PRESCRIBED/FAXED TO PHARMACY WHEN WAS THE PATIENT'S LAST APPOINTMENT IN ADULT MEDICINE? 08/03/2019 WHEN WAS THE LAST TIME THE PATIENT SAW THEIR PCP? Same as above Does patient have an upcoming appointment? (THE MEDICATION REQUESTED IS ON THE MED LIST ABOVE) All of the medications requested were on the CURRENT MEDS list Did you check the Pharmacy information above?: YES Patient wants: 30 -day supply Is this a mail order prescription request ? NO If the refill is from a FAXED refill request what is the RX # listed on the fax? N/A Patients current insurance carrier is: Payor: [facility] MCR / Plan: O $0 [facility] [id number] / Product Type: HMO [id number] documented in this encounter Plan of Treatment Not on file documented as of this encounter Visit Diagnoses Not on filedocumented in this encounter Care Teams Fringe Knotter Relationship Specialty Start Date End Date Nadeem Wilson MD PCP - General Internal Medicine 03/30/19 11/10/19 Marizol Esparza MD PCP - General Internal Medicine 11/11/19 Ish Anguiano NP Specialist Cardiology 11/23/20 Richard Weber MD Specialist Cardiology 11/23/20 05/30/21 Leonardo Xiong MD [address] [place] [address] Specialist Cardiology 05/31/21 documented as of this encounter
--- OUTSIDE RECORDS SUMMARY | 2025-05-06 11:59 | XMS_ITS | Encounter Summary ---
Author Organization [facility] Address [address] [place] [address] Care Team Providers Care Informatics Educator Name Role Phone Marizol Esparza MD Primary Care Provider Unavailabl e Ish Anguiano NP Unavailable [phone] Richard Weber MD Unavailable [phone] Leonardo Xiong MD Unavailable Reason for Visit * Reason Comments E-prescribe Rx Request Encounter Details Date Type Department Care Team Description 03/03/2020 Refill Internal Medicine - [place] [address] [facility], [address] [place] [address] Nadeem Wilson MD E-prescribe Rx Request Social [...] on filedocumented in this encounter Care Teams Informatics Educator Relationship Specialty Start Date End Date Marizol Esparza MD PCP - General Internal Medicine 11/11/19 Ish Anguiano NP Specialist Cardiology 11/23/20 Richard Weber MD Specialist Cardiology 11/23/20 05/30/21 Leonardo Xiong MD [address] [facility] [address] [place] [address] Specialist Cardiology 05/31/21 documented as of this encounter
--- OUTSIDE RECORDS SUMMARY | 2025-05-06 11:59 | XMS_ITS | Encounter Summary ---
Author Organization [facility] Address [address] [place] [address] Care Team Providers Care Liner Machine Operator Name Role Phone Brian Lewis MD Primary Care Provider [phone] Nadeem Wilson MD Primary Care Provider Unavaila Marizol Leon MD Primary Care Provider UnavailIsh Prince NP Unavailable [phone] Richard Weber MD Unavailable [phone] Leonardo Xiong MD Unavailable Reason for Visit * Reason Comments E-prescribe Rx Request Encounter Details Date Type Department Care Team Description 03/15/2019 Refill Internal Medicine - [address], [address] [place] [address] Brian Lewis MD [address] [place] [address] E-prescribe Rx Request Social History Tobacco Use Types Packs/Day Years Used Date Smoking Tobacco: Former Smokeless Tobacco: Never Sex Assigned at Date Recorded Not on file Job Start Date Occupation Industry Not on file Not on file Not on file documented as of this encounter Miscellaneous Notes * Telephone Encounter - Ayse Roberto Carlos - 03/15/2019 11:26 AM EDT Patient would like script to be: E-PRESCRIBED/FAXED TO PHARMACY WHEN WAS THE PATIENT'S LAST APPOINTMENT IN ADULT MEDICINE? 12/24/2018 WHEN WAS THE LAST TIME THE PATIENT SAW THEIR PCP? Same as above Does patient have an upcoming appointment? Yes 04/01/2019 (THE MEDICATION REQUESTED IS ON THE MED [...] N/A Patients current insurance carrier is: Payor: [facility] MCR / Plan: [employer] $0 [employer] [id number] / Product Type: HMO [id number] documented in this encounter Plan of Treatment Not on file documented as of this encounter Visit Diagnoses Not on filedocumented in this encounter Care Teams Liner Machine Operator Relationship Specialty Start Date End Date Brian Lewis MD PCP - General Internal Medicine 11/14/18 03/29/19 Nadeem Wilson MD PCP - General Internal Medicine 03/30/19 11/10/19 Marizol Esparza MD PCP - General Internal Medicine 11/11/19 Ish Anguiano NP Specialist Cardiology 11/23/20 Richard Weber MD Specialist Cardiology 11/23/20 05/30/21 Leonardo Xiong MD [address] [place] [address] [place] [address] Specialist Cardiology 05/31/21 documented as of this encounter
--- OUTSIDE RECORDS SUMMARY | 2025-05-06 11:59 | XMS_ITS | Encounter Summary ---
Author Organization [facility] Address [address] [place] [address] Care Team Providers Care Painter Foreman Name Role Phone Marizol Esparza MD Primary Care Provider Unavailabl e Ish Anguiano NP Unavailable [phone] Richard Weber MD Unavailable [phone] Leonardo Xiong MD Unavailable Reason for Visit * Reason Comments E-prescribe Rx Request Encounter Details Date Type Department Care Team Description 10/10/2020 Refill Internal Medicine - [place] [address] [facility], [address] [place] [address] Nadeem Wilson MD E-prescribe Rx Request Social [...] on filedocumented in this encounter Care Teams Painter Foreman Relationship Specialty Start Date End Date Marizol Esparza MD PCP - General Internal Medicine 11/11/19 Ish Anguiano NP Specialist Cardiology 11/23/20 Richard Weber MD Specialist Cardiology 11/23/20 05/30/21 Leonardo Xiong MD [address] [facility] [address] [place] [address] Specialist Cardiology 05/31/21 documented as of this encounter
--- OUTSIDE RECORDS SUMMARY | 2025-05-06 11:59 | XMS_ITS | Encounter Summary ---
Author Organization [facility] Address [address] [place] [address] Care Team Providers Care Farebox Repairer Name Role Phone Marizol Esparza MD Primary Care Provider Unavailabl e Ish Anguiano NP Unavailable [phone] Richard Weber MD Unavailable [phone] Leonardo Xiong MD Unavailable Encounter Details Date Type Department Care Team Description 05/29/2021 Process Improvement Specialist Report Medical Records [address] [place] [address] Marizol Esparza MD Social History Tobacco Use Types Packs/Day Years Used Date Smoking Tobacco: Former Smokeless Tobacco: Former Alcohol Use Standard Drinks/Week Comments Not Currently 0 (1 standard drink = 0.6 oz pur e alcohol) Sex Assigned at Date Recorded Not on file Job Start Date Occupation Industry Not on file Not on file Not on file documented as of this encounter Plan of Treatment Not on file documented as of this encounter Visit Diagnoses Not on filedocumented in this encounter Care Teams Farebox Repairer Relationship Specialty Start Date End Date Marizol Esparza MD PCP - General Internal Medicine 11/11/19 Ish Anguiano NP Specialist Cardiology 11/23/20 Richard Weber MD Specialist Cardiology 11/23/20 05/30/21 Leonardo Xiong MD [address] [facility] [address] [place] [address] Specialist Cardiology 05/31/21 documented as of this encounter
--- OUTSIDE RECORDS SUMMARY | 2025-05-06 11:59 | XMS_ITS | Encounter Summary ---
Author Organization [facility] Address [address] [place] [address] Care Team Providers Care Support Merchandiser Name Role Phone Yue Rice MD Primary Care Provider Brian De Jesus MD Primary Care Provider [phone] Nadeem Wilson MD Primary Care Provider UnavailMarizol Fernando MD Primary Care Provider UnavailIsh Prince NP Unavailable Richard Weber MD Unavailable [phone] Leonardo Xiong MD Unavailable Reason for Visit * Reason Onset Date Comments medication problems 06/15/2018 Encounter Details Date Type Department Care Team Description 06/15/2018 Telephone Internal Medicine - [address], [address] [place] [address] Yue Rice MD medication problems Social History Tobacco Use Types Packs/Day Years Used Date Smoking Tobacco: Former Smokeless Tobacco: Never Sex Assigned at Date Recorded Not on file Job Start Date Occupation Industry Not on file Not on file Not on file documented as of this encounter Miscellaneous Notes * Telephone Encounter - Yue Rice MD - 06/17/2018 9:11 AM EST I sent januvia as well as atorvastatin and tamsulosis, please call the patient and find out what meds does the patient needs, or this is all, thank you * Telephone Encounter - Radha Joseph - 06/17/2018 8:55 AM EST Rx was sent by Dr. Lewis 06/08/2018. By they have not received it. * Telephone Encounter - Radha Joseph - 06/17/2018 8:49 AM EST Called pharmacy and they are not open. Will try calling later. Julianna Anila Koffi # [phone] * Telephone Encounter - Katrina Kohli - 06/15/2018 12:28 PM EST What is the name of the medication patient is having a problem with?: tamsulosin hcl 0.4 mg & atorvastatin 80mg What is the problem?: medications not at the pharmacy ([facility]) Is the patient calling about the problem? YES If the patient is not the caller who is? Is this a NEW medication?: NO How long has the patient been taking this medication? Patient indicated many years Who prescribed this medication for the patient? Dr Rice Who is patients PCP?: Dr Rice Payor: [facility] MCR / Plan: O $0 [facility] [id number] / Product Type: HMO [id number] documented in this encounter Plan of Treatment Not on file documented as of this encounter Visit Diagnoses Not on filedocumented in this encounter Care Teams Support Merchandiser Relationship Specialty Start Date End Date Yue Rice MD PCP - General Internal Medicine 04/14/18 11/13/18 Brian Lewis MD PCP - General Internal Medicine 11/14/18 03/29/19 Nadeem Wilson MD PCP - General Internal Medicine 03/30/19 11/10/19 Marizol Esparza MD PCP - General Internal Medicine 11/11/19 Ish Anguiano NP Specialist Cardiology 11/23/20 Richard Weber MD Specialist Cardiology 11/23/20 05/30/21 Leonardo Xiong MD [address] [place] [address] Specialist Cardiology 05/31/21 documented as of this encounter
--- OUTSIDE RECORDS SUMMARY | 2025-05-06 11:59 | XMS_ITS | Encounter Summary ---
Author Organization [facility] Address [address] [place] [address] Care Team Providers Care Refinish Technician Name Role Phone Nadeem Wilson MD Primary Care Provider Marizol Pendleton MD Primary Care Provider UnavailIsh Prince NP Unavailable [phone] Richard Weber MD Unavailable [phone] Leonardo Xiong MD Unavailable Reason for Visit * Reason Comments E-prescribe Rx Request Encounter Details Date Type Department Care Team Description 04/29/2019 Refill Internal Medicine - [address], [address] [place] [address] Brian Lewis MD [address] [place] [address] E-prescribe Rx Request Social History Tobacco Use [...] Telephone Encounter - Ayse Roberto Carlos - 04/29/2019 11:39 AM EDT Patient would like script to be: E-PRESCRIBED/FAXED TO PHARMACY WHEN WAS THE PATIENT'S LAST APPOINTMENT IN ADULT MEDICINE? 04/01/2019 WHEN WAS THE LAST TIME THE PATIENT SAW THEIR PCP? Same as above Does patient have an upcoming appointment? Yes 08/03/2019 (THE MEDICATION REQUESTED IS ON THE MED [...] N/A Patients current insurance carrier is: Payor: [facility] MCR / Plan: [employer] $0 [employer] [id number] / Product Type: HMO [id number] documented in this encounter Plan of Treatment Not on file documented as of this encounter Visit Diagnoses Not on filedocumented in this encounter Care Teams Refinish Technician Relationship Specialty Start Date End Date Nadeem Wilson MD PCP - General Internal Medicine 03/30/19 11/10/19 Marizol Esparza MD PCP - General Internal Medicine 11/11/19 Ish Anguiano NP Specialist Cardiology 11/23/20 Richard Weber MD Specialist Cardiology 11/23/20 05/30/21 Leonardo Xiong MD [address] [place] [address] Specialist Cardiology 05/31/21 documented as of this encounter
--- OUTSIDE RECORDS SUMMARY | 2025-05-06 11:59 | XMS_ITS | Encounter Summary ---
Author Organization [facility] Address [address] [place] [address] Care Team Providers Care Natural Sciences Department Chair Name Role Phone Yue Rice MD Primary Care Provider Brian De Jesus MD Primary Care Provider [phone] Nadeem Wilson MD Primary Care Provider Unavaila Marizol Leon MD Primary Care Provider UnavailIsh Prince NP Unavailable [phone] Richard Weber MD Unavailable [phone] Leonardo Xiong MD Unavailable Reason for Visit * Reason Onset Date Comments refill request 08/14/2018 Encounter Details Date Type Department Care Team Description 08/14/2018 Refill Internal Medicine - [address], [address] [place] [address] Yue Rice MD refill request Social History Tobacco Use Types Packs/Day Years Used Date Smoking Tobacco: Former Smokeless Tobacco: Never Sex Assigned at Date Recorded Not on file Job Start Date Occupation Industry Not on file Not on file Not on file documented as of this encounter Miscellaneous Notes * Telephone Encounter - Ana Mejía M.A. - 08/14/2018 4:15 PM EST Last Appt 08/05/2018 Next appt 12/04/2018 documented in this encounter Plan of Treatment Not on file documented as of this encounter Visit Diagnoses Not on filedocumented in this encounter Care Teams Natural Sciences Department Chair Relationship Specialty Start Date End Date Yue Rice MD PCP - General Internal Medicine 04/14/18 11/13/18 Brian Lewis MD PCP - General Internal Medicine 11/14/18 03/29/19 Nadeem Wilson MD PCP - General Internal Medicine 03/30/19 11/10/19 Marizol Esparza MD PCP - General Internal Medicine 11/11/19 Ish Anguiano NP Specialist Cardiology 11/23/20 Richard Weber MD Specialist Cardiology 11/23/20 05/30/21 Leonardo Xiong MD [address] [place] [address] Specialist Cardiology 05/31/21 documented as of this encounter
--- OUTSIDE RECORDS SUMMARY | 2025-05-06 11:59 | XMS_ITS | Encounter Summary ---
Author Organization [facility] Address [address] [place] [address] Care Team Providers Care Python Java Developer Name Role Phone Yue Rice MD Primary Care Provider Unava Brian Wu MD Primary Care Provider [phone] Nadeem Wilson MD Primary Care Provider Unavaila Marizol Leon MD Primary Care Provider Unavailabl e Ish Anguiano NP Unavailable [phone] Richard Weber MD Unavailable [phone] Leonardo Xiong MD Unavailable Encounter Details Date Type Department Care Team Description 05/26/2018 Transfer Records Medical Records [address] [place] [address] Abstract, Provider Social History Tobacco Use Types [...] on filedocumented in this encounter Care Teams Python Java Developer Relationship Specialty Start Date End Date Yue Rice MD PCP - General Internal Medicine 04/14/18 11/13/18 Brian Lewis MD PCP - General Internal Medicine 11/14/18 03/29/19 Nadeem Wilson MD PCP - General Internal Medicine 03/30/19 11/10/19 Marizol Esparza MD PCP - General Internal Medicine 11/11/19 Ish Anguiano NP Specialist Cardiology 11/23/20 Richard Weber MD Specialist Cardiology 11/23/20 05/30/21 Leonardo Xiong MD [address] [place] [address] Specialist Cardiology 05/31/21 documented as of this encounter
--- OUTSIDE RECORDS SUMMARY | 2025-05-06 11:59 | XMS_ITS | Encounter Summary ---
Author Organization [facility] Address [address] [place] [address] Care Team Providers Care Telecasting Engineer Name Role Phone Yue Rice MD Primary Care Provider Brian De Jesus MD Primary Care Provider [phone] Nadeem Wilson MD Primary Care Provider UnavailMarizol Fernando MD Primary Care Provider UnavailIsh Prince NP Unavailable [phone] Richard Weber MD Unavailable [phone] Leonardo Xiong MD Unavailable Encounter Details Date Type Department Care Team Description 09/04/2018 Orders Only Internal Medicine - [address], [address] [place] [address] Yue Rice MD Neck pain Social History Tobacco Use Types Packs/Day Years Used Date Smoking Tobacco: Former Smokeless Tobacco: Never Sex Assigned at Date Recorded Not on file Job Start Date Occupation Industry Not on file Not on file Not on file documented as of this encounter Plan of Treatment Not on file documented as of this encounter Procedures Procedure Name Priority Date/Time Associated Diagnosis Comments CHG RADEX ELBOW 2 VIEWS Routine 08/05/2018 Neck pain CHG RADEX SPINE CERVICAL 4 O R 5 VIEWS Routine 08/05/2018 Neck pain documented in this encounter Results * X-RAY EXAM OF NECK SPINE, 4+ VIEWS (08/05/2018) Yue Rice MD RADIOLOGY * X-RAY EXAM OF ELBOW (08/05/2018) Yue Rice MD RADIOLOGY documented in this encounter Visit Diagnoses Diagnosis Neck pain Cervicalgia documented in this encounter Care Teams Telecasting Engineer Relationship Specialty Start Date End Date Yue Rice MD PCP - General Internal Medicine 04/14/18 11/13/18 Brian Lewis MD PCP - General Internal Medicine 11/14/18 03/29/19 Nadeem Wilson MD PCP - General Internal Medicine 03/30/19 11/10/19 Marizol Esparza MD PCP - General Internal Medicine 11/11/19 Ish Anguiano NP Specialist Cardiology 11/23/20 Richard Weber MD Specialist Cardiology 11/23/20 05/30/21 Leonardo Xiong MD [address] [place] [address] Specialist Cardiology 05/31/21 documented as of this encounter
--- OUTSIDE RECORDS SUMMARY | 2025-05-06 11:59 | XMS_ITS | Encounter Summary ---
Author Organization [facility] Address [address] [place] [address] Care Team Providers Care Orthopedics Teacher Name Role Phone Marizol Esparza MD Primary Care Provider UnavailIsh Prince NP Unavailable [phone] Richard Weber MD Unavailable [phone] Leonardo Xiong MD Unavailable Reason for Visit * Reason Comments E-prescribe Rx Request Encounter Details Date Type Department Care Team Description 06/02/2020 Refill Internal Medicine - [address], [address] [place] [address] Nadeem Wilson MD E-prescribe Rx Request Social [...] encounter Miscellaneous Notes * Telephone Encounter - Dona Goyal M.A. - 06/13/2020 10:20 AM EST Lab Results Component Value Date GLU 80 08/03/2019 GLU 76 08/05/2018 * Telephone Encounter - Katrina Lugo - 06/13/2020 10:17 AM EST Not our patient documented in this encounter Plan of Treatment Not on file documented as of this encounter Visit Diagnoses Not on filedocumented in this encounter Care Teams Orthopedics Teacher Relationship Specialty Start Date End Date Marizol Esparza MD PCP - General Internal Medicine 11/11/19 Ish Anguiano NP Specialist Cardiology 11/23/20 Richard Weber MD Specialist Cardiology 11/23/20 05/30/21 Leonardo Xiong MD [address] [place] [address] Specialist Cardiology 05/31/21 documented as of this encounter
--- OUTSIDE RECORDS SUMMARY | 2025-05-06 11:59 | XMS_ITS | Encounter Summary ---
Author Organization [facility] Address [address] [place] [address] Care Team Providers Care Supervisor Stave Cutting Name Role Phone Marizol Esparza MD Primary Care Provider Unavailabl e Ish Anguiano NP Unavailable [phone] Richard Weber MD Unavailable [phone] Leonardo Xiong MD Unavailable Reason for Visit * Reason Comments E-prescribe Rx Request Encounter Details Date Type Department Care Team Description 02/15/2020 Refill Internal Medicine - [place] [address] [facility], [address] [place] [address] Nadeem Wilson MD E-prescribe Rx Request Social [...] on filedocumented in this encounter Care Teams Supervisor Stave Cutting Relationship Specialty Start Date End Date Marizol Esparza MD PCP - General Internal Medicine 11/11/19 Ish Anguiano NP Specialist Cardiology 11/23/20 Richard Weber MD Specialist Cardiology 11/23/20 05/30/21 Leonardo Xiong MD [address] [facility] [address] [place] [address] Specialist Cardiology 05/31/21 documented as of this encounter
--- OUTSIDE RECORDS SUMMARY | 2025-05-06 11:59 | XMS_ITS | Encounter Summary ---
Author Organization [facility] Address [address] [place] [address] Care Team Providers Care Software Project Engineer Name Role Phone Brian Lewis MD Primary Care Provider [phone] Nadeem Wilson MD Primary Care Provider UnavailMarizol Fernando MD Primary Care Provider UnavailIsh Prince NP Unavailable [phone] Richard Weber MD Unavailable [phone] Leonardo Xiong MD Unavailable Reason for Visit * Reason Onset Date Comments medication problems 03/05/2019 Encounter Details Date Type Department Care Team Description 03/05/2019 Telephone Adult Med - [place] [address] [place], [place] [id number] Brian Lewis MD [address] [place], [place] [id number] medication problems Social History Tobacco Use Types Packs/Day Years Used Date Smoking Tobacco: Former Smokeless Tobacco: Never Sex Assigned at Date Recorded Not on file Job Start Date Occupation Industry Not on file Not on file Not on file documented as of this encounter Miscellaneous Notes * Telephone Encounter - Asha Bullock R.N. - 03/15/2019 2:24 PM EDT Updated SIG and forwarding to PCP * Telephone Encounter - Lakesha Russo - 03/09/2019 2:47 PM EDT Drea from the pharmacy f/u on this. * Telephone Encounter - Sheron Hadley - 03/05/2019 11:32 AM EDT What is the name of the medication patient is having a problem with?: Freestyle lancets What is the problem?: ordered as testing once daily, however patient tests three times daily pleaseclarify Is the patient calling about the problem? NO If the patient is not the caller who is? Ariadna Is this a NEW medication?: NO How long has the patient been taking this medication? Ongoing Who prescribed this medication for the patient? Dr. Lewis Who is patients PCP?: same Payor: [facility] MCR / Plan: Lightonus.comO $0 [place] [id number] / Product Type: HMO [id number] documented in this encounter Plan of Treatment Not on file documented as of this encounter Visit Diagnoses Not on filedocumented in this encounter Care Teams Software Project Engineer Relationship Specialty Start Date End Date Brian Lewis MD PCP - General Internal Medicine 11/14/18 03/29/19 Nadeem Wilson MD PCP - General Internal Medicine 03/30/19 11/10/19 Marizol Esparza MD PCP - General Internal Medicine 11/11/19 Ish Anguiano NP Specialist Cardiology 11/23/20 Richard Weber MD Specialist Cardiology 11/23/20 05/30/21 Leonardo Xiong MD [address] [place] [address] [address] [place] [address] Specialist Cardiology 05/31/21 documented as of this encounter
--- OUTSIDE RECORDS SUMMARY | 2025-05-06 11:59 | XMS_ITS | Encounter Summary ---
Author Organization [facility] Address [address] [place] [address] Care Team Providers Care Tip Cementer Name Role Phone Marizol Esparza MD Primary Care Provider Ish Salguero NP Unavailable [phone] Leonardo Xiong MD Unavailable Encounter Details Date Type Department Care Team Description 06/29/2021 Telephone Cardio PVCA Diag Testing [address] [facility] [address] [place] [address] Ish Anguiano NP [address] [place], [place] [id number] Social History Tobacco Use Types Packs/Day Years [...] AM EST documented as of this encounter Miscellaneous Notes * Telephone Encounter - Ish Anguiano NP - 06/29/2021 3:42 PM EST Called Mr. Cai and reviewed stress test - still with chest pain and now with abnormal Nuclear -will proceed with cardiac catheterization documented in this encounter Plan of Treatment Scheduled Orders Name Type Priority Associated Diagnoses Orde r Schedule CATH PLMT L HRT & ARTS W/NJX & ANGIO IMG S&I Cardiology Routine Chest pain, unspecified type Ordered: 06/29/2021 documented as of this encounter Visit Diagnoses Diagnosis Chest pain, unspecified type- Primary documented in this encounter Care Teams Tip Cementer Relationship Specialty Start Date End Date Marizol Esaprza MD PCP - General Internal Medicine 11/11/19 Ish Anguiano NP Specialist Cardiology 11/23/20 Leonardo Xiong MD [address] [place] [address] Specialist Cardiology 05/31/21 documented as of this encounter
--- OUTSIDE RECORDS SUMMARY | 2025-05-06 11:59 | XMS_ITS | Encounter Summary ---
Author Organization [facility] Address [address] [place] [address] Care Team Providers Care Acute Care Assistant Name Role Phone Marizol Esparza MD Primary Care Provider Unavailabl e Ish Anguiano NP Unavailable [phone] Richard Weber MD Unavailable [phone] Leonardo Xiong MD Unavailable Reason for Visit * Reason Comments E-prescribe Rx Request Encounter Details Date Type Department Care Team Description 05/15/2020 Refill Internal Medicine - [place] [address] [facility], [address] [place] [address] Nadeem Wilson MD E-prescribe Rx Request Social [...] on filedocumented in this encounter Care Teams Acute Care Assistant Relationship Specialty Start Date End Date Marizol Esparza MD PCP - General Internal Medicine 11/11/19 Ish Anguiano NP Specialist Cardiology 11/23/20 Richard Weber MD Specialist Cardiology 11/23/20 05/30/21 Leonardo Xiong MD [address] [facility] [address] [place] [address] Specialist Cardiology 05/31/21 documented as of this encounter
--- OUTSIDE RECORDS SUMMARY | 2025-05-06 11:59 | XMS_ITS | Encounter Summary ---
Author Organization [facility] Address [address] [place] [address] Care Team Providers Care Siding Mechanic Name Role Phone Nadeem Wilson MD Primary Care Provider Marizol Pendleton MD Primary Care Provider UnavailIsh Prince NP Unavailable Richard Weber MD Unavailable [phone] Leonardo Xiong MD Unavailable Reason for Visit * Reason Onset Date Comments refill request 06/07/2019 Encounter Details Date Type Department Care Team Description 06/07/2019 Refill Internal Medicine - [address], [address] [place] [address] Nadeem Wilson MD refill request Social History Tobacco Use [...] Telephone Encounter - Ana Mejía M.A. - 06/07/2019 3:12 PM EST Lab Results Component Value Date HGBA1C 6.3 04/01/2019 MALBUR 5.3 08/05/2018 MALBCR < 5.5 08/05/2018 CHOL 104 04/01/2019 LDL 40 04/01/2019 HDL 38 04/01/2019 TRIG 131 04/01/2019 GLU 76 08/05/2018 CREAT 1.14 08/05/2018 * Telephone Encounter - Indigo Shell - 06/07/2019 10:17 AM EST Patient would like script to be: E-PRESCRIBED/FAXED TO PHARMACY WHEN WAS THE PATIENT'S LAST APPOINTMENT IN ADULT MEDICINE? 04/01/19 WHEN WAS THE LAST TIME THE PATIENT SAW THEIR PCP? Same as above Does patient have an upcoming appointment? Yes 08/03/19 (THE MEDICATION REQUESTED IS ON THE MED LIST ABOVE) All of the medications requested were on the CURRENT MEDS list Did you check the Pharmacy information above?: YES Patient wants: 90 -day supply Is this a mail order prescription request ? NO If the refill is from a FAXED refill request what is the RX # listed on the fax? N/A Patients current insurance carrier is: Payor: [facility] MCR / Plan: MarketInvoiceO [facility]0 [facility] [id number] / Product Type: HMO [id number] documented in this encounter Plan of Treatment Not on file documented as of this encounter Visit Diagnoses Not on filedocumented in this encounter Care Teams Siding Mechanic Relationship Specialty Start Date End Date Nadeem Wilson MD PCP - General Internal Medicine 03/30/19 11/10/19 Marizol Esparza MD PCP - General Internal Medicine 11/11/19 Ish Anguiano NP Specialist Cardiology 11/23/20 Richard Weber MD Specialist Cardiology 11/23/20 05/30/21 Leonardo Xiong MD [address] [place] [address] Specialist Cardiology 05/31/21 documented as of this encounter
--- OUTSIDE RECORDS SUMMARY | 2025-05-06 11:59 | XMS_ITS | Encounter Summary ---
Author Organization [facility] Address [address] [place] [address] Care Team Providers Care Unix Developer Name Role Phone Yue Rice MD Primary Care Provider Brian De Jesus MD Primary Care Provider [phone] Nadeem Wilson MD Primary Care Provider UnavailMarizol Fernando MD Primary Care Provider UnavailIsh Prince NP Unavailable [phone] Richard Weber MD Unavailable [phone] Leonardo Xiong MD Unavailable Reason for Visit * Reason Onset Date Comments Provider Call Back 06/19/2018 Encounter Details Date Type Department Care Team Description 06/19/2018 [place] Internal Medicine - [address], [address] [place] [address] Yue Rice MD Provider Call Back Social History Tobacco Use Types Packs/Day Years Used Date Smoking Tobacco: Former Smokeless Tobacco: Never Sex Assigned at Date Recorded Not on file Job Start Date Occupation Industry Not on file Not on file Not on file documented as of this encounter Miscellaneous Notes * Telephone Encounter - Karen Louise M.A. - 06/19/2018 2:17 PM EST Aware. * Telephone Encounter - Yue Rice MD - 06/19/2018 12:40 PM EST Testing 3 times a day, refill 11 * Telephone Encounter - Juliet Arvizu M.A. - 06/19/2018 11:48 AM EST ..Please advise. * Telephone Encounter - Mariely Friedman - 06/19/2018 11:22 AM EST Caller requesting call back from provider: Is the caller the patient? NO If caller is not the patient, what is the callers name? Hugo Callers relationship to patient? [facility] If person calling is not the patient themselves, is there a verbal release in FYI or permanent comments for this person: NO Reason for call back: Pharmacy called to ask how many times the patient tests their blood, how manyrefills and if the supplies are ok. Caller offered to speak with the nurse for assistance: YES Response: Patient offered to speak with nurse for assistance and patient agreed. Message forwarded to nurse. documented in this encounter Plan of Treatment Not on file documented as of this encounter Visit Diagnoses Not on filedocumented in this encounter Care Teams Unix Developer Relationship Specialty Start Date End Date Yue Rice MD PCP - General Internal Medicine 04/14/18 11/13/18 Brian Lewis MD PCP - General Internal Medicine 11/14/18 03/29/19 Nadeem Wilson MD PCP - General Internal Medicine 03/30/19 11/10/19 Marizol Esparza MD PCP - General Internal Medicine 11/11/19 Ish Anguiano NP Specialist Cardiology 11/23/20 Richard Weber MD Specialist Cardiology 11/23/20 05/30/21 Leonardo Xiong MD [address] [place] [address] Specialist Cardiology 05/31/21 documented as of this encounter
--- OUTSIDE RECORDS SUMMARY | 2025-05-06 11:59 | XMS_ITS | Encounter Summary ---
Author Organization [facility] Address [address] [place] [address] Care Team Providers Care Store Host Name Role Phone Yue Rice MD Primary Care Provider Unava ilBrian Nolasco MD Primary Care Provider [phone] Nadeem Wilson MD Primary Care Provider Unavaila Marizol Leon MD Primary Care Provider UnavailIsh Prince NP Unavailable [phone] Rcihard Weber MD Unavailable [phone] Leonardo Xiong MD Unavailable Reason for Visit * Reason Onset Date Comments Error 08/18/2018 Encounter Details Date Type Department Care Team Description 08/18/2018 [place] Internal [facility] [address], [address] [place] [address] Yue Rice MD Error Social History Tobacco Use Types Packs/Day Years Used Date Smoking Tobacco: Former Smokeless Tobacco: Never Sex Assigned at Date Recorded Not on file Job Start Date Occupation Industry Not on file Not on file Not on file documented as of this encounter Plan of Treatment Not on file documented as of this encounter Visit Diagnoses Not on filedocumented in this encounter Care Teams Store Host Relationship Specialty Start Date End Date Yue Rice MD PCP - General Internal Medicine 04/14/18 11/13/18 Brian Lewis MD PCP - General Internal Medicine 11/14/18 03/29/19 Nadeem Wilson MD PCP - General Internal Medicine 03/30/19 11/10/19 Marizol Esparza MD PCP - General Internal Medicine 11/11/19 Ish Anguiano NP Specialist Cardiology 11/23/20 Richard Weber MD Specialist Cardiology 11/23/20 05/30/21 Leonardo Xiong MD [address] [place] [address] Specialist Cardiology 05/31/21 documented as of this encounter
--- OUTSIDE RECORDS SUMMARY | 2025-05-06 11:59 | XMS_ITS | Encounter Summary ---
Author Organization [facility] Address [address] [place] [address] Care Team Providers Care Replenishment Merchandising Associate Name Role Phone Yue Rice MD Primary Care Provider Brian De Jesus MD Primary Care Provider [phone] Nadeem Wilson MD Primary Care Provider Unavaila Marizol Leon MD Primary Care Provider UnavailIsh Prince NP Unavailable [phone] Richard Weber MD Unavailable [phone] Leonardo Xiong MD Unavailable Encounter Details Date Type Department Care Team Description 08/06/2018 Telephone Internal Medicine - [address], [address] [place] [address] Yue Rice MD Social History Tobacco Use Types Packs/Day Years Used Date Smoking Tobacco: Former Smokeless Tobacco: Never Sex Assigned at Date Recorded Not on file Job Start Date Occupation Industry Not on file Not on file Not on file documented as of this encounter Miscellaneous Notes * Telephone Encounter - Karen Louise M.A. - 08/07/2018 10:10 AM EST Pt aware * Telephone Encounter - Yue Rice MD - 08/06/2018 8:39 AM EST As expected documented in this encounter Plan of Treatment Not on file documented as of this encounter Visit Diagnoses Not on filedocumented in this encounter Care Teams Replenishment Merchandising Associate Relationship Specialty Start Date End Date Yue Rice MD PCP - General Internal Medicine 04/14/18 11/13/18 Brian Lewis MD PCP - General Internal Medicine 11/14/18 03/29/19 Nadeem Wilson MD PCP - General Internal Medicine 03/30/19 11/10/19 Marizol Esparza MD PCP - General Internal Medicine 11/11/19 Ish Anguiano NP Specialist Cardiology 11/23/20 Richard Weber MD Specialist Cardiology 11/23/20 05/30/21 Leonardo Xiong MD [address] [place] [address] Specialist Cardiology 05/31/21 documented as of this encounter
--- OUTSIDE RECORDS SUMMARY | 2025-05-06 11:59 | XMS_ITS | Encounter Summary ---
Author Organization [facility] Address [address] [place] [address] Care Team Providers Care Gravel Screener Name Role Phone Yue Rice MD Primary Care Provider UnaBrian Guevara MD Primary Care Provider [phone] Nadeem Wilson MD Primary Care Provider Unavaila Marizol Leon MD Primary Care Provider UnavailIsh Prince NP Unavailable [phone] Richard Weber MD Unavailable [phone] Leonardo Xiong MD Unavailable Reason for Visit * Reason Onset Date Comments Prior Authorization 11/03/2018 Encounter Details Date Type Department Care Team Description 11/03/2018 Telephone Gastroenterology - [address] [place] [id number] Nicki Bowman MD [address] [place] [id number] Prior Authorization Social History Tobacco Use Types Packs/Day Years Used Date Smoking Tobacco: Former Smokeless Tobacco: Never Sex Assigned at Date Recorded Not on file Job Start Date Occupation Industry Not on file Not on file Not on file documented as of this encounter Miscellaneous Notes * Telephone Encounter - Nkechi Armenta - 11/03/2018 3:07 PM EDT [facility]- no auth required * Telephone Encounter - Mercedes Pulido - 11/03/2018 2:07 PM EDT Pre-auth needed [place] [address] Patients insurance: [facility] Appointment is with Heena Bowman MD Code to process pre-auth for: [id number] Location of procedure: [facility] documented in this encounter Plan of Treatment Not on file documented as of this encounter Visit Diagnoses Not on filedocumented in this encounter Care Teams Gravel Screener Relationship Specialty Start Date End Date Yue Rice MD PCP - General Internal Medicine 04/14/18 11/13/18 Brian Lewis MD PCP - General Internal Medicine 11/14/18 03/29/19 Nadeem Wilson MD PCP - General Internal Medicine 03/30/19 11/10/19 Marizol Esparza MD PCP - General Internal Medicine 11/11/19 Ish Anguiano NP Specialist Cardiology 11/23/20 Richard Weber MD Specialist Cardiology 11/23/20 05/30/21 Leonardo Xiong MD [address] [place] [address] [place] [address] Specialist Cardiology 05/31/21 documented as of this encounter
--- OUTSIDE RECORDS SUMMARY | 2025-05-06 11:59 | XMS_ITS | Encounter Summary ---
Author Organization [facility] Address [address] [place] [address] Care Team Providers Care Law Librarian Name Role Phone Yue Rice MD Primary Care Provider Brian De Jesus MD Primary Care Provider [phone] Nadeem Wilson MD Primary Care Provider Unavaila Marizol Leon MD Primary Care Provider Unavailabl Ish Blanchard NP Unavailable [phone] Richard Weber MD Unavailable [phone] Leonardo Xiong MD Unavailable Reason for Visit * Reason Onset Date Comments refill request 06/08/2018 Encounter Details Date Type Department Care Team Description 06/08/2018 Refill Internal Medicine - [address], [address] [address] Yue Rice MD refill request Social History Tobacco Use Types Packs/Day Years Used Date Smoking Tobacco: Former Smokeless Tobacco: Never Sex Assigned at Date Recorded Not on file Job Start Date Occupation Industry Not on file Not on file Not on file documented as of this encounter Miscellaneous Notes * Telephone Encounter - Juliet Arvizu M.A. - 06/08/2018 10:22 AM EST Lv 04/13/18 Nv 08/05/18 .....Qued for printing. * Telephone Encounter - Tabatha Britt - 06/08/2018 10:06 AM EST Patient would like script to be: E-PRESCRIBED/FAXED TO PHARMACY WHEN WAS THE PATIENT'S LAST APPOINTMENT IN ADULT MEDICINE? 04/13/2018 WHEN WAS THE LAST TIME THE PATIENT SAW THEIR PCP? Same as above Does patient have an upcoming appointment? Yes 06/29/2018 (THE MEDICATION REQUESTED IS ON THE MED [...] N/A Patients current insurance carrier is: Payor: [facility] MCR / Plan: Jpwholesale $0 [facility] [id number] / Product Type: HMO [id number] documented in this encounter Plan of Treatment Not on file documented as of this encounter Visit Diagnoses Not on filedocumented in this encounter Care Teams Law Librarian Relationship Specialty Start Date End Date Yue Rice MD PCP - General Internal Medicine 04/14/18 11/13/18 Brian Lewis MD PCP - General Internal Medicine 11/14/18 03/29/19 Nadeem Wilson MD PCP - General Internal Medicine 03/30/19 11/10/19 Marizol Esparza MD PCP - General Internal Medicine 11/11/19 Ish Anguiano NP Specialist Cardiology 11/23/20 Richard Weber MD Specialist Cardiology 11/23/20 05/30/21 Leonardo Xiong MD [address] [place] [address] Specialist Cardiology 05/31/21 documented as of this encounter
--- OUTSIDE RECORDS SUMMARY | 2025-05-06 11:59 | XMS_ITS | Encounter Summary ---
Author Organization [facility] Address [address] [place] [address] Care Team Providers Care Fiber Optic Central Office Installer Name Role Phone Brian Lewis MD Primary Care Provider [phone] Nadeem Wilson MD Primary Care Provider Unavaila Marizol Leon MD Primary Care Provider UnavailIsh Prince NP Unavailable [phone] Richard Weber MD Unavailable [phone] Leonardo Xiong MD Unavailable Reason for Visit * Reason Onset Date Comments Faxed Refill 12/10/2018 Encounter Details Date Type Department Care Team Description 12/10/2018 Refill Internal Medicine - [address], [address] [place] [address] Brian Lewis MD [address] [place] [address] Faxed Refill Social History Tobacco Use Types Packs/Day Years Used Date Smoking Tobacco: Former Smokeless Tobacco: Never Sex Assigned at Date Recorded Not on file Job Start Date Occupation Industry Not on file Not on file Not on file documented as of this encounter Miscellaneous Notes * Telephone Encounter - Jazmin Huitron - 12/10/2018 11:33 AM EDT Patient would like script to be: E-PRESCRIBED/FAXED TO PHARMACY WHEN WAS THE PATIENT'S LAST APPOINTMENT IN ADULT MEDICINE? 12/04/2018 WHEN WAS THE LAST TIME THE PATIENT SAW THEIR PCP? Same as above Does patient have an upcoming appointment? Yes 12/24/2018 (THE MEDICATION REQUESTED IS ON THE MED LIST ABOVE) All of the medications requested were on the CURRENT MEDS list Did you check the Pharmacy information above?: YES Patient wants: 30 -day supply Is this a mail order prescription request ? YES If the refill is from a FAXED refill request what is the RX # listed on the fax? [id number] . [id number] . [id number] Patients current insurance carrier is: Payor: [facility] MCR / Plan: Playtika $0 Picwing [id number] / Product Type: PayDragonO [id number] documented in this encounter Plan of Treatment Not on file documented as of this encounter Visit Diagnoses Not on filedocumented in this encounter Care Teams Fiber Optic Central Office Installer Relationship Specialty Start Date End Date Brian Lewis MD PCP - General Internal Medicine 11/14/18 03/29/19 Nadeem Wilson MD PCP - General Internal Medicine 03/30/19 11/10/19 Marizol Esparza MD PCP - General Internal Medicine 11/11/19 Ish Anguiano NP Specialist Cardiology 11/23/20 Richard Weber MD Specialist Cardiology 11/23/20 05/30/21 Leonardo Xiong MD [address] [place] [address] [place] [address] Specialist Cardiology 05/31/21 documented as of this encounter
--- OUTSIDE RECORDS SUMMARY | 2025-05-06 11:59 | XMS_ITS | Encounter Summary ---
Author Organization [facility] Address [address] [place] [address] Care Team Providers Care Automatic Dry Starch Operator Name Role Phone Marizol Esparza MD Primary Care Provider Unavailabl e Ish Anguiano NP Unavailable [phone] Richard Weber MD Unavailable [phone] Leonardo Xiong MD Unavailable Reason for Visit * Reason Comments E-prescribe Rx Request Encounter Details Date Type Department Care Team Description 03/09/2020 Refill Internal Medicine - [place] [address] [facility], [address] [place] [address] Nadeem Wilson MD E-prescribe Rx Request Social [...] on filedocumented in this encounter Care Teams Automatic Dry Starch Operator Relationship Specialty Start Date End Date Marizol Esparza MD PCP - General Internal Medicine 11/11/19 Ish Anguiano NP Specialist Cardiology 11/23/20 Richard Weber MD Specialist Cardiology 11/23/20 05/30/21 Leonardo Xiong MD [address] [facility] [address] [place] [address] Specialist Cardiology 05/31/21 documented as of this encounter
--- OUTSIDE RECORDS SUMMARY | 2025-05-06 11:59 | XMS_ITS | Encounter Summary ---
Author Organization [facility] Address [address] [place] [address] Care Team Providers Care Etiquette Teacher Name Role Phone Yue Rice MD Primary Care Provider UnaBrian Guevara MD Primary Care Provider [phone] Nadeem Wilson MD Primary Care Provider Unavaila Marizol Leon MD Primary Care Provider UnavailIsh Prince NP Unavailable [phone] Richard Weber MD Unavailable [phone] Leonardo Xiong MD Unavailable Encounter Details Date Type Department Care Team Description 07/30/2018 Refill Internal Medicine - [address], [address] [place] [address] Yue Rice MD Social History Tobacco Use Types Packs/Day Years Used Date Smoking Tobacco: Former Smokeless Tobacco: Never Sex Assigned at Date Recorded Not on file Job Start Date Occupation Industry Not on file Not on file Not on file documented as of this encounter Miscellaneous Notes * Telephone Encounter - Alena Mejía M.A. - 07/30/2018 2:16 PM EST L/S 07/02/18 documented in this encounter Plan of Treatment Not on file documented as of this encounter Visit Diagnoses Not on filedocumented in this encounter Care Teams Etiquette Teacher Relationship Specialty Start Date End Date Yue Rice MD PCP - General Internal Medicine 04/14/18 11/13/18 Brian Lewis MD PCP - General Internal Medicine 11/14/18 03/29/19 Nadeem Wilson MD PCP - General Internal Medicine 03/30/19 11/10/19 Marizol Esparza MD PCP - General Internal Medicine 11/11/19 Ish Anguiano NP Specialist Cardiology 11/23/20 Richard Weber MD Specialist Cardiology 11/23/20 05/30/21 Leonardo Xiong MD [address] [place] [address] Specialist Cardiology 05/31/21 documented as of this encounter
--- OUTSIDE RECORDS SUMMARY | 2025-05-06 11:59 | XMS_ITS | Data Portability ---
Author Organization [employer], [facility] Address [address] [place] [address] Care Team Providers Care Mask Inspector Name Role Phone HIM CCA OTHER DANNYBRIAN Primary Care Provider [phone] Assessment Encounter Date Assessment Date Assessment LastModified by Organization Details LastModified Time 03/13/2025 03/13/2025 I provided real -time medical direction via phone for this encounter, and was available for additional phone based assistance as needed. I have reviewed and agree with the Assessment and Plan as documented by the Pizza Baker. We discussed the diagnostic uncertainty of home visits and the risk associated with this. In this case the patient and I felt this to be an acceptable and reasonable amount of risk given the benefit of avoiding an ED visit. The patient given the opportunity to ask questions. 75yo male with a PMHX including but not limited to Diabetes Mellitus Type 2, Myocardial Infarction, Stroke, and BPH presents with burning upon urination and sense of retention. Denies CVA tenderness or fevers. UA (-) for nitrates but now showing leuks. Culture from 03/10/25 did grow sm amts of Escherichia coli- given worsening symptoms will send for reculture and start on Cefpodoxime 100mg BID x 5 days. Advised to take with food and complete course unless we call and tell him to discontinue. Fluids and yogurt with probiotics encouraged. Patient reports he will schedule f/u with PCP and request Urologist as he has hx of BPH and takes Tamsulosin but has not had eval for retention. Reviewed sitting to urinate, running water, leaning forward and other techniques to fully attempt to empty bladder. Advised if develops blood in urine, severe back pain, uncontrolled n/v/d AMS/ syncope/ hi fever unresponsive to APAP to be seen in ED- verbalized understanding of instruction Not available 03/13/2025 13:43:34 04/01/2025 04/01/2025 I provided real -time medical direction via phone for this encounter, and was available for additional phone based assistance as needed. I have reviewed and agree with the Assessment and Plan as documented by the Pizza Baker. We discussed the diagnostic uncertainty of home visits and the risk associated with this. In this case the patient and I felt this to be an acceptable and reasonable amount of risk given the benefit of avoiding an ED visit. The patient given the opportunity to ask questions. Advised if develops CP/severe SOB/turning blue/any focal neuro s/s/ syncope/ hi fever to call 911- verbalized understanding of instruction [email or web address] Not available 04/01/2025 11:09:32 Plan of Treatment Reminders Order Date Submit Date Provider Last Modified By Organization Details Last Modified Time Details Appointments None recorded. Lab urinalysis, dipstick 2024 025 [facility], [address] [place] [address], [id number] 16:30:14 culture, urine 2024 025 [place] [facility] (Centralized Electronic Ordering - All Locations), Patient Can Go To The Location Of Their Choice, [id number] 5 06:07:07 culture, urine 2024 025 [place] [facility] (Centralized Electronic Ordering - All Locations), Patient Can Go To The Location Of Their Choice, [id number] 5 20:05:59 urinalysis, dipstick 2024 025 [facility], [address] [place] [address], [id number] 10:50:45 Referral None recorded. Procedures None recorded. Surgeries None recorded. Imaging None recorded. Medication Orders cefpodoxime 200 mg tablet 2024 025 [facility], [address] [facility], [place], [address], 05:02:10 Patient TargetsNo targets recorded. Patient InstructionsNo instructions recorded. Reason for Referral None Reported. Results Created Date Observation Date Name Description Value Unit Range Abnormal Flag Note LastModifiedBy Organization Detail LastModifiedTime 03/10/2003/12/2025 URINE CULTU RE, UROLO GY ROMA P urine culture, urology workup Final report abnormal Not Available [facility] ([facility]) [address] [facility], [place], [address], 03/12/2025 12:05:47 03/10/20 25 03/12/2025 URINE CULTU RE, UROLO GY ROMA P result 1 Escher ichia coli abnormal 10,00 0-25, 000 colon y formi ng units per mL Cefaz héctor with an STONE <=16 predi cts susce ptibi lity to the oral agent s cefac viky, cefdi monica, cefpo doxim e, cefpr ozil, cefur oxime , cepha lexin , and lorac arbef when used for thera py of uncom plica katlyn urina ry tract infec tions due to E. coli, Klebs iella pneum oniae , and Prote us mirab ilis. Not Available [facility] ([facility]) [address] [facility], [place], [address], 03/12/2025 12:05:47 03/10/20 25 03/12/2025 URINE CULTU RE, UROLO GY ROMA P result 2 Not applic able Not Available [facility] ([facility]) [address] [place], [address], 03/12/2025 12:05:47 03/10/20 25 03/12/2025 URINE CULTU RE, UROLO GY ROMA P antimicrobia l susceptibili ty Commen t S = Susce ptibl e; I = Inter media te; R = Resis tant P = Posit phani; N = Negat phani MICS are expre ssed in micro grams per mL Antib iotic RSLT# 1 RSLT# 2 RSLT# 3 RSLT# 4 Amoxi cilli n/Cla vulan ic Acid S Ampic illin S Cefaz héctor S Cefep svetlana S Cefox itin S Cefpo doxim e S Ceftr iaxon e S Cipro floxa federica S Ertap enem S Genta micin S Levof loxac in S Merop enem S Nitro furan toin S Piper acill in/Ta zobac chang S Tetra cycli ne S Tobra mycin S Trime thopr im/Carvajal lfa S Not Available [facility] ([facility]) [address] [place], [address], 03/12/2025 12:05:47 03/13/2003/15/2025 URINE CULTU RE, ROUTI NE urine culture, routine Final report abnormal Not Available [facility] ([facility]) [address] [place], [address], 03/15/2025 18:05:44 03/13/2003/15/2025 URINE CULTU RE, ROUTI NE result 1 Escher ichia coli abnormal Cefaz héctor with an STONE <=16 predi cts susce ptibi lity to the oral agent s cefac viky, cefdi monica, cefpo doxim e, cefpr ozil, cefur oxime , cepha lexin , and lorac arbef when used for thera py of uncom plica katlyn urina ry tract infec tions due to E. coli, Klebs iella pneum oniae , and Prote us mirab ilis. 10,00 0-25, 000 colon y formi ng units per mL Not Available [facility] ([facility]) [address] [facility], [place], [address], 03/15/2025 18:05:44 03/13/2003/15/2025 URINE CULTU RE, ROUTI NE antimicrobia l susceptibili ty Commen t S = Susce ptibl e; I = Inter media te; R = Resis tant P = Posit phani; N = Negat phani MICS are expre ssed in micro grams per mL Antib iotic RSLT# 1 RSLT# 2 RSLT# 3 RSLT# 4 Amoxi cilli n/Cla vulan ic Acid S Ampic illin S Cefaz héctor S Cefep svetlana S Cefox itin S Cefpo doxim e S Ceftr iaxon e S Cipro floxa federica S Ertap enem S Genta micin S Levof loxac in S Merop enem S Nitro furan toin S Piper acill in/Ta zobac chagn S Tetra cycli ne S Tobra mycin S Trime thopr im/Carvajal lfa S Not Available [facility] ([facility]) [address] [facility], [place], [address], 03/15/2025 18:05:44 Result Notes None recorded. Medical Equipment None Reported. Allergies No known drug allergies Medications Name Sig Start Date Stop Date Status Note LastModified by Organization Details LastModified Time cefpodoxime 200 mg tablet Take 1 tablet twice a day by oral route for 5 days. 03/25 completed Not Available Not Available Not Available Vitals Date Recorded Heart rate Body weight Body temperature Respiratory rate Oxygen saturation Oxygen saturation in Arterial blood by Pulse oximetry Body height Systolic And Diastolic Provider Name and Address Organization Details Last Updated DateTime 5 70 /min 27414.6 g 98 [degF] 14 /min 98 % 98 % 157.48 cm 123/76 mm[Hg] Not Available [facility] 09:33:02 Date Recorded Body weight Heart rate Body temperature Respiratory rate Body height Oxygen saturation Oxygen saturation in Arterial blood by Pulse oximetry Systolic And Diastolic Provider Name and Address Organization Details Last Updated DateTime 5 92446.1 04 g 72 /min 97.4 [degF] 16 /min 162.56 cm 97 % 97 % 128/68 mm[Hg] Not Available [facility] 13:17:41 Date Recorded Body temperature Body weight Respiratory rate Oxygen saturation Oxygen saturation in Arterial blood by Pulse oximetry Body height Heart rate Systolic And Diastolic Provider Name and Address Organization Details Last Updated DateTime 5 97.2 [degF] 61394.7 44 g 16 /min 97 % 97 % 162.56 cm 69 /min 129/75 mm[Hg] Not Available [facility] 5 11:05:20 Social History None recorded. Functional Status None recorded. Mental Status None recorded. Family History Nothing Reported. Medical History No medical history recorded. Past Encounters Encounter ID Performer Location Encounter Start Date Encounter Closed Date Diagnosis/Indication Diagnosis SNOMED-CT Code Diagnosis ICD10 Code Diagnosis IMO Codes Diagnosis Note [id number] CONG BROOKS MD [facility] ED Medical [facility] [address] [place] [address] 03/10/2025 09:26:05 03/10/2025 11:16:47 Urinary symptoms 987887693 R39.9 60102 Evaluation in the field was performed by my copy director colleague, as noted above, I provided real-time direction and supervisio n for this visit. The patient is a 75-year-ol d male with a past medical history of type 2 diabetes mellitus, myocardial infarction , and stroke who presented with fever, headache, extremity pain, and urinary symptoms.H e reported subjective fevers with associated chills, headache, and bilateral lower extremity pain. He denied redness, warmth, or swelling of the legs and had not taken any over-the-c ounter medication s for pain relief.He also endorsed a 3-day history of urinary frequency, urgency, and dysuria. He was unsure of urine color but denied hematuria, malodor, flank pain, abdominal pain, nausea, or vomiting.T cisco pt reports that his symptoms have resolved , he has been voiding freely with no dysuria, hesitance . Had urinated just before the visitsHe reported elevated blood glucose readings, with a fasting value of 145 this morning. VS: 123/ 76, HR 70, RR 14, SpO2 98%, Room Air at RestTemp 98.0 FExam : AAO, NAD, speaking in full sentences, no abdominal tenderness , no CVA tenderness . No extremity swelling, erythema.B MP : Unable to obtainUA: Negative leucocytes , ketone, blood or nitrateAll ergies reviewed Impression :No evidence of ongoing urinary tract infection, systemic infection, or acute abdominal pathology. Plan:No antibiotic s indicated at this time given resolution of urinary symptoms and negative urinalysis .Encourage increased oral hydration. Will send urine culture and monitor resultsRei nforce routine blood glucose monitoring ; follow-up with PCP for diabetes management .Red flags reviewed including : fevers, chills, dysuria, hematuria, flank pain, or recurrent urinary symptoms develop. Primary care, consider__ _ Dispositio n: We discussed the diagnostic uncertaint y of home visits and the risk associated with this. In this case, the patient and I felt this to be an acceptable and reasonable amount of risk given the benefit of avoiding an ED visit. We discussed the need to seek care urgently/e mergently in the setting of any new or worsening serious symptoms, particular ly fevers, chills, dysuria, hematuria, flank pain, or recurrent urinary symptoms develop. [id number] KAILASH RAPP NP, [facility] [address] [address] 03/13/2025 13:17:38 03/13/2025 19:45:10 Dysuria [id number] R30.0 [id number] Sarah Greene MD [address] [address] 04/01/2025 11:05:17 04/02/2025 00:14:23 Physical examination [id number] Z00.00 [id number] Patient is currently denying any complaints he feels he has healed from the injury. Advised he can call us if he develops any new symptoms and we reviewed red flags. Pain of ri ght shoulder region [id number] M25.511 [id number] now resolved Health Concerns Section Related Observation LastModified by Organization Detai ls LastModified Time None Recorded Concern Status LastModified by Organization Details LastModified Time None Recorded Advance Directives Directive None Recorded Payers Insurance Date Sequence Insurance Name Policy Number Policy Rojas Covered Member ID Rojas Member ID Guarantor Name 04/01/2025 1 [facility] - DOS ON OR AFTER 2022 - DUAL ELIGIBLE - INTERMEDIATE OPTIONS AND ONE CARE (MEDICARE REPLACEMENT/ADV ANTAGE - HMO) Walter Cai [id number] Walter Cai Notes Date Note Type Note Provider Name and Address Organization Details Recorded Time 03/10/2025 text/html ROS as noted in the HPI HPI: Fever, chills, headache, pain in the leg and frequent urination started Friday03/06/25 .................... .................... .................... .................... .................... .................... .................... . [facility] Nurse Triage Notes (Bianca Steen): Denies: Unable to void greater than 5 hours Erection that will not go away after 2 hours Fall or trauma that results in urinary incontinence in the setting of pain Fall or injury that results in incontinence in the absence of pain Lower back pain either unilateral or bilateral, unable to void, painful urination -hematuria Chief Complaints: Fever, Headache, Extremity Pain, Urinary SymptomsPMH: Diabetes Mellitus Type 2, Myocardial Infarction, StrokePMH Reviewed at 03/10/2025 - :21Allergies Reviewed at 03/10/2025 - Comments: 75 y.o male complains of Fever, Headache, Extremity Pain, Urinary Symptoms Referral placed overnight by patients daughter, patient called this morning bu [facility] and triaged by this nurse.Patient reports subjective fevers, +chills, headache and bilateral lower extremity pain.Patient denies any redness, warmth or swelling to his legs.He has not taken any OTC medications for the pain.He also reports 4 days of frequency urination, urgency and pain. He is unsure about color but denies hematuria, denies malodor, no back or abdominal pain, no nausea or vomiting.Reports blood sugars have been high for him, 145 this morning.Denies being on blood thinners. No history of kideny disease.He would like to be evaluated. I provided information on the mobile health provider response time and advised the patient and/or caregiver to monitor reported signs and symptoms. I discussed the warning signs of when to seek emergency care. Pizza Baker Organization Information for Richard Ahuja Legal Name: [facility] Transportation Address: [address] [place] [address], APURVA Menendez [address], Delivery Technician: Emiliano Erwin MD CLIA No.: [id number] Pizza [facility] POC Test Results from Richard Ahuja Urine Dipstick (09:57:41) Urine leukocytes: -LEUUrine nitrites: -NITUrine urobilinogen: 0.2UROUrine protein: -PROUrine pH: 5.0pHUrine blood: -BLOUrine specific gravity: 0.005SGUrine ketones: -KETUrine bilirubin: -BILUrine glucose: -GLU .................... .................... .................... .................... .................... .................... .................... . Pizza Baker Note From Richard Ahuja: Patient alert and oriented seated in chair. Patient complains of dysuria that started three days ago, subsided yesterday. Patient reports chief complaint is chronic arthritis pain in knees. Patient denies fever chills, nausea, vomiting, or any other. Patient states he ate a full meal and found his symptoms had dissipated completely last night. Patient reports for 48 hours he had difficult painful urination with inability to empty his bladder and [...] Patient demonstrates understanding of care and plan. [facility] Orders: culture, urine: Performed urinalysis, dipstick: Performed .................... .................... .................... .................... .................... .................... .................... . [facility] Consulted: Cong Brooks .................... .................... .................... .................... .................... .................... .................... . Disposition: Cooper BROOKS MD [address] [place] [address],[address], [place], [phone] 03/10/2025 10:30:13 03/13/2025 text/html ROS as noted [facility] the [facility] Nurse Triage Notes (Ghassan Gonsalves): Reason For Request: Urinary Symptoms Denies: Unable to void greater than 5 hours Erection that will not go away after 2 hours Fall or trauma that results in urinary incontinence in the setting of pain Fall or injury that results in incontinence in the absence of pain Lower back pain either unilateral or bilateral, unable to void, painful urination -hematuria Chief Complaints: Urinary Symptoms PMH: Diabetes Mellitus Type 2, Myocardial Infarction, Stroke PMH Reviewed at 03/12/2025 14:52 Allergies Reviewed at 03/12/2025 - 14:52 Comments: 75 y.o male complains of Urinary Symptoms Patient is Stateless speaking primarily, Drilling [employer] Professional# [id number], used for triage assessment. Patient seen on 03/10 for Urinary Symptoms, Fever, Headache, and Extremity Pain. I spoke to the patient today, 03/12, and they are experiencing he is having difficulty urinating, stating when he urinates, only a small amount of urine passes at a time and feels kalpana . Patient reports significant pain with urination. Patient denies blood in urine, does endorse mid lower back pain. Patient denies fevers, but does endorse chills. [facility] provider requesting re visit for patient to assess for pyelonephritis and to obtain new urine culture. Patient agreeable to new visit, but would like it for tomorrow, 03/13, around 1100. I provided information on the mobile health provider response time and advised the patient and/or caregiver to monitor reported signs and symptoms. I discussed the warning signs of when to seek emergency care -Heena Gonsalves RN [employer] Organization Information for Grey Borrego Business Legal Name: [employer] Address: [address] [place] [address], Delivery Technician: Nolberto Carney MD [facility] No.: [id number] Pizza [facility] POC Test Results from Grey Borrego Urine Dipstick (13:19:57) Urine leukocytes: 70LEU Urine nitrites: -NIT Urine urobilinogen: 0.2URO Urine protein: 15PRO Urine pH: 5.0pH Urine blood: -BLO Urine specific gravity: 1.020SG Urine ketones: 15KET Urine bilirubin: -MARY Urine glucose: -GLU .................... .................... .................... .................... .................... .................... .................... . Pizza Baker Note From Grey Borrego: SC6 responds to the listed address for a 75 yom w/ a c/c of urinary symptoms. Upon arrival, pt is sitting in his recliner awaiting [facility] arrival. His head is turned towards the door and he smiles, greets, and laughs upon [facility] entry. He is generally well-appearing, speaking loudly, congenially, and in an appropriate manner. He is animated and happy to see [facility]. Pt is not in any distress. He tells [facility] he was seen a few days ago for urinary symptoms, which he describes as burning and painful urination and the inability to fully void his bladder. He continues to have these sensations today. He denies any hematuria, but describes the burning pain he feels as like sand paper! He also denies dark color, cloudiness, or malodor. He was told the recheck was for another culture of his urine. Pt is also denying cp, sob, n/v/d, gonzalez, ams, and fever/chills. He no longer sees a urologist since moving from [place], but he does have an appt w/ his PCP pretty soon . Ddx: Pyelonephritis, prostatitis, kidney stone. [facility] obtains vital signs and pt is assessed. [...] consistent w/ UTI, but culture is obtained. [facility] contacts [facility] and discusses the above. [facility] orders a urine culture and places pt on abx w/ instructions to continue w/ the abx until he hears about the culture results. [facility] informs pt of the warning signs of when to seek emergency care and he gives his verbal understanding. He thanks [facility] for coming back out to see him. [facility] is clear. Report completed by EVAN Borrego. [facility] Orders: urinalysis, dipstick: Performed culture, urine: Performed .................... .................... .................... .................... .................... .................... .................... . [facility] Consulted: Kailash Rapp .................... .................... .................... .................... .................... .................... .................... . Disposition: Cooper KAILASH RAPP NP, [address] [place] [address],[address], [place], [address], [employer] 03/13/2025 14:32:10 04/01/2025 text/html ROS as noted in the HPI HPI: RN calling for right side and back [...] HE is not on blood thinners. Vitals 98.44114% 118/60 .................... .................... .................... .................... .................... .................... .................... . [facility] Nurse Triage Notes (Ally Mcallister): Reason For Request: side and back pain Chief Complaints: Back Pain PMH: Diabetes Mellitus Type 2, Myocardial Infarction, Stroke PMH Reviewed at 03/31/2025:43 Allergies Reviewed at 03/31/2025 - 10:43 Comments: [facility] 1330 pt is not home and wants her visit on 04/01 .................... .................... .................... .................... .................... .................... .................... . Pizza Baker Note From Filipe Betancourt[facility] requested evaluation of possible right shoulder injury. Patient reports that about three or four weeks ago he was working on a water heater and received a small electric shock, causing him to fall off a approximately 1 foot step ladder landing on his buttocks. Patient reports that after this incident, he experienced some pain in his right shoulder, making it difficult to raise his arm straight up. Patient was not evaluated for this injury and did not take any [id number] medication s to treat the pain. Pt mentioned what happened to his visiting nurse yesterday who requested the insted visit. Pt presents appearing well with no complaints. V/S taken as listed. Pt afebrile. No pain or tenderness on palpation. Pt is now able to raise his arm without pain. Consulted with [facility]. Greene with no further treatments or evaluation indicated. Reviewed red flags for ED with pt. Informed him that he may call back for reevaluation if pain returns. Pt education provided. .................... .................... .................... .................... .................... .................... .................... . [facility] Consulted: Sarah Greene .................... .................... .................... .................... .................... .................... .................... . Disposition: Fulfilled Sarah Greene MD [address] [facility],[address], [place], [address], DANIEL MAN 04/01/2025 19:56:32
--- OUTSIDE RECORDS SUMMARY | 2025-05-06 11:59 | XMS_ITS | Encounter Summary ---
Author Organization [facility] Address [address] [place] [address] Care Team Providers Care Art Consultant Name Role Phone Marizol Esparza MD Primary Care Provider Unavailabl e Ish Anguiano NP Unavailable [phone] Richard Weber MD Unavailable [phone] Leonardo Xiong MD Unavailable Reason for Visit * Reason Comments E-prescribe Rx Request Encounter Details Date Type Department Care Team Description 11/02/2020 Refill Internal Medicine - [place] [address] [facility] [facility], [address] [place] [address] Nadeem Wilson MD E-prescribe Rx Request Social [...] on filedocumented in this encounter Care Teams Art Consultant Relationship Specialty Start Date End Date Marizol Esparza MD PCP - General Internal Medicine 11/11/19 Ish Anguiano NP Specialist Cardiology 11/23/20 Richard Weber MD Specialist Cardiology 11/23/20 05/30/21 Leonardo Xiong MD [address] [facility] [address] [place] [address] Specialist Cardiology 05/31/21 documented as of this encounter
--- OUTSIDE RECORDS SUMMARY | 2025-05-06 11:59 | XMS_ITS | Encounter Summary ---
Author Organization [facility] Address [address] [place] [address] Care Team Providers Care Plane Tender Name Role Phone Marizol Esparza MD Primary Care Provider Unavailabl e Ish Anguiano NP Unavailable [phone] Richard Weber MD Unavailable [phone] Leonardo Xiong MD Unavailable Encounter Details Date Type Department Care Team Description 04/10/2020 Pastry Artist Report Medical Records [address] [place] [address] Ish Anguiano NP [address] [place] [address] Social History Tobacco Use Types Packs/Day Years [...] on filedocumented in this encounter Care Teams Plane Tender Relationship Specialty Start Date End Date Marizol Esparza MD PCP - General Internal Medicine 11/11/19 Ish Anguiano NP Specialist Cardiology 11/23/20 Richard Weber MD Specialist Cardiology 11/23/20 05/30/21 Leonardo Xiong MD [address] [facility] [address] [place] [address] Specialist Cardiology 05/31/21 documented as of this encounter
[2025-05-06 13:31] LABS: MANUAL DIFF FLAG NO
[2025-05-06 13:38] LABS: Hematocrit 47.5 % (42.0-52.0); Hemoglobin 15.6 g/dl (14.0-18.0); Imm Gran Abs Auto 0.03 X10*3/uL (0.00-0.03); Imm Gran Pct Auto 0.4 % (0.0-0.4); Lymphocytes Absolute Auto 1.9 X10*3/uL (1.2-4.9); Mean Corpuscular HGB Conc 32.8 g/dl (31.0-36.0); Mean Corpuscular Hemoglobin 30.6 pg (27.0-33.0); Mean Corpuscular Volume 93.1 fL (80.0-98.0); NRBC Abs Auto 0.000 X10*3/uL (0.0-0.012); NRBC Pct Auto 0.0 /100WBC (0.0-0.2); Platelet Count 233 X10*3/uL (160-400); Red Blood Count 5.10 X10*6/uL (4.60-5.80); White Blood Count 7.1 X10*3/uL (4.8-10.8)
[2025-05-06 17:16] LABS: Alanine Aminotransferase 21 U/L (0-40); Albumin Level 4.4 g/dL (3.5-5.0); Alkaline Phosphatase 85 U/L (39-117); Anion Gap 14 (12-20); Aspartate Amino Transferase 33 U/L (5-37); Blood Urea Nitrogen 21 mg/dL (9-16); Calcium 9.4 mg/dL (8.4-10.2); Carbon Dioxide 25 mmol/L (22-29); Chloride 104 mmol/L (96-108); Cholesterol 82 mg/dL (<200); Estimated Glomerular Filt Rate 58; HDL Cholesterol 28 mg/dL (>40); Potassium 4.2 mmol/L (3.3-5.1); Sodium 139 mmol/L (135-145); Total Protein 7.1 g/dL (6.5-8.0); Triglycerides 70 mg/dL (<150)
== END 2025-05-06 09:42 | disposition home or self-care (01) ==
LOC: HO.HMGCX 09:41
PROVIDERS: PCP Internal Medicine; Visit Provider Internal Medicine
DX: Z00.01 Encounter for general adult medical examination with abnormal findings (principal); E13.9 Other specified diabetes mellitus without complications; N40.0 Benign prostatic hyperplasia without lower urinary tract symptoms; I10 Essential (primary) hypertension; E78.9 Disorder of lipoprotein metabolism, unspecified; E66.09 Other obesity due to excess calories; M20.009 Unspecified deformity of unspecified finger(s); E11.42 Type 2 diabetes mellitus with diabetic polyneuropathy; M54.12 Radiculopathy, cervical region; M17.0 Bilateral primary osteoarthritis of knee; E03.8 Other specified hypothyroidism; I25.10 Atherosclerotic heart disease of native coronary artery without angina pectoris; Z68.31 Body mass index [BMI] 31.0-31.9, adult; Z79.82 Long term (current) use of aspirin; Z79.890 Hormone replacement therapy; Z79.84 Long term (current) use of oral hypoglycemic drugs; Z79.899 Other long term (current) drug therapy
CPT/HCPCS: 36415; 73140; 80053; 80061; 83036; 84443; 85025; 96127; 99212; 99397

== ENCOUNTER 2025-05-06 09:41 | Outpatient (AMB) | payer OTHER, SELFPAY ==
[2025-05-06 09:46] VITALS: BP 130/70; PULSE 65; O2SAT 97; BMI 31.9
--- NOTE | 2025-05-06 09:46 | MHC.PC.OV ---
Vital Signs 05/06/25 09:46 Height 5 ft 4 in Weight 186 lb BMI 31.9 BP 130/70 Blood Pressure Location Rt brachial Position Sitting Pulse 65 Pulse Source Pulse Oximeter Pulse Oximetry (%) 97 Oxygen Delivery Method Room Air Intake Visit Reasons: Annual PE Prosthetic Aide Required: No Accompanied by: Self / Same As Patient Allergies tramadol Allergy (Intermediate, Verified 05/06/25 09:46) rash Medication List - Last Reconciled 05/06/25 by Marizol Esparza MD acetaminophen 650 mg (2 x 325 mg) PO Q6H PRN 30 days alcohol swabs (Alcohol Pads) 2 pad topical DAILY aspirin (Adult Aspirin Regimen) 81 mg PO DAILY atorvastatin 80 mg PO DAILY 90 days [Blood pressure monitor As directed] blood sugar diagnostic (FreeStyle Test strips) Patient to check blood sugar twice daily blood sugar diagnostic (FreeStyle Lite Strips) check blood sugar twice daily 2 times a day; celecoxib 200 mg PO BID cetirizine 5 mg PO DAILY PRN docusate sodium 100 mg PO BID dorzolamide-timolol 22.3-6.8 mg/mL mL ophthalmic (eye) gabapentin 200 mg (2 x 100 mg) PO BEDTIME 30 days lancets (FreeStyle Lancets) USE TO TEST TWICE A DAY levothyroxine 50 mcg PO DAILY lisinopril-hydrochlorothiazide 20-25 mg 1 tab PO DAILY 90 days metformin 1,000 mg PO BID 90 days nitroglycerin 1 mg sublingual Q5M PRN sitagliptin phosphate (Januvia) 100 mg PO BEDTIME 90 days tamsulosin 0.4 mg PO DAILY 90 days timolol maleate 0.5% 1 drp ophthalmic (eye) BID Tobacco use date assessed: 11/26/24 Fall risk assessment: No Falls in past year Last assessed Fall Risk: 05/06/25 Dental Screening Dental Screen Date: 11/26/24 HPI Annual PE HPI Details History of Present Illness The patient is a 75-year-old male presenting for an annual physical examination and laboratory evaluation. Complaining of nodule on his left index finger which seems to be a sequelae of osteoarthritis however I have ordered an x-ray Patient says that it to be add a month ago there is no pain and it feels nodular, he has full range of motion in his finger Essential Hypertension: - currently managed with lisinopril and hydrochlorothiazide. Diabetes Mellitus Type 2: - hemoglobin A1c 6.1 today - Currently managed with metformin and Januvia. Hyperlipidemia: - currently managed with atorvastatin 80 mg. Allergic Rhinitis: - Takes cetirizine for management. Diabetic Neuropathy: - Currently managed with gabapentin 200 mg. Hypothyroidism: - Managed with levothyroxine 50 mcg. Coronary Artery Disease: - Monitored annually at [facility]. Benign Prostatic Hyperplasia: - Managed with tamsulosin. Obesity: - BMI recorded at 31.9, patient has acknowledged the need for weight loss. History of cervical spine surgery with flare-up every now and then however today he is doing well Medical History: - Essential Hypertension - Diabetes Mellitus Type 2 - Hyperlipidemia - Allergic Rhinitis - Diabetic Neuropathy - Hypothyroidism - Coronary Artery Disease - Benign Prostatic Hyperplasia - Obesity - Cervical Spine Disorder with History of Surgery - Arthritis (probable) Health Maintenance - Colonoscopy was last performed close to five years ago, with no issues reported at the time. At [facility] patient does not remember the name of the doctor but he will get back to me on that We do not have a report in his chart [facility] of [facility] for annual coronary artery disease monitoring. Medications - Atorvastatin 80 mg for hyperlipidemia - Cetirizine for allergies - Gabapentin 200 mg for diabetic neuropathy - Levothyroxine 50 mcg for hypothyroidism - Lisinopril for hypertension - Hydrochlorothiazide for hypertension - Metformin 1 g for diabetes - Januvia 100 mg for diabetes - Tamsulosin for benign prostatic hyperplasia Patient Instructions - Reminder to complete blood test today t. - Blood test and x-ray to be performed as discussed. - provide me with colonoscopy report - continue medications as prescribed - follow-up 3 months Review of Systems - General: No fever no chills - Neurological: No headaches no dizziness - Ear nose throat: No sore throat no hearing difficulty no ear pain - Cardiovascular: No syncope, no chest pain, no palpitations - Gastrointestinal: No nausea vomiting or diarrhea - Endocrine: No polyuria polydipsia no heat intolerance - Genitourinary: No dysuria - Skin: No new complaints Physical Exam General: Cooperative, healthy appearing, comfortable, no acute distress Orientation: Patient oriented x3 Head: Normal to inspection Ears: Within normal limit visually Nose: Normal external nose present Face and sinus: Normal facial exam Eyes: Appearance normal, extraocular movement intact pupils reactive Neck: Normal visual inspection and supple Respiratory: Normal respiratory effort and able to speak in complete sentences. Clear to auscultation, no stridor Cardiovascular: S1 and S2 RRR GI: Normal to inspection. Soft to palpation and nontender. Skin: Turgor normal, no acute findings Neuro: Patient oriented x3, motor intact, balance intact, tandem pass Extremities: Normal to inspection. No swelling in ankles. Right hand finger with small nodule present. Index, full range of motion no pain . PFSH Medical History CVD (cerebrovascular disease) CAD (coronary artery disease) History of BPH Myocardial infarction CVA (cerebral vascular accident) COVID-19 vaccine administered Arthritis of knee, right Obesity Diabetes 1.5, managed as type 2 Prostate hypertrophy Hypertension, essential Lipid disorder Osteoarthritis of right knee Surgical History Hx of fusion of cervical spine Hx of hand surgery Hx of elbow surgery Hx of shoulder surgery H/O colonoscopy History of knee replacement procedure of left knee Family History Father Cancer Mother CVD (cardiovascular disease) Brother No problems noted. Social History Household Members: Spouse Housing: House Are you a primary health careers instructor to a significant other at home: No Do you presently have visiting nurse or other home services: No Alcohol intake: former Patient Tobacco Use Status: Former Tobacco user Cigarette Packs Per Day: 1 Cigarettes Per Day: 20.0 Years Smoked: 30 e-Cigarette/Vaping Use: Never Used service: No Current occupational status: retired Current occupation: right handed Cognitive needs: No Hearing needs: No Vision needs: No Questionnaire PHQ-9 Over the last 2 weeks, how often have you been bothered by any of the following problems? 1. Little interest or pleasure in doing things: not at all 2. Feeling down, depressed, or hopeless: not at all 3. Trouble falling or staying asleep, or sleeping too much: not at all 4. Feeling tired or having little energy: not at all 5. Poor appetite or overeating: not at all 6. Feeling bad about yourself - or that you are a failure or have let yourself or your family down: not at all 7. Trouble concentrating on things, such as reading the newspaper or watching television: not at all 8. Moving or speaking so slowly that other people could have noticed. Or the opposite - being so fidgety or restless that you have been moving around a lot more than usual: not at all 9. Thoughts that you would be better off or of hurting yourself in some way: not at all Total score: 0 Depression Screening Interpretation: Negative Depression Screening Done: Yes 56740 - PHQ-9 Billing: Yes Source: Developed by Drs. Nitin Land, Rylee Britt, Mino Garcia and colleagues, with an educational calvin from [employer]. Thrive Questionnaire Date Thrive assessed: 08/03/24 I am a: Patient What is your living situation today?: I choose not to answer this question Within the past 12 months, did the food you bought not last and you didn't have the money to get more?: I choose not to answer this question Within the past 12 months, did you worry whether your food would run out before you got money to buy more?: I choose not to answer this question Do you have trouble paying for medicines?: I choose not to answer this question Do you have trouble getting transportation to medical appointments?: I choose not to answer this question Do you have trouble paying your heating and electricity bill?: I choose not to answer this question Do you have trouble taking care of your child, family member or friend?: I choose not to answer this question Do you have trouble with day-to-day activities such as bathing, preparing meals, shopping, managing finances, etc.?: I choose not to answer this question Are you currently unemployed and looking for a job?: I choose not to answer this question Are you interested in more education?: I choose not to answer this question Please select the resources that you would like help with: None THRIVE Score: 0 AUDIT C Alcohol Use Questionnaire (AUDIT-C) 1. How often do you have a drink containing alcohol?: 2-3 times a week 2. How many drinks containing alcohol do you have on a typical day when you are drinking?: 1 or 2 3. How often do you have six or more drinks on one occasion?: Less than monthly Total Score: 4 Score Reviewed/Action Taken: Yes RYLAND-7 AMB Questionnaire RYLAND-7 Date RYLAND - 7 assessed: 05/06/25 Feeling nervous, anxious, or on edge: 0 = Not at all Not being able to stop or control worryin = Not at all Worrying too much about different things: 1 = Several days Trouble relaxin = Not at all Being so restless that it is hard to sit still: 0 = Not at all Becoming easily annoyed or irritable: 0 = Not at all Feeling afraid as if something awful might happen: 0 = Not at all Total RYLAND-7 score (0-4 normal; 5-9 mild; 10-14 moderate; 15-21 severe): 1 Source: Developed by Drs. Nitin Land, Rylee Britt, Mino Garcia and colleagues, with an educational calvin from [employer]. RYLAND-7 Assessment Billing RYLAND-7 Assessment Tool: RYLAND-7 Assessment [id number] Physical exam (Primary Care) Vital Signs: Last Vital Signs Pulse 65 05/06/25 09:46 BP 130/70 05/06/25 09:46 Pulse Ox 97 05/06/25 09:46 Oxygen Delivery Method Room Air 05/06/25 09:46 BMI result Body Mass Index 31.9 Tobacco/Smoking Status: Tobacco use Status Tobacco use date assessed 11/26/24 05/06/25 09:47 Patient Tobacco Use Status Former Tobacco user 05/06/25 09:47 e-Cigarette/Vaping Use Never Used 05/06/25 09:47 PHQ-9: PHQ-9 Score PHQ-9: Total score 0 05/06/25 09:47 Depression Screening Interpretation: Negative Thrive Assessment: Date of Thrive Assessment Date Thrive assessed 08/03/24 05/06/25 09:47 Results AMB Hemoglobin A1c AMB Hemoglobin A1c 6.1 % Last Edit by Vaibhav Geller CMA on 05/06/25 10:02 Results Reviewed Results Reviewed: Laboratory Last Values Hgb A1c (Clinic) 6.1 % (4.0-6.0) H 05/06/25 09:56 Coding Level of Care Code Est Pt Level 4 (93584) Est Pt Prev Care >65y(41877) Diagnoses Encounter for general adult medical examination with abnormal findings Z00.01 Finger deformity M20.009 Diabetes 1.5, managed as type 2 E13.9 Hypertension, essential I10 Lipid disorder E78.9 Diabetic polyneuropathy associated with type 2 diabetes mellitus E11.42 Diabetes mellitus type: type 2 Diabetes mellitus complication detail: diabetic polyneuropathy Cervical radiculitis M54.12 Class 1 obesity due to excess calories with serious comorbidity and body mass index (BMI) of 32.0 to 32.9 in adult E66.09; Z68.32 Obesity classification: adult class 1 (BMI 30 - 34.9) Serious obesity comorbidity presence: with serious comorbidity Body mass index: BMI 32.0-32.9 Primary osteoarthritis of both knees M17.0 Osteoarthritis type: primary Prostate hypertrophy N40.0 Other specified hypothyroidism E03.8 Coronary artery disease involving alutiiq coronary artery of alutiiq heart without angina pectoris I25.10 Coronary Disease-Associated Artery/Lesion type: al[place]iiq artery [place] vs. transplanted heart: alutiiq heart Associated angina: without angina Additional Codes RYLAND-7 Assessment Billing - RYLAND-7 Assessment Tool: RYLAND-7 Assessment [id number] ([id number]) PHQ-9 - 78924 - PHQ-9 Billing: Yes ([id number]) Assessment & Plan Assessment & Plan (1) Encounter for general adult medical examination with abnormal findings: Code(s): Z00.01 - Encounter for general adult medical examination with abnormal findings Category: Medical (2) Finger deformity: Code(s): M20.009 - Unspecified deformity of unspecified finger(s) Category: Medical (3) Diabetes 1.5, managed as type 2: Code(s): E13.9 - Other specified diabetes mellitus without complications Category: Medical (4) Hypertension, essential: Code(s): I10 - Essential (primary) hypertension Category: Medical (5) Lipid disorder: Code(s): E78.9 - Disorder of lipoprotein metabolism, unspecified Category: Medical (6) Diabetic neuropathy: Code(s): E11.40 - Type 2 diabetes mellitus with diabetic neuropathy, unspecified Category: Medical Qualifiers: Diabetes mellitus type: type 2 Diabetes mellitus complication detail: diabetic polyneuropathy Qualified Code(s): E11.42 - Type 2 diabetes mellitus with diabetic polyneuropathy (7) Cervical radiculitis: Code(s): M54.12 - Radiculopathy, cervical region Category: Medical (8) Obesity due to excess calories: Code(s): E66.09 - Other obesity due to excess calories Category: Medical Qualifiers: Obesity classification: adult class 1 (BMI 30 - 34.9) Serious obesity comorbidity presence: with serious comorbidity Body mass index: BMI 32.0-32.9 Qualified Code(s): E66.09 - Other obesity due to excess calories; Z68.32 - Body mass index [BMI] 32.0-32.9, adult (9) Osteoarthritis of knees, bilateral: Code(s): M17.0 - Bilateral primary osteoarthritis of knee Category: Medical Qualifiers: Osteoarthritis type: primary Qualified Code(s): M17.0 - Bilateral primary osteoarthritis of knee (10) Prostate hypertrophy: Code(s): N40.0 - Benign prostatic hyperplasia without lower urinary tract symptoms Category: Medical (11) Other specified hypothyroidism: Code(s): E03.8 - Other specified hypothyroidism Category: Medical (12) CAD (coronary artery disease): Code(s): I25.10 - Atherosclerotic heart disease of alutiiq coronary artery without angina pectoris Category: Medical Qualifiers: Coronary Disease-Associated Artery/Lesion type: [place] artery [place] vs. transplanted heart: al[place]q heart Associated angina: without angina Qualified Code(s): I25.10 - Atherosclerotic heart disease of alutiiq coronary artery without angina pectoris Plan Complaining of nodule on his left index finger which seems to be a sequelae of osteoarthritis however I have ordered an x-ray Patient says that it to be add a month ago there is no pain and it feels nodular, he has full range of motion in his finger Essential Hypertension: - currently managed with lisinopril and hydrochlorothiazide. Diabetes Mellitus Type 2: - hemoglobin A1c 6.1 today - Currently managed with metformin and Januvia. Hyperlipidemia: - currently managed with atorvastatin 80 mg. Allergic Rhinitis: - Takes cetirizine for management. Diabetic Neuropathy: - Currently managed with gabapentin 200 mg. Hypothyroidism: - Managed with levothyroxine 50 mcg. Coronary Artery Disease: - Monitored annually at [facility]. Benign Prostatic Hyperplasia: - Managed with tamsulosin. Obesity: - BMI recorded at 31.9, patient has acknowledged the need for weight loss. Patient Instructions - Reminder to complete blood test today t. - Blood test and x-ray to be performed as discussed. - provide me with colonoscopy report - continue medications as prescribed - follow-up 3 months Orders: Orders XR finger LT min 2V Today M20.009 - Unspecified deformity of unspecified finger(s) AMB Hemoglobin A1c Today Z13.9 - Encounter for screening, unspecified
--- OUTSIDE RECORDS SUMMARY | 2025-05-06 11:07 | XMS_ITS | Continuity of Care Document ---
Author Name [facility], Medical Address [address] [place] [address] Organization Unknown Address [address] [place] [address] Medications No known medications Problems No known problems
--- OUTSIDE RECORDS SUMMARY | 2025-05-06 11:07 | XMS_ITS | Encounter Summary ---
Author Organization [facility] Address [address] [facility] [address] [place] [address] Encounters * CPT with Medical instED at [employer] [employer] on 2025-03-13 { reasonForRequest : Urinary Symptoms , patientReports : ,& quot;denies :[ Unable to void greater than 5 hours , Erection that will not go a way after 2 hours , Fall or trauma that results in urinary incontinence in the setting ofpain , Fall or injury that results in incontinence in the absence of pain , Lower back pain either unilateral or bilateral, unable to void, painful urination -hematuria ],"chiefComplaints : Urinary Symptoms , pmh : Diabetes Mellitus Type 2, Myocardial Infarction, Stroke , allergies : No Known Drug Allergies ,"otherAllergies : , painAssessment : , visitOutcome : , additionalComments : 75 y.o male complains of Urinary Symptoms\nPatient is Indonesian speaking primarily, Windshield Technician# [id number], used for triage assessment. Patient seen on 03/10 for Urinary Symptoms, Fever, Headache, and Extremity Pain. I spoke to the patient today, 03/12,and they are experiencing he is having difficulty urinating, stating when he urinates, only a smallamount of urine passes at a time and feels \ kalpana\ . Patient reports significant pain with urination. Patient denies blood in urine, does endorse mid lower back pain. Patient denies fevers, but does endorse chills. [facility] provider requesting re visit for patient to assess for pyelonephritisand to obtain new urine culture. Patient agreeable to new visit, but would like it for tomorrow, 03/13, around 1100. I provided information on the mobile health provider response time and advised the patient and/or caregiver to monitor reported signs and symptoms. I discussed the warning signs of when to seek emergency care -Heena Gonsalves RN } [facility] responds to the listed address for a 75 yom w/ a c/c of urinary symptoms. Upon arrival, pt is sitting in his recliner awaiting [facility] arrival. His head is turned towards the door and he smiles, greets, and laughs upon [facility] entry. He is generally well-appearing, speaking loudly, congenially, and in an appropriate manner. He is animated and happy to see [facility]. Pt is not in any distress. He tells [facility] he was seen a few days ago for urinary symptoms, which he describes as burningand painful urination and the inability to fully void his bladder. He continues to have these sensations today. He denies any hematuria, but describes the burning pain he feels as like sand paper! He also denies dark color, cloudiness, or malodor. He was told the recheck was for anotherculture of his urine. Pt is also denying cp, sob, n/v/d, gonzalez, ams, and fever/chills. He no longer sees a urologist since moving from [place], but he does have an appt w/ his PCP pretty soon". Ddx: Pyelonephritis, prostatitis, kidney stone. [facility] obtains vital signs and pt is assessed. HEENT: normal, LS: clear to auscultation bilaterally, ABD: soft and nontender in all quadrants. No guarding, distension, or pulsating masses. Back: no CVA tenderness or flank pain. Extremities: CMS is intact and no peripheral edema is noted. Neuro: pt is fully ambulatory, follows all commands and answers all questions appropriately. Pt provides a clean catch of urine. Color is light yellow and consistency is clear. UA is not consistent w/ UTI, but culture is obtained. [facility] contacts [facility] and discusses the above. [facility] orders a urine culture and places pton abx w/ instructions to continue w/ the abx until he hears about the culture results. [facility] informspt of the warning signs of when to seek emergency care and he gives his verbal understanding. He thanks [facility] for coming back out to see him. [facility] is clear. Report completed by EVAN Borrego. ORAL_MEDICATION, EKG, POC_BLOODWORK, GLUCOSE [facility]25-[facility]13
--- OUTSIDE RECORDS SUMMARY | 2025-05-06 11:07 | XMS_ITS | Continuity of Care Document ---
Author Name instED, Medical Address [address] [place] [address] Organization Unknown Address [address] [place] [address] Medications No known medications Problems No known problems
--- OUTSIDE RECORDS SUMMARY | 2025-05-06 11:07 | XMS_ITS | Clinical Summary ---
Author Organization [employer] [facility] Address [address] [place] [address] Care Team Providers Care Book Solicitor Name Role Phone Marizol Esparza MD Primary Care Provider [phone] Medications isosorbide mononitrate (IMDUR) 30 mg 24 hr tablet TAKE 1 TABLET BY MOUTH ONCE DAILY 90 tablet 03/24/2025 Active Surgical History Surgery Date Site/Laterality Comments TOTAL KNEE ARTHROPLASTY PROCEDURE: HISTORICAL TOTAL KNEE REPLACE SHOULDER SURGERY PROCEDURE: HISTORICAL SHOULDER SURGERY OTHER SURGICAL HISTORY PROCEDURE: RI UNLISTED PROCEDURE CARDIAC SURGERY; COMMENT: ?CABG COLONOSCOPY PROCEDURE: HISTORICAL COLONOSCOPY TOTAL KNEE ARTHROPLASTY Left PROCEDURE: HISTORICAL TOTAL KNEE REPLACE ELBOW SURGERY PROCEDURE: HISTORICAL ELBOW SURGERY OTHER SURGICAL HISTORY PROCEDURE: RI ARTHRODESIS POSTERIOR INTERBODY [facility] ADDL HAND SURGERY PROCEDURE: HISTORICAL HAND [...] of sensations DX:CVA, old, alterations of sensations MO, old DX:MO, old Arthritis of knee, right DX:Arth ritis of knee, right CVA (cerebral vascular accid ent) ([facility]/HCC V24, CMS/[facility] V28) DX:CVA (cerebral vascular a ccident) ([facility]) Diabetes 1.5, managed as typ e 2 (CMS/HCC V24, [facility]/HCC V28) DX:Diabetes 1.5, managed as type 2 ([facility]) Obesity DX:Obesity Lipid disorder DX:Lipid disorde r [...] Health Maintenance Due Date Last Done Comments Colorectal Cancer Screening: Colonoscopy 1950 Diabetes: Annual GFR (Glomerular Filtration Rate) 1952 Diabetes: Annual Foot Exam 02/06/1962 Diabetes: Annual Retina Eye Exam 02/06/1962 Zoster Vaccines (1 of 2) 02/06/2002 Abdominal Aortic Aneurysm (AAA) Screen 06/29/2022 Cholesterol Screening (Lipid Panel) 06/29/2022 Falls Risk Assessment 06/29/2022 Hepatitis C Screening 06/29/2022 Social Influencers of Health Screening 06/29/2022 Hypertension/CHF/CAD Annual BMP Blood Test 06/30/2022 Diabetes: Annual Urine Albumin-Creatinine Ratio (uACR) 07/06/2022 Diabetes: Blood Sugar Contro l Test (HGBA1C) 07/06/2022 Depression Screening 07/21/2024 COVID-19 Vaccine (1 - 2023-2 5 season) 2025 Influenza Vaccine (#1) 2025 DTaP,Tdap,and Td Vaccines [...] age to complete this topic Care Teams Book Solicitor Relationship Specialty Start Date End Date Marizol Esparza MD [address] [place] [id number] PCP - General Internal Medicine 11/11/19
--- OUTSIDE RECORDS SUMMARY | 2025-05-06 11:07 | XMS_ITS | Continuity of Care Document ---
Author Name instED, Medical Address [address] [place] [address] Organization Unknown Address [address] [place] [address] Medications No known medications Problems No known problems
--- OUTSIDE RECORDS SUMMARY | 2025-05-06 11:07 | XMS_ITS | Encounter Summary ---
Author Organization [facility] Address [address] [place] [address] Encounters * CPT with Medical instED at [facility] on 2025-04-01 RN calling for right side and back pain. The pain started yesterday. He stated it is worse if he takes a deep breath or raises his right arm. He did have a fall, 2-3 weeks ago, but did not have this pain. He does not have chronic back pain. He denies any changes in his . He has not taken anything for the pain. HE is not on blood thinners. Vitals 98.1 65 93% 118/60 { reasonForRequest : side and back pain , patientReports : , denies :[], chiefComplaints : Back Pain , pmh : Diabetes Mellitus Type 2, Myocardial Infarction, Stroke , allergies : No Known Drug A llergies , otherAllergies : , painAssessment : ,&quot ;visitOutcome : , additionalComments : HPI reviewed \n1330 pt is nothome and wants her visit on 04/01 } [facility] visit for male patient who???s visiting nurse requested evaluation of possible right shoulder injury. Patient reports that about three or four weeks ago he was working on a water heater and received a small electric shock, causing him to fall off a approximately 1 foot step ladder landing onhis buttocks. Patient reports that after this incident, he experienced some pain in his right shoulder, making it difficult to raise his arm straight up. Patient was not evaluated for this injury anddid not take any hvog-jkh-vhdkqgz medication???s to treat the pain. Pt mentioned what happened to his visiting nurse yesterday who requested the [facility] visit. Pt presents appearing well with no complaints. V/S taken as listed. Pt afebrile. No pain or tenderness on palpation. Pt is now able to raise his arm without pain. Consulted with [facility] Dr. Greene with no further treatments or evaluation indicated. Reviewed red flags for ED with pt. Informed him that he may call back for reevaluation if pain returns. Pt education provided. IV_(FLUIDS_AND/OR_MEDICATION), MEDICATION_IM, ORAL_MEDICATION, EKG Written by Medical instED on 2025-04-01
--- OUTSIDE RECORDS SUMMARY | 2025-05-06 11:07 | XMS_ITS | Encounter Summary ---
Author Organization [facility] Address [address] [place] [address] Encounters * CPT with Medical instED at [facility] on 2025-03-10 Fever, chills, headache, pain in the leg and frequent urination started Friday03/06/25 { reasonForRequest : , patientReports : , denies":[ Unable to void greater than 5 hours , Erection that will not go away after 2 hours , Fall or trauma that results in urinary incontinence in the setting of pain ,"Fall or injury that results in incontinence in the absence of pain , Lower back pain either unilateral or bilateral, unable to void, painful urination -hematuria ], chiefComplaints : Fever, Headache, Extremity Pain, Urinary Symptoms , pmh : Diabetes Mellitus Type 2, Myocardial Infarction, Stroke , allergies : No Known Drug Yoan rgies , otherAllergies : , painAssessment : , vi sitOutcome : , additionalComments : 75 y.o male complains of Fever, Headache, Extremity Pain, Urinary Symptoms\n\nReferral placed overnight by patients daughter, patient called this morning bu [facility] and triaged by this nurse.\nPatient reports subjective fevers, +chills,headache and bilateral lower extremity pain.\nPatient denies any redness, warmth or swelling to hislegs.\nHe has not taken any OTC medications for the pain.\nHe also reports 4 days of frequency urination, urgency and pain. He is unsure about color but denies hematuria, denies malodor, no back or abdominal pain, no nausea or vomiting.\nReports blood sugars have been high for him, 145 this morning.\nDenies being on blood thinners. No history of kideny disease.\nHe would like to be evaluated.\n\nI provided information on the mobile health provider response time and advised the patient and/or caregiver to monitor reported signs and symptoms. I discussed the warning signs of when to seek emergency care. } Patient alert and oriented seated in chair. Patient complains of dysuria that started three days ago, subsided yesterday. Patient reports chief complaint is chronic arthritis pain in knees. Patient denies fever chills, nausea, vomiting, or any other. Patient states he ate a full meal and found his symptoms had dissipated completely last night. Patient reports for 48 hours he had difficult painfulurination with inability to empty his bladder and headache. Patient reports one time diarrhea. Patient denies fever, chills, weakness, dizziness, or any other pain or complaint. Patient pink warm and dry secondary exam unremarkable negative increased work breathing positive full sentences abdomen soft, nontender extremities unremarkable no edema noted. Patient walks with a steady gait using a cane. No CVA tenderness noted. UA negative, culture to [facility]. Patient afforded opportunity to ask questions, red flags, patient education discussed. Patient demonstrates understanding of care and plan. IV_(FLUIDS_AND/OR_MEDICATION), MEDICATION_IM, ORAL_MEDICATION, EKG, POC_BLOODWORK, POC_FLU_STREP, GLUCOSE, COVID_TEST, WOUND_CARE, ORTHOSTATIC_VITAL_SIGNS Written by Medical instED on 2025-03-10
== END 2025-05-06 10:08 | disposition home or self-care (01) ==
LOC: HO.HMCC 09:42
PROVIDERS: PCP Internal Medicine; Visit Provider Internal Medicine
DX: Z00.01 Encounter for general adult medical examination with abnormal findings (principal); M20.002 Unspecified deformity of left finger(s); E11.42 Type 2 diabetes mellitus with diabetic polyneuropathy; Z68.32 Body mass index [BMI] 32.0-32.9, adult; E66.09 Other obesity due to excess calories; I10 Essential (primary) hypertension; E78.9 Disorder of lipoprotein metabolism, unspecified; M54.12 Radiculopathy, cervical region; M17.0 Bilateral primary osteoarthritis of knee; N40.0 Benign prostatic hyperplasia without lower urinary tract symptoms; E03.8 Other specified hypothyroidism; I25.10 Atherosclerotic heart disease of native coronary artery without angina pectoris

== ENCOUNTER → 2025-05-06 10:21 | Outpatient (BNV) | payer OTHER, SELFPAY | PROVIDERS: PCP Internal Medicine; Visit Provider Radiology Diagnostic Radiology | DX: M19.042 Primary osteoarthritis, left hand (principal) | CPT/HCPCS: 73140 ==

== ENCOUNTER 2025-05-12 08:30 | Outpatient (AMB) | payer OTHER, SELFPAY ==
--- NOTE | 2025-05-12 08:27 | A.OFFPC_ITS ---
Intake Visit Reasons: xray results Allergies tramadol Allergy (Intermediate, Verified 05/06/25 09:46) rash Medication List - Last Reconciled 05/12/25 by Marizol Esparza MD acetaminophen 650 mg (2 x 325 mg) PO Q6H PRN 30 days alcohol swabs (Alcohol Pads) 2 pad topical DAILY aspirin (Adult Aspirin Regimen) 81 mg PO DAILY atorvastatin 80 mg PO DAILY 90 days [Blood pressure monitor As directed] blood sugar diagnostic (FreeStyle Test strips) Patient to check blood sugar twice daily blood sugar diagnostic (FreeStyle Lite Strips) check blood sugar twice daily 2 times a day; celecoxib 200 mg PO BID 30 days cetirizine 5 mg PO DAILY PRN docusate sodium 100 mg PO BID gabapentin 200 mg (2 x 100 mg) PO BEDTIME 30 days lancets (FreeStyle Lancets) USE TO TEST TWICE A DAY levothyroxine 50 mcg PO DAILY lisinopril-hydrochlorothiazide 20-25 mg 1 tab PO DAILY 90 days metformin 1,000 mg PO BID 90 days nitroglycerin 1 mg sublingual Q5M PRN sitagliptin phosphate (Januvia) 100 mg PO BEDTIME 90 days tamsulosin 0.4 mg PO DAILY 90 days Tobacco use date assessed: 05/12/25 Fall risk assessment: No Falls in past year Last assessed Fall Risk: 05/12/25 Dental Screening Dental Screen Date: 05/12/25 Did you have a dental visit in the last 12 months?: No Did you have a dental problem in the last 6 months where you did not have access to dental care?: No Was dental information given to patient?: Patient declined HPI xray results HPI Details Telemed apt to go over the Left hand X ray report Patient has developed a hard lump Left index finger distal phalanx which is getting bigger as following , there is tiny Metallic FB seen as well, how ever that is not where the lump is after discussing with patient, he will be referred to Hand specialist for further managment Three views of the left index finger are submitted. Osseous mineralization is normal. A well-corticated osseous density is seen in at the dorsal aspect of the DIP joint which may be the result of old trauma. No acute fracture or dislocation is seen. There is moderate osteoarthritis with joint space narrowing and osteophyte formation. A tiny metallic foreign body is seen adjacent to the neck of the metacarpal. [facility] Medical History CVD (cerebrovascular disease) CAD (coronary artery disease) History of BPH Myocardial infarction CVA (cerebral vascular accident) COVID-19 vaccine administered Arthritis of knee, right Obesity Diabetes 1.5, managed as type 2 Prostate hypertrophy Hypertension, essential Lipid disorder Osteoarthritis of right knee Surgical History Hx of fusion of cervical spine Hx of hand surgery Hx of elbow surgery Hx of shoulder surgery H/O colonoscopy History of knee replacement procedure of left knee Family History Father Cancer Mother CVD (cardiovascular disease) Brother No problems noted. Social History Household Members: Spouse Housing: House Are you a primary rn homecare to a significant other at home: No Do you presently have visiting nurse or other home services: No Alcohol intake: former Patient Tobacco Use Status: Former Tobacco user Cigarette Packs Per Day: 1 Cigarettes Per Day: 20.0 Years Smoked: 30 e-Cigarette/Vaping Use: Never Used service: No Current occupational status: retired Current occupation: right handed Cognitive needs: No Hearing needs: No Vision needs: No Questionnaire PHQ-9 Over the last 2 weeks, how often have you been bothered by any of the following problems? 1. Little interest or pleasure in doing things: not at all 2. Feeling down, depressed, or hopeless: not at all 3. Trouble falling or staying asleep, or sleeping too much: not at all 4. Feeling tired or having little energy: not at all 5. Poor appetite or overeating: not at all 6. Feeling bad about yourself - or that you are a failure or have let yourself or your family down: not at all 7. Trouble concentrating on things, such as reading the newspaper or watching television: not at all 8. Moving or speaking so slowly that other people could have noticed. Or the opposite - being so fidgety or restless that you have been moving around a lot more than usual: not at all 9. Thoughts that you would be better off or of hurting yourself in some way: not at all Total score: 0 Depression Screening Interpretation: Negative Depression Screening Done: Yes 59923 - PHQ-9 Billing: Yes Source: Developed by Drs. Nitin Land, Mino White and colleagues, with an educational calvin from [employer]. Thrive Questionnaire Date Thrive assessed: 08/03/24 AUDIT C Alcohol Use Questionnaire (AUDIT-C) 1. How often do you have a drink containing alcohol?: 2-3 times a week 2. How many drinks containing alcohol do you have on a typical day when you are drinking?: 1 or 2 3. How often do you have six or more drinks on one occasion?: Less than monthly Total Score: 4 RYLAND-7 AMB Questionnaire RYLAND-7 Date RYLAND - 7 assessed: 05/06/25 Feeling nervous, anxious, or on edge: 0 = Not at all Not being able to stop or control worryin = Not at all Worrying too much about different things: 1 = Several days Trouble relaxin = Not at all Being so restless that it is hard to sit still: 0 = Not at all Becoming easily annoyed or irritable: 0 = Not at all Feeling afraid as if something awful might happen: 0 = Not at all Total RYLAND-7 score (0-4 normal; 5-9 mild; 10-14 moderate; 15-21 severe): 1 Source: Developed by Drs. Nitin Land, Mino White and colleagues, with an educational calvin from [employer]. Review of Systems Const All systems reviewed & are unremarkable except as noted in HPI and below Physical exam (Primary Care) Tobacco/Smoking Status: Tobacco use Status Tobacco use date assessed 05/12/25 05/12/25 08:29 Patient Tobacco Use Status Former Tobacco user 05/12/25 08:29 e-Cigarette/Vaping Use Never Used 05/12/25 08:29 PHQ-9: PHQ-9 Score PHQ-9: Total score 0 05/12/25 08:29 Depression Screening Interpretation: Negative Thrive Assessment: Date of Thrive Assessment Date Thrive assessed 08/03/24 05/12/25 08:29 Telehealth Telehealth Telehealth Platform: [facility] Location of provider rendering services: practice address Location of patient: address on file Patient Identification confirmed using: Name, : Yes Telehealth method: video (attempted) Patient verbally consented to treatment: Yes Patient verbally consented to billing insurance company: Yes Patient informed of any privacy concerns related to visit: Yes Minutes spent on Phone/Video with Pt.: 13 Coding Level of Care Code Tele Est Pt Level 3 (93418) Diagnoses Foreign body of left hand, sequela S60.552S Encounter type: sequela Finger deformity M20.009 Additional Codes PHQ-9 - 82856 - PHQ-9 Billing: Yes ([id number]) Assessment & Plan Assessment & Plan (1) Foreign body of hand, left: Code(s): S60.552A - Superficial foreign body of left hand, initial encounter Category: Medical Qualifiers: Encounter type: sequela Qualified Code(s): S60.552S - Superficial foreign body of left hand, sequela (2) Finger deformity: Code(s): M20.009 - Unspecified deformity of unspecified finger(s) Category: Medical Plan Telemed apt to go over the Left hand X ray report Patient has developed a hard lump Left index finger distal phalanx which is getting bigger as following , there is tiny Metallic FB seen as well, how ever that is not where the lump is after discussing with patient, he will be referred to Hand specialist for further managment Orders: Referrals Hand Surgery Referral M20.009 - Unspecified deformity of unspecified finger(s), S60.552S - Superficial foreign body of left hand, sequela
--- OUTSIDE RECORDS SUMMARY | 2025-05-12 08:52 | XMS_ITS | Clinical Summary ---
Author Organization [employer] [facility] Address [address] [place] [address] Care Team Providers Care Evp [employer] Experience Strategy Name Role Phone Marizol Esparza MD Primary Care Provider [phone] Medications isosorbide mononitrate (IMDUR) 30 mg 24 hr tablet TAKE 1 TABLET BY MOUTH ONCE DAILY 90 tablet 03/24/2025 Active Surgical History Surgery Date Site/Laterality Comments TOTAL KNEE ARTHROPLASTY PROCEDURE: HISTORICAL TOTAL KNEE REPLACE SHOULDER SURGERY PROCEDURE: HISTORICAL SHOULDER SURGERY OTHER SURGICAL HISTORY PROCEDURE: [place] UNLISTED PROCEDURE CARDIAC SURGERY; COMMENT: ?CABG COLONOSCOPY PROCEDURE: HISTORICAL COLONOSCOPY TOTAL KNEE ARTHROPLASTY Left PROCEDURE: HISTORICAL TOTAL KNEE REPLACE ELBOW SURGERY PROCEDURE: HISTORICAL ELBOW SURGERY OTHER SURGICAL HISTORY PROCEDURE: [place] [facility] PROCEDURE: HISTORICAL HAND [...] of sensations DX:CVA, old, alterations of sensations MD, old DX:MD, old Arthritis of knee, right DX:Arth ritis of knee, right CVA (cerebral vascular accid ent) ([facility]/HCC V24, CMS/[facility] V28) DX:CVA (cerebral vascular a ccident) ([facility]) Diabetes 1.5, managed as typ e 2 (CMS/HCC V24, [facility]/HCC V28) DX:Diabetes 1.5, managed as type 2 ([facility]) Obesity DX:Obesity Lipid disorder DX:Lipid disorde [...] age to complete this topic Care Teams [employer] Experience Strategy Relationship Specialty Start Date End Date Marizol Esparza MD [address] [place] [phone] PCP - General Internal Medicine 11/11/19
== END 2025-05-12 09:49 | disposition home or self-care (01) ==
LOC: HO.HMCC 08:30
PROVIDERS: PCP Internal Medicine; Visit Provider Internal Medicine
DX: S60.552A Superficial foreign body of left hand, initial encounter (principal); M20.002 Unspecified deformity of left finger(s)

== ENCOUNTER → 2025-05-12 08:30 | Outpatient (BNVA) | payer OTHER, SELFPAY | PROVIDERS: PCP Internal Medicine; Visit Provider Internal Medicine | DX: S60.552A Superficial foreign body of left hand, initial encounter (principal); M20.092 Other deformity of left finger(s); X58.XXXA Exposure to other specified factors, initial encounter; Y93.9 Activity, unspecified; Y92.9 Unspecified place or not applicable; Y99.9 Unspecified external cause status | CPT/HCPCS: 96127 ==

== ENCOUNTER 2025-06-28 13:42 | Outpatient (AMB) | payer OTHER, SELFPAY ==
[2025-06-28 14:33] VITALS: BMI 31.9
--- NOTE | 2025-06-28 14:33 | MHC.OFFVIS ---
Vital Signs 06/28/25 14:33 Height 5 ft 4 in Weight 186 lb BMI 31.9 Intake Visit Reasons: Newprob-LT IF distal phalanx bump Intake Note: Walter is a 75 year old right hand dominant male who presents today for a New Problem Visit for evaluation of a Left Index Finger Distal Phalanx Lump. Patient reports he first noticed it 2 months ago but it has now decreased in size. He does not recall any discoloration. He expresses concern for a line on the dorsal aspect of his PIP. Patient states since the swelling has gone down he is no longer experiencing pain. He also complains of bilateral hand numbness and tingling, normal EMG many years ago. Status post Right Dorsal Hand Foreign Body Removal, DOS: 10/28/2024, by Dr. Albarado. Hx of Type 2 Diabetes Mellitus, last A1C done 05/06/25 - 6.1% Allergies tramadol Allergy (Intermediate, Verified 06/28/25 14:35) rash HPI HPI Newprob-LT IF distal phalanx bump: Details: Walter is a 75 year old right hand dominant male who presents today for a New Problem Visit for evaluation of a Left Index Finger Distal Phalanx Lump. Patient reports he first noticed it 2 months ago but it has now decreased in size. He does not recall any discoloration. He expresses concern for a line on the dorsal aspect of his PIP. Patient states since the swelling has gone down he is no longer experiencing pain. Patient states that if she can hold off on any intervention for now, and would like to, as it is not bothersome to him at this time, however he was told by Dr. Esparza that this ?had to be removed?. He also complains of bilateral hand numbness and tingling, normal EMG many years ago. Status post Right Dorsal Hand Foreign Body Removal, DOS: 10/28/2024, by Dr. Albarado. Hx of Type 2 Diabetes Mellitus, last A1C done 05/06/25 - 6.1% [facility] Medical History CVD (cerebrovascular disease) CAD (coronary artery disease) History of BPH Myocardial infarction CVA (cerebral vascular accident) COVID-19 vaccine administered Arthritis of knee, right Obesity Diabetes 1.5, managed as type 2 Prostate hypertrophy Hypertension, essential Lipid disorder Osteoarthritis of right knee Surgical History Hx of fusion of cervical spine Hx of hand surgery Hx of elbow surgery Hx of shoulder surgery H/O colonoscopy History of knee replacement procedure of left knee Family History Father Cancer Mother CVD (cardiovascular disease) Brother No problems noted. Social History Household Members: Spouse Housing: House Are you a primary special needs child caregiver to a significant other at home: No Do you presently have visiting nurse or other home services: No Alcohol intake: former Patient Tobacco Use Status: Former Tobacco user Cigarette Packs Per Day: 1 Cigarettes Per Day: 20.0 Years Smoked: 30 e-Cigarette/Vaping Use: Never Used service: No Current occupational status: retired Current occupation: right handed Cognitive needs: No Hearing needs: No Vision needs: No Review of Systems Const All systems reviewed & are unremarkable except as noted in HPI and below Physical Exam Vital Signs: BMI result Body Mass Index 31.9 Extrem Other: Patient is alert, oriented, and in no acute distress. Neuro: Normal sensation of the tips of all digits of the left hand at this time Vascular: Cap refill brisk Pain: No tenderness to palpation about the small mass noted over dorsal aspect of the IP joint of the left index finger No pain with range of motion of the left hand ROM: Patient is able to make a closed fist and extend all digits of the left hand fully and without difficulty Skin: No lacerations or abrasions. General: Small, approximately 0.5 cm in diameter mass mass noted over the dorsal aspect of the D IP joint of the left index finger, consistent with mucous cyst No ecchymosis, erythema, or evidence of infection. Psych: Appears grossly normal Affect normal Attitude cooperative Assessment & Plan Assessment & Plan (1) Ganglion cyst of finger of left hand: Code(s): M67.442 - Ganglion, left hand Category: Medical Plan 1. Mucous cyst of the left index finger Patient is educated about this condition Patient is educated about the typical treatment course At this time, patient would like to hold off on any surgical intervention, and I feel that this is advisable, given the symptoms are improving and the cyst appears to have shrunk significantly since he was booked for an appointment Patient is educated he should call us if he notices the cyst growing, he notices redness or swelling, or he notices a return of his pain Patient understands this in his amenable to this plan Follow-up as needed Coding Level of Care Code Est Pt Level 3 (56010) Diagnoses Ganglion cyst of finger of left hand M67.442
--- OUTSIDE RECORDS SUMMARY | 2025-06-28 19:41 | XMS_ITS | Clinical Summary ---
Author Organization [facility] [employer] [facility] Address [address] [place] [address] Care Team Providers Care Tailings [place] Laborer Name Role Phone Marizol Esparza MD Primary Care Provider [phone] Medications isosorbide mononitrate (IMDUR) 30 mg 24 hr tablet TAKE 1 TABLET BY MOUTH ONCE DAILY 30 tablet 5 Active isosorbide mononitrate (IMDUR) 30 mg 24 hr tablet TAKE 1 TABLET BY MOUTH ONCE DAILY 90 tablet 5 06/10/20 25 Discontinued Surgical History Surgery Date Site/Laterality Comments TOTAL KNEE ARTHROPLASTY PROCEDURE: HISTORICAL TOTAL KNEE REPLACE SHOULDER SURGERY PROCEDURE: HISTORICAL SHOULDER SURGERY OTHER SURGICAL HISTORY PROCEDURE: [place] UNLISTED PROCEDURE CARDIAC SURGERY; COMMENT: ?CABG COLONOSCOPY PROCEDURE: HISTORICAL COLONOSCOPY TOTAL KNEE ARTHROPLASTY Left PROCEDURE: HISTORICAL TOTAL KNEE REPLACE ELBOW SURGERY PROCEDURE: HISTORICAL ELBOW SURGERY OTHER SURGICAL HISTORY PROCEDURE: DC ARTHRODESIS POSTERIOR INTERBODY 1 [facility] EA ADDL [...] of sensations DX:CVA, old, alterations of sensations NM, old DX:NM, old Arthritis of knee, right DX:Arth ritis of knee, right CVA (cerebral vascular accid ent) (CMS/HCC V24, CMS/HCC V28) DX:CVA (cerebral vascular a ccident) ([facility]) Diabetes 1.5, managed as typ e 2 ([facility] [place], [facility] [place]28) DX:Diabetes 1.5, managed as type 2 ([facility]) Obesity DX:Obesity Lipid disorder DX:Lipid disorde [...] on file Sexual Orientation Not on file Last Filed Vital Signs Vital Sign Reading [...] Depression Screening 07/21/2024 COVID-19 Vaccine (1 - 2024-2 6 season) 2025 Influenza Vaccine (#1) 2025 DTaP,Tdap,and [...] age to complete this topic Care Teams T[employer]ings [place] Laborer Relationship Specialty Start Date End Date Marizol Esparza MD [address] [place] [phone] PCP - General Internal Medicine 11/11/19
== END 2025-06-28 14:47 | disposition home or self-care (01) ==
LOC: HO.HOS 13:43
PROVIDERS: PCP Internal Medicine
DX: M67.442 Ganglion, left hand (principal)
CPT/HCPCS: 99213

== ENCOUNTER → 2025-06-28 13:42 | Outpatient (BNVA) | payer OTHER, SELFPAY | PROVIDERS: PCP Internal Medicine | DX: M67.442 Ganglion, left hand (principal) | CPT/HCPCS: 99212 ==